=== PATIENT | female | born 1990 | race Hispanic/Latino ===

== ENCOUNTER 2016-08-03 00:59 | Emergency (ER) | payer SELFPAY ==
[~2016-08-03] VITALS: Ht 165.1 cm; Wt 68.0 kg
[~2016-08-03 00:59] MED LIST: ACET1TAB43 PO; ACHD5005 PO; ALBU1.25 IH; AMOX500C2 PO; BENZ56AE TP; CEFU250T PO; CEPH-507 PO; CODE-54 PO; DBC1O30 TOP; DCS100C PO; DOCU-143 PO; FERR-74 PO; FRS325T PO; IBUP-1773 PO; Ibuprofen PO; NITR-65 PO; ONDA-42 SL; ONDA8TAB13 PO; POLY17PO6 PO; PRED20TA PO; PREN1TAB71 PO; RT-ALBUINH IH
--- OUTSIDE RECORDS SUMMARY | 2016-08-03 01:06 | XMS REPORT | Continuity of Care Document ---
Author Author [facility] Organization [facility] Address Unknown Phone Unavailable Care Team Providers Care Flight Deck Officer Name Role Phone CLAYTON BAHENA MD PCP Insurance Providers Payer Name Policy Number Subscriber Name Relationship Self Pay Jeannie Hernandez 18 Self / Same As Patient Advance Directives Directive Response Recorded Date/Time Advance Directives No 02/12/16 12:13pm Organ Donor No 01/21/16 11:10pm Resuscitation Status Full Code 02/12/16 12:13pm Chief Complaint and Reason for Visit Chief Complaint Respiratory Problems Reason for Visit Acute asthma exacerbation Problems Active Problems Medical Problem Onset Date Status Acute asthma exacerbation Unknown Acute Asthma attack Unknown Acute Bacteriuria during Unknown Acute Constipation Unknown Acute Generalized colicky abdominal pain Unknown Acute Headache Unknown Acute Nausea and vomiting Unknown Acute Normal intrauterine on ultrasound in second trimester Unknown Acute Suprapubic pain Unknown Acute Urinary tract infection Unknown Acute Yeast infection Unknown Acute Medications Current Home Medications Medication Dose Units Route Directions Days/Qty Instructions Start Date Vit/Fe Fumarate/Fa 1 Each 1 Each Oral Daily 10/06/13 Albuterol Sulfate 1.25 Mg/3 Ml 1.25 Mg Inhalation Three Times A Day 1 02/12/16 Albuterol Sulfate 8.5 Gm 1-2 Puff Inhalation Every 4HRS as needed for Wheezing 1 02/12/16 Past Home Medications Medication Directions Ordered Status Nitrofurantoin Macrocrystals 100 Mg Capsule, 1 Each Oral Twice A Day Discontinued Ondansetron 8 Mg Tab.rapdis, 8 Mg Oral Every 6 Hours as needed for Nausea/ Vomiting 09/21/13 Discontinued Acetaminophen/Hydrocodone Bitart 1 Each Tablet, 1 Each Oral Every 4HRS as needed for Pain 09/21/13 Discontinued Nitrofurantoin Macrocrystals 100 Mg Capsule, 1 Each Oral Twice A Day Discontinued Ondansetron Hcl 4 Mg Tab, 4 Mg Sublingual Every 4HRS 10/06/13 Discontinued Acetaminophen/Codeine 1 Tab Tablet, 1-2 Tab Oral Every 4HRS as needed for Moderate To Severe Pain 04/06/14 Discontinued Benzocaine/Menthol 56 Ml Aerosol, 56 Ml Topical As Directed as needed for Pain 04/06/14 Discontinued Dibucaine 30 Gm Oint, 0 Gm Topically As Directed as needed for Pain 04/06/14 Discontinued Ferrous Sulfate 325 Mg Tab, 325 Mg Oral Daily 04/06/14 Discontinued [Ibuprofen] 600 Mg Tab, 600 Mg Oral Every 6 Hours 04/06/14 Discontinued Docusate Sodium 100 Mg Capsule, 1 Cap Oral Daily as needed for Constipation 04/06/14 Discontinued Prednisone 20 Mg Tablet, 40 Mg Oral Daily 01/04/15 Discontinued Polyethylene Glycol 3350 17 Gm Powd.pack, 17 Gm Oral Twice A Day for Constipation 02/21/15 Discontinued Polyethylene Glycol 3350 17 Gm Powd.pack, 17 Gm Oral Twice A Day for Constipation 02/21/15 Discontinued Amoxicillin 500 Mg Capsule, 500 Mg Oral Three Times A Day 11/20/15 Discontinued Cephalexin 500 Mg Capsule, 500 Mg Oral Three Times A Day 12/13/15 Discontinued Cefuroxime Axetil 250 Mg Tablet, 250 Mg Oral Twice A Day 01/22/16 Discontinued Social History Social History Problem Response Recorded Date/Time Alcohol Use Denies Use 01/21/2016 11:10pm Recreational Drug Use No 01/21/2016 11:10pm Recent Foreign Travel No 02/12/2016 12:13pm Recent Infectious Disease Exposure No 02/12/2016 12:13pm Smoking Status Never a Smoker 02/12/2016 12:13pm Do you dip or chew tobacco? No 01/21/2016 11:10pm Recent Hopitalizations No 02/12/2016 12:13pm Query Response Start Date Stop Date Smoking Status Never a Smoker Hospital Discharge Instructions No hospital discharge instructions. Plan of Care Discharge Date 02/12/16 2:28pm Disposition 01 HOME, SELF-CARE Condition at Discharge Improved Instructions/Education Provided Asthma (ED) Prescriptions See Medication Section Referrals CLAYTON BAHENA MD - Primary Care Physician Functional Status No functional status results. Allergies, Adverse Reactions, Alerts No known allergies. Immunizations No immunization records. Vital Signs Acute Vital Signs Vital Response Date/Time Temperature (Fahrenheit) 97.1 degrees F (97.6 - 99.5) 02/12/2016 12:13pm Temperature (Calculated Celsius) 36.27135 degrees C (36.4 - 37.5) 02/12/2016 12:13pm Temperature Source Temporal 02/12/2016 12:13pm Pulse Rate (adult) 96 bpm (60 - 90) 02/12/2016 12:13pm Respiratory Rate 18 bpm (12 - 24) 02/12/2016 12:13pm O2 Sat by Pulse Oximetry 100 % (88 - 100) 02/12/2016 1:03pm Blood Pressure 129/78 mm Hg 02/12/2016 12:13pm Blood Pressure Mean 95 mm Hg 02/12/2016 12:13pm Pain Numeric Pain Scale 8 02/12/2016 12:13pm Height (Feet) 5 feet 02/12/2016 12:13pm Height (Inches) 4 inches 02/12/2016 12:13pm Height (Calculated Centimeters) 162.370319 cm 02/12/2016 12:13pm Weight (Pounds) 130 pounds 02/12/2016 12:13pm Weight (Ounces) 8 oz 02/12/2016 12:13pm Weight (Calculated Grams) 28064.805 gm 02/12/2016 12:13pm Weight (Calculated Kilograms) 59.594311 kilograms 02/12/2016 12:13pm Calculated BMI 23.91 02/12/2016 12:13pm Capillary Refill Capillary Refill Less Than 3 Seconds 02/12/2016 12:13pm Results Pending Laboratory Results Test Name Collection Date/Time Procedures No known history of procedures. Encounters Encounter Location Arrival/Admit Date Discharge/Depart Date Attending Provider Registered Emergency Room [facility] 02/12/16 12:13pm HENRIK KHAN MD Registered Clinic [facility] 02/12/16 11:55am CLAYTON BAHENA MD Departed Emergency Room [facility] 01/21/16 10:57pm 2:42am KATHARINE REYES DO Registered Clinic [facility] 01/21/16 10:53pm CLAYTON BAHENA MD Recent Diagnosis
[2016-08-03 02:47] LABS: BILIRUBIN,URINE NEGATIVE (NEGATIVE); KETONES,URINE NEGATIVE (NEGATIVE); LEUKOCYTE ESTERASE ,URINE 2+ (NEGATIVE); NITRITE,URINE NEGATIVE (NEGATIVE); PH,URINE 5 (5-9); PROTEIN,URINE NEGATIVE (NEGATIVE); UROBILINOGEN,URINE NORMAL (NORMAL)
--- NOTE | 2016-08-03 02:49 | ED GU-Female ---
General Chief Complaint: Abdominal/GI Problems Stated Complaint: FEVER,VOMITING,ABD PAIN,GAVE ON 06-21-16 Nursing Triage Note: complaint of abdominal and back pain states fever also Nursing Sepsis Screen: No Definite Risk Source: patient Exam Limitations: no limitations History of Present Illness Time seen by provider: 02:25 Initial Comments Here with suprapubic abdominal pain and fever of 104 tonight. States that she has had pain pretty much since she had her baby last month mid month. Does complain of some vaginal bleeding after delivery. Denies nausea or vomiting. Denies breathing problems. Timing/Duration: week, getting worse Severity/Quality: mild, moderate, aching Location: suprapubic Radiation: none Activities at Onset: none Modifying Factors: Worsens With Movement, Worsens With Urinating Associated Symptoms: abdominal pain dysuria fever/chills lower back painNo nausea/vomiting Allergies and Home Medications Allergies Coded Allergies: No Known Drug Allergies (Unverified , 11/20/15) Home Medications Acetaminophen with Codeine 1 Each Tablet #30 1-2 TAB PO Q4H PRN PRN MODERATE TO SEVERE PAIN Prescribed by: LACEY GARIBAY on 06/19/162143 Docusate Sodium 100 Mg Capsule #60 100 MG PO BID PRN PRN CONSTIPATION Prescribed by: LACEY GARIBAY on 06/19/162143 Ferrous Sulfate 325 Mg Tablet #60 325 MG PO DAILY Prescribed by: LACEY GARIBAY on 06/19/162143 Ibuprofen 600 Mg Tablet #80 600 MG PO Q6H Prescribed by: LACEY GARIBAY on 06/19/162143 Vit/Fe Fumarate/Fa 1 Each Tablet 1 EACH PO DAILY (Reported) Constitutional: see HPI EENTM: no symptoms reported Respiratory: no symptoms reported Cardiovascular: no symptoms reported Gastrointestinal: see HPI abdominal pain constipationNo diarrhea, No nausea, No vomiting Genitourinary: see HPI discharge dysuria Musculoskeletal: no symptoms reported Skin: no symptoms reported All Other Systemes Reviewed Negative Unless Noted: Yes Past Wjbjmyx-Xswguq-[id number] Hx Patient Social History Alcohol Use: Denies Use Recreational Drug Use: No Smoking Status: Never a Smoker Recent Foreign Travel: No Contact w/Someone Who Travel: No Recent Infectious Disease Expo: No Recent Hopitalizations: No Immunizations Up To Date Tetanus Booster (TDap): Less than 5yrs PED Vaccines UTD: Yes Date of Influenza Vaccine: Apr 11, 2016 Seasonal Allergies Seasonal Allergies: No Surgeries HX Surgeries: No Respiratory Hx Respiratory Disorders: Yes Respiratory Disorders: Asthma Cardiovascular Hx Cardiac Disorders: No Neurological Hx Neurological Disorders: No Reproductive System : No Hx Reproductive Disorders: No Genitourinary Hx Genitourinary Disorders: No Gastrointestinal Hx Gastrointestinal Disorders: No Gastrointestinal Disorders: Chronic Constipation Musculoskeletal Hx Musculoskeletal Disorders: No Endocrine Hx Endocrine Disorders: No HEENT HX ENT Disorders: No Cancer Hx Cancer: No Psychosocial Hx Psychiatric Problems: No Integumentary HX Skin/Integumentary Disorder: No Blood Transfusions Hx Blood Disorders: No Adverse Reaction to a Blood Tr: No Reviewed Nursing Assessment Reviewed/Agree w Nursing PMH: Yes Family Medical History Significant Family History: No Pertinent Family Hx Family Medial History: Patient reports no known family medical history. Physical Exam Vital Signs Vital Sign - Last 12Hours 08/03/16 02:18 Temp 98.2 Pulse 103 Resp 20 B/P 106/66 Pulse Ox 100 O2 Delivery Room Air Capillary Refill : NONE General Appearance: WD/WN no apparent distress HEENT: PERRL/EOMI pharynx normal Neck: full range of motion supple Cardiovascular: regular rate, rhythm no murmur Respiratory: lungs clear normal breath sounds Gastrointestinal: soft tenderness (suprapubic) Pelvic: no cerv. motion tenderNo discharge, tender w/ cervical motion tender adnexaNo vaginal bleeding Back: normal inspection no CVA tenderness no vertebral tenderness Extremities: non-tender normal inspection Neurologic/Psychiatric: alert oriented x 3 Skin: normal color warm/dry Progress/Results/Core Measures Results/Orders Lab Results Laboratory Tests Test 08/03/16 02:35 08/03/16 04:24 08/03/16 05:00 Range/Units Urine Bacteria TRACE /HPF Urine Bilirubin NEGATIVE NEGATIVE Urine Casts NONE /LPF Urine Clarity CLEAR Urine Color YELLOW Urine Crystals NONE /LPF Urine Culture Indicated NO Urine Glucose (UA) NEGATIVE NEGATIVE Urine Ketones NEGATIVE NEGATIVE Urine Leukocyte Esterase 2+ H NEGATIVE Urine Mucus NEGATIVE /LPF Urine Nitrite NEGATIVE NEGATIVE Urine Protein NEGATIVE NEGATIVE Urine RBC NONE /HPF Urine RBC (Auto) NEGATIVE NEGATIVE Urine Specific [place] 1.010 L 1.016-1.022 Urine Squamous Epithelial Cells RARE /HPF Urine Urobilinogen NORMAL NORMAL MG/DL Urine WBC RARE /HPF Urine pH 5 5-9 Alanine Aminotransferase (ALT/SGPT) 29 0-55 U/L Albumin 4.0 3.2-4.5 G/DL Alkaline Phosphatase 128 40-136 U/L Anion Gap 9 5-14 MMOL/L Aspartate Amino Transf (AST/SGOT) 19 5-34 U/L BUN/Creatinine Ratio 18 Basophils # (Auto) 0.0 0.0-0.1 10^3/uL Basophils (%) (Auto) 0 0-10 % Blood Urea Nitrogen 14 7-18 MG/DL C-Reactive Protein High Sensitivity 2.97 H 0.00-0.50 MG/DL Calcium Level 8.8 8.5-10.1 MG/DL Carbon Dioxide Level 19 L 21-32 MMOL/L Chloride Level 108 H 98-107 MMOL/L Creatinine 0.76 0.60-1.30 MG/DL Eosinophils # (Auto) 0.0 0.0-0.3 10^3/uL Eosinophils (%) (Auto) 0 0-10 % Estimat Glomerular Filtration Rate > 60 Glucose Level 96 70-105 MG/DL Hematocrit 38 35-52 % Hemoglobin 13.0 11.5-16.0 G/DL Lymphocytes # (Auto) 0.7 L 1.0-4.0 X 10^3 Lymphocytes (%) (Auto) 15 12-44 % Mean Corpuscular Hemoglobin 30 25-34 PG Mean Corpuscular Hemoglobin Concent 34 32-36 G/DL Mean Corpuscular Volume 88 80-99 FL Mean Platelet Volume 9.6 7.4-10.4 FL Monocytes # (Auto) 0.2 0.0-1.0 X 10^3 Monocytes (%) (Auto) 4 0-12 % Neutrophils # (Auto) 4.1 1.8-7.8 X 10^3 Neutrophils (%) (Auto) 81 H 42-75 % Platelet Count 179 130-400 10^3/uL Potassium Level 4.0 3.6-5.0 MMOL/L Red Blood Count 4.31 L 4.35-5.85 10^6/uL Red Cell Distribution Width 12.6 10.0-14.5 % Sodium Level 136 135-145 MMOL/L Total Bilirubin 0.3 0.1-1.0 MG/DL Total Protein 6.7 6.4-8.2 G/DL White Blood Count 5.0 4.3-11.0 10^3/uL Micro Results Microbiology 08/03/16 Influenza Types A,B Antigen (SONJA) - Final, Complete My Orders Orders-CRISTHIAN MORLEY MD Ua Culture If Indicated (08/03/16 02:32) Influenza A And B Antigens (08/03/16 02:32) Heparin (Bolus Per Protocol) (Heparin (B (08/03/16 04:07) Heparin Drip 55472 Unit/500ml (Heparin (08/03/16 04:07) Cbc With Automated Diff (08/03/16 04:16) Comprehensive Metabolic Panel (08/03/16 04:16) Hs C Reactive Protein (08/03/16 04:16) Wet Prep (08/03/16 04:16) Neisseria Gonorrhea Dna (08/03/16 04:16) Chlamydia Dna (08/03/16 04:16) Genital Culture (08/03/16 04:16) Ceftriaxone Injection (Rocephin Injectio (08/03/16 05:30) Azithromycin Tablet (Zithromax Tablet) (08/03/16 05:17) Lidocaine 1% Injection (Xylocaine 1% Inj (08/03/16 05:30) Vital Signs/I&O Vital Sign - Last 12Hours 08/03/16 02:18 Temp 98.2 Pulse 103 Resp 20 B/P 106/66 Pulse Ox 100 O2 Delivery Room Air Blood Pressure Mean: 79 Progress Note : Progress Note Seen and evaluated. UA and influenza screen done. Monitor patient. UA results noted. Pelvic exam done. Patient now admits that she is sexually active yesterday. She has had intermittent fevers since delivery of her baby. Noted fever for the last few days. She has had some vaginal bleeding but that has decreased throughout the timeframe. 0510: Wet prep shows WBCs but otherwise negative. We will treat for cervicitis. Rocephin 1 gm IM and Zithromax 1 g by mouth. We will continue outpatient treatment with Flagyl. Discharged home with return precautions. Patient verbalize understanding instructions and agreement with plan. [address] Hinds, on- call for Dr. Zaidi. She agrees. Departure Impression Impression: Primary Impression: Suprapubic pain Additional Impressions: Fever Qualified Code: R50.9 - Fever, unspecified Cervicitis Disposition: HOME, SELF-CARE Condition: Stable (ERASED) Departure-Patient Inst. Decision time for Depature: 05:28 Referrals: CLAYTON ZAIDI MD (PCP/Family) Primary Care Physician Patient Instructions: Acute Abdomen (Belly Pain), Adult (DC), Acute Pelvic Pain (DC), Fever, Adult (DC) Add. Discharge Instructions: All discharge instructions reviewed with patient and/or family. Voiced understanding. Continue ibuprofen 800 mg every 8 hours as needed for fever or pain. You may use Tylenol 1000 mg every 8 hours as needed for fever or pain. Follow-up with Dr. Zaidi next week for recheck and further evaluation. Return for worse pain , fever, vomiting, weakness, breathing problems or other concerns as needed. Scripts Metronidazole 500 Mg [id number] Mg PO BID #14 TAB Prov:CRISTHIAN MORLEY MD 08/03/16 CRISTHIAN MORLEY MD Aug 03, 2016 02:49
[2016-08-03 02:54] LABS: SQUAMOUS EPITHELIAL CELL,UR RARE /HPF; WBC,URINE RARE /HPF
[2016-08-03] MEDS ORDERED: HEParin 1000 UNIT/ML (10ML VIAL) FOR BOLUS ONE (04:07)
[2016-08-03] MEDS ORDERED: HEParin DRIP 25000 UNIT/500ML 500 ML IV ONE (04:07)
[2016-08-03 04:33] LABS: BASOPHILS % (AUTO) 0 % (0-10); EOSINOPHILS % (AUTO) 0 % (0-10); LYMPHOCYTES # (AUTO) 0.7 X 10^3 (1.0-4.0); LYMPHOCYTES % (AUTO) 15 % (12-44); MEAN CORPUSCULAR HEMOGLOBIN 30 PG (25-34); MEAN CORPUSCULAR HGB CONC 34 G/DL (32-36); MEAN CORPUSCULAR VOLUME 88 FL (80-99); MEAN PLATELET VOLUME 9.6 FL (7.4-10.4); MONOCYTES # (AUTO) 0.2 X 10^3 (0.0-1.0); MONOCYTES % (AUTO) 4 % (0-12); NEUTROPHILS # (AUTO) 4.1 X 10^3 (1.8-7.8); NEUTROPHILS % (AUTO) 81 % (42-75); PLATELET COUNT 179 10^3/uL (130-400); RED BLOOD COUNT 4.31 10^6/uL (4.35-5.85); RED CELL DISTRIBUTION WIDTH 12.6 % (10.0-14.5)
[2016-08-03 04:53] LABS: ALANINE AMINOTRANSFERASE 29 U/L (0-55); ANION GAP 9 MMOL/L (5-14); ASPARTATE AMINO TRANSFERASE 19 U/L (5-34); BILIRUBIN,TOTAL 0.3 MG/DL (0.1-1.0); BLOOD UREA NITROGEN 14 MG/DL (7-18); BUN/CREATININE RATIO 18; CALCIUM 8.8 MG/DL (8.5-10.1); CARBON DIOXIDE 19 MMOL/L (21-32); CHLORIDE 108 MMOL/L (98-107); CREATININE SERUM 0.76 MG/DL (0.60-1.30); GFR ESTIMATED > 60; GLUCOSE 96 MG/DL (70-105); SODIUM 136 MMOL/L (135-145); TOTAL PROTEIN 6.7 G/DL (6.4-8.2); hs C REACTIVE PROTEIN 2.97 MG/DL (0.00-0.50)
[2016-08-03] MEDS ORDERED: AZITHROMYCIN 250 MG TAB (ZITHROMAX) PO STA (05:17)
[2016-08-03] MEDS ORDERED: METR500T21 PO (05:29)
[2016-08-03] MEDS ORDERED: cefTRIAXone 1 GM (ROCEPHIN) VIAL IM ONE (05:30)
[2016-08-03] MEDS ORDERED: LIDOCAINE 1% INJ 20 ML (XYLOCAINE) VIAL INJ ONE (05:30)
[2016-08-03 05:43] VITALS: BP 100/58
== END 2016-08-03 05:43 | disposition home or self-care (01) ==
LOC: EDUNIT# 00:59 → ER 01:01
DX: R10.2 Pelvic and perineal pain (principal); N72 Inflammatory disease of cervix uteri; R50.9 Fever, unspecified
CPT/HCPCS: 36415; 80053; 81000; 85025; 86141; 87070; 87077; 87210; 87491; 87591; 87804; 96372; 99284

== ENCOUNTER 2017-02-20 00:59 | Emergency (ER) | payer SELFPAY ==
[~2017-02-20] VITALS: Ht 165.1 cm; Wt 68.1 kg
[~2017-02-20 00:59] MED LIST changes: +METR500T21 PO
--- NOTE | 2017-02-20 01:22 | ED Abdominal Pain ---
General Chief Complaint: Abdominal/GI Problems Stated Complaint: AB PAIN Source of Information: Patient, Family ([id number] and brotherin law) Exam Limitations: Language Barrier History of Present Illness Time Seen By Provider: 01:20 Initial Comments Patient presents to ER as a exclusive Faroese Rodriguez at interpretation services provided by the [id number]. She has a chief complaint of to 3 months progressively worsening intermittent left-sided abdominal pain that today he has been constant sharp and accompanied with loose stools and nausea on the pain is worse. She says in the past spicy food and greasy foods has made her left-sided abdominal pain worse. She is seen by [facility] but she has never had this worked up by them before because it was always intermittent and moderate pain. She has had no sections or surgeries on her abdomen but she has had 2 children naturally. Her last menstrual period began approximately 6 days ago. She's not had any rash fevers chills sweats or shortness of breath. Allergies and Home Medications Allergies Coded Allergies: No Known Drug Allergies (Unverified , 11/20/15) Home Medications No Active Prescriptions or Reported Meds Review of Systems Constitutional: No chills, No diaphoresis, No fever, No malaise Respiratory: Denies Cough, Denies Shortness of Air Cardiovascular: Denies Chest Pain, Denies Lightheadedness, Denies Palpitations Gastrointestinal: See HPI, Diarrhea, Nausea, Vomiting Genitourinary: Denies Burning, Denies Discharge Musculoskeletal: No back pain, No joint pain Skin: No pruritus, No rash Past Lxhwecq-Yjmmzj-Crssuf Hx Patient Social History Alcohol Use: Denies Use Recreational Drug Use: No Smoking Status: Never a Smoker Recent Foreign Travel: No Contact w/Someone Who Travel: No Recent Hopitalizations: No Immunizations Up To Date Tetanus Booster (TDap): Less than 5yrs PED Vaccines UTD: Yes Date of Influenza Vaccine: Apr 11, 2016 Seasonal Allergies Seasonal Allergies: No Surgeries HX Surgeries: No Respiratory Hx Respiratory Disorders: Yes Respiratory Disorders: Asthma Cardiovascular Hx Cardiac Disorders: No Neurological Hx Neurological Disorders: No Reproductive System Hx Reproductive Disorders: No Genitourinary Hx Genitourinary Disorders: No Gastrointestinal Hx Gastrointestinal Disorders: No Gastrointestinal Disorders: Chronic Constipation Musculoskeletal Hx Musculoskeletal Disorders: No Endocrine Hx Endocrine Disorders: No HEENT HX ENT Disorders: No Cancer Hx Cancer: No Psychosocial Hx Psychiatric Problems: No Integumentary HX Skin/Integumentary Disorder: No Blood Transfusions Hx Blood Disorders: No Adverse Reaction to a Blood Tr: No Family Medical History Significant Family History: No Pertinent Family Hx Family Medial History: Patient reports no known family medical history. Physical Exam Vital Signs VS - Last 72 Hours, by Label 02/20/17 01:17 Temp 97.7 Pulse 72 Resp 18 B/P (MAP) 113/83 Pulse Ox 100 O2 Delivery Room Air Capillary Refill : General Appearance: WD/WN, mild distress HEENT: PERRL/EOMI, pharynx normal Neck: non-tender, normal inspection Respiratory: lungs clear, normal breath sounds Cardiovascular: normal peripheral pulses, regular rate, rhythm Peripheral Pulses: 2+ Dorsalis Pedis (R), 2+ Left Dors-Pedis (L) Gastrointestinal: normal bowel sounds, soft, tenderness (left lower quadrant tenderness) Extremities: normal range of motion, non-tender, normal inspection, no pedal edema, normal capillary refill Back: normal inspection, no CVA tenderness, no vertebral tenderness Neurologic/Psychiatric: alert, oriented x 3 Skin: normal color, warm/dry Progress/Results/Core Measures Results/Orders Lab Results Laboratory Tests Test 02/20/17 01:30 Range/Units White Blood Count 7.8 4.3-11.0 10^3/uL Red Blood Count 4.52 4.35-5.85 10^6/uL Hemoglobin 13.2 11.5-16.0 G/DL Hematocrit 39 35-52 % Mean Corpuscular Volume 85 80-99 FL Mean Corpuscular Hemoglobin 29 25-34 PG Mean Corpuscular Hemoglobin Concent 34 32-36 G/DL Red Cell Distribution Width 12.7 10.0-14.5 % Platelet Count 196 130-400 10^3/uL Mean Platelet Volume 10.3 7.4-10.4 FL Neutrophils (%) (Auto) 58 42-75 % Lymphocytes (%) (Auto) 34 12-44 % Monocytes (%) (Auto) 6 0-12 % Eosinophils (%) (Auto) 2 0-10 % Basophils (%) (Auto) 0 0-10 % Neutrophils # (Auto) 4.5 1.8-7.8 X 10^3 Lymphocytes # (Auto) 2.7 1.0-4.0 X 10^3 Monocytes # (Auto) 0.4 0.0-1.0 X 10^3 Eosinophils # (Auto) 0.2 0.0-0.3 10^3/uL Basophils # (Auto) 0.0 0.0-0.1 10^3/uL Urine Color YELLOW Urine Clarity CLEAR Urine pH 6 5-9 Urine Specific [place] 1.015 L 1.016-1.022 Urine Protein NEGATIVE NEGATIVE Urine Glucose (UA) NEGATIVE NEGATIVE Urine Ketones NEGATIVE NEGATIVE Urine Nitrite NEGATIVE NEGATIVE Urine Bilirubin NEGATIVE NEGATIVE Urine Urobilinogen NORMAL NORMAL MG/DL Urine Leukocyte Esterase NEGATIVE NEGATIVE Urine RBC (Auto) NEGATIVE NEGATIVE Urine RBC NONE /HPF Urine WBC NONE /HPF Urine Squamous Epithelial Cells 10-25 H /HPF Urine Crystals NONE /LPF Urine Bacteria NEGATIVE /HPF Urine Casts NONE /LPF Urine Mucus SMALL H /LPF Urine Culture Indicated NO Urine Test NEGATIVE NEGATIVE Sodium Level 139 135-145 MMOL/L Potassium Level 4.0 3.6-5.0 MMOL/L Chloride Level 106 98-107 MMOL/L Carbon Dioxide Level 21 21-32 MMOL/L Anion Gap 12 5-14 MMOL/L Blood Urea Nitrogen 17 7-18 MG/DL Creatinine 0.74 0.60-1.30 MG/DL Estimat Glomerular Filtration Rate > 60 BUN/Creatinine Ratio 23 Glucose Level 87 70-105 MG/DL Calcium Level 9.2 8.5-10.1 MG/DL Magnesium Level 2.2 1.8-2.4 MG/DL Total Bilirubin 0.3 0.1-1.0 MG/DL Aspartate Amino Transf (AST/SGOT) 18 5-34 U/L Alanine Aminotransferase (ALT/SGPT) 17 0-55 U/L Alkaline Phosphatase 115 40-136 U/L Total Protein 7.6 6.4-8.2 GM/DL Albumin 4.6 H 3.2-4.5 GM/DL Lipase 41 8-78 U/L Urine Opiates Screen NEGATIVE NEGATIVE Urine Oxycodone Screen NEGATIVE NEGATIVE Urine Methadone Screen NEGATIVE NEGATIVE Urine Propoxyphene Screen NEGATIVE NEGATIVE Urine Barbiturates Screen NEGATIVE NEGATIVE Ur Tricyclic Antidepressants Screen NEGATIVE NEGATIVE Urine Phencyclidine Screen NEGATIVE NEGATIVE Urine Amphetamines Screen NEGATIVE NEGATIVE Urine Methamphetamines Screen NEGATIVE NEGATIVE Urine Benzodiazepines Screen NEGATIVE NEGATIVE Urine Cocaine Screen NEGATIVE NEGATIVE Urine Cannabinoids Screen NEGATIVE NEGATIVE My Orders Orders - MISTY SAMANIEGO Ct Abdomen/Pelvis Wo (02/20/17 01:22) Saline Lock/Iv-Start (02/20/17 01:22) Cbc With Automated Diff (02/20/17 01:22) Comprehensive Metabolic Panel (02/20/17 01:22) Drug Screen Stat (Urine) (02/20/17 01:22) Hcg,Qualitative Urine (02/20/17 01:22) Lipase (02/20/17 01:22) Magnesium (02/20/17 01:22) Ua Culture If Indicated (02/20/17 01:22) Ondansetron Injection (Zofran Injectio (02/20/17 01:30) Hyoscyamine Er Tablet (Levbid Er Tablet) (02/20/17 02:30) Hyoscyamine Sl Tablet (Levsin Sl Tablet) (02/20/17 02:25) Medications Given in ED Current Medications Medications Dose Ordered Sig/Gomez Route Start Time Stop Time Status Last Admin Dose Admin Hyoscyamine Sulfate 0.125 mg STK-MED ONCE .ROUTE 02/20/17 02:25 02/20/17 02:32 DC 02/20/17 02:33 0.125 MG Ondansetron HCl 4 mg ONCE ONCE IVP 02/20/17 01:30 02/20/17 01:31 DC 02/20/17 01:38 4 MG Vital Signs/I&O Vital Sign - Last 12Hours 02/20/17 01:17 Temp 97.7 Pulse 72 Resp 18 B/P (MAP) 113/83 Pulse Ox 100 O2 Delivery Room Air Diagnostic Imaging Diagonstic Imaging: CT Plain Films/CT/US/NM/MRI: abdomen, pelvis Comments No evidence of acute intra-abdominal pathology. Appendix is normal without evidence running [place] or change. Small amount of pelvic free fluid likely physiologic. No free air. Bowel is normal in caliber. Liver spleen pancreas gallbladder and kidneys are unremarkable. Departure Impression Impression: Primary Impression: Abdominal wall pain Disposition: HOME, SELF-CARE Condition: Stable Departure-Patient Inst. Decision time for Depature: 02:52 Referrals: NO,LOCAL PHYSICIAN (PCP) Primary Care Physician Patient Instructions: Irritable Bowel Syndrome (DC) Add. Discharge Instructions: Drink plenty of fluids and bulk up on the fiber in your diet. Call your primary care physician tomorrow morning to get an appointment to follow up your abdominal pain. Avoid things that make your pain worse. If you develop high fever or intractable nausea vomiting you may return to the ER. If you have nausea you can take the Zofran and place one tablet under your tongue allowed to absorb every 6 hours as needed. I will send you a prescription for hyoscyamine to the pharmacy to be picked up and taken 1 tablet 4 times a day as needed for your abdominal pain. All discharge instructions reviewed with patient and/or family. Voiced understanding. Scripts Hyoscyamine Sulfate (Hyoscyamine Sulfate) 0.125 Mg Tab.rapdis 0.125 MG PO QID Y for ABDOMINAL PAIN, #60 TAB 0 Refills Prov: MISTY SAMANIEGO 02/20/17 Ondansetron (Zofran Odt) 4 Mg Tab.rapdis 4 MG PO Q4H Y for NAUSEA/VOMITING-1ST LINE, #14 TAB 0 Refills Prov: MISTY SAMANIEGO 02/20/17 Work/School Note: Work Release Form Date Seen in the Emergency Department: Feb 20, 2017 Return to Work: Feb 20, 2017 Restrictions: No Restrictions MISTY SAMANIEGO Feb 20, 2017 01:22
[2017-02-20] MEDS ORDERED: ONDANSETRON 4 MG/2 ML (SDV) Z0FRAN IVP ONE (01:30)
[2017-02-20 01:46] LABS: BILIRUBIN,URINE NEGATIVE (NEGATIVE); KETONES,URINE NEGATIVE (NEGATIVE); LEUKOCYTE ESTERASE ,URINE NEGATIVE (NEGATIVE); NITRITE,URINE NEGATIVE (NEGATIVE); PH,URINE 6 (5-9); PROTEIN,URINE NEGATIVE (NEGATIVE); UROBILINOGEN,URINE NORMAL (NORMAL)
[2017-02-20 01:54] LABS: BASOPHILS % (AUTO) 0 % (0-10); EOSINOPHILS # (AUTO) 0.2 10^3/uL (0.0-0.3); EOSINOPHILS % (AUTO) 2 % (0-10); LYMPHOCYTES # (AUTO) 2.7 X 10^3 (1.0-4.0); LYMPHOCYTES % (AUTO) 34 % (12-44); MEAN CORPUSCULAR HEMOGLOBIN 29 PG (25-34); MEAN CORPUSCULAR HGB CONC 34 G/DL (32-36); MEAN CORPUSCULAR VOLUME 85 FL (80-99); MEAN PLATELET VOLUME 10.3 FL (7.4-10.4); MONOCYTES # (AUTO) 0.4 X 10^3 (0.0-1.0); MONOCYTES % (AUTO) 6 % (0-12); NEUTROPHILS # (AUTO) 4.5 X 10^3 (1.8-7.8); NEUTROPHILS % (AUTO) 58 % (42-75); PLATELET COUNT 196 10^3/uL (130-400); RED BLOOD COUNT 4.52 10^6/uL (4.35-5.85); RED CELL DISTRIBUTION WIDTH 12.7 % (10.0-14.5); WHITE BLOOD COUNT 7.8 10^3/uL (4.3-11.0)
[2017-02-20 02:07] LABS: ALANINE AMINOTRANSFERASE 17 U/L (0-55); ALBUMIN 4.6 GM/DL (3.2-4.5); ANION GAP 12 MMOL/L (5-14); ASPARTATE AMINO TRANSFERASE 18 U/L (5-34); BILIRUBIN,TOTAL 0.3 MG/DL (0.1-1.0); BLOOD UREA NITROGEN 17 MG/DL (7-18); BUN/CREATININE RATIO 23; CALCIUM 9.2 MG/DL (8.5-10.1); CARBON DIOXIDE 21 MMOL/L (21-32); CHLORIDE 106 MMOL/L (98-107); CREATININE SERUM 0.74 MG/DL (0.60-1.30); GFR ESTIMATED > 60; GLUCOSE 87 MG/DL (70-105); LIPASE 41 U/L (8-78); MAGNESIUM 2.2 MG/DL (1.8-2.4); SODIUM 139 MMOL/L (135-145); TOTAL PROTEIN 7.6 GM/DL (6.4-8.2)
[2017-02-20] MEDS ORDERED: HYOSCYAMINE 0.125 MG (LEVSIN) TAB ONE (02:25)
[2017-02-20] MEDS ORDERED: HYOSCYAMINE 0.375 MG (LEVBID) TAB PO ONE (02:30)
[2017-02-20] MEDS ORDERED: HYOS-6 PO (02:56)
[2017-02-20] MEDS ORDERED: ONDA4TAB8 PO (02:56)
[2017-02-20 03:01] VITALS: BP 101/71
--- OUTSIDE RECORDS SUMMARY | 2017-02-20 06:13 | XMS REPORT ---
Author Author MARIBELL RICHARDSON Organization [employer] Address Unknown Phone Unavailable Care Team Providers Care Pathology Transcriptionist Name Role Phone MARIBELL RICHARDSON CP Unavailable Allergies, Adverse Reactions, Alerts Substance Reaction Event Type N.K.D.A. Info Not Available Non Drug Allergy Problems Problem Type Condition Code Onset Dates Condition Status Problem Acute tonsillitis 463 Active Problem Diarrhea 787.91 Active Problem Unspecified contraceptive management V25.9 Active Assessment Positive test Z32.01 Active Assessment Absence of menses due to use of contraceptive N91.2 Active Problem Screening examination for venereal disease V74.5 Active Problem Screening for malignant neoplasm of the cervix V76.2 Active Problem Unspecified breast screening V76.10 Active Problem Infections of genitourinary tract in , unspecified as to episode of care 646.60 Active Problem Nausea with vomiting 787.01 Active Problem examination or test, positive result V72.42 Active Problem Supervision of other normal V22.1 Active Medications No Known Medications Procedures Procedure Coding System Code Date Office Visit, Est Pt., Level 3 CPT-4 43022 October 20, 2015 URINE TEST CPT-4 09352 October 20, 2015 Vital Signs Date/Time: October 20, 2015 Temperature 98.7 F Weight 125.4 lbs Height 64 in BMI 21.52 Index Blood Pressure Diastolic 70 mmHg Blood Pressure Systolic 118 mmHg Cardiac Monitoring Heart Rate 96 bpm Results No Known Results Summary Purpose [employer] Submission
--- OUTSIDE RECORDS SUMMARY | 2017-02-20 06:14 | XMS REPORT ---
Author AMBERLY Toure [facility] [employer] Address Unknown Phone Unavailable Care Team Providers Care Baby Sitter Name Role Phone AMBERLY SNEED CP Unavailable Allergies, Adverse Reactions, Alerts Substance Reaction Event Type N.K.D.A. Info Not Available Non Drug Allergy Problems Problem Type Condition Code Onset Dates Condition Status Problem Acute tonsillitis 463 Active Problem Diarrhea 787.91 Active Problem Unspecified contraceptive management V25.9 Active Problem Screening examination for venereal disease V74.5 Active Problem Screening for malignant neoplasm of the cervix V76.2 Active Problem Unspecified breast screening V76.10 Active Problem Infections of genitourinary tract in , unspecified as to episode of care 646.60 Active Problem Nausea with vomiting 787.01 Active Problem examination or test, positive result V72.42 Active Problem Supervision of other normal V22.1 Active Medications Medication Code System Code Instructions Start Date End Date Status Dosage Vitamin [facility] [address] 27-0.8 MG Orally not defined Results No Known Results Summary Purpose [employer] Submission
--- NOTE | 2017-02-20 07:11 | Diagnostic Imaging Report ---
PROCEDURE: CT abdomen and pelvis without contrast. TECHNIQUE: Multiple contiguous axial images were obtained through the abdomen and pelvis without the use of intravenous contrast. INDICATION: Low abdominal pain. EXAMINATION: CT abdomen and pelvis without contrast, 02/20/2017. COMPARISON: None. FINDINGS: Lung bases are clear with the osseous structures unremarkable. The nonopacified abdominal viscera are limited but no gross abnormality is seen in the liver or spleen. Gallbladder is unremarkable. Pancreas normal in appearance. Adrenal glands normal as well. No nephrolithiasis or hydronephrosis seen in either kidney. Right renal pelvis slightly prominent but likely due to an extrarenal pelvis with no distal obstructive process appreciated. Urinary bladder wall minimally thickened perhaps due to underdistention correlate for any symptoms of cystitis. There is a small amount of free fluid in the pelvis likely physiologic. Fat stranding in the subcutaneous soft tissues of the buttock region bilaterally likely iatrogenic correlate clinically. There is no free fluid or air in the abdomen with no lymphadenopathy appreciated. Small anterior abdominal wall hernia noted likely umbilical and contains fat. IMPRESSION: 1. Incidental findings as discussed above. No acute process visualized. Findings agree with the preliminary report. Dictated by: Dictated on workstation # [id number]
== END 2017-02-20 02:58 | disposition home or self-care (01) ==
LOC: EDUNIT# 00:59 → ER 01:04
DX: R10.32 Left lower quadrant pain (principal); J45.909 Unspecified asthma, uncomplicated
CPT/HCPCS: 36415; 74176; 80053; 80306; 81000; 83690; 83735; 84703; 85025; 96374

== ENCOUNTER 2017-08-12 13:15 | Emergency (ER) | payer SELFPAY ==
[~2017-08-12] VITALS: Ht 167.6 cm; Wt 65.8 kg
[~2017-08-12 13:15] MED LIST changes: -FERR-74 PO; +FERR325T18 PO; +HYOS-6 PO; +ONDA4TAB8 PO
--- OUTSIDE RECORDS SUMMARY | 2017-08-12 13:21 | XMS REPORT ---
Author Author MADELINE FELTON [facility] Address [address] [place] [address] Care Team Providers Care Product Mgr Name Role Phone MADELINE FELTON Unavailable PROBLEMS Type Condition ICD9-CM Code [id number]-CP Code Onset Dates Condition Status SNOMED Code Problem Irregular bleeding N92.6 Active 53921464 Problem Lumbago with sciatica, 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 Active 988237423 ALLERGIES No Information SOCIAL HISTORY Never Assessed PLAN OF CARE VITAL SIGNS MEDICATIONS Unknown Medications RESULTS Name Result Date Reference Range TEST, SERUM (QUAL) 2016-11-25 hCG,Beta Subunit,Qual,Serum Negative Negative <6 PROCEDURES Procedure Date Ordered Result Body Site CHORIONIC GONADOTROPIN ASSAY November 25, 2016 VENIPUNCT, ROUTINE* November 25, 2016 IMMUNIZATIONS No Known Immunizations MEDICAL (GENERAL) HISTORY Type Description Date Hospitalization History Childbirth
--- OUTSIDE RECORDS SUMMARY | 2017-08-12 13:24 | XMS REPORT | Continuity of Care Document ---
Author Author [facility] Address Unknown Phone Unavailable Allergies Active Description Code Type Severity Reaction Onset Reported/Identified Relationship to Patient Clinical Status Yes No Known Drug Allergies [id number] Drug Allergy Unknown N/A 11/20/2015 Medications There is no data. Problems Date Dx Coded Attending Type Code Diagnosis Diagnosed By 08/12/2013 LUANA CROOK, WENDY A V72.42 TEST POSITIVE RESULT 08/12/2013 LUANA PROJECT FINANCE ANALYST, WENDY A V74.5 STD SCREEN 08/12/2013 LUANA PROJECT FINANCE ANALYST, WENDY A V76.10 BREAST CANCER SCREENING 08/12/2013 LUANA PROJECT FINANCE ANALYST, WENDY A V76.2 CERVICAL CANCER SCREENING (PAP SMEAR) 08/12/2013 LUANA PROJECT FINANCE ANALYST, WENDY A V72.42 TEST POSITIVE RESULT 08/12/2013 LUANA PROJECT FINANCE ANALYST, WENDY A V74.5 STD SCREEN 08/12/2013 LUANA PROJECT FINANCE ANALYST, WENDY A V76.10 BREAST CANCER SCREENING 08/12/2013 LUANA PROJECT FINANCE ANALYST, WENDY A V76.2 CERVICAL CANCER SCREENING (PAP SMEAR) 08/12/2013 LUANA PROJECT FINANCE ANALYST, WENDY A V72.42 TEST POSITIVE RESULT 08/12/2013 LUANA PROJECT FINANCE ANALYST, WENDY A V74.5 STD SCREEN 08/12/2013 LUANA PROJECT FINANCE ANALYST, WENDY A V76.10 BREAST CANCER SCREENING 08/12/2013 LUANA PROJECT FINANCE ANALYST, WENDY A V76.2 CERVICAL CANCER SCREENING (PAP SMEAR) 08/12/2013 LUANA PROJECT FINANCE ANALYST, WENDY A V72.42 TEST POSITIVE RESULT 08/12/2013 LUANA PROJECT FINANCE ANALYST, WENDY A V74.5 STD SCREEN 08/12/2013 LUANA PROJECT FINANCE ANALYST, WENDY A V76.10 BREAST CANCER SCREENING 08/12/2013 LUANA PROJECT FINANCE ANALYST, WENDY A V76.2 CERVICAL CANCER SCREENING (PAP SMEAR) 09/09/2013 WENDY CRAFT APRN A 646.60 COMPL OF - UTI 09/09/2013 WENDY CRAFT APRN A 787.01 NAUSEA WITH VOMITING 09/09/2013 WENDY CRAFT APRN A V22.1 , NORMAL OTHER 09/09/2013 WENDY CRAFT APRN A 646.60 COMPL OF - UTI 09/09/2013 WENDY CRAFT APRN A 787.01 NAUSEA WITH VOMITING 09/09/2013 WENDY CRAFT APRN A V22.1 , NORMAL OTHER 09/09/2013 WENDY CRAFT APRN A 646.60 COMPL OF - UTI 09/09/2013 WENDY CRAFT APRN A 787.01 NAUSEA WITH VOMITING 09/09/2013 WENDY CRAFT APRN A V22.1 , NORMAL OTHER 09/16/2013 WENDY CRAFT APRN A 787.91 DIARRHEA 09/16/2013 WENDY CRAFT APRN A 787.91 DIARRHEA 09/21/2013 IMAN RICE Ot 599.0 URIN TRACT INFECTION NOS 09/21/2013 IMAN RICE Ot 646.63 INFECTION-ANTEPARTUM 09/21/2013 IMAN RICE Ot 789.00 ABDOMINAL PAIN, UNSPECIFIED SITE 10/06/2013 ABEL DALY DO Ot 599.0 URIN TRACT INFECTION NOS 10/06/2013 ABEL DALY DO Ot 646.63 INFECTION-ANTEPARTUM 10/06/2013 ABEL DALY DO Ot 789.00 ABDOMINAL PAIN, UNSPECIFIED SITE 04/07/2014 EMILIA WEATHERS, ANGELITA Gamble Ot 659.71 ABN DEL FET HT RT/RHYTHM,W OR W/O MENTIO 04/07/2014 ANGELITA NIETO MD Ot 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 04/07/2014 ANGELITA NIETO MD Ot 669.81 COMP LAB/DELIV NEC-DELIV 04/07/2014 ANGELITA NIETO MD Ot V06.1 [id number], COMBINED [ 04/07/2014 ANGELITA NIETO MD Ot V06.4 [id number] 04/07/2014 EMILIA MD, ANGELITA J Ot V27.0 DELIVER-SINGLE LIVEBORN 07/24/2014 WENDY CRAFT APRN V25.9 CONTRACEPTION MANAGEMENT 11/18/2014 WENDY CRAFT APRN Ot V28.89 11/18/2014 EMILIA WEATHERS, ANGELITA J Ot 553.20 11/18/2014 EMILIA WEATHERS, ANGELITA J Ot 625.9 11/18/2014 EMILIA WEATHERS, ANGELITA J Ot 626.8 11/18/2014 EMILIA WEATHERS, ANGELITA J Ot 789.00 11/18/2014 EMILIA WEATHERS, ANGELITA J Ot V22.2 11/18/2014 EMILIA WEATHERS, ANGELITA J Ot 789.03 11/18/2014 EMILIA WEATHERS, ANGELITA J Ot V28.81 12/16/2014 EMILIA WEATHERS, ANGELITA J Ot 787.03 12/16/2014 EMILIA WEATHERS, ANGELITA J Ot 789.04 12/16/2014 WENDY CRAFT APRN Ot V28.89 12/16/2014 EMILIA WEATHERS, ANGELITA J Ot 553.20 12/16/2014 EMILIA WEATHERS, ANGELITA J Ot 625.9 12/16/2014 EMILIA WEATHERS, ANGELITA J Ot 626.8 12/16/2014 EMILIA WEATHERS, ANGELITA J Ot 789.00 12/16/2014 EMILIA WEATHERS, ANGELITA J Ot V22.2 12/16/2014 EMILIA WEATHERS, ANGELITA J Ot 789.03 12/16/2014 EMILIA WEATHERS, ANGELITA J Ot V28.81 12/16/2014 EMILIA WEATHERS, ANGELITA J Ot 787.03 12/16/2014 EMILIA WEATHERS, ANGELITA J Ot 789.04 01/04/2015 WENDY CRAFT APRN Ot V28.89 01/04/2015 EMILIA WEATHERS, ANGELITA J Ot 553.20 01/04/2015 EMILIA WEATHERS, ANGELITA J Ot 625.9 01/04/2015 EMILIA WEATHERS, ANGELITA J Ot 626.8 01/04/2015 EMILIA WEATHERS, ANGELITA J Ot 789.00 01/04/2015 EMILIA WEATHERS, ANGELITA J Ot V22.2 01/04/2015 EMILIA WEATHERS, ANGELITA J Ot 789.03 01/04/2015 EMILIA WEATHERS, ANGELITA J Ot V28.81 01/04/2015 EMILIA WEATHERS, ANGELITA J Ot 787.03 01/04/2015 EMILIA WEATHERS, ANGELITA J Ot 789.04 01/05/2015 CRISTHIAN MORLEY MD Ot 493.90 ASTHMA, UNSPECIFIED 01/05/2015 CRISTHIAN MORLEY MD Ot 786.05 SHORTNESS OF BREATH 02/18/2015 EMILIA WEATHERS, ANGELITA Gamble Ot 787.03 02/18/2015 EMILIA WEATHERS, ANGELITA Gamble Ot 789.04 02/21/2015 KORY WEATHERS, ERIKA Castellano Ot 493.92 ASTHMA, UNSPECIFIED, W (ACUTE) EXACERBAT 02/21/2015 KORY WEATHERS, ERIKA T Ot 564.00 UNSPEC CONSTIPATION 02/21/2015 KORY WEATHERS, ERIKA T Ot 787.01 NAUSEA WITH VOMITING 02/21/2015 KORY WEATHERS, ERIAK T Ot 789.09 ABDOMINAL PAIN, OTHER SPECIFIED SITE 02/21/2015 ERIKA HORN MD T Ot J45.901 UNSPECIFIED ASTHMA WITH (ACUTE) EXACERBA 02/21/2015 ERIKA HORN MD T Ot K59.00 CONSTIPATION, UNSPECIFIED 02/21/2015 KORY WEATHERS, ERIKA T Ot R11.2 NAUSEA WITH VOMITING, UNSPECIFIED 02/22/2015 WENDY CRAFT PROJECT FINANCE ANALYST Ot V28.89 02/22/2015 EMILIA WEATHERS, ANGELITA Gamble Ot 553.20 02/22/2015 EMILIA WEATHERS, ANGELITA J Ot 625.9 02/22/2015 EMILIA WEATHERS, ANGELITA Gamble Ot 626.8 02/22/2015 EMILIA WEATHERS, ANGELITA Gamble Ot 789.00 02/22/2015 EMILIA WEATHERS, ANGELITA Gamble Ot V22.2 02/22/2015 EMILIA WEATHERS, ANGELITA J Ot 789.03 02/22/2015 EMILIA WEATHERS, ANGELITA J Ot V28.81 02/22/2015 EMILIA WEATHERS, ANGELITA J Ot 787.03 02/22/2015 EMILIA WEATHERS, ANGELITA J Ot 789.04 03/02/2015 EMILIA WEATHERS, ANGELITA J Ot 787.03 03/02/2015 EMILIA WEATHERS, ANGELITA J Ot 789.04 04/02/2015 WENDY CRAFT PROJECT FINANCE ANALYST Ot V28.89 04/02/2015 EMILIA WEATHERS, ANGELITA Gamble Ot 553.20 04/02/2015 EMILIA WEATHERS, ANGELITA J Ot 625.9 04/02/2015 EMILIA WEATHERS, ANGELITA J Ot 626.8 04/02/2015 ANGELITA NIETO MD Ot 789.00 04/02/2015 ANGELITA NIETO MD Ot V22.2 04/02/2015 ANGELITA NIETO MD Ot 789.03 04/02/2015 ANGELITA NIETO MD Ot V28.81 04/02/2015 ANGELITA NIETO MD Ot 787.03 04/02/2015 ANGELITA NIETO MD Ot 789.04 11/20/2015 WENDY CRAFT PROJECT FINANCE ANALYST Ot V28.89 OTHER SPECIFIED SCREENING 11/20/2015 ANGELITA NIETO MD Ot 553.20 VENTRAL HERNIA NOS 11/20/2015 ANGELITA NIETO MD Ot 625.9 FEM GENITAL SYMPTOMS NOS 11/20/2015 ANGELITA NIETO MD Ot 626.8 MENSTRUAL DISORDER NEC 11/20/2015 ANGELITA NIETO MD Ot 789.00 ABDOMINAL PAIN, UNSPECIFIED SITE 11/20/2015 ANGELITA NIETO MD Ot V22.2 PREG STATE, INCIDENTAL 11/20/2015 ANGELITA NIETO MD Ot 789.03 ABDOMINAL PAIN, RIGHT LOWER QUADRANT 11/20/2015 ANGELITA NIETO MD Ot V28.81 ENCOUNTER FOR ANATOMIC SURVEY 11/20/2015 ANGELITA NIETO MD Ot 787.03 VOMITING ALONE 11/20/2015 ANGELITA NIETO MD Ot 789.04 ABDOMINAL PAIN, LEFT LOWER QUADRANT 11/20/2015 SHAHRIAR YANES APRN Ot O23.41 UNSP INFCT OF URINARY TRACT IN 11/20/2015 SHAHRIAR YANES APRN Ot O23.591 INFECTION OTH PRT GENITL TRCT IN PREGNAN 11/20/2015 SHAHRIAR YANES APRN Ot O99.89 OTH DISEASES AND CONDITIONS COMPL PREG/C 11/20/2015 SHAHRIAR YANES PROJECT FINANCE ANALYST Ot Z3A.09 9 WEEKS GESTATION OF 11/20/2015 WENDY CRAFT PROJECT FINANCE ANALYST Ot V28.89 OTHER SPECIFIED SCREENING 11/20/2015 ANGELITA NIETO MD Ot 553.20 VENTRAL HERNIA NOS 11/20/2015 ANGELITA NIETO MD Ot 625.9 FEM GENITAL SYMPTOMS NOS 11/20/2015 ANGELITA NIETO MD Ot 626.8 MENSTRUAL DISORDER NEC 11/20/2015 ANGELITA NIETO MD Ot 789.00 ABDOMINAL PAIN, UNSPECIFIED SITE 11/20/2015 ANGELITA NIETO MD Ot V22.2 PREG STATE, INCIDENTAL 11/20/2015 ANGELIAT NIETO MD Ot 789.03 ABDOMINAL PAIN, RIGHT LOWER QUADRANT 11/20/2015 ANGELITA NIETO MD Ot V28.81 ENCOUNTER FOR ANATOMIC SURVEY 11/20/2015 ANGELITA NIETO MD Ot 787.03 VOMITING ALONE 11/20/2015 ANGELITA NIETO MD Ot 789.04 ABDOMINAL PAIN, LEFT LOWER QUADRANT 12/13/2015 SHAHRIAR YANES APRN Ot O23.41 UNSP INFCT OF URINARY TRACT IN 12/13/2015 SHAHRIAR YANES PROJECT FINANCE ANALYST Ot R51 HEADACHE 12/13/2015 SHAHRIAR YANES APRN Ot Z3A.12 12 WEEKS GESTATION OF 12/16/2015 SHAHRIAR YANES PROJECT FINANCE ANALYST Ot O23.41 UNSP INFCT OF URINARY TRACT IN 12/16/2015 SHAHRIAR YANES PROJECT FINANCE ANALYST Ot R51 HEADACHE 12/16/2015 SHAHRIAR YANES APRN Ot Z3A.12 12 WEEKS GESTATION OF 01/05/2016 SHAHRIAR YANES APRN Ot O23.41 UNSP INFCT OF URINARY TRACT IN 01/05/2016 SHAHRIAR YANES PROJECT FINANCE ANALYST Ot R51 HEADACHE 01/05/2016 SHAHRIAR YANES PROJECT FINANCE ANALYST Ot Z3A.12 12 WEEKS GESTATION OF 01/22/2016 KATHARINE REYES DO Ot O23.42 UNSP INFCT OF URINARY TRACT IN 01/22/2016 KATHARINE REYES DO Ot R10.30 LOWER ABDOMINAL PAIN, UNSPECIFIED 01/22/2016 KATHARINE REYES DO Ot Z3A.18 18 WEEKS GESTATION OF 01/22/2016 WENDY CRAFT PROJECT FINANCE ANALYST Ot V28.89 OTHER SPECIFIED SCREENING 01/22/2016 EMILIA WEATHERS, ANGELITA Gamble Ot 553.20 VENTRAL HERNIA NOS 01/22/2016 ANGELITA NIETO MD Ot 625.9 FEM GENITAL SYMPTOMS NOS 01/22/2016 ANGELITA NIETO MD Ot 626.8 MENSTRUAL DISORDER NEC 01/22/2016 ANGELITA NIETO MD Ot 789.00 ABDOMINAL PAIN, UNSPECIFIED SITE 01/22/2016 ANGELITA NIETO MD Ot V22.2 PREG STATE, INCIDENTAL 01/22/2016 ANGELITA NIETO MD Ot 789.03 ABDOMINAL PAIN, RIGHT LOWER QUADRANT 01/22/2016 ANGELITA NIETO MD Ot V28.81 ENCOUNTER FOR ANATOMIC SURVEY 01/22/2016 ANGELITA NIETO MD Ot 787.03 VOMITING ALONE 01/22/2016 ANGELITA NIETO MD Ot 789.04 ABDOMINAL PAIN, LEFT LOWER QUADRANT 01/22/2016 KATHARINE REYES DO Ot O23.42 UNSP INFCT OF URINARY TRACT IN 01/22/2016 ERICKATHARINE ALVAREZ DO Ot R10.30 LOWER ABDOMINAL PAIN, UNSPECIFIED 01/22/2016 KATHARINE REYES DO Ot Z3A.18 18 WEEKS GESTATION OF 01/22/2016 KATHARINE REYES DO Ot O23.42 UNSP INFCT OF URINARY TRACT IN 01/22/2016 ERICKATHARINE ALVAREZ DO Ot R10.30 LOWER ABDOMINAL PAIN, UNSPECIFIED 01/22/2016 ERIC KATHARINE MARTIN Ot Z3A.18 18 WEEKS GESTATION OF 02/05/2016 WENDY CRAFT APRN Ot V28.89 OTHER SPECIFIED SCREENING 02/05/2016 ANGELITA NIETO MD Ot 553.20 VENTRAL HERNIA NOS 02/05/2016 ANGELITA NIETO MD Ot 625.9 FEM GENITAL SYMPTOMS NOS 02/05/2016 ANGELITA NIETO MD Ot 626.8 MENSTRUAL DISORDER NEC 02/05/2016 ANGELITA NIETO MD Ot 789.00 ABDOMINAL PAIN, UNSPECIFIED SITE 02/05/2016 ANGELITA NIETO MD Ot V22.2 PREG STATE, INCIDENTAL 02/05/2016 ANGELITA NIETO MD Ot 789.03 ABDOMINAL PAIN, RIGHT LOWER QUADRANT 02/05/2016 ANGELITA NIETO MD Ot V28.81 ENCOUNTER FOR ANATOMIC SURVEY 02/05/2016 ANGELITA NIETO MD Ot 787.03 VOMITING ALONE 02/05/2016 ANGELITA NIETO MD Ot 789.04 ABDOMINAL PAIN, LEFT LOWER QUADRANT 02/06/2016 KATHARINE REYES DO Ot O23.42 UNSP INFCT OF URINARY TRACT IN 02/06/2016 KATHARINE REYES DO Ot R10.30 LOWER ABDOMINAL PAIN, UNSPECIFIED 02/06/2016 KATHARINE REYES DO Ot Z3A.18 18 WEEKS GESTATION OF 02/12/2016 CLAYTON BAHENA MD Ot O99.89 OTH DISEASES AND CONDITIONS COMPL PREG/C 02/12/2016 CLAYTON BAHENA MD Ot R06.02 SHORTNESS OF BREATH 02/12/2016 JOSEF MD, CLAYTON N Ot Z3A.21 21 WEEKS GESTATION OF 02/12/2016 HENRIK KHAN MD Ot J45.901 UNSPECIFIED ASTHMA WITH (ACUTE) EXACERBA 02/12/2016 HENRIK KHAN MD Ot O99.512 DISEASES OF THE RESP SYS COMP , 02/12/2016 HENRIK KHAN MD Ot R06.02 SHORTNESS OF BREATH 02/12/2016 HENRIK KHAN MD Ot Z3A.21 21 WEEKS GESTATION OF 02/15/2016 HENRIK KHAN MD Ot J45.901 UNSPECIFIED ASTHMA WITH (ACUTE) EXACERBA 02/15/2016 HENRIK KHAN MD Ot O99.512 DISEASES OF THE RESP SYS COMP , 02/15/2016 HENRIK KHAN MD Ot R06.02 SHORTNESS OF BREATH 02/15/2016 HENRIK KHAN MD Ot Z3A.21 21 WEEKS GESTATION OF 02/17/2016 CLAYTON BAHENA MD Ot Z53.9 PROCEDURE AND TREATMENT NOT CARRIED OUT, 02/29/2016 CLAYTON BAHENA MD N Ot O99.89 OTH DISEASES AND CONDITIONS COMPL PREG/C 02/29/2016 CLAYTON BAHENA MD N Ot R06.02 SHORTNESS OF BREATH 02/29/2016 CLAYTON BAHENA MD N Ot Z3A.21 21 WEEKS GESTATION OF 03/02/2016 HENRIK KHAN MD Ot J45.901 UNSPECIFIED ASTHMA WITH (ACUTE) EXACERBA 03/02/2016 HENRIK KHAN MD Ot O99.512 DISEASES OF THE RESP SYS COMP , 03/02/2016 HENRIK KHAN MD A Ot R06.02 SHORTNESS OF BREATH 03/02/2016 HENRIK KHAN MD A Ot Z3A.21 21 WEEKS GESTATION OF 03/21/2016 WENDY CRAFT APRN Ot V28.89 OTHER SPECIFIED SCREENING 03/21/2016 ANGELITA NIETO MD Ot 553.20 VENTRAL HERNIA NOS 03/21/2016 ANGELITA NIETO MD Ot 625.9 FEM GENITAL SYMPTOMS NOS 03/21/2016 ANGELITA NIETO MD Ot 626.8 MENSTRUAL DISORDER NEC 03/21/2016 ANGELITA NIETO MD Ot 789.00 ABDOMINAL PAIN, UNSPECIFIED SITE 03/21/2016 ANGELITA NIETO MD Ot V22.2 PREG STATE, INCIDENTAL 03/21/2016 ANGELITA NIETO MD Ot 789.03 ABDOMINAL PAIN, RIGHT LOWER QUADRANT 03/21/2016 EMILIA WEATHERS, ANGELITA Gamble Ot V28.81 ENCOUNTER FOR ANATOMIC SURVEY 03/21/2016 EMILIA WEATHERS, ANGELITA Gamble Ot 787.03 VOMITING ALONE 03/21/2016 ANGELITA NIETO MD Ot 789.04 ABDOMINAL PAIN, LEFT LOWER QUADRANT 03/21/2016 JOSEF WEATHERS, CLAYTON Mccrary Ot Z53.9 PROCEDURE AND TREATMENT NOT CARRIED OUT, 03/22/2016 KARAN CASTAÑEDA MD, Ot O47.9 FALSE LABOR, UNSPECIFIED 03/22/2016 KARAN CASTAÑEDA MD, Ot Z3A.00 WEEKS OF GESTATION OF NOT SPEC 03/23/2016 KARAN CASTAÑEDA MD, Ot O47.9 FALSE LABOR, UNSPECIFIED 03/23/2016 KARAN CASTAÑEDA MD, Ot Z3A.00 WEEKS OF GESTATION OF NOT SPEC 04/12/2016 PACE DO, CARLOTA C Ot O09.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 OF W 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 04/12/2016 PACE DO, CARLOTA C Ot O36.8130 DECREASED MOVEMENTS, THIRD TRIMEST 04/12/2016 PACE DO, CARLOTA C Ot Z3A.29 29 WEEKS GESTATION OF 04/18/2016 PACE DO, CARLOTA C Ot O09.43 SUPRVSN OF W 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 04/18/2016 PACE DO, CARLOTA C Ot O36.8130 DECREASED MOVEMENTS, THIRD TRIMEST 04/18/2016 PACE DO, CARLOTA C Ot Z3A.29 29 WEEKS GESTATION OF 05/25/2016 WENDY CRAFT APRN Ot V28.89 OTHER SPECIFIED SCREENING 05/25/2016 EMILIA WEATHERS, ANGELITA Gamble Ot 553.20 VENTRAL HERNIA NOS 05/25/2016 EMILIA WEATHERS, ANGELITA Gamble Ot 625.9 FEM GENITAL SYMPTOMS NOS 05/25/2016 ANGELITA NIETO MD Ot 626.8 MENSTRUAL DISORDER NEC 05/25/2016 ANGELITA NIETO MD Ot 789.00 ABDOMINAL PAIN, UNSPECIFIED SITE 05/25/2016 ANGELITA NIETO MD Ot V22.2 PREG STATE, INCIDENTAL 05/25/2016 ANGELITA NIETO MD Ot 789.03 ABDOMINAL PAIN, RIGHT LOWER QUADRANT 05/25/2016 ANGELITA NIETO MD Ot V28.81 ENCOUNTER FOR ANATOMIC SURVEY 05/25/2016 ANGELITA NIETO MD Ot 787.03 VOMITING ALONE 05/25/2016 ANGELITA NIETO MD Ot 789.04 ABDOMINAL PAIN, LEFT LOWER QUADRANT 05/25/2016 CLAYTON BAHENA MD Ot Z53.9 PROCEDURE AND TREATMENT NOT CARRIED OUT, 05/30/2016 KARAN CASTAÑEDA MD Ot O23.93 UNSP TRACT INFECTION IN , 05/30/2016 KARAN CASTAÑEDA MD, Ot Z3A.36 36 WEEKS GESTATION OF 06/03/2016 KARAN CASTAÑEDA MD, Ot O23.93 UNSP TRACT INFECTION IN , 06/03/2016 KARAN CASTAÑEDA MD, Ot Z3A.36 36 WEEKS GESTATION OF 06/20/2016 WENDY CRAFT APRN Ot V28.89 OTHER SPECIFIED SCREENING 06/20/2016 EMILIA WEATHERS, ANGELITA Gamble Ot 553.20 VENTRAL HERNIA NOS 06/20/2016 ANGELITA NIETO MD Ot 625.9 FEM GENITAL SYMPTOMS NOS 06/20/2016 ANGELITA NIETO MD Ot 626.8 MENSTRUAL DISORDER NEC 06/20/2016 ANGELITA NIETO MD Ot 789.00 ABDOMINAL PAIN, UNSPECIFIED SITE 06/20/2016 ANGELITA NIETO MD Ot V22.2 PREG STATE, INCIDENTAL 06/20/2016 ANGELITA NIETO MD Ot 789.03 ABDOMINAL PAIN, RIGHT LOWER QUADRANT 06/20/2016 ANGELITA NIETO MD Ot V28.81 ENCOUNTER FOR ANATOMIC SURVEY 06/20/2016 ANGELITA NIETO MD Ot 787.03 VOMITING ALONE 06/20/2016 ANGELITA NIETO MD Ot 789.04 ABDOMINAL PAIN, LEFT LOWER QUADRANT 06/20/2016 CLAYTON BAHENA MD Ot Z53.9 PROCEDURE AND TREATMENT NOT CARRIED OUT, 06/20/2016 CLAYTON BAHENA MD Ot M79.605 PAIN IN LEFT LEG 06/20/2016 CLAYTON BAHENA MD Ot R22.42 LOCALIZED SWELLING, MASS AND LUMP, LEFT 06/20/2016 CLAYTON BAHENA MD Ot Z33.1 STATE, INCIDENTAL 06/20/2016 CLAYTON BAHENA MD Ot M79.605 PAIN IN LEFT LEG 06/20/2016 CLAYTON BAHENA MD Ot R22.42 LOCALIZED SWELLING, MASS AND LUMP, LEFT 06/20/2016 CLAYTON BAHENA MD Ot Z33.1 STATE, INCIDENTAL 06/20/2016 CLAYTON BAHENA MD, Ot M79.605 PAIN IN LEFT LEG 06/20/2016 CLAYTON BAHENA MD Ot R22.42 LOCALIZED SWELLING, MASS AND LUMP, LEFT 06/20/2016 CLAYTON BAHENA MD Ot Z33.1 STATE, INCIDENTAL 06/21/2016 FENECH LACEY S Ot D62 ACUTE POSTHEMORRHAGIC ANEMIA 06/21/2016 MAXIECH , LACEY S Ot O13.3 GESTATIONAL HTN W/O SIGNIFICANT PROTEINU 06/21/2016 LACEY GARIBAY DO S Ot O36.8130 DECREASED MOVEMENTS, THIRD TRIMEST 06/21/2016 PHOENIX MARTIN LACEY S Ot O70.1 SECOND DEGREE PERINEAL LACERATION DURING 06/21/2016 PHOENIX MARTIN LACEY S Ot O99.03 ANEMIA COMPLICATING THE PUERPERIUM 06/21/2016 PHOENIX MARTIN LACEY S Ot Z37.0 SINGLE LIVE 06/21/2016 LACEY GARIBAY DO Ot Z3A.39 39 WEEKS GESTATION OF 07/06/2016 CLAYTON BAHENA MD Ot M79.605 PAIN IN LEFT LEG 07/06/2016 CLAYTON BAHENA MD Ot R22.42 LOCALIZED SWELLING, MASS AND LUMP, LEFT 07/06/2016 CLAYTON BAHENA MD Ot Z33.1 STATE, INCIDENTAL 07/07/2016 CLAYTON BAHENA MD Ot M79.605 PAIN IN LEFT LEG 07/07/2016 CLAYTON BAHENA MD Ot R22.42 LOCALIZED SWELLING, MASS AND LUMP, LEFT 07/07/2016 CLAYTON BAHENA MD Ot Z33.1 STATE, INCIDENTAL 08/03/2016 WENDY CRAFT PROJECT FINANCE ANALYST Ot V28.89 OTHER SPECIFIED SCREENING 08/03/2016 ANGELITA NIETO MD Ot 553.20 VENTRAL HERNIA NOS 08/03/2016 ANGELITA NIETO MD Ot 625.9 FEM GENITAL SYMPTOMS NOS 08/03/2016 ANGELITA NIETO MD Ot 626.8 MENSTRUAL DISORDER NEC 08/03/2016 ANGELITA NIETO MD Ot 789.00 ABDOMINAL PAIN, UNSPECIFIED SITE 08/03/2016 ANGELITA NIETO MD Ot V22.2 PREG STATE, INCIDENTAL 08/03/2016 ANGELITA NIETO MD Ot 789.03 ABDOMINAL PAIN, RIGHT LOWER QUADRANT 08/03/2016 ANGELITA NIETO MD Ot V28.81 ENCOUNTER FOR ANATOMIC SURVEY 08/03/2016 ANGELITA NIETO MD Ot 787.03 VOMITING ALONE 08/03/2016 ANGELITA NIETO MD Ot 789.04 ABDOMINAL PAIN, LEFT LOWER QUADRANT 08/03/2016 JOSEF WEATHERS, CLAYTON Mccrary Ot Z53.9 PROCEDURE AND TREATMENT NOT CARRIED OUT, 08/03/2016 CLAYTON BAHENA MD Ot M79.605 PAIN IN LEFT LEG 08/03/2016 CLAYTON BAHENA MD Ot R22.42 LOCALIZED SWELLING, MASS AND LUMP, LEFT 08/03/2016 CLAYTON BAHENA MD Ot Z33.1 STATE, INCIDENTAL 08/03/2016 CRISTHIAN MORLEY MD Ot N72 INFLAMMATORY DISEASE OF CERVIX UTERI 08/03/2016 CRISTHIAN MORLEY MD Ot R10.2 PELVIC AND PERINEAL PAIN 08/03/2016 CRISTHIAN MORLEY MD Ot R50.9 FEVER, UNSPECIFIED 08/04/2016 CRISTHIAN MORLEY MD Ot N72 INFLAMMATORY DISEASE OF CERVIX UTERI 08/04/2016 CRISTHIAN MORLEY MD Ot R10.2 PELVIC AND PERINEAL PAIN 08/04/2016 CRISTHIAN MORLEY MD Ot R50.9 FEVER, UNSPECIFIED 08/05/2016 CRISTHIAN MORLEY MD Ot N72 INFLAMMATORY DISEASE OF CERVIX UTERI 08/05/2016 CRISTHIAN MORLEY MD Ot R10.2 PELVIC AND PERINEAL PAIN 08/05/2016 CRISTHIAN MORLEY MD Ot R50.9 FEVER, UNSPECIFIED 11/25/2016 WENDY CRAFT APRN Ot V28.89 OTHER SPECIFIED SCREENING 11/25/2016 ANGELITA NIETO MD Ot 553.20 VENTRAL HERNIA NOS 11/25/2016 ANGELITA NIETO MD Ot 625.9 FEM GENITAL SYMPTOMS NOS 11/25/2016 ANGELITA NIETO MD Ot 626.8 MENSTRUAL DISORDER NEC 11/25/2016 ANGELITA NIETO MD Ot 789.00 ABDOMINAL PAIN, UNSPECIFIED SITE 11/25/2016 ANGELITA NIETO MD Ot V22.2 PREG STATE, INCIDENTAL 11/25/2016 ANGELITA NIETO MD Ot 789.03 ABDOMINAL PAIN, RIGHT LOWER QUADRANT 11/25/2016 ANGELITA NIETO MD Ot V28.81 ENCOUNTER FOR ANATOMIC SURVEY 11/25/2016 ANGELITA NIETO MD Ot 787.03 VOMITING ALONE 11/25/2016 ANGELITA NIETO MD Ot 789.04 ABDOMINAL PAIN, LEFT LOWER QUADRANT 11/25/2016 CLAYTON BAHENA MD Ot Z53.9 PROCEDURE AND TREATMENT NOT CARRIED OUT, 11/25/2016 CLAYTON BAHENA MD Ot M79.605 PAIN IN LEFT LEG 11/25/2016 CLAYTON BAHENA MD Ot R22.42 LOCALIZED SWELLING, MASS AND LUMP, LEFT 11/25/2016 CLAYTON BAHENA MD N Ot Z33.1 STATE, INCIDENTAL 02/20/2017 WENDY CRAFT PROJECT FINANCE ANALYST Ot V28.89 OTHER SPECIFIED SCREENING 02/20/2017 ANGELITA NIETO MD Ot 553.20 VENTRAL HERNIA NOS 02/20/2017 ANGELITA NIETO MD Ot 625.9 FEM GENITAL SYMPTOMS NOS 02/20/2017 ANGELITA NIETO MD Ot 626.8 MENSTRUAL DISORDER NEC 02/20/2017 ANGELITA NIETO MD Ot 789.00 ABDOMINAL PAIN, UNSPECIFIED SITE 02/20/2017 ANGELITA NIETO MD Ot V22.2 PREG STATE, INCIDENTAL 02/20/2017 ANGELITA NIETO MD Ot 789.03 ABDOMINAL PAIN, RIGHT LOWER QUADRANT 02/20/2017 ANGELITA NIETO MD Ot V28.81 ENCOUNTER FOR ANATOMIC SURVEY 02/20/2017 ANGELITA NIETO MD Ot 787.03 VOMITING ALONE 02/20/2017 ANGELITA NIETO MD Ot 789.04 ABDOMINAL PAIN, LEFT LOWER QUADRANT 02/20/2017 CLAYTON BAHENA MD N Ot Z53.9 PROCEDURE AND TREATMENT NOT CARRIED OUT, 02/20/2017 CLAYTON BAHENA MD N Ot M79.605 PAIN IN LEFT LEG 02/20/2017 CLAYTON BAHENA MD N Ot R22.42 LOCALIZED SWELLING, MASS AND LUMP, LEFT 02/20/2017 JOSEF WEATHERS, CLAYTON N Ot Z33.1 STATE, INCIDENTAL 02/20/2017 DANETTE WEATHERS, MISTY J Ot J45.909 UNSPECIFIED ASTHMA, UNCOMPLICATED 02/20/2017 DANETTE WEATHERS, MISTY J Ot R10.32 LEFT LOWER QUADRANT PAIN 02/20/2017 DANETTE WEATHERS, MISTY J Ot R10.9 UNSPECIFIED ABDOMINAL PAIN 02/23/2017 DANETTE WEATHERS, MISTY J Ot J45.909 UNSPECIFIED ASTHMA, UNCOMPLICATED 02/23/2017 DANETTE WEATHERS, MISTY J Ot R10.32 LEFT LOWER QUADRANT PAIN 02/23/2017 DANETTE WEATHERS, MISTY J Ot R10.9 UNSPECIFIED ABDOMINAL PAIN 05/01/2017 WENDY CRAFT PROJECT FINANCE ANALYST Ot V28.89 OTHER SPECIFIED SCREENING 05/01/2017 ANGELITA NIETO MD Ot 553.20 VENTRAL HERNIA NOS 05/01/2017 ANGELITA NIETO MD Ot 625.9 FEM GENITAL SYMPTOMS NOS 05/01/2017 ANGELITA NIETO MD Ot 626.8 MENSTRUAL DISORDER NEC 05/01/2017 EMILIA WEATHERS, ANGELITA Gamble Ot 789.00 ABDOMINAL PAIN, UNSPECIFIED SITE 05/01/2017 ANGELITA NIETO MD Ot V22.2 PREG STATE, INCIDENTAL 05/01/2017 ANGELITA NIETO MD Ot 789.03 ABDOMINAL PAIN, RIGHT LOWER QUADRANT 05/01/2017 ANGELITA NIETO MD Ot V28.81 ENCOUNTER FOR ANATOMIC SURVEY 05/01/2017 ANGELITA NIETO MD Ot 787.03 VOMITING ALONE 05/01/2017 ANGELITA NIETO MD Ot 789.04 ABDOMINAL PAIN, LEFT LOWER QUADRANT 05/01/2017 JOSEF WEATHERS, CLAYTON N Ot Z53.9 PROCEDURE AND TREATMENT NOT CARRIED OUT, 05/01/2017 JOSEF WEATHERS, CLAYTON N Ot M79.605 PAIN IN LEFT LEG 05/01/2017 JOSEF WEATHERS, CLAYTON N Ot R22.42 LOCALIZED SWELLING, MASS AND LUMP, LEFT 05/01/2017 JOSEF WEATHERS, CLAYTON N Ot Z33.1 STATE, INCIDENTAL 08/08/2017 WENDY CRAFT PROJECT FINANCE ANALYST Ot V28.89 OTHER SPECIFIED SCREENING 08/08/2017 ANGELITA NIETO MD Ot 553.20 VENTRAL HERNIA NOS 08/08/2017 ANGELITA NIETO MD Ot 625.9 FEM GENITAL SYMPTOMS NOS 08/08/2017 ANGELITA NIETO MD Ot 626.8 MENSTRUAL DISORDER NEC 08/08/2017 ANGLEITA NIETO MD Ot 789.00 ABDOMINAL PAIN, UNSPECIFIED SITE 08/08/2017 ANGELITA NIETO MD Ot V22.2 PREG STATE, INCIDENTAL 08/08/2017 ANGELITA NIETO MD Ot 789.03 ABDOMINAL PAIN, RIGHT LOWER QUADRANT 08/08/2017 ANGELITA NIETO MD Ot V28.81 ENCOUNTER FOR ANATOMIC SURVEY 08/08/2017 ANGELITA NIETO MD Ot 787.03 VOMITING ALONE 08/08/2017 ANGELITA NIETO MD Ot 789.04 ABDOMINAL PAIN, LEFT LOWER QUADRANT 08/08/2017 CLAYTON BAHENA MD, Ot Z53.9 PROCEDURE AND TREATMENT NOT CARRIED OUT, 08/08/2017 CLAYTON BAHENA MD, Ot M79.605 PAIN IN LEFT LEG 08/08/2017 CLAYTON BAHENA MD, Ot R22.42 LOCALIZED SWELLING, MASS AND LUMP, LEFT 08/08/2017 CLAYTON BAHENA MD, Ot Z33.1 STATE, INCIDENTAL Procedures Code Description [place] [address] US OB - EARLY <14 WEEKS 08/12/2013 32081 GC/CHLAM PROBE (COUNT INCLUDES THE [facility]) 08/12/2013 45367 PAP SMEAR 08/12/2013 Q0091 PAP SMEAR OBTAIN SMEAR 08/12/2013 25502 TEST, URINE (IN- HOUSE) 08/12/2013 13850 TRICHOMONAS (IN-HOUSE) 08/12/2013 17602 CULTURE UROGENITAL 08/13/2013 77274 ROUTINE VENIPUNCTURE 09/09/2013 19323 UA LONG DIP 09/09/2013 40372 SYPHILLIS-STATE [facility] 09/09/2013 89647 HIV (STATE [facility]) 09/09/2013 76765 ANTIBODY SCREEN (order) 09/09/2013 60570 HEP B SURFACE ANTIGEN (STATE ) 09/09/2013 47782 CBC 09/09/2013 29001 TSH 09/09/2013 80379 RUBELLA ANTIBODY, IGG 09/10/2013 1433232 ANTIBODY SCREEN (RESULT ONLY) 09/10/2013 24793 BLOOD TYPE/Rh FACTOR 09/10/2013 45662 CULTURE URINE 09/10/2013 47579 CULTURE UROGENITAL 09/11/2013 42994 UA LONG DIP 09/16/2013 72.71 VACUUM EXT DEL W EPISIOT 04/05/2014 07019 THERAPUTIC INJ SQ/IM 07/24/2014 J1050 DEPO PROVERA 07/24/2014 09959 TEST, URINE (IN- HOUSE) 07/24/2014 [id number] REPAIR PERINEUM MUSCLE, OPEN APPROACH 06/19/2016 [id number] DELIVERY OF PRODUCTS OF CONCEPTION, EXTE 06/19/2016 Results Test Result Range Complete blood count (CBC) with automated white blood cell (WBC) differential - 03/21/16 22:50 Blood leukocytes automated count (number/volume) 8.4 10*3/uL 4.3-11.0 Blood erythrocytes automated count (number/volume) 3.70 10*6/uL 4.35-5.85 Venous blood hemoglobin measurement (mass/volume) 12.1 g/dL 11.5-16.0 Blood hematocrit (volume fraction) 34 % 35-52 Automated erythrocyte mean corpuscular volume 91 [foz_us] 80-99 Automated erythrocyte mean corpuscular hemoglobin (mass per erythrocyte) 33 pg 25-34 Automated erythrocyte mean corpuscular hemoglobin concentration measurement ( mass/volume) 36 g/dL 32-36 Automated erythrocyte distribution width ratio 12.1 % 10.0-14.5 Automated blood platelet count (count/volume) 186 10*3/uL 130-400 Automated blood platelet mean volume measurement 9.3 [foz_us] 7.4-10.4 Automated blood neutrophils/100 leukocytes 72 % 42-75 Automated blood lymphocytes/100 leukocytes 18 % 12-44 Blood monocytes/100 leukocytes 8 % 0-12 Automated blood eosinophils/100 leukocytes 2 % 0-10 Automated blood basophils/100 leukocytes 0 % 0-10 Blood neutrophils automated count (number/volume) 6.1 10*3 1.8-7.8 Blood lymphocytes automated count (number/volume) 1.5 10*3 1.0-4.0 Blood monocytes automated count (number/volume) 0.7 10*3 0.0-1.0 Automated eosinophil count 0.1 10*3/uL 0.0-0.3 Automated blood basophil count (count/volume) 0.0 10*3/uL 0.0-0.1 Comprehensive metabolic panel - 03/21/16 22:50 Serum or plasma sodium measurement (moles/volume) 138 mmol/L 135-145 Serum or plasma potassium measurement (moles/volume) 3.4 mmol/L 3.6-5.0 Serum or plasma chloride measurement (moles/volume) 107 mmol/L 98-107 Carbon dioxide 22 mmol/L 21-32 Serum or plasma anion gap determination (moles/volume) 9 mmol/L 5-14 Serum or plasma urea nitrogen measurement (mass/volume) 10 mg/dL 7-18 Serum or plasma creatinine measurement (mass/volume) 0.61 mg/dL 0.60-1.30 Serum or plasma urea nitrogen/creatinine mass ratio 16 NRG Serum or plasma creatinine measurement with calculation of estimated glomerular filtration rate > NRG Serum or plasma glucose measurement (mass/volume) 79 mg/dL 70-105 Serum or plasma calcium measurement (mass/volume) 8.8 mg/dL 8.5-10.1 Serum or plasma total bilirubin measurement (mass/volume) 0.2 mg/dL 0.1-1.0 Serum or plasma alkaline phosphatase measurement (enzymatic activity/volume) 81 U/L 40-136 Serum or plasma aspartate aminotransferase measurement (enzymatic activity/ volume) 18 U/L 5-34 Serum or plasma alanine aminotransferase measurement (enzymatic activity/volume ) 18 U/L 0-55 Serum or plasma protein measurement (mass/volume) 6.3 g/dL 6.4-8.2 Serum or plasma albumin measurement (mass/volume) 3.4 g/dL 3.2-4.5 Complete urinalysis with reflex to culture - 03/21/16 23:15 Urine color determination YELLOW NRG Urine clarity determination CLEAR NRG Urine pH measurement by test strip 7 5-9 Specific gravity of urine by test strip 1.010 1.016- 1.022 Urine protein assay by test strip, semi-quantitative NEGATIVE NEGATIVE Urine glucose detection by automated test strip 2+ NEGATIVE Erythrocytes detection in urine sediment by light microscopy NEGATIVE NEGATIVE Urine ketones detection by automated test strip NEGATIVE NEGATIVE Urine nitrite detection by test strip NEGATIVE NEGATIVE Urine total bilirubin detection by test strip NEGATIVE NEGATIVE Urine urobilinogen measurement by automated test strip (mass/volume) NORMAL NORMAL Urine leukocyte esterase detection by dipstick NEGATIVE NEGATIVE Automated urine sediment erythrocyte count by microscopy (number/high power field) NONE NRG Automated urine sediment leukocyte count by microscopy (number/high power field ) NONE NRG Bacteria detection in urine sediment by light microscopy NEGATIVE NRG Squamous epithelial cells detection in urine sediment by light microscopy RARE NRG Crystals detection in urine sediment by light microscopy NONE NRG Casts detection in urine sediment by light microscopy NONE NRG Mucus detection in urine sediment by light microscopy NEGATIVE NRG Complete urinalysis with reflex to culture NO NRG Complete urinalysis with reflex to culture - 04/12/16 16:55 Urine color determination YELLOW NRG Urine clarity determination CLEAR NRG Urine pH measurement by test strip 6 5-9 Specific gravity of urine by test strip 1.015 1.016- 1.022 Urine protein assay by test strip, semi-quantitative 1+ NEGATIVE Urine glucose detection by automated test strip NEGATIVE NEGATIVE Erythrocytes detection in urine sediment by light microscopy NEGATIVE NEGATIVE Urine ketones detection by automated test strip NEGATIVE NEGATIVE Urine nitrite detection by test strip NEGATIVE NEGATIVE Urine total bilirubin detection by test strip NEGATIVE NEGATIVE Urine urobilinogen measurement by automated test strip (mass/volume) NORMAL NORMAL Urine leukocyte esterase detection by dipstick 1+ NEGATIVE Automated urine sediment erythrocyte count by microscopy (number/high power field) NONE NRG Automated urine sediment leukocyte count by microscopy (number/high power field ) [HPF] NRG Bacteria detection in urine sediment by light microscopy TRACE NRG Squamous epithelial cells detection in urine sediment by light microscopy 2-5 NRG Crystals detection in urine sediment by light microscopy NONE NRG Casts detection in urine sediment by light microscopy NONE NRG Mucus detection in urine sediment by light microscopy NEGATIVE NRG Complete urinalysis with reflex to culture NO NRG Bacterial urine culture - 04/12/16 16:55 Bacterial urine culture [id number] NRG COLONY COUNT >100,000/ML NRG FREE TEXT ENTRY 2 MIXED GRAM POSITIVES <10,000/ML NRG Complete urinalysis with reflex to culture - 05/30/16 17:03 Urine color determination YELLOW NRG Urine clarity determination CLEAR NRG Urine pH measurement by test strip 6 5-9 Specific gravity of urine by test strip 1.010 1.016- 1.022 Urine protein assay by test strip, semi-quantitative NEGATIVE NEGATIVE Urine glucose detection by automated test strip NEGATIVE NEGATIVE Erythrocytes detection in urine sediment by light microscopy 2+ NEGATIVE Urine ketones detection by automated test strip NEGATIVE NEGATIVE Urine nitrite detection by test strip NEGATIVE NEGATIVE Urine total bilirubin detection by test strip NEGATIVE NEGATIVE Urine urobilinogen measurement by automated test strip (mass/volume) NORMAL NORMAL Urine leukocyte esterase detection by dipstick 1+ NEGATIVE Automated urine sediment erythrocyte count by microscopy (number/high power field) [HPF] NRG Automated urine sediment leukocyte count by microscopy (number/high power field ) RARE NRG Bacteria detection in urine sediment by light microscopy NEGATIVE NRG Squamous epithelial cells detection in urine sediment by light microscopy 5-10 NRG Crystals detection in urine sediment by light microscopy NONE NRG Casts detection in urine sediment by light microscopy NONE NRG Mucus detection in urine sediment by light microscopy NEGATIVE NRG Complete urinalysis with reflex to culture NO NRG Bacterial urine culture - 05/30/16 17:03 Bacterial urine culture [id number] NRG COLONY COUNT 10,000/ML - 100,000/ML NRG URINE CULTURE RESULTS 10,000/ML - 100,000/ML NRG Complete blood count (CBC) with automated white blood cell (WBC) differential - 06/19/16 13:50 Blood leukocytes automated count (number/volume) 10.9 10*3/uL 4.3-11.0 Blood erythrocytes automated count (number/volume) 4.27 10*6/uL 4.35-5.85 Venous blood hemoglobin measurement (mass/volume) 13.0 g/dL 11.5-16.0 Blood hematocrit (volume fraction) 38 % 35-52 Automated erythrocyte mean corpuscular volume 90 [foz_us] 80-99 Automated erythrocyte mean corpuscular hemoglobin (mass per erythrocyte) 30 pg 25-34 Automated erythrocyte mean corpuscular hemoglobin concentration measurement ( mass/volume) 34 g/dL 32-36 Automated erythrocyte distribution width ratio 12.7 % 10.0-14.5 Automated blood platelet count (count/volume) 192 10*3/uL 130-400 Automated blood platelet mean volume measurement 10.1 [foz_us] 7.4-10.4 Automated blood neutrophils/100 leukocytes 80 % 42-75 Automated blood lymphocytes/100 leukocytes 14 % 12-44 Blood monocytes/100 leukocytes 6 % 0-12 Automated blood eosinophils/100 leukocytes 0 % 0-10 Automated blood basophils/100 leukocytes 0 % 0-10 Blood neutrophils automated count (number/volume) 8.7 10*3 1.8-7.8 Blood lymphocytes automated count (number/volume) 1.5 10*3 1.0-4.0 Blood monocytes automated count (number/volume) 0.6 10*3 0.0-1.0 Automated eosinophil count 0.0 10*3/uL 0.0-0.3 Automated blood basophil count (count/volume) 0.0 10*3/uL 0.0-0.1 Blood type T Indirect antibody screen panel - 06/19/16 13:50 ABO+Rh group BP NRG Transfusion band number [id number] NRG Blood group antibody screen NEGATIVE NRG Complete blood count (CBC) with automated white blood cell (WBC) differential - 06/20/16 05:54 Blood leukocytes automated count (number/volume) 13.7 10*3/uL 4.3-11.0 Blood erythrocytes automated count (number/volume) 2.97 10*6/uL 4.35-5.85 Venous blood hemoglobin measurement (mass/volume) 9.1 g/dL 11.5-16.0 Blood hematocrit (volume fraction) 27 % 35-52 Automated erythrocyte mean corpuscular volume 91 [foz_us] 80-99 Automated erythrocyte mean corpuscular hemoglobin (mass per erythrocyte) 31 pg 25-34 Automated erythrocyte mean corpuscular hemoglobin concentration measurement ( mass/volume) 34 g/dL 32-36 Automated erythrocyte distribution width ratio 12.6 % 10.0-14.5 Automated blood platelet count (count/volume) 175 10*3/uL 130-400 Automated blood platelet mean volume measurement 10.2 [foz_us] 7.4-10.4 Automated blood neutrophils/100 leukocytes 82 % 42-75 Automated blood lymphocytes/100 leukocytes 11 % 12-44 Blood monocytes/100 leukocytes 7 % 0-12 Automated blood eosinophils/100 leukocytes 0 % 0-10 Automated blood basophils/100 leukocytes 0 % 0-10 Blood neutrophils automated count (number/volume) 11.3 10*3 1.8-7.8 Blood lymphocytes automated count (number/volume) 1.4 10*3 1.0-4.0 Blood monocytes automated count (number/volume) 1.0 10*3 0.0-1.0 Automated eosinophil count 0.0 10*3/uL 0.0-0.3 Automated blood basophil count (count/volume) 0.0 10*3/uL 0.0-0.1 Automated blood complete blood count (hemogram) panel - 06/20/16 12:25 Blood leukocytes automated count (number/volume) 12.2 10*3/uL 4.3-11.0 Blood erythrocytes automated count (number/volume) 2.91 10*6/uL 4.35-5.85 Venous blood hemoglobin measurement (mass/volume) 8.8 g/dL 11.5-16.0 Blood hematocrit (volume fraction) 26 % 35-52 Automated erythrocyte mean corpuscular volume 90 [foz_us] 80-99 Automated erythrocyte mean corpuscular hemoglobin (mass per erythrocyte) 30 pg 25-34 Automated erythrocyte mean corpuscular hemoglobin concentration measurement ( mass/volume) 34 g/dL 32-36 Automated erythrocyte distribution width ratio 12.5 % 10.0-14.5 Automated blood platelet count (count/volume) 165 10*3/uL 130-400 Automated blood platelet mean volume measurement 9.7 [foz_us] 7.4-10.4 Complete urinalysis with reflex to culture - 08/03/16 02:35 Urine color determination YELLOW NRG Urine clarity determination CLEAR NRG Urine pH measurement by test strip 5 5-9 Specific gravity of urine by test strip 1.010 1.016- 1.022 Urine protein assay by test strip, semi-quantitative NEGATIVE NEGATIVE Urine glucose detection by automated test strip NEGATIVE NEGATIVE Erythrocytes detection in urine sediment by light microscopy NEGATIVE NEGATIVE Urine ketones detection by automated test strip NEGATIVE NEGATIVE Urine nitrite detection by test strip NEGATIVE NEGATIVE Urine total bilirubin detection by test strip NEGATIVE NEGATIVE Urine urobilinogen measurement by automated test strip (mass/volume) NORMAL NORMAL Urine leukocyte esterase detection by dipstick 2+ NEGATIVE Automated urine sediment erythrocyte count by microscopy (number/high power field) NONE NRG Automated urine sediment leukocyte count by microscopy (number/high power field ) RARE NRG Bacteria detection in urine sediment by light microscopy TRACE NRG Squamous epithelial cells detection in urine sediment by light microscopy RARE NRG Crystals detection in urine sediment by light microscopy NONE NRG Casts detection in urine sediment by light microscopy NONE NRG Mucus detection in urine sediment by light microscopy NEGATIVE NRG Complete urinalysis with reflex to culture NO NRG Influenza virus A and B antigen detection - 08/03/16 02:40 FLU RESULT NEGATIVE FOR INFLUENZA A AND B ANTIGENS BY IA NRG Complete blood count (CBC) with automated white blood cell (WBC) differential - 08/03/16 04:24 Blood leukocytes automated count (number/volume) 5.0 10*3/uL 4.3-11.0 Blood erythrocytes automated count (number/volume) 4.31 10*6/uL 4.35-5.85 Venous blood hemoglobin measurement (mass/volume) 13.0 g/dL 11.5-16.0 Blood hematocrit (volume fraction) 38 % 35-52 Automated erythrocyte mean corpuscular volume 88 [foz_us] 80-99 Automated erythrocyte mean corpuscular hemoglobin (mass per erythrocyte) 30 pg 25-34 Automated erythrocyte mean corpuscular hemoglobin concentration measurement ( mass/volume) 34 g/dL 32-36 Automated erythrocyte distribution width ratio 12.6 % 10.0-14.5 Automated blood platelet count (count/volume) 179 10*3/uL 130-400 Automated blood platelet mean volume measurement 9.6 [foz_us] 7.4-10.4 Automated blood neutrophils/100 leukocytes 81 % 42-75 Automated blood lymphocytes/100 leukocytes 15 % 12-44 Blood monocytes/100 leukocytes 4 % 0-12 Automated blood eosinophils/100 leukocytes 0 % 0-10 Automated blood basophils/100 leukocytes 0 % 0-10 Blood neutrophils automated count (number/volume) 4.1 10*3 1.8-7.8 Blood lymphocytes automated count (number/volume) 0.7 10*3 1.0-4.0 Blood monocytes automated count (number/volume) 0.2 10*3 0.0-1.0 Automated eosinophil count 0.0 10*3/uL 0.0-0.3 Automated blood basophil count (count/volume) 0.0 10*3/uL 0.0-0.1 Comprehensive metabolic panel - 08/03/16 04:24 Serum or plasma sodium measurement (moles/volume) 136 mmol/L 135-145 Serum or plasma potassium measurement (moles/volume) 4.0 mmol/L 3.6-5.0 Serum or plasma chloride measurement (moles/volume) 108 mmol/L 98-107 Carbon dioxide 19 mmol/L 21-32 Serum or plasma anion gap determination (moles/volume) 9 mmol/L 5-14 Serum or plasma urea nitrogen measurement (mass/volume) 14 mg/dL 7-18 Serum or plasma creatinine measurement (mass/volume) 0.76 mg/dL 0.60-1.30 Serum or plasma urea nitrogen/creatinine mass ratio 18 NRG Serum or plasma creatinine measurement with calculation of estimated glomerular filtration rate > NRG Serum or plasma glucose measurement (mass/volume) 96 mg/dL 70-105 Serum or plasma calcium measurement (mass/volume) 8.8 mg/dL 8.5-10.1 Serum or plasma total bilirubin measurement (mass/volume) 0.3 mg/dL 0.1-1.0 Serum or plasma alkaline phosphatase measurement (enzymatic activity/volume) 128 U/L 40-136 Serum or plasma aspartate aminotransferase measurement (enzymatic activity/ volume) 19 U/L 5-34 Serum or plasma alanine aminotransferase measurement (enzymatic activity/volume ) 29 U/L 0-55 Serum or plasma protein measurement (mass/volume) 6.7 g/dL 6.4-8.2 Serum or plasma albumin measurement (mass/volume) 4.0 g/dL 3.2-4.5 Serum or plasma C reactive protein measurement (mass/volume) - 08/03/16 04:24 Serum or plasma C reactive protein measurement (mass/volume) 2.97 mg /dL 0.00-0.50 Neisseria gonorrhoeae DNA detection by probe and signal amplification method - 08/03/16 05:00 Gonorrhea amp DNA-urine Negative Negative Chlamydia trachomatis DNA detection by probe and signal amplification method - 08/03/16 05:00 Chlamydia trachomatis DNA detection by probe and target amplification method Negative Negative Bacteria identification in genital specimen by aerobe culture - 08/03/16 05:00 FREE TEXT EXTERNAL BETA LACTAMASE NEGATIVE NRG QUANTITY OF GROWTH Moderate Growth NRG Bacteria identification in genital specimen by aerobe culture [id number] NRG FREE TEXT EXTERNAL 2 PLUS NORMAL SUSHMA NRG Microscopic examination by wet preparation - 08/03/16 05:00 WET PREP RESULTS 0515, 08-03-16 BY [facility] Complete urinalysis with reflex to culture - 02/20/17 01:30 Urine color determination YELLOW NRG Urine clarity determination CLEAR NRG Urine pH measurement by test strip 6 5-9 Specific gravity of urine by test strip 1.015 1.016- 1.022 Urine protein assay by test strip, semi-quantitative NEGATIVE NEGATIVE Urine glucose detection by automated test strip NEGATIVE NEGATIVE Erythrocytes detection in urine sediment by light microscopy NEGATIVE NEGATIVE Urine ketones detection by automated test strip NEGATIVE NEGATIVE Urine nitrite detection by test strip NEGATIVE NEGATIVE Urine total bilirubin detection by test strip NEGATIVE NEGATIVE Urine urobilinogen measurement by automated test strip (mass/volume) NORMAL NORMAL Urine leukocyte esterase detection by dipstick NEGATIVE NEGATIVE Automated urine sediment erythrocyte count by microscopy (number/high power field) NONE NRG Automated urine sediment leukocyte count by microscopy (number/high power field ) NONE NRG Bacteria detection in urine sediment by light microscopy NEGATIVE NRG Squamous epithelial cells detection in urine sediment by light microscopy 10-25 NRG Crystals detection in urine sediment by light microscopy NONE NRG Casts detection in urine sediment by light microscopy NONE NRG Mucus detection in urine sediment by light microscopy SMALL NRG Complete urinalysis with reflex to culture NO NRG Complete blood count (CBC) with automated white blood cell (WBC) differential - 02/20/17 01:30 Blood leukocytes automated count (number/volume) 7.8 10*3/uL 4.3-11.0 Blood erythrocytes automated count (number/volume) 4.52 10*6/uL 4.35-5.85 Venous blood hemoglobin measurement (mass/volume) 13.2 g/dL 11.5-16.0 Blood hematocrit (volume fraction) 39 % 35-52 Automated erythrocyte mean corpuscular volume 85 [foz_us] 80-99 Automated erythrocyte mean corpuscular hemoglobin (mass per erythrocyte) 29 pg 25-34 Automated erythrocyte mean corpuscular hemoglobin concentration measurement ( mass/volume) 34 g/dL 32-36 Automated erythrocyte distribution width ratio 12.7 % 10.0-14.5 Automated blood platelet count (count/volume) 196 10*3/uL 130-400 Automated blood platelet mean volume measurement 10.3 [foz_us] 7.4-10.4 Automated blood neutrophils/100 leukocytes 58 % 42-75 Automated blood lymphocytes/100 leukocytes 34 % 12-44 Blood monocytes/100 leukocytes 6 % 0-12 Automated blood eosinophils/100 leukocytes 2 % 0-10 Automated blood basophils/100 leukocytes 0 % 0-10 Blood neutrophils automated count (number/volume) 4.5 10*3 1.8-7.8 Blood lymphocytes automated count (number/volume) 2.7 10*3 1.0-4.0 Blood monocytes automated count (number/volume) 0.4 10*3 0.0-1.0 Automated eosinophil count 0.2 10*3/uL 0.0-0.3 Automated blood basophil count (count/volume) 0.0 10*3/uL 0.0-0.1 Urine beta human chorionic gonadotropin (hCG) measurement - 02/20/17 01:30 Urine beta human chorionic gonadotropin (hCG) measurement NEGATIVE NEGATIVE Urine drug screening test - 02/20/17 01:30 Urine phencyclidine detection by screening method NEGATIVE NEGATIVE Urine benzodiazepines detection by screening method NEGATIVE NEGATIVE Urine cocaine detection NEGATIVE NEGATIVE Urine amphetamines detection by screening method NEGATIVE NEGATIVE Urine methamphetamine detection by screening method NEGATIVE NEGATIVE Urine cannabinoids detection by screening method NEGATIVE NEGATIVE Urine opiates detection by screening method NEGATIVE NEGATIVE Urine barbiturates detection NEGATIVE NEGATIVE Screening urine tricyclic antidepressants detection NEGATIVE NEGATIVE Urine methadone detection by screening method NEGATIVE NEGATIVE Urine oxycodone detection NEGATIVE NEGATIVE Urine propoxyphene detection NEGATIVE NEGATIVE Comprehensive metabolic panel - 02/20/17 01:30 Serum or plasma sodium measurement (moles/volume) 139 mmol/L 135-145 Serum or plasma potassium measurement (moles/volume) 4.0 mmol/L 3.6-5.0 Serum or plasma chloride measurement (moles/volume) 106 mmol/L 98-107 Carbon dioxide 21 mmol/L 21-32 Serum or plasma anion gap determination (moles/volume) 12 mmol/L 5-14 Serum or plasma urea nitrogen measurement (mass/volume) 17 mg/dL 7-18 Serum or plasma creatinine measurement (mass/volume) 0.74 mg/dL 0.60-1.30 Serum or plasma urea nitrogen/creatinine mass ratio 23 NRG Serum or plasma creatinine measurement with calculation of estimated glomerular filtration rate > NRG Serum or plasma glucose measurement (mass/volume) 87 mg/dL 70-105 Serum or plasma calcium measurement (mass/volume) 9.2 mg/dL 8.5-10.1 Serum or plasma total bilirubin measurement (mass/volume) 0.3 mg/dL 0.1-1.0 Serum or plasma alkaline phosphatase measurement (enzymatic activity/volume) 115 U/L 40-136 Serum or plasma aspartate aminotransferase measurement (enzymatic activity/ volume) 18 U/L 5-34 Serum or plasma alanine aminotransferase measurement (enzymatic activity/volume ) 17 U/L 0-55 Serum or plasma protein measurement (mass/volume) 7.6 g/dL 6.4-8.2 Serum or plasma albumin measurement (mass/volume) 4.6 g/dL 3.2-4.5 Magnesium - 02/20/17 01:30 Magnesium 2.2 mg/dL 1.8-2.4 Lipase - 02/20/17 01:30 Lipase 41 U/L 8-78 Encounters ACCT No. Visit Date/Time Discharge Status Pt. Type Provider Facility Loc./Unit Complaint [id number] 08/08/2014 13:28:00 08/08/2014 23:59:59 CLS Outpatient MANUEL WESTON APRN [id number] 07/24/2014 09:56:00 07/24/2014 23:59:59 CLS Outpatient HOA CRAFT APRNMONI Jimenez [id number] 09/16/2013 15:53:00 09/16/2013 23:59:59 CLS Outpatient LUANA ZIMMERMANNHOAWENDY A [id number] 09/09/2013 09:51:00 09/09/2013 23:59:59 CLS Outpatient HOA CRAFT APRNMONI Jimenez [id number] 08/12/2013 09:44:00 08/12/2013 23:59:59 CLS Outpatient HOA CARFT APRNMONI Jimenez [id number] 02/20/2017 01:04:00 02/20/2017 02:58:00 DIS Emergency DANETTE WEATHERS, MISTY Gamble [facility] ER AB PAIN [id number] 08/03/2016 01:01:00 08/03/2016 05:43:00 DIS Emergency MILLI WEATHERS, CRISTHIAN Bonilla [facility] ER FEVER,VOMITING,ABD PAIN,GAVE ON 06-21-16 [id number] 06/19/2016 13:08:00 06/21/2016 14:30:00 DIS Inpatient LACEY GARIBAY DO [facility] LDRP IOL [id number] 05/30/2016 16:36:00 05/30/2016 17:56:00 DIS Outpatient MADDY WEATHERS, KARAN Perez [facility] WSo STOMACH PAIN/PAIN WHILE URINATING [id number] 05/25/2016 08:49:00 05/25/2016 23:59:59 CLS Outpatient JOSEF WEATHERS, CLAYTON Mccrary [facility] RAD LEG SWELLING,LEG PAIN [id number] 04/12/2016 16:45:00 04/12/2016 19:50:00 DIS Outpatient CARLOTA PACE DO [facility] WSo DECREASED MOVEMENT [id number] 03/21/2016 21:58:00 03/22/2016 01:05:00 DIS Outpatient KARAN CASTAÑEDA MD [facility] WSo CONTRACTIONS/ DIZZY [id number] 02/12/2016 12:13:00 02/12/2016 14:28:00 DIS Emergency HENRIK KHAN MD [facility] ER SOA 21 WKS PREG [id number] 02/12/2016 11:55:00 02/12/2016 12:05:00 DIS Outpatient JOSEF WEATHERS, CLAYTON Mccrary [facility] WSo ABD PAIN/INCREASED BABY MOVEMENT 21 WKS PREG [id number] 01/21/2016 22:57:00 01/22/2016 02:42:00 DIS Emergency KATHARINE REYES DO [facility] ER CONTRACTIONS;BACK PAIN; STOMACH PAIN [id number] 01/21/2016 22:53:00 01/21/2016 23:59:59 CLS Outpatient JOSEF WEATHERS, CLAYTON Mccrary [facility] WSo CONTRACTIONS;PAIN IN BACK AND STOMACH [id number] 12/13/2015 11:46:00 12/13/2015 14:20:00 DIS Emergency SHAHRIAR YANES APRN [facility] ER BACK PAIN AT 12 WEEKS, HEADACHE,LEAKING FLUID [id number] 11/20/2015 20:51:00 11/20/2015 22:45:00 DIS Emergency SHAHRIAR YANES APRN [facility] ER ABD PAIN [id number] 02/21/2015 21:58:00 02/21/2015 23:56:00 DIS Emergency ERIKA HORN MD [facility] ER LOWER ABD PAIN [id number] 01/04/2015 21:49:00 01/05/2015 00:03:00 DIS Emergency CRISTHIAN MORLEY MD [facility] ER SOA [id number] 11/18/2014 07:09:00 11/18/2014 23:59:59 CLS Outpatient ANGELITA NIETO MD [facility] RAD ABDOMINAL PAIN WITH VOMITING [id number] 04/05/2014 00:06:00 04/07/2014 12:45:00 DIS Inpatient ANGELITA NIETO MD [facility] LDRP LABOR [id number] 12/05/2013 11:09:00 12/05/2013 23:59:59 CLS Outpatient ANGELITA NIETO MD [facility] RAD SURVAY [id number] 10/07/2013 12:42:00 10/07/2013 23:59:59 CLS Outpatient ANGELITA NIETO MD [facility] RAD RLQ PAIN, [id number] 10/06/2013 20:48:00 10/06/2013 22:47:00 DIS Emergency ADDY DOABEL K [facility] ER 13 WKS;ABD PAIN [id number] 09/21/2013 14:01:00 09/21/2013 18:25:00 DIS Emergency IMAN RICE [facility] ER CRAMPING BLEEDING 11 WEEKS PREG [id number] 09/12/2013 10:45:00 09/12/2013 23:59:59 CLS Outpatient ANGELITA NIETO MD [facility] RAD PELVIC PAIN, SPOTTING [id number] 08/20/2013 10:32:00 08/20/2013 23:59:59 CLS Outpatient WENDY CRAFT APRN [facility] RAD DATING
[2017-08-12 13:37] LABS: BILIRUBIN,URINE NEGATIVE (NEGATIVE); CLARITY,URINE SLIGHTLY CLOUDY; COLOR,URINE AMBER; GLUCOSE, URINE (UA) NEGATIVE (NEGATIVE); KETONES,URINE NEGATIVE (NEGATIVE); LEUKOCYTE ESTERASE ,URINE 1+ (NEGATIVE); NITRITE,URINE NEGATIVE (NEGATIVE); PH,URINE 5 (5-9); PROTEIN,URINE 2+ (NEGATIVE); UROBILINOGEN,URINE NORMAL (NORMAL)
--- NOTE | 2017-08-12 13:39 | ED Abdominal Pain ---
General Chief Complaint: Abdominal/GI Problems Stated Complaint: L SIDE PAIN Source of Information: Patient Exam Limitations: No Limitations History of Present Illness Date Seen by Provider: Aug 12, 2017 Time Seen by Provider: 13:38 Initial Comments To ER with left upper abdominal pain that began promptly 11:30 AM this morning. He was cleaning the house. She had just eaten a tamale. She does have nausea and vomiting initially. Pain has been colicky since then. She's had this pain intermittently for about 2 months. She states that she is on her menstrual period. Timing/Duration: 1-2 Days Severity/Quality: Moderate Associated Symptoms: Nausea/Vomiting Allergies and Home Medications Allergies Coded Allergies: No Known Drug Allergies (Unverified , 11/20/15) Home Medications Hyoscyamine Sulfate 0.125 Mg Tab.rapdis, 0.125 MG PO QID PRN for ABDOMINAL PAIN , #60 Ref 0 Prescribed by: MISTY SAMANIEGO on 02/20/17 0256 Ondansetron 4 Mg Tab.rapdis, 4 MG PO Q4H PRN for NAUSEA/VOMITING-1ST LINE, #14 Ref 0 Prescribed by: MISTY SAMANIEGO on 02/20/17 0256 Review of Systems Constitutional: see HPI EENTM: No Symptoms Reported Respiratory: No Symptoms Reported Cardiovascular: No Symptoms Reported Gastrointestinal: See HPI, Abdominal Pain Musculoskeletal: no symptoms reported Skin: no symptoms reported Psychiatric/Neurological: No Symptoms Reported Endocrine: No Symptoms Reported Past Ugfrjlf-Vnwxcz-Zvlghm Hx Patient Social History 2nd Hand Smoke Exposure: No Recent Foreign Travel: No Contact w/Someone Who Travel: No Recent Hopitalizations: No Immunizations Up To Date Tetanus Booster (TDap): Less than 5yrs PED Vaccines UTD: Yes Date of Influenza Vaccine: Apr 11, 2016 Seasonal Allergies Seasonal Allergies: No Surgeries History of Surgeries: No Respiratory History of Respiratory Disorde: Yes Respiratory Disorders: Asthma Cardiovascular History of Cardiac Disorders: No Neurological History of Neurological Disord: No Reproductive System Hx Reproductive Disorders: No Genitourinary History of Genitourinary Disor: No Gastrointestinal History of Gastrointestinal Di: No Gastrointestinal Disorders: Chronic Constipation Musculoskeletal History of Musculoskeletal Dis: No Endocrine History of Endocrine Disorders: No HEENT History of HEENT Disorders: No Cancer History of Cancer: No Psychosocial History of Psychiatric Problem: No Integumentary History of Skin or Integumenta: No Blood Transfusions History of Blood Disorders: No Adverse Reaction to a Blood Tr: No Family Medical History Significant Family History: No Pertinent Family Hx Family Medial History: Patient reports no known family medical history. Physical Exam Vital Signs VS - Last 72 Hours, by Label 08/12/17 08/12/17 08/12/17 13:35 13:41 13:41 Temp 98.3 98.3 98.3 Pulse 74 Resp 16 B/P (MAP) 113/78 (90) Pulse Ox 98 O2 Delivery Room Air Capillary Refill : General Appearance: WD/WN, no apparent distress HEENT: PERRL/EOMI, normal ENT inspection Neck: non-tender, full range of motion Respiratory: no respiratory distress, no accessory muscle use Gastrointestinal: normal bowel sounds, soft, tenderness (unable to stand up straight as this worsens the pain) Extremities: normal range of motion, non-tender Neurologic/Psychiatric: alert, normal mood/affect, oriented x 3 Skin: normal color, warm/dry Progress/Results/Core Measures Results/Orders Lab Results Laboratory Tests Test 08/12/17 13:30 08/12/17 13:35 Range/Units Urine Color NATHAN H Urine Clarity SLIGHTLY CLOUDY Urine pH 5 5-9 Urine Specific Currie 1.025 H 1.016-1.022 Urine Protein 2+ H NEGATIVE Urine Glucose (UA) NEGATIVE NEGATIVE Urine Ketones NEGATIVE NEGATIVE Urine Nitrite NEGATIVE NEGATIVE Urine Bilirubin NEGATIVE NEGATIVE Urine Urobilinogen NORMAL NORMAL MG/DL Urine Leukocyte Esterase 1+ H NEGATIVE Urine RBC (Auto) 5+ H NEGATIVE Urine RBC TNTC H /HPF Urine WBC 2-5 /HPF Urine Squamous Epithelial Cells 5-10 /HPF Urine Crystals NONE /LPF Urine Bacteria NEGATIVE /HPF Urine Casts NONE /LPF Urine Mucus NEGATIVE /LPF Urine Culture Indicated NO White Blood Count 7.5 4.3-11.0 10^3/uL Red Blood Count 4.56 4.35-5.85 10^6/uL Hemoglobin 13.8 11.5-16.0 G/DL Hematocrit 39 35-52 % Mean Corpuscular Volume 86 80-99 FL Mean Corpuscular Hemoglobin 30 25-34 PG Mean Corpuscular Hemoglobin Concent 35 32-36 G/DL Red Cell Distribution Width 12.6 10.0-14.5 % Platelet Count 198 130-400 10^3/uL Mean Platelet Volume 9.9 7.4-10.4 FL Neutrophils (%) (Auto) 67 42-75 % Lymphocytes (%) (Auto) 25 12-44 % Monocytes (%) (Auto) 6 0-12 % Eosinophils (%) (Auto) 1 0-10 % Basophils (%) (Auto) 0 0-10 % Neutrophils # (Auto) 5.0 1.8-7.8 X 10^3 Lymphocytes # (Auto) 1.9 1.0-4.0 X 10^3 Monocytes # (Auto) 0.4 0.0-1.0 X 10^3 Eosinophils # (Auto) 0.1 0.0-0.3 10^3/uL Basophils # (Auto) 0.0 0.0-0.1 10^3/uL Sodium Level 137 135-145 MMOL/L Potassium Level 3.6 3.6-5.0 MMOL/L Chloride Level 104 98-107 MMOL/L Carbon Dioxide Level 22 21-32 MMOL/L Anion Gap 11 5-14 MMOL/L Blood Urea Nitrogen 12 7-18 MG/DL Creatinine 0.70 0.60-1.30 MG/DL Estimat Glomerular Filtration Rate > 60 BUN/Creatinine Ratio 17 Glucose Level 81 70-105 MG/DL Calcium Level 9.3 8.5-10.1 MG/DL Total Bilirubin 0.3 0.1-1.0 MG/DL Aspartate Amino Transf (AST/SGOT) 18 5-34 U/L Alanine Aminotransferase (ALT/SGPT) 19 0-55 U/L Alkaline Phosphatase 65 40-136 U/L Total Protein 7.6 6.4-8.2 GM/DL Albumin 4.1 3.2-4.5 GM/DL My Orders Orders - SHAHRIAR YANES APRN Ua Culture If Indicated (08/12/17 13:23) Urine Bedside (08/12/17 13:23) Cbc With Automated Diff (08/12/17 13:35) Comprehensive Metabolic Panel (08/12/17 13:35) Saline Lock/Iv-Start (08/12/17 13:35) Ct Abd/Pelvis Wo(Kidney Stone) (08/12/17 13:35) Fentanyl Injection (Sublimaze Injection (08/12/17 13:45) Ketorolac Injection (Toradol Injection) (08/12/17 13:45) Medications Given in ED Current Medications Medications Dose Ordered Sig/Gomez Route Start Time Stop Time Status Last Admin Dose Admin Fentanyl Citrate 50 mcg ONCE ONCE IVP 08/12/17 13:45 08/12/17 13:46 DC 08/12/17 13:41 50 MCG Ketorolac Tromethamine 30 mg ONCE ONCE IVP 08/12/17 13:45 08/12/17 13:46 DC 08/12/17 13:41 30 MG Vital Signs/I&O Vital Sign - Last 12Hours 08/12/17 08/12/17 08/12/17 13:35 13:41 13:41 Temp 98.3 98.3 98.3 Pulse 74 Resp 16 B/P (MAP) 113/78 (90) Pulse Ox 98 O2 Delivery Room Air Point of Care Testing Urine -Bedside: Negative Diagnostic Imaging Diagonstic Imaging: CT Comments NAME: MERRY HERNANDEZ [facility] REC#: [id number] PT STATUS: REG ER : 1990 PHYSICIAN: SHAHRIAR YANES RUG CLEANER ADMIT DATE: 08/12/17/ER Draft Date of Exam:08/12/17 CT ABD/PELVIS WO(KIDNEY STONE) PROCEDURE: CT urinary tract, rule out kidney stone. TECHNIQUE: Multiple contiguous axial images were obtained through the abdomen and pelvis without the use of intravenous contrast. INDICATION: Anterior abdominal pain, 2 months history, now accompanied by vomiting. COMPARISON with study date 02/20/2017. FINDINGS: The air-containing appendix is visualized and normal. There is no hydronephrosis and there were no opaque urinary tract calculi. There is a right adnexal cyst, presumed ovarian, measuring 3.9 x 3.2 cm. The left adnexa appeared normal. There is no diverticulitis. There is no bowel, biliary or urinary tract obstruction. No ascites or free air. No pneumatosis. No focal of inflammation. There is a small thin fatty umbilical hernia without herniated viscus. The osseous structures in the lung bases, nonacute. IMPRESSION: Right adnexal cyst dimensions above, presumed ovarian. Unobstructed urinary tracts with no opaque stone. No focal inflammatory process. Negative appendix. Fatty small umbilical hernia, chronic. Dictated on workstation # [id number] Dict: 08/12/17 1350 Trans: 08/12/[address] [facility] [id number] Interpreted by: CECILIA BATRES Electronically signed by: Departure Impression Impression: Primary Impression: Constipation Disposition: 01 HOME, SELF-CARE Condition: Stable Departure-Patient Inst. Decision time for Depature: 14:06 Referrals: [facility] (PCP/Family) Primary Care Physician Patient Instructions: Constipation, Adult (DC) Add. Discharge Instructions: 1. Go home and drink a bottle of magnesium citrate which will help you to have a bowel movement shortly thereafter. Return to ER for any fevers or intolerable pain. Follow-up with your doctor on Monday for recheck. You appeared to have a cyst arising from the right ovary on CT but this should be confirmed with ultrasound ordered by your family physician. All discharge instructions reviewed with patient and/or family. Voiced understanding. Images Torso/Trunk 1 - Tenderness SHAHRIAR YANES APRN Aug 12, 2017 13:39
[2017-08-12 13:45] LABS: BASOPHILS % (AUTO) 0 % (0-10); EOSINOPHILS # (AUTO) 0.1 10^3/uL (0.0-0.3); EOSINOPHILS % (AUTO) 1 % (0-10); HEMATOCRIT 39 % (35-52); HEMOGLOBIN 13.8 G/DL (11.5-16.0); LYMPHOCYTES # (AUTO) 1.9 X 10^3 (1.0-4.0); LYMPHOCYTES % (AUTO) 25 % (12-44); MEAN CORPUSCULAR HEMOGLOBIN 30 PG (25-34); MEAN CORPUSCULAR HGB CONC 35 G/DL (32-36); MEAN CORPUSCULAR VOLUME 86 FL (80-99); MEAN PLATELET VOLUME 9.9 FL (7.4-10.4); MONOCYTES # (AUTO) 0.4 X 10^3 (0.0-1.0); MONOCYTES % (AUTO) 6 % (0-12); NEUTROPHILS % (AUTO) 67 % (42-75); PLATELET COUNT 198 10^3/uL (130-400); RED BLOOD COUNT 4.56 10^6/uL (4.35-5.85); RED CELL DISTRIBUTION WIDTH 12.6 % (10.0-14.5); WHITE BLOOD COUNT 7.5 10^3/uL (4.3-11.0)
[2017-08-12] MEDS ORDERED: fentaNYL INJECTION 100 MCG/2 ML AMP IVP ONE (13:45)
[2017-08-12] MEDS ORDERED: KETOROLAC 30 MG/ML VIAL IVP ONE (13:45)
[2017-08-12 13:46] LABS: BACTERIA,URINE NEGATIVE /HPF; RBC,URINE TNTC /HPF
--- NOTE | 2017-08-12 13:57 | Diagnostic Imaging Report ---
PROCEDURE: CT urinary tract, rule out kidney stone. TECHNIQUE: Multiple contiguous axial images were obtained through the abdomen and pelvis without the use of intravenous contrast. INDICATION: Anterior abdominal pain, 2 months history, now accompanied by vomiting. COMPARISON with study date 02/20/2017. FINDINGS: The air-containing appendix is visualized and normal. There is no hydronephrosis and there were no opaque urinary tract calculi. There is a right adnexal cyst, presumed ovarian, measuring 3.9 x 3.2 cm. The left adnexa appeared normal. There is no diverticulitis. There is no bowel, biliary or urinary tract obstruction. No ascites or free air. No pneumatosis. No focal of inflammation. There is a small thin fatty umbilical hernia without herniated viscus. The osseous structures in the lung bases, nonacute. IMPRESSION: Right adnexal cyst dimensions above, presumed ovarian. Unobstructed urinary tracts with no opaque stone. No focal inflammatory process. Negative appendix. Fatty small umbilical hernia, chronic. Dictated by: Dictated on workstation # [id number]
[2017-08-12 14:04] LABS: ALANINE AMINOTRANSFERASE 19 U/L (0-55); ALBUMIN 4.1 GM/DL (3.2-4.5); ALKALINE PHOSPHATASE 65 U/L (40-136); BILIRUBIN,TOTAL 0.3 MG/DL (0.1-1.0); BUN/CREATININE RATIO 17; CALCIUM 9.3 MG/DL (8.5-10.1); CARBON DIOXIDE 22 MMOL/L (21-32); CHLORIDE 104 MMOL/L (98-107); GFR ESTIMATED > 60; GLUCOSE 81 MG/DL (70-105); POTASSIUM 3.6 MMOL/L (3.6-5.0); SODIUM 137 MMOL/L (135-145); TOTAL PROTEIN 7.6 GM/DL (6.4-8.2)
[2017-08-12 14:30] VITALS: BP 120/72
[2017-08-12] MEDS ORDERED: MAGNESIUM CITRATE 300 ML BTL PO ONE (14:30)
== END 2017-08-12 14:30 | disposition home or self-care (01) ==
LOC: EDUNIT# 13:15 → ER 13:17
DX: K59.00 Constipation, unspecified (principal); J45.909 Unspecified asthma, uncomplicated; Z87.19 Personal history of other diseases of the digestive system
CPT/HCPCS: 36415; 74176; 80053; 81000; 84703; 85025; 96374; 96375

== ENCOUNTER → 2017-08-23 | Outpatient (CLI) | payer SELFPAY ==
--- NOTE | 2017-08-23 13:55 | Diagnostic Imaging Report ---
PROCEDURE: US PELVIC (NON OB) TECHNIQUE: Multiple real-time grayscale images were obtained over the pelvis in various projections transabdominally. IMPRESSION: Right adnexal cyst noted on CT. Comparison is made with CT scan from 08/12/2017. The uterus measures 8.3 x 5.1 x 3.5 cm. Endometrium is 8 mm in thickness. No uterine mass is identified. The right ovary measures 3.4 x 3.8 x 2.5 cm, and the left ovary measures 2.1 x 1.9 x 2.8 cm. There is a 2.8 cm simple appearing cyst involving the right ovary, likely accounting for the CT abnormality. There is blood flow to both ovaries. No free fluid is seen. IMPRESSION: 2.8 cm simple right ovarian cyst, correlating with the CT abnormality. No other significant abnormality is detected. Dictated by: Dictated on workstation # [id number]
== END ==
LOC: RAD 13:12
PROVIDERS: ATTEND Family Medicine
DX: N83.201 Unspecified ovarian cyst, right side (principal)
CPT/HCPCS: 76856

== ENCOUNTER 2018-04-01 17:15 | Emergency (ER) | payer SELFPAY ==
[~2018-04-01] VITALS: Ht 165.1 cm; Wt 70.3 kg
--- OUTSIDE RECORDS SUMMARY | 2018-04-01 17:21 | XMS REPORT ---
Author Author ISABEL LAWSON Organization [facility] Address [address] [place] [address] Care Team Providers Care Bioinformatics Software Engineer Name Role Phone ISABEL LAWSON Unavailable PROBLEMS Type Condition ICD9-CM Code VUB32-MX Code Onset Dates Condition Status SNOMED Code Problem Vaginal bleeding N93.9 Active 268781655 Problem Seasonal allergic rhinitis due to pollen J30.1 Active 44042834 Problem Irregular bleeding N92.6 Active 09389596 Problem Lumbago with sciatica, 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 Active 385162814 Problem Lumbago with sciatica, left side M54.42 Active 592284010 Problem Other chronic pain G89.29 Active 23014571 ALLERGIES No Known Allergies ENCOUNTERS Encounter Location Date Diagnosis [facility] [address] [address] Mar, [place] [address] [address] Jan, Vaginal bleeding N93.9 and Encounter for initial prescription of contraceptive pills Z30.011 [place] [address] [address] Dec, Acute cystitis without hematuria N30.00 ; Acute nonintractable headache, unspecified headache type R51 and Blurred vision, bilateral H53.8 [facility] [address] [place] [id number] [place] [address] Dec, [facility] [address] [address] Dec, Urinary frequency R35.0 and Acute cystitis without hematuria N30.00 [place] [address] [address] November, Seasonal allergic rhinitis due to pollen J30.1 [place] [address] [address] Oct, [place] [address] [address] Oct, Lumbago with sciatica, left side M54.42 and Other chronic pain G89.29 [place] [address] [address] Sep, Pain of left thigh M79.652 and Varicose vein of leg I83.90 [place] [address] [address] Aug, Pelvic pain R10.2 ; Simple ovarian cyst N83.209 and Irregular bleeding N92.6 [facility] [address] [address] Apr, Strain of neck muscle, initial encounter S16.1XXA [place] [address] [address] Apr, Irregular bleeding N92.6 [facility] [place] [address] [address] Jan, Sore throat J02.9 ; Strep pharyngitis J02.0 and Flank pain R10.9 [place] [address] [address] November, [place] [address] [address] November, Encounter for test, result unknown Z32.00 [facility] [address] [address] Oct, Lumbago with sciatica, 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 [place] [address] [address] November, [place] [id number], [place] [address] 06 Nov, 2015 Normal in multigravida Z34.80 and 9 weeks gestation of Z3A.09 [facility] [address] [place] [address] 14 Oct, 2015 [facility] [address] [place] [id number] [address] 12 Oct, 2015 Absence of menses due to use of contraceptive N91.2 and Positive test Z32.01 [facility] [address], [place] [address] 14 Oct, 2014 [facility] [address] [place] [id number] [place] [address] Oct, [facility] [id number] [place] [address] Jul, [facility] [id number] [place] [address] Jul, [facility] [id number] [place] [address] Jul, [facility] [id number] [place] [address] Jul, [facility] [id number], [place] [address] Sep, [facility] [id number] [place] [address] Sep, [facility] [id number] [place] [address] Sep, [facility] [id number] [place] [address] Sep, [facility] [id number] [place] [address] Sep, [facility] [id number] [address] Sep, [facility] [id number] [place] [address] Sep, [facility] [id number] [id number] Sep, [facility] [id number] [place] [address] Sep, [facility] [id number] [place] [address] Sep, [facility] [id number] [place] [address] Aug, [facility] [address] [place] [id number] [place] [address] Aug, [facility] [id number] [place] [address] Aug, [facility] [id number] [place] [address] Aug, [facility] [id number] [place] [address] Aug, [facility] [id number] [place] [address] Aug, [facility] [id number] [id number] Aug, IMMUNIZATIONS No Known Immunizations SOCIAL HISTORY Never Assessed REASON FOR VISIT Facial Pain/Numbness--tcuppettRn, Left sided facial pain and numbness along with blurred vision that started last night. Pt states whole face hurts, but more so around left eye. No weakness to left side. Having dizziness as well and lip tingling PLAN OF CARE Activity Details Follow Up 2 - 3 Days if not better Reason:BOLAÑOS, blurry vision VITAL SIGNS Height 64 in 2017-12-26 Weight 154.6 lbs 2017-12-26 Temperature 98.4 degrees Fahrenheit 2017-12-26 Heart Rate 76 bpm 2017-12-26 Respiratory Rate 20 2017-12-26 BMI 26.53 kg/m2 2017-12-26 Blood pressure systolic 104 mmHg 2017-12-26 Blood pressure diastolic 70 mmHg 2017-12-26 MEDICATIONS Medication Instructions Dosage Frequency Start Date End Date Duration Status Bactrim DS 800-160 MG Orally Twice a day 1 tablet 12h 5 days Active RESULTS No Results PROCEDURES No Known procedures INSTRUCTIONS MEDICATIONS ADMINISTERED No Known Medications MEDICAL (GENERAL) HISTORY Type Description Date Medical History Asthma Hospitalization History Childbirth
--- OUTSIDE RECORDS SUMMARY | 2018-04-01 17:21 | XMS REPORT ---
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 Active 918352401 Problem Lumbago with sciatica, left side M54.42 Active 230630982 Problem Other chronic pain G89.29 Active 98561908 ALLERGIES No Known Allergies ENCOUNTERS Encounter Location Date Diagnosis [facility] [address] [address] Jan, Vaginal bleeding N93.9 and Encounter for initial prescription of contraceptive pills Z30.011 [facility] [address] [address] Dec, Acute cystitis without hematuria N30.00 ; Acute nonintractable headache, unspecified headache type R51 and Blurred vision, bilateral H53.8 [facility] [address] [place] [id number] [place] [address]93 Dec, [facility]ALK [facility] [address] [address] Dec, Urinary frequency R35.0 and Acute cystitis without hematuria N30.00 [facility] [address] [address] November, Seasonal allergic rhinitis due to pollen J30.1 [facility] [address] [address] Oct, [place] [address] [place] [id number] [place] [address]- 8517 Oct, Lumbago with sciatica, left side M54.42 and Other chronic pain G89.29 [place] [address] [place] [id number] [place] [address] 37695- 8282 Sep, Pain of left thigh M79.652 and Varicose vein of leg I83.90 [place] [address] [address] Aug, Pelvic pain R10.2 ; Simple ovarian cyst N83.209 and Irregular bleeding N92.6 [facility] W[facility] IN CARE [facility] [address] [address] Apr, Strain of neck muscle, initial encounter S16.1XXA [place] [address] [address] Apr, Irregular bleeding N92.6 [facility] WALK IN [place] [address] [address] Jan, Sore throat J02.9 ; Strep pharyngitis J02.0 and Flank pain R10.9 [place] [address] [place] [id number] [place] [address]446- 9431 November, Encounter for test, result unknown Z32.00 [place] [address] [address] November, [facility] [address] [address] Oct, Lumbago with sciatica, 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 [place] [address] [address]- [address] November, [place] [address] [address] 79[address] November, Normal in multigravida Z34.80 and 9 weeks gestation of Z3A.09 [facility] [address] [address] 14 Oct, 2015 [facility] [address] [address] 12 Oct, 2015 Absence of menses due to use of contraceptive N91.2 and Positive test Z32.01 [facility] [address], [place] [address] 14 Oct, 2014 [facility] [address] [place] [id number] [address] Oct, [facility] [address] [place] [address] [id number] [place] [address] 47362- 1135 Jul, [facility] [address] [place] [address] [id number] [place] [address] 23912- 8908 Jul, [facility] [address], [place] [address] 72[address] Jul, [facility] [address] [address] 4[address] Jul, [facility] [address], [place] [address]- 2603 Sep, [facility] [address], [place] [address]- 2806 Sep, [facility] [address], [place] [address] 405[address] Sep, [facility] [address] [place] [address] [id number] [address] 5[address] Sep, [facility] [address] [address] Sep, [facility] [address] [place] [id number] [address] Sep, [facility] [address], [place] [address]- 6[address] Sep, [facility] [address] [place] [address] 35425- 9609 Sep, [facility] [address] [place] [address] 91377- 2659 Sep, [facility] [address] [place] [address] [id number] [place] [address] 33398- 6136 Sep, [facility] [address] [place] [address] [id number] [place] [address] 71014- 5858 Aug, 2013 [facility] [address] [place] [address] [id number] [place] [address] 638379- 4108 Aug, 2013 [facility] [address] [place] [address] [id number] [place] [address] 77131- 5264 Aug, 2013 [facility] [address] [place] [address] [id number] [place] [address] 60837- 2617 Aug, 2013 [facility] [address] [place] [address] [id number] [place] [address] 33742- 3410 Aug, [facility] [address] [place] [address] [id number] [place] [address] 48486- 1251 Aug, [facility] [address] [place] [address] 90184- 2325 Aug, IMMUNIZATIONS No Known Immunizations SOCIAL HISTORY Never Assessed REASON FOR VISIT Irregular vaginal bleeding, heavy lasting 10 days, stopped this morning. Smitha RN PLAN OF CARE Activity Details Follow Up 6 Months, prn Reason:w/PCP VITAL SIGNS Height 64 in 2018-01-30 Weight 216.49 lbs 2018-01-30 Temperature 98.2 degrees Fahrenheit 2018-01-30 Heart Rate 83 bpm 2018-01-30 Respiratory Rate 18 2018-01-30 BMI 37.16 kg/m2 2018-01-30 Blood pressure systolic 106 mmHg 2018-01-30 Blood pressure diastolic 70 mmHg 2018-01-30 MEDICATIONS Medication Instructions Dosage Frequency Start Date End Date Duration Status Ortho Tri-Cyclen Lo 0.18/0.215/0.25 MG-25 MCG Orally Once a day 1 tablet 24h Jan, 28 day(s) Active RESULTS Name Result Date Reference Range TEST, URINE (IN HOUSE) 2018-01-30 RESULTS negative Lot # [id number] Control + Exp date 07/2019 PROCEDURES Procedure Date Ordered Result Body Site URINE TEST January 30, 2018 INSTRUCTIONS MEDICATIONS ADMINISTERED No Known Medications MEDICAL (GENERAL) HISTORY Type Description Date Medical History Asthma Hospitalization History Childbirth
--- OUTSIDE RECORDS SUMMARY | 2018-04-01 17:22 | XMS REPORT ---
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 Active 701039885 Problem Lumbago with sciatica, left side M54.42 Active 869505975 Problem Other chronic pain G89.29 Active 23123179 ALLERGIES No Information ENCOUNTERS Encounter Location Date Diagnosis [place] [id number] [address] Mar, [place] [address] [address] Jan, Vaginal bleeding N93.9 and Encounter for initial prescription of contraceptive pills Z30.011 [place] [address] [address]- [address]93 Dec, Acute cystitis without hematuria N30.00 ; Acute nonintractable headache, unspecified headache type R51 and Blurred vision, bilateral H53.8 [facility] [address] [address] Dec, [facility] WALK IN [facility] [address] [address] Dec, Urinary frequency R35.0 and Acute cystitis without hematuria N30.00 [place] [address] [address] November, Seasonal allergic rhinitis due to pollen J30.1 [place] [address] [place] [id number] [place] [address]316- 9534 Oct, [place] [address] [address]- 2456 Oct, Lumbago with sciatica, left side M54.42 and Other chronic pain G89.29 [place] [address] [address]- 4197 Sep, Pain of left thigh M79.652 and Varicose vein of leg I83.90 [place] [address] [address]- 2208 Aug, Pelvic pain R10.2 ; Simple ovarian cyst N83.209 and Irregular bleeding N92.6 [facility] WALK IN [place] [id number] [place] [address]10 Apr, Strain of neck muscle, initial encounter S16.1XXA [place] [address] [place] [id number] [place] [address] 92067- 2938 Apr, Irregular bleeding N92.6 [facility] WALK IN [place] [address] [place] [id number] [place] [address]36 Jan, Sore throat J02.9 ; Strep pharyngitis J02.0 and Flank pain R10.9 [place] [address] [place] [id number] [place] [address] 31756- 7030 November, [place] [address] [place] [id number] [place] [address] 09658- 6584 November, Encounter for test, result unknown Z32.00 [facility] WALK IN [address] [address] Oct, Lumbago with sciatica, 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 [place] [address] [place] [id number] [place] [address] 25943- 2302 November, [place] [address] [place] [id number] [address] 06 Nov, 2015 Normal in multigravida Z34.80 and 9 weeks gestation of Z3A.09 [facility] [address], [place] [address]- 14[address] 14 Oct, 2015 [facility] [address] [place] [id number] [address]- 2446 12 Oct, 2015 Absence of menses due to use of contraceptive N91.2 and Positive test Z32.01 [facility] [address] [address]- 0863 14 Oct, 2014 [facility] [address] [place] [id number] [place] [address]25- 2963 Oct, [facility] [address], [place] [address]- 4177 Jul, [facility] [id number] [place] [address] 64592- 0379 Jul, [facility] [address], [place] [address]- 7115 Jul, [facility] [address] [address]- 8488 Jul, [facility] [address] [address]- 6840 Sep, [facility] [address], [place] [address]- 1050 Sep, [facility] [address], [place] [address]- 4722 Sep, [facility] [address] [place] [id number], [place] [address]- 7361 Sep, [facility] [address] 1611 Sep, [facility] [address], [place] [address]- 5519 Sep, [facility] [address], [place] [address]- 9141 Sep, [facility] [address], [place] [address]- 1816 Sep, [facility] [address], [place] [address]- 0986 Sep, [facility] [address], [place] [address]- 7433 Sep, [facility] [address], [place] [address]- 8161 Aug, [facility] [address], [place] [address]- 2960 Aug, [facility] [address], [place] [address]- 4164 Aug, [facility] [address], [place] [address]- 9962 Aug, [facility] [address], [place] [address]- 8370 Aug, [facility] [address], [place] [address]- 2792 Aug, [facility] [address] [place] [id number] [address]- 0898 Aug, IMMUNIZATIONS No Known Immunizations SOCIAL HISTORY Never Assessed REASON FOR VISIT Triage--tcuppettRN PLAN OF CARE VITAL SIGNS MEDICATIONS Unknown Medications RESULTS No Results PROCEDURES No Known procedures INSTRUCTIONS MEDICATIONS ADMINISTERED No Known Medications MEDICAL (GENERAL) HISTORY Type Description Date Medical History Asthma Hospitalization History Childbirth
--- OUTSIDE RECORDS SUMMARY | 2018-04-01 17:22 | XMS REPORT ---
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 Active 448333262 Problem Lumbago with sciatica, left side M54.42 Active 251213153 Problem Other chronic pain G89.29 Active 48824377 ALLERGIES No Known Allergies ENCOUNTERS Encounter Location Date Diagnosis [place] [address] [address] Mar, [place] [address] [address] 6040 Jan, Vaginal bleeding N93.9 and Encounter for initial prescription of contraceptive pills Z30.011 [place] [address] [address]- 8143 Dec, Acute cystitis without hematuria N30.00 ; Acute nonintractable headache, unspecified headache type R51 and Blurred vision, bilateral H53.8 [place] [address] [address]- [address]18 Dec, [facility] [address] [address] 17 Dec, 2017 Urinary frequency R35.0 and Acute cystitis without hematuria N30.00 [place] [address] [address]- 9268 November, Seasonal allergic rhinitis due to pollen J30.1 [place] [address] [address]- 6180 Oct, [place] [address] [address]- 1364 Oct, Lumbago with sciatica, left side M54.42 and Other chronic pain G89.29 [place] [address] [address]- 8509 Sep, Pain of left thigh M79.652 and Varicose vein of leg I83.90 [place] [address] 94[address]- 6715 Aug, Pelvic pain R10.2 ; Simple ovarian cyst N83.209 and Irregular bleeding N92.6 [facility] WALK IN [place] [address] [address] Apr, Strain of neck muscle, initial encounter S16.1XXA [place] [address] [address]- 3303 Apr, Irregular bleeding N92.6 [facility] WALK IN [place] [address] [address] Jan, Sore throat J02.9 ; Strep pharyngitis J02.0 and Flank pain R10.9 [place] [address] [address]- 8689 November, [place] [address] 8[address]27- 5975 November, Encounter for test, result unknown Z32.00 [facility] WALK IN [place] [address] [address] Oct, Lumbago with sciatica, 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 [place] [address] [address]- 6657 November, [facility] [address] [address]- [address] 06 Nov, 2015 Normal in multigravida Z34.80 and 9 weeks gestation of Z3A.09 [facility] [address] [facility] [id number] [address]- [address] 14 Oct, 2015 [facility] [address] [place] [address] [address]- 3691 12 Oct, 2015 Absence of menses due to use of contraceptive N91.2 and Positive test Z32.01 [facility] [address] [address]- 6430 14 Oct, 2014 [facility] [address] [address]- 8537 Oct, [facility] [address], [place] [address]- 8081 Jul, [facility] [address], [place] [address]- 9381 Jul, [facility] [address] [address]- 8130 Jul, [facility] [address], [place] [address]- 1450 Jul, [facility] [address], [place] [address]- 0046 Sep, [facility] [address] [address]- 9829 Sep, [facility] [address], [place] [address]- 6922 Sep, [facility] [address], [place] [address]- 0393 Sep, [facility] [address] [address] 3439 Sep, [facility] [address] [address]- 0651 Sep, [facility] [address], [place] [address]- 6232 Sep, [facility] [address] [address]- 0178 Sep, [facility] [address], [place] [address]- 9510 Sep, [facility] [address] [address]- 3582 Sep, [facility] [address] [place] [address] 67[address]- 9069 Aug, 2013 [facility] [address] [address]- 5917 Aug, 2013 [facility] [address] [place] [address] 785[address]- 8778 Aug, 2013 [facility] [address] [address]- 6133 Aug, [facility] [address] [address]- 0073 Aug, [facility] [address] [address]- 4716 Aug, [facility] [address], [place] [address]- 5659 Aug, IMMUNIZATIONS No Known Immunizations SOCIAL HISTORY Never Assessed REASON FOR VISIT fever/headache/side pain started last night JStrasserRN PLAN OF CARE Activity Details Follow Up prn Reason: VITAL SIGNS Height 64 in 2017-12-24 Weight 154.6 lbs 2017-12-24 Temperature 100.1 degrees Fahrenheit 2017-12-24 Heart Rate 88 bpm 2017-12-24 Respiratory Rate 20 2017-12-24 BMI 26.53 kg/m2 2017-12-24 Blood pressure systolic 100 mmHg 2017-12-24 Blood pressure diastolic 64 mmHg 2017-12-24 MEDICATIONS Medication Instructions Dosage Frequency Start Date End Date Duration Status Bactrim DS 800-160 MG Orally Twice a day 1 tablet 12h 5 days Active Tylenol 325 MG Orally every 4 hrs 1 tablet as needed 4h Active Ibuprofen 200 MG Orally every 6 hrs 1 tablet with food or milk as needed 6h Active RESULTS No Results PROCEDURES Procedure Date Ordered Result Body Site URINALYSIS, AUTO, W/O SCOPE December 24, 2017 URINE CULTURE/COLONY COUNT December 24, 2017 INSTRUCTIONS MEDICATIONS ADMINISTERED No Known Medications MEDICAL (GENERAL) HISTORY Type Description Date Medical History Asthma Hospitalization History Childbirth
--- OUTSIDE RECORDS SUMMARY | 2018-04-01 17:26 | XMS REPORT | Continuity of Care Document ---
Author Author [facility] Address Unknown Phone Unavailable Allergies Active Description Code Type Severity Reaction Onset Reported/Identified Relationship to Patient Clinical Status Yes No Known Drug Allergies [id number] Drug Allergy Unknown N/A 11/20/2015 Medications There is no data. Problems Date Dx Coded Attending Type Code Diagnosis Diagnosed By 08/12/2013 LUANA CROOK, WENDY A V72.42 TEST POSITIVE RESULT 08/12/2013 LUANA TAX COMPLIANCE AGENT, WENDY A V74.5 STD SCREEN 08/12/2013 LUANA ZIMMERMANN, WENDY A V76.10 BREAST CANCER SCREENING 08/12/2013 LUANA TAX COMPLIANCE AGENT, WENDY A V76.2 CERVICAL CANCER SCREENING (PAP SMEAR) 08/12/2013 LUANA TAX COMPLIANCE AGENT, WENDY A V72.42 TEST POSITIVE RESULT 08/12/2013 LUANA TAX COMPLIANCE AGENT, WENDY A V74.5 STD SCREEN 08/12/2013 LUANA TAX COMPLIANCE AGENT, WENDY A V76.10 BREAST CANCER SCREENING 08/12/2013 LUANA TAX COMPLIANCE AGENT, WENDY A V76.2 CERVICAL CANCER SCREENING (PAP SMEAR) 08/12/2013 LUANA TAX COMPLIANCE AGENT, WENDY A V72.42 TEST POSITIVE RESULT 08/12/2013 LUANA TAX COMPLIANCE AGENT, WENDY A V74.5 STD SCREEN 08/12/2013 LUANA TAX COMPLIANCE AGENT, WENDY A V76.10 BREAST CANCER SCREENING 08/12/2013 LUANA TAX COMPLIANCE AGENT, WENDY A V76.2 CERVICAL CANCER SCREENING (PAP SMEAR) 08/12/2013 LUANA TAX COMPLIANCE AGENT, WENDY A V72.42 TEST POSITIVE RESULT 08/12/2013 LUANA TAX COMPLIANCE AGENT, WENDY A V74.5 STD SCREEN 08/12/2013 LUANA TAX COMPLIANCE AGENT, WENDY A V76.10 BREAST CANCER SCREENING 08/12/2013 LUANA TAX COMPLIANCE AGENT, WENDY A V76.2 CERVICAL CANCER SCREENING (PAP [...] NEC-DELIV 04/07/2014 ANGELITA NIETO MD Ot V06.1 [id number], COMBINED [ 04/07/2014 ANGELITA NIETO MD Ot V06.4 [id number] 04/07/2014 EMILIA MD, ANGELITA J Ot V27.0 [...] 787.01 NAUSEA WITH VOMITING 02/21/2015 KORY WEATHERS, ERIKA T Ot 789.09 ABDOMINAL PAIN, OTHER SPECIFIED SITE 02/21/2015 ERIKA HORN MD T Ot J45.901 UNSPECIFIED ASTHMA WITH (ACUTE) EXACERBA 02/21/2015 ERIKA HORN MD T Ot K59.00 CONSTIPATION, UNSPECIFIED 02/21/2015 KORY WEATHERS, ERIKA T Ot R11.2 NAUSEA WITH VOMITING, UNSPECIFIED 02/22/2015 WENDY CRAFT TAX COMPLIANCE AGENT Ot V28.89 02/22/2015 EMILIA WEATHERS, ANGELITA Gamble [...] ANGELITA J Ot 789.04 04/02/2015 WENDY CRAFT TAX COMPLIANCE AGENT Ot V28.89 04/02/2015 EMILIA WEATHERS, ANGELITA Gamble Ot 553.20 04/02/2015 EMILIA WEATHERS, ANGELITA J Ot 625.9 04/02/2015 EMILIA WEATHERS, ANGELITA J Ot 626.8 04/02/2015 ANGELITA NIETO MD Ot 789.00 04/02/2015 ANGELITA NIETO MD Ot V22.2 04/02/2015 ANGELITA NIETO MD Ot 789.03 04/02/2015 ANGELITA NIETO MD Ot V28.81 04/02/2015 ANGELITA NIETO MD Ot 787.03 04/02/2015 ANGELITA NIETO MD Ot 789.04 11/20/2015 WENDY CRAFT TAX COMPLIANCE AGENT Ot V28.89 OTHER SPECIFIED SCREENING 11/20/2015 ANGELITA [...] AND CONDITIONS COMPL PREG/C 11/20/2015 SHAHRIAR YANES TAX COMPLIANCE AGENT Ot Z3A.09 9 WEEKS GESTATION OF 11/20/2015 WENDY CRAFT TAX COMPLIANCE AGENT Ot V28.89 OTHER SPECIFIED SCREENING 11/20/2015 ANGELITA [...] OF URINARY TRACT IN 12/13/2015 SHAHRIAR YANES TAX COMPLIANCE AGENT Ot R51 HEADACHE 12/13/2015 SHAHRIAR YANES APRN Ot Z3A.12 12 WEEKS GESTATION OF 12/16/2015 SHAHRIAR YANES TAX COMPLIANCE AGENT Ot O23.41 UNSP INFCT OF URINARY TRACT IN 12/16/2015 SHAHRIAR YANES TAX COMPLIANCE AGENT Ot R51 HEADACHE 12/16/2015 SHAHRIAR YANES APRN Ot Z3A.12 12 WEEKS GESTATION OF 01/05/2016 SHAHRIAR YANES APRN Ot O23.41 UNSP INFCT OF URINARY TRACT IN 01/05/2016 SHAHRIAR YANES TAX COMPLIANCE AGENT Ot R51 HEADACHE 01/05/2016 SHAHRIAR YANES TAX COMPLIANCE AGENT Ot Z3A.12 12 WEEKS GESTATION OF 01/22/2016 KATHARINE REYES DO Ot O23.42 UNSP INFCT OF URINARY TRACT IN 01/22/2016 KATHARINE REYES DO Ot R10.30 LOWER ABDOMINAL PAIN, UNSPECIFIED 01/22/2016 KATHARINE REYES DO Ot Z3A.18 18 WEEKS GESTATION OF 01/22/2016 WENDY CRAFT TAX COMPLIANCE AGENT Ot V28.89 OTHER SPECIFIED SCREENING 01/22/2016 EMILIA [...] Ot Z33.1 STATE, INCIDENTAL 08/03/2016 WENDY CRAFT TAX COMPLIANCE AGENT Ot V28.89 OTHER SPECIFIED SCREENING 08/03/2016 ANGELITA [...] Ot Z33.1 STATE, INCIDENTAL 02/20/2017 WENDY CRAFT TAX COMPLIANCE AGENT Ot V28.89 OTHER SPECIFIED SCREENING 02/20/2017 ANGELITA [...] R10.9 UNSPECIFIED ABDOMINAL PAIN 05/01/2017 WENDY CRAFT TAX COMPLIANCE AGENT Ot V28.89 OTHER SPECIFIED SCREENING 05/01/2017 ANGELITA [...] Ot Z33.1 STATE, INCIDENTAL 08/08/2017 WENDY CRAFT TAX COMPLIANCE AGENT Ot V28.89 OTHER SPECIFIED SCREENING 08/08/2017 ANGELITA NIETO MD Ot 553.20 VENTRAL HERNIA NOS 08/08/2017 EMILIA WEATHERS, ANGELITA Gamble Ot 625.9 FEM GENITAL SYMPTOMS NOS 08/08/2017 ANGELITA NIETO MD Ot 626.8 MENSTRUAL DISORDER NEC 08/08/2017 ANGELITA NIETO MD Ot 789.00 ABDOMINAL PAIN, UNSPECIFIED SITE 08/08/2017 ANGELITA NIETO MD Ot V22.2 PREG STATE, INCIDENTAL 08/08/2017 ANGELITA NIETO MD Ot 789.03 ABDOMINAL PAIN, RIGHT LOWER QUADRANT 08/08/2017 ANGELITA NIETO MD Ot V28.81 ENCOUNTER FOR ANATOMIC SURVEY 08/08/2017 EMILIA WEATHERS, ANGELITA Gamble Ot 787.03 VOMITING ALONE 08/08/2017 ANGELITA NIETO MD Ot 789.04 ABDOMINAL PAIN, LEFT LOWER QUADRANT 08/08/2017 JOSEF WEATHERS, CLAYTON Mccrary Ot Z53.9 PROCEDURE AND TREATMENT NOT CARRIED OUT, 08/08/2017 JOSEF WEATHERS, CLAYTON Mccrary Ot M79.605 PAIN IN LEFT LEG 08/08/2017 JOSEF WEATHERS, CLAYTON Mccrary Ot R22.42 LOCALIZED SWELLING, MASS AND LUMP, LEFT 08/08/2017 JOSEF WEATHERS, CLAYTON N Ot Z33.1 STATE, INCIDENTAL 08/12/2017 SHAHRIAR YANES APRN Ot J45.909 UNSPECIFIED ASTHMA, UNCOMPLICATED 08/12/2017 SHAHRIAR YANES APRN Ot K59.00 CONSTIPATION, UNSPECIFIED 08/12/2017 SHAHRIAR YANES APRN Ot R10.11 RIGHT UPPER QUADRANT PAIN 08/12/2017 SHAHRIAR YAENS APRN Ot Z87.19 PERSONAL HISTORY OF OTHER DISEASES OF TH 10/25/2017 TEODORO SIMMS MD Ot N83.201 UNSPECIFIED OVARIAN CYST, RIGHT SIDE 10/25/2017 TEODORO SIMMS MD Ot N83.201 UNSPECIFIED OVARIAN CYST, RIGHT SIDE 01/18/2018 TEODORO SIMMS MD Ot N83.201 UNSPECIFIED OVARIAN CYST, RIGHT SIDE 01/19/2018 SHAHRIAR YANES APRN Ot J45.909 UNSPECIFIED ASTHMA, UNCOMPLICATED 01/19/2018 SHAHRIAR YANES APRN Ot K59.00 CONSTIPATION, UNSPECIFIED 01/19/2018 SHAHRIAR YANES APRN Ot R10.11 RIGHT UPPER QUADRANT PAIN 01/19/2018 SHAHRIAR YANES APRN Ot Z87.19 PERSONAL HISTORY OF OTHER DISEASES OF 02/26/2018 MENDEZ WEATHERS, TEODORO Joyner Ot N83.201 UNSPECIFIED OVARIAN CYST, RIGHT SIDE 02/26/2018 MENDEZ WEATHERS, TEODORO Joyner Ot N83.201 UNSPECIFIED OVARIAN CYST, RIGHT SIDE 02/26/2018 BERNOT, NARINDER Ot J45.909 UNSPECIFIED ASTHMA, UNCOMPLICATED 02/26/2018 BERNOT, NARINDER Ot O26.892 OTH RELATED CONDITIONS, SECOND 02/26/2018 BERNOT, NARINDER Ot O99.512 DISEASES OF THE RESP SYS COMP , 02/26/2018 BERNOT, NARINDER Ot O99.89 OTH DISEASES AND CONDITIONS COMPL PREG/C 02/26/2018 BERNOT, NARINDER Ot R55 SYNCOPE AND COLLAPSE 02/26/2018 BERNOT, NRAINDER Ot Z3A.18 18 WEEKS GESTATION OF 02/26/2018 BERNOT, NARINDER Ot Z87.19 PERSONAL HISTORY OF OTHER DISEASES OF 02/28/2018 BERNOT NARINDER Ot J45.909 UNSPECIFIED ASTHMA, UNCOMPLICATED 02/28/2018 BERNOT, NARINDER Ot O26.892 OTH RELATED CONDITIONS, SECOND 02/28/2018 BERNOT, NARINDER Ot O99.512 DISEASES OF THE RESP SYS COMP , 02/28/2018 BERNOT, NARINDER Ot O99.89 OTH DISEASES AND CONDITIONS COMPL PREG/C 02/28/2018 BERNOT, NARINDER Ot R55 SYNCOPE AND COLLAPSE 02/28/2018 BERNOT, NARINDER Ot Z3A.18 18 WEEKS GESTATION OF 02/28/2018 BERNOT, NARINDER Ot Z87.19 PERSONAL HISTORY OF OTHER DISEASES OF 03/02/2018 MENDEZ WEATHERS, TEODORO Joyner Ot N83.201 UNSPECIFIED OVARIAN CYST, RIGHT SIDE 03/04/2018 BERNOT, NARINDER Ot J45.909 UNSPECIFIED ASTHMA, UNCOMPLICATED 03/04/2018 BERNOT, NARINDER Ot O26.892 OTH RELATED CONDITIONS, SECOND 03/04/2018 BERNOT, NARINDER Ot O99.512 DISEASES OF THE RESP SYS COMP , 03/04/2018 BERNOT, NARINDER Ot O99.89 OTH DISEASES AND CONDITIONS COMPL PREG/C 03/04/2018 BERNOT, NARINDER Ot R55 SYNCOPE AND COLLAPSE 03/04/2018 BERNOT, NARINDER Ot Z3A.18 18 WEEKS GESTATION OF 03/04/2018 CHIOMADIPTI YIIS Ot Z87.19 PERSONAL HISTORY OF OTHER DISEASES OF TH 03/16/2018 MENDEZ WEATHERS, TEODORO R Ot N83.201 UNSPECIFIED OVARIAN CYST, RIGHT SIDE 03/17/2018 CHIOMADIPTI YIIS Ot J45.909 UNSPECIFIED ASTHMA, UNCOMPLICATED 03/17/2018 KIMDIPTIIS Ot O26.892 OTH RELATED CONDITIONS, SECOND 03/17/2018 KIM NARINDER Ot O99.512 DISEASES OF THE RESP SYS COMP , 03/17/2018 CHIOMADIPTI YIIS Ot O99.89 OTH DISEASES AND CONDITIONS COMPL PREG/C 03/17/2018 NARINDER ALVAREZ Ot R55 SYNCOPE AND COLLAPSE 03/17/2018 NARINDER ALVAREZ Ot Z3A.18 18 WEEKS GESTATION OF 03/17/2018 KIMDIPTIIS Ot Z87.19 PERSONAL HISTORY OF OTHER DISEASES OF Procedures Code Description [place] [address] OB - EARLY <14 WEEKS 08/12/2013 74762 GC/CHLAM PROBE (STATE) 08/12/2013 21545 PAP SMEAR 08/12/2013 Q0091 PAP SMEAR OBTAIN SMEAR 08/12/2013 47470 TEST, URINE (IN- HOUSE) 08/12/2013 30717 TRICHOMONAS (IN-HOUSE) 08/12/2013 06555 CULTURE UROGENITAL 08/13/2013 67858 ROUTINE VENIPUNCTURE 09/09/2013 01720 UA LONG DIP 09/09/2013 73142 SYPHILLIS-STATE LAB 09/09/2013 15587 HIV (STATE LAB) 09/09/2013 30450 ANTIBODY SCREEN (order) 09/09/2013 93079 HEP B SURFACE ANTIGEN (STATE ) 09/09/2013 77037 CBC 09/09/2013 12116 TSH 09/09/2013 99211 RUBELLA ANTIBODY, IGG 09/10/2013 0788085 ANTIBODY SCREEN (RESULT ONLY) 09/10/2013 27188 BLOOD TYPE/Rh FACTOR 09/10/2013 91710 CULTURE URINE 09/10/2013 78687 CULTURE UROGENITAL 09/11/2013 94969 UA LONG DIP 09/16/2013 72.71 VACUUM EXT DEL W EPISIOT 04/05/2014 95574 THERAPUTIC INJ SQ/IM 07/24/2014 J1050 DEPO PROVERA 07/24/2014 15784 TEST, URINE (IN- HOUSE) 07/24/2014 [id number] REPAIR PERINEUM MUSCLE, OPEN APPROACH 06/19/2016 [id number] DELIVERY OF PRODUCTS OF CONCEPTION, EXTE 06/19/2016 [...] culture - 04/12/16 16:55 Bacterial urine culture [id number] NRG COLONY COUNT >100,000/ML NRG FREE TEXT [...] culture - 05/30/16 17:03 Bacterial urine culture [id number] NRG COLONY COUNT 10,000/ML - 100,000/ML NRG [...] ABO+Rh group BP NRG Transfusion band number [id number] NRG Blood group antibody screen NEGATIVE NR Complete blood count (CBC) with automated white [...] identification in genital specimen by aerobe culture [id number] NRG FREE TEXT EXTERNAL 2 PLUS NORMAL SUSHMA NRG Microscopic examination by wet preparation - 08/03/16 05:00 WET PREP RESULTS 0515, 08-03-16 BY BD NRG Complete urinalysis with reflex to culture [...] - 02/20/17 01:30 Lipase 41 U/L 8-78 Complete urinalysis with reflex to culture - 08/12/17 13:30 Urine color determination NATHAN NRG Urine clarity determination SLIGHTLY CLOUDY NRG Urine pH measurement by test strip 5 5-9 Specific gravity of urine by test strip 1.025 1.016- 1.022 Urine protein assay by test strip, semi-quantitative 2+ NEGATIVE Urine glucose detection by automated test strip NEGATIVE NEGATIVE Erythrocytes detection in urine sediment by light microscopy 5+ NEGATIVE Urine ketones detection by automated test strip NEGATIVE NEGATIVE Urine nitrite detection by test strip NEGATIVE NEGATIVE Urine total bilirubin detection by test strip NEGATIVE NEGATIVE Urine urobilinogen measurement by automated test strip (mass/volume) NORMAL NORMAL Urine leukocyte esterase detection by dipstick 1+ NEGATIVE Automated urine sediment erythrocyte count by microscopy (number/high power field) TNTC NRG Automated urine sediment leukocyte count by [...] automated white blood cell (WBC) differential - 08/12/17 13:35 Blood leukocytes automated count (number/volume) 7.5 10*3/uL 4.3-11.0 Blood erythrocytes automated count (number/volume) 4.56 10*6/uL 4.35-5.85 Venous blood hemoglobin measurement (mass/volume) 13.8 g/dL 11.5-16.0 Blood hematocrit (volume fraction) 39 % 35-52 Automated erythrocyte mean corpuscular volume 86 [foz_us] 80-99 Automated erythrocyte mean corpuscular hemoglobin (mass per erythrocyte) 30 pg 25-34 Automated erythrocyte mean corpuscular hemoglobin concentration measurement ( mass/volume) 35 g/dL 32-36 Automated erythrocyte distribution width ratio 12.6 % 10.0-14.5 Automated blood platelet count (count/volume) 198 10*3/uL 130-400 Automated blood platelet mean volume measurement 9.9 [foz_us] 7.4-10.4 Automated blood neutrophils/100 leukocytes 67 % 42-75 Automated blood lymphocytes/100 leukocytes 25 % 12-44 Blood monocytes/100 leukocytes 6 % 0-12 Automated blood eosinophils/100 leukocytes 1 % 0-10 Automated blood basophils/100 leukocytes 0 % 0-10 Blood neutrophils automated count (number/volume) 5.0 10*3 1.8-7.8 Blood lymphocytes automated count (number/volume) 1.9 10*3 1.0-4.0 Blood monocytes automated count (number/volume) 0.4 10*3 0.0-1.0 Automated eosinophil count 0.1 10*3/uL 0.0-0.3 Automated blood basophil count (count/volume) 0.0 10*3/uL 0.0-0.1 Comprehensive metabolic panel - 08/12/17 13:35 Serum or plasma sodium measurement (moles/volume) 137 mmol/L 135-145 Serum or plasma potassium measurement (moles/volume) 3.6 mmol/L 3.6-5.0 Serum or plasma chloride measurement (moles/volume) 104 mmol/L 98-107 Carbon dioxide 22 mmol/L 21-32 Serum or plasma anion gap determination (moles/volume) 11 mmol/L 5-14 Serum or plasma urea nitrogen measurement (mass/volume) 12 mg/dL 7-18 Serum or plasma creatinine measurement (mass/volume) 0.70 mg/dL 0.60-1.30 Serum or plasma urea nitrogen/creatinine mass ratio 17 NRG Serum or plasma creatinine measurement with calculation of estimated glomerular filtration rate > NRG Serum or plasma glucose measurement (mass/volume) 81 mg/dL 70-105 Serum or plasma calcium measurement (mass/volume) 9.3 mg/dL 8.5-10.1 Serum or plasma total bilirubin measurement (mass/volume) 0.3 mg/dL 0.1-1.0 Serum or plasma alkaline phosphatase measurement (enzymatic activity/volume) 65 U/L 40-136 Serum or plasma aspartate aminotransferase measurement (enzymatic activity/ volume) 18 U/L 5-34 Serum or plasma alanine aminotransferase measurement (enzymatic activity/volume ) 19 U/L 0-55 Serum or plasma protein measurement (mass/volume) 7.6 g/dL 6.4-8.2 Serum or plasma albumin measurement (mass/volume) 4.1 g/dL 3.2-4.5 Encounters ACCT No. Visit Date/Time Discharge Status Pt. Type Provider Facility Loc./Unit Complaint [id number] 08/08/2014 13:28:00 08/08/2014 23:59:59 CLS Outpatient MANUEL WESTON APRN [id number] 07/24/2014 09:56:00 07/24/2014 23:59:59 CLS Outpatient WENDY CRAFT APRN [id number] 09/16/2013 15:53:00 09/16/2013 23:59:59 CLS Outpatient WENDY CRAFT APRN [id number] 09/09/2013 09:51:00 09/09/2013 23:59:59 CLS Outpatient WENDY CRAFT APRN [id number] 08/12/2013 09:44:00 08/12/2013 23:59:59 CLS Outpatient WENDY CRAFT APRN [id number] 02/26/2018 17:20:00 02/26/2018 20:16:00 DIS Outpatient NARINDER ALVAREZ [facility] ER LOWER BACK AND ABD PAIN; POSITIVE TEST [id number] 08/23/2017 13:12:00 08/23/2017 23:59:59 CLS Outpatient TEODORO SIMMS MD [facility] RAD N83.209 [id number] 08/12/2017 13:17:00 08/12/2017 14:30:00 DIS Emergency SHAHRIAR YANES APRN [facility] ER L SIDE PAIN [id number] 02/20/2017 01:04:00 02/20/2017 02:58:00 DIS Emergency MISTY SAMANIEGO MD [facility] ER AB PAIN [id number] 08/03/2016 01:01:00 08/03/2016 05:43:00 DIS Emergency MILLI WEATHERS, CRISTHIAN Bonilla [facility] ER FEVER,VOMITING,ABD PAIN,GAVE ON 06-21-16 [id number] 06/19/2016 13:08:00 06/21/2016 14:30:00 DIS Inpatient PHOENIX DOLACEY S [facility] LDRP IOL [id number] 05/30/2016 16:36:00 05/30/2016 17:56:00 DIS Outpatient KARAN CASTAÑEDA MD [facility] WSo STOMACH PAIN/PAIN WHILE URINATING [id number] 05/25/2016 08:49:00 05/25/2016 23:59:59 CLS Outpatient CLAYTON BAHENA MD [facility] RAD LEG SWELLING,LEG PAIN [id number] 04/12/2016 16:45:00 04/12/2016 19:50:00 DIS Outpatient CARLOTA PACE DO Consuelo [facility] DECREASED MOVEMENT [id number] 03/21/2016 21:58:00 03/22/2016 01:05:00 DIS Outpatient [facility]/ DIZZY [id number] 02/12/2016 12:13:00 02/12/2016 14:28:00 DIS Emergency HENRIK KHAN MD [facility] ER SOA 21 WKS PREG [id number] 02/12/2016 11:55:00 02/12/2016 12:05:00 DIS Outpatient CLAYTON BAHENA MD [facility] ABD [facility]/INCREASED BABY MOVEMENT 21 WKS PREG [id number] 01/21/2016 22:57:00 01/22/2016 02:42:00 DIS Emergency KATHARINE REYES DO [facility] ER CONTRACTIONS;BACK PAIN; STOMACH PAIN [id number] 01/21/2016 22:53:00 01/21/2016 23:59:59 CLS Outpatient CLAYTON BAHENA [facility];PAIN IN BACK AND STOMACH [id number] 12/13/2015 11:46:00 12/13/2015 14:20:00 DIS Emergency SHAHRIAR YANES APRN [facility] ER BACK PAIN AT 12 WEEKS, HEADACHE,LEAKING FLUID [id number] 11/20/2015 20:51:00 11/20/2015 22:45:00 DIS Emergency SHAHRIAR YANES APRN [facility] ER ABD PAIN [id number] 02/21/2015 21:58:00 02/21/2015 23:56:00 DIS Emergency ERIKA HORN MD [facility] ER LOWER ABD PAIN [id number] 01/04/2015 21:49:00 01/05/2015 00:03:00 DIS Emergency MILLI WEATHERS, CRISTHIAN Bonilla [facility] ER SOA [id number] 11/18/2014 07:09:00 11/18/2014 23:59:59 CLS Outpatient ANGELITA NIETO MD [facility] RAD ABDOMINAL PAIN WITH VOMITING [id number] 04/05/2014 00:06:00 04/07/2014 12:45:00 DIS Inpatient ANGELITA NIETO MD [facility] LDRP LABOR [id number] 12/05/2013 11:09:00 12/05/2013 23:59:59 CLS Outpatient ANGELITA NIETO MD [facility] RAD SURVAY [id number] 10/07/2013 12:42:00 10/07/2013 23:59:59 CLS Outpatient ANGELITA NIETO MD [facility] RAD RLQ PAIN, [id number] 10/06/2013 20:48:00 10/06/2013 22:47:00 DIS Emergency ADDY DOABEL K [facility] ER 13 WKS;ABD PAIN [id number] 09/21/2013 14:01:00 09/21/2013 18:25:00 DIS Emergency IMAN RICE [facility] ER CRAMPING BLEEDING 11 WEEKS PREG [id number] 09/12/2013 10:45:00 09/12/2013 23:59:59 CLS Outpatient ANGELITA NIETO MD [facility] RAD PELVIC PAIN, SPOTTING [id number] 08/20/2013 10:32:00 08/20/2013 23:59:59 CLS Outpatient WENDY CRAFT APRN [facility] RAD DATING
--- NOTE | 2018-04-01 17:51 | ED GU-Female ---
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 Her OB, Dr. GARIBAY, I started the patient on progesterone. Patient has a sensation that her is not well situated in his causing her to have the sensation of imminent passage. Patient denies associated fever, chills, dysuria, frequency, or flank pain. The patient denies passing tissue with her breathing. The patient's last menstrual period was mid January. The patient is a female. Her 3 previous pregnancies were uncomplicated. (PAOLO YADAV MD) Allergies and Home Medications Allergies Coded Allergies: No Known Drug Allergies (Unverified , 11/20/15) Home Medications Hyoscyamine Sulfate 0.125 Mg Tab.rapdis, 0.125 MG PO QID PRN for ABDOMINAL PAIN Prescribed by: MISTY SAMANIEGO on 02/20/17255 Ondansetron 4 Mg Tab.rapdis, 4 MG PO Q4H PRN for NAUSEA/VOMITING-1ST LINE Prescribed by: MISTY SAMANIEGO on 02/20/17255 Patient Home Medication List Home Medication List Reviewed: Yes (PAOLO YADAV MD) Home Medication List Reviewed: Yes (MISTY SAMANIEGO) Review of Systems Review of Systems Constitutional: no symptoms reported Respiratory: No cough, No short of breath Cardiovascular: No chest pain Gastrointestinal: abdominal pain; No nausea, No vomiting Genitourinary: denies dysuria, denies frequency : Yes LMP: Jan 23, 2018 Musculoskeletal: no symptoms reported Skin: no symptoms reported Psychiatric/Neurological: No Symptoms Reported Endocrine: No Symptoms Reported Hematologic/Lymphatic: No Symptoms Reported (PAOLO YADAV MD) Past Kbmbbjp-Lmporg-Gyijdk Hx Past Med/Social Hx: Reviewed Nursing Past Med/Soc Hx (PAOLO YADAV MD) Patient Social History 2nd Hand Smoke Exposure: No Recent Foreign Travel: No Contact w/Someone Who Travel: No Recent Hopitalizations: No (PAOLO YADAV MD) Immunizations Up To Date Tetanus Booster (TDap): Less than 5yrs PED Vaccines UTD: Yes Date of Influenza Vaccine: Apr 11, 2016 (PAOLO YADAV MD) Seasonal Allergies Seasonal Allergies: No (PAOLO YADAV MD) Past Medical History Surgeries: No Respiratory: Yes Asthma Cardiac: No Neurological: No Reproductive Disorders: No Genitourinary: No Gastrointestinal: No Chronic Constipation Musculoskeletal: No Endocrine: No HEENT: No Cancer: No Psychosocial: No Integumentary: No Blood Disorders: No Adverse Reaction/Blood Tranf: No (PAOLO YADAV MD) Family Medical History Patient reports no known family medical history. No Pertinent Family Hx (PAOLO YADAV MD) Physical Exam Vital Signs Vital Signs - First Documented 04/01/18 17:28 Temp 98.4 Pulse 90 Resp 18 B/P (MAP) 114/69 (84) Pulse Ox 100 O2 Delivery Room Air (MISTY SAMANIEGO) Vital Signs Capillary Refill : (PAOLO YADAV MD) Height, Weight, BMI Height: 5'6.00" Weight: 145lbs. 0.6oz. [id number]; 27.3 BMI Method:Stated General Appearance: WD/WN, no apparent distress HEENT: normal ENT inspection Neck: full range of motion Cardiovascular: regular rate, rhythm Respiratory: normal breath sounds Gastrointestinal: normal bowel sounds, other (patient's abdomen appears to have the uterus at the umbilicus.) Back: normal inspection Neurologic/Psychiatric: no motor/sensory deficits, alert, normal mood/affect Skin: normal color, warm/dry; No rash (PAOLO YADAV MD) Progress/Results/Core Measures Suspected Sepsis SIRS Temperature: Pulse: Respiratory Rate: Blood Pressure / Mean: (PAOLO YADAV MD) SIRS Laboratory Tests 04/01/18 18:04: White Blood Count 8.9 Laboratory Tests 04/01/18 18:04: Creatinine 0.75, Platelet Count 201, Total Bilirubin 0.3 (MISTY SAMANIEGO) Results/Orders Lab Results Laboratory Tests Test 04/01/18 18:00 04/01/18 18:04 Range/Units Urine Color YELLOW Urine Clarity CLEAR Urine pH 6 5-9 Urine Specific [place] 1.020 1.016-1.022 Urine Protein NEGATIVE NEGATIVE Urine Glucose (UA) NEGATIVE NEGATIVE Urine Ketones NEGATIVE NEGATIVE Urine Nitrite NEGATIVE NEGATIVE Urine Bilirubin NEGATIVE NEGATIVE Urine Urobilinogen NORMAL NORMAL MG/DL Urine Leukocyte Esterase 1+ H NEGATIVE Urine RBC (Auto) NEGATIVE NEGATIVE Urine RBC NONE /HPF Urine WBC 2-5 /HPF Urine Squamous Epithelial Cells 2-5 /HPF Urine Renal Epithelial Cells NONE /HPF Urine Crystals NONE /LPF Urine Bacteria MODERATE H /HPF Urine Casts NONE /LPF Urine Mucus NEGATIVE /LPF Urine Culture Indicated NO White Blood Count 8.9 4.3-11.0 10^3/uL Red Blood Count 4.48 4.35-5.85 10^6/uL Hemoglobin 13.9 11.5-16.0 G/DL Hematocrit 39 35-52 % Mean Corpuscular Volume 86 80-99 FL Mean Corpuscular Hemoglobin 31 25-34 PG Mean Corpuscular Hemoglobin Concent 36 32-36 G/DL Red Cell Distribution Width 12.5 10.0-14.5 % Platelet Count 201 130-400 10^3/uL Mean Platelet Volume 10.2 7.4-10.4 FL Neutrophils (%) (Auto) 67 42-75 % Lymphocytes (%) (Auto) 25 12-44 % Monocytes (%) (Auto) 6 0-12 % Eosinophils (%) (Auto) 2 0-10 % Basophils (%) (Auto) 0 0-10 % Neutrophils # (Auto) 5.9 1.8-7.8 X 10^3 Lymphocytes # (Auto) 2.2 1.0-4.0 X 10^3 Monocytes # (Auto) 0.5 0.0-1.0 X 10^3 Eosinophils # (Auto) 0.1 0.0-0.3 10^3/uL Basophils # (Auto) 0.0 0.0-0.1 10^3/uL Sodium Level 136 135-145 MMOL/L Potassium Level 3.7 3.6-5.0 MMOL/L Chloride Level 105 98-107 MMOL/L Carbon Dioxide Level 21 21-32 MMOL/L Anion Gap 10 5-14 MMOL/L Blood Urea Nitrogen 11 7-18 MG/DL Creatinine 0.75 0.60-1.30 MG/DL Estimat Glomerular Filtration Rate > 60 BUN/Creatinine Ratio 15 Glucose Level 89 70-105 MG/DL Calcium Level 9.5 8.5-10.1 MG/DL Corrected Calcium 9.2 8.5-10.1 MG/DL Total Bilirubin 0.3 0.1-1.0 MG/DL Aspartate Amino Transf (AST/SGOT) 15 5-34 U/L Alanine Aminotransferase (ALT/SGPT) 22 0-55 U/L Alkaline Phosphatase 62 40-136 U/L Total Protein 7.4 6.4-8.2 GM/DL Albumin 4.4 3.2-4.5 GM/DL Human Chorionic Gonadotropin, Quant [id number] H <5 MIU/ML (MISTY SAMANIEGO) Vital Signs/I&O 04/01/18 17:28 Temp 98.4 Pulse 90 Resp 18 B/P (MAP) 114/69 (84) Pulse Ox 100 O2 Delivery Room Air (MISTY SAMANIEGO) Vital Signs/I&O Capillary Refill : (PAOLO YADAV MD) Progress Note : Time: 17:53 Progress Note CBC, UA, quantitative hCG, type and Rh and ultrasound transvaginal abdomen ordered. (PAOLO YADAV MD) Progress Note : Time: 18:40 Progress Note Met with the patient at the change of shift and assumed care of the patient. I agree with the history and examination documented by Dr. Yadav above. We will obtain ultrasound and do plan to do a speculum exam. The patient does not appear to be any acute distress today. (MISTY SAMANIEGO) Diagnostic Imaging Diagonstic Imaging: Ultrasound Plain Films/CT/US/NM/MRI: pelvis (OB less than 14 weeks) Comments 10 week 1 day normal looking fetus with small inconsequential subchorionic hemorrhage. Reviewed: Reviewed by Me (MISTY SAMANIEGO) Departure Impression Primary Impression: test positive Additional Impression: Vaginal bleeding affecting early Disposition: 01 HOME, SELF-CARE Condition: Stable Departure-Patient Inst. Decision time for Depature: 19:59 (MISTY SAMANIEGO) Referrals: LACEY GARIBAY DO (PCP) Primary Care Physician [facility] (Family) Primary Care Physician Patient Instructions: Bleeding With (DC) Add. Discharge Instructions: Make plans to follow-up with Dr. GARIBAY in the next 3-5 days. No intercourse until released by your bill peddler. If your bleeding is worse than one pad per hour then return to the ER otherwise follow up to bill peddler. Continue to take the progesterone intravaginally as prescribed. All discharge instructions reviewed with patient and/or family. Voiced understanding. Copy Copies To 1: LACEY GARIBAY MARK S MD Apr 01, 2018 17:51 MISTY SAMANIEGO Apr 01, 2018 18:41
[2018-04-01] MEDS ORDERED: NS IV 1000 ML 1,000 ML IV SCH (18:00)
[2018-04-01 18:55] LABS: BASOPHILS % (AUTO) 0 % (0-10); EOSINOPHILS # (AUTO) 0.1 10^3/uL (0.0-0.3); EOSINOPHILS % (AUTO) 2 % (0-10); HEMATOCRIT 39 % (35-52); HEMOGLOBIN 13.9 G/DL (11.5-16.0); LYMPHOCYTES # (AUTO) 2.2 X 10^3 (1.0-4.0); LYMPHOCYTES % (AUTO) 25 % (12-44); MEAN CORPUSCULAR HEMOGLOBIN 31 PG (25-34); MEAN CORPUSCULAR HGB CONC 36 G/DL (32-36); MEAN CORPUSCULAR VOLUME 86 FL (80-99); MEAN PLATELET VOLUME 10.2 FL (7.4-10.4); MONOCYTES # (AUTO) 0.5 X 10^3 (0.0-1.0); MONOCYTES % (AUTO) 6 % (0-12); NEUTROPHILS # (AUTO) 5.9 X 10^3 (1.8-7.8); NEUTROPHILS % (AUTO) 67 % (42-75); PLATELET COUNT 201 10^3/uL (130-400); RED BLOOD COUNT 4.48 10^6/uL (4.35-5.85); RED CELL DISTRIBUTION WIDTH 12.5 % (10.0-14.5); WHITE BLOOD COUNT 8.9 10^3/uL (4.3-11.0)
[2018-04-01 18:55] LABS: BILIRUBIN,URINE NEGATIVE (NEGATIVE); CLARITY,URINE CLEAR; COLOR,URINE YELLOW; GLUCOSE, URINE (UA) NEGATIVE (NEGATIVE); KETONES,URINE NEGATIVE (NEGATIVE); LEUKOCYTE ESTERASE ,URINE 1+ (NEGATIVE); NITRITE,URINE NEGATIVE (NEGATIVE); PH,URINE 6 (5-9); PROTEIN,URINE NEGATIVE (NEGATIVE); UROBILINOGEN,URINE NORMAL (NORMAL)
[2018-04-01 19:15] LABS: BACTERIA,URINE MODERATE /HPF
[2018-04-01 19:27] LABS: ALANINE AMINOTRANSFERASE 22 U/L (0-55); ALBUMIN 4.4 GM/DL (3.2-4.5); ALKALINE PHOSPHATASE 62 U/L (40-136); BILIRUBIN,TOTAL 0.3 MG/DL (0.1-1.0); BUN/CREATININE RATIO 15; CALCIUM 9.5 MG/DL (8.5-10.1); CARBON DIOXIDE 21 MMOL/L (21-32); CHLORIDE 105 MMOL/L (98-107); CREATININE SERUM 0.75 MG/DL (0.60-1.30); GFR ESTIMATED > 60; GLUCOSE 89 MG/DL (70-105); POTASSIUM 3.7 MMOL/L (3.6-5.0); SODIUM 136 MMOL/L (135-145); TOTAL PROTEIN 7.4 GM/DL (6.4-8.2)
--- NOTE | 2018-04-01 19:51 | Diagnostic Imaging Report ---
PROCEDURE: US OB single fetus <14 wks. TECHNIQUE: Multiple real-time grayscale images were obtained over the gravid uterus in various projections. INDICATION: Cramping. FINDINGS: There is an intrauterine gestational sac containing a pole. [place]-rump length measurement is 3.2 cm consistent with 10 weeks 1 day gestation. Heart rate was recorded at 169 beats per minute. There does appear to be a small subchronic bleed adjacent to the fundal portion of the gestational sac but no measurements were provided. Adnexa were evaluated and unremarkable. Gestational sac shape is unremarkable. IMPRESSION: Single live IUP at 10 weeks 1 day gestational age with estimated date of confinement, sonographically, of 10/27/2018. There is a small subchronic bleed. No other abnormality is seen. Dictated by: Dictated on workstation # [id number]
[2018-04-01 20:22] VITALS: BP 114/72
== END 2018-04-01 20:22 | disposition home or self-care (01) ==
LOC: EDUNIT# 17:15 → ER 17:18
DX: O20.9 Hemorrhage in early pregnancy, unspecified (principal); O99.511 Diseases of the respiratory system complicating pregnancy, first trimester; J45.909 Unspecified asthma, uncomplicated; Z87.19 Personal history of other diseases of the digestive system; Z3A.09 9 weeks gestation of pregnancy
CPT/HCPCS: 36415; 76801; 80053; 81000; 84702; 85025; 96360

== ENCOUNTER → 2018-06-13 | Outpatient (CLI) | payer OTHER ==
[~2018-06-13] MED LIST changes: +METR-197 PO; -METR500T21 PO
--- NOTE | 2018-06-13 15:09 | Diagnostic Imaging Report ---
INDICATION: survey. TECHNIQUE: Multiple real-time grayscale images were obtained over the gravid uterus. COMPARISON: 04/01/2018. FINDINGS: There is a single live fetus in a breech presentation. Placenta is anterior. heart rate was recorded at 147 beats per minute. Previously noted subchorionic bleed is not well seen on today's study. survey demonstrates the kidneys, bladder and stomach to be unremarkable. brain is unremarkable. There is a three-vessel cord with normal insertion. The spine is unremarkable. Four-chamber heart view is limited. Biometrical measurements are as follows: Biparietal 4.90 cm, age 20 weeks 6 days. Head circumference 18.44 cm, age 20 weeks 6 days. Abdominal circumference 15.88 cm, age 21 weeks 2 days. Femur length 3.47 cm, age 21 weeks 0 days. Sonographic estimate age: 21 weeks 0 days. Sonographic estimated date of delivery: 10/24/2018. Estimated Weight: 389 gm (+/- 57 gm). LMP percentile: 87%. heart rate: 147 beats per minute. number: 1 of 1. IMPRESSION: Single live IUP approximately 21 weeks gestational age demonstrating normal interval growth when compared with prior ultrasound. Four-chamber heart view is limited and followup could be performed. Dictated by: Dictated on workstation # [id number]
== END ==
LOC: RAD 12:25
PROVIDERS: ATTEND Obstetrics & Gynecology
DX: Z36.89 Encounter for other specified antenatal screening (principal); Z3A.21 21 weeks gestation of pregnancy
CPT/HCPCS: 76805

== ENCOUNTER → 2018-07-05 | Outpatient (CLI) | payer SELFPAY | LOC: LAB 16:36 | PROVIDERS: ATTEND Family Medicine | DX: Z33.1 Pregnant state, incidental (principal) | CPT/HCPCS: 36415; 86695; 86696 ==

== ENCOUNTER 2018-09-02 15:12 | Outpatient (CLI) | payer OTHER ==
[~2018-09-02] VITALS: Ht 165.1 cm; Wt 80.7 kg
[~2018-09-02 15:12] MED LIST changes: +METR-145 PO; -METR-197 PO
--- NOTE | 2018-09-02 15:25 | NUR ---
MERRY HERNANDEZ presented to unit via from ED, accompanied by famliy and ER staff, with c/o CONTRACTIONS. MERRY HERNANDEZ weighed, gowned, voided, and to bed. EFHM and TOCO applied, VS taken. MERRY HERNANDEZ oriented to bed controls, call light, TV, heat, and A/C controls.
[2018-09-02 15:30] VITALS: BP 119/59
--- NOTE | 2018-09-02 15:40 | NUR ---
sve by this RN. closed thick high. no leaking or bleeding noted. patient denies leaking or bleeding. family at bedside.
[2018-09-02 15:48] LABS: BILIRUBIN,URINE NEGATIVE (NEGATIVE); CLARITY,URINE CLEAR; COLOR,URINE YELLOW; GLUCOSE, URINE (UA) NEGATIVE (NEGATIVE); KETONES,URINE NEGATIVE (NEGATIVE); LEUKOCYTE ESTERASE ,URINE NEGATIVE (NEGATIVE); NITRITE,URINE NEGATIVE (NEGATIVE); PH,URINE 7 (5-9); PROTEIN,URINE NEGATIVE (NEGATIVE); UROBILINOGEN,URINE NORMAL (NORMAL)
[2018-09-02 15:58] LABS: BACTERIA,URINE NEGATIVE /HPF; SQUAMOUS EPITHELIAL CELL,UR RARE /HPF
--- NOTE | 2018-09-02 16:02 | NUR ---
dr rubin notified of patient c/o and status. new orders received.
[2018-09-02] MEDS ORDERED: PREN1TAB79 PO (16:10)
[2018-09-02] MEDS ORDERED: FLU QUADRIvalent (5+ YOA) 2018-2019 (AFLURIA) 0.5 ML IM ONE (16:15)
[2018-09-02] MEDS ORDERED: APAP 300 MG/CODEINE 30 MG (TYLENOL #3) TAB PO ONE (16:15)
--- NOTE | 2018-09-02 16:22 | NUR ---
EFM REMOVED. RARE CONTRACTION NOTED WITH UTERINE IRRITABILITY. REACTIVE STRIP FOR GESTATION. NO DECELERATIONS NOTED.
--- NOTE | 2018-09-03 17:08 | Physician Query-Final Dx ---
VALERIY FAJARDO 09/03/18 1708: Clinic Account Progress/Dx Physician Query: Please give diagnosis Date of Service Sep 02, 2018 at 15:12 PITA HIGHTOWER DO 09/14/18 1505: Clinic Account Progress/Dx DIAGNOSIS: Diagnosis: (1) contractions Diagnosis Contractions VALERIY FAJARDO Sep 03, 2018 17:08 PITA HIGHTOWER DO Sep 14, 2018 15:05
== END 2018-09-02 16:40 | disposition home or self-care (01) ==
LOC: WSo 15:12 → LDRP 15:12 → WSo 16:40
PROVIDERS: ATTEND Obstetrics & Gynecology
DX: O60.00 Preterm labor without delivery, unspecified trimester (principal)
CPT/HCPCS: 81000; 87088; 99213

== ENCOUNTER 2018-09-12 11:11 | Outpatient (CLI) | payer OTHER ==
[~2018-09-12] VITALS: Ht 165.1 cm; Wt 81.3 kg
[~2018-09-12 11:11] MED LIST changes: +PREN1TAB79 PO
--- NOTE | 2018-09-12 11:19 | NUR ---
MERRY HERNANDEZ presented to unit via AMBULATORY from ED, with c/o LEAKING FLUID. MERRY HERNANDEZ weighed, gowned, voided, and to bed. EFHM and TOCO applied, VS taken. MERRY HERNANDEZ oriented to bed controls, call light, TV, heat, and A/C controls.
[2018-09-12 11:44] VITALS: BP 116/65
[2018-09-12 11:54] LABS: BILIRUBIN,URINE NEGATIVE (NEGATIVE); CLARITY,URINE CLEAR; COLOR,URINE YELLOW; GLUCOSE, URINE (UA) NEGATIVE (NEGATIVE); KETONES,URINE NEGATIVE (NEGATIVE); LEUKOCYTE ESTERASE ,URINE 2+ (NEGATIVE); NITRITE,URINE NEGATIVE (NEGATIVE); PH,URINE 7 (5-9); PROTEIN,URINE 1+ (NEGATIVE); UROBILINOGEN,URINE NORMAL (NORMAL)
[2018-09-12 12:08] LABS: BACTERIA,URINE MODERATE /HPF
--- NOTE | 2018-09-12 12:19 | NUR ---
DR. GARIBAY NOTIFIED OF PT'S ARRIVAL, , 33-07/16, C/O LEAKING, AMNIO NEG, UA RESULTS, REVIEW OF STRIP. NEW ORDERS RECEIVED.
[2018-09-12] MEDS ORDERED: FLU QUADRIvalent (5+ YOA) 2018-2019 (AFLURIA) 0.5 ML IM ONE (13:30)
--- NOTE | 2018-09-12 13:34 | NUR ---
DR. GARIBAY NOTIFIED OF LATEST LAB RESULTS. NEW ORDERS RECEIVED FOR ABX AND DISCHARGE HOME.
[2018-09-12] MEDS ORDERED: METR500T PO (13:43)
--- NOTE | 2018-09-12 13:50 | NUR ---
DISCHARGE PAPERS PROVIDED AND REVIEWED WITH PT, PT VERBALIZES UNDERSTANDING AND DENIES ANY QUESTIONS AT THIS TIME. PAPER SIGNED.
--- NOTE | 2018-09-12 13:52 | NUR ---
PT DISCHARGED FROM [facility] TO [facility]IA AMBULATORY IN STABLE CONDITION.
--- NOTE | 2018-09-13 10:19 | Physician Query-Final Dx ---
MERLIN FRANK 09/13/18 1019: Clinic Account Progress/Dx Physician Query: Please give a diagnosis and please include weeks of gestation thank you Date of Service Sep 12, 2018 at 11:11 LACEY GARIBAY DO 09/13/18 1028: Clinic Account Progress/Dx DIAGNOSIS: Diagnosis 33week IUP Vaginal discharge BV MERLIN FRANK Sep 13, 2018 10:19 LACEY GRAIBAY DO Sep 13, 2018 10:28
== END 2018-09-12 13:52 | disposition home or self-care (01) ==
LOC: WSo 11:11 → LDRP 11:13 → WSo 13:52 → WS 16:01 → LDRP 16:01
PROVIDERS: ATTEND Obstetrics & Gynecology
DX: O99.89 Other specified diseases and conditions complicating pregnancy, childbirth and the puerperium (principal); N76.0 Acute vaginitis; Z3A.33 33 weeks gestation of pregnancy
CPT/HCPCS: 36415; 81000; 87088; 87210; 89060; 99213

== ENCOUNTER 2018-09-23 09:29 | Emergency (ER) | payer SELFPAY ==
[~2018-09-23] VITALS: Ht 165.1 cm; Wt 77.1 kg
[~2018-09-23 09:29] MED LIST changes: +METR500T PO
--- NOTE | 2018-09-23 09:30 | NUR ---
IN ROOM WITH PT AT THIS TIME. DR HORN DOING A CERVICAL CHECK, REPORTS PT CERVIX IS SOFT AND CLOSED.
--- OUTSIDE RECORDS SUMMARY | 2018-09-23 09:38 | XMS REPORT | Continuity of Care Document ---
Author Author [facility] Address Unknown Phone Unavailable Allergies Active Description Code Type Severity Reaction Onset Reported/Identified Relationship to Patient Clinical Status Yes No Known Drug Allergies [id number] Drug Allergy Unknown N/A 11/20/2015 Medications There is no data. Problems Date Dx Coded Attending Type Code Diagnosis Diagnosed By 08/12/2013 LUANACNADACE CROOK, WENDY A V72.42 TEST POSITIVE RESULT 08/12/2013 LUANA RECEPTIONIST TELEPHONE OPERATOR, WENDY A V74.5 STD SCREEN 08/12/2013 LUANA RECEPTIONIST TELEPHONE OPERATOR, WENDY A V76.10 BREAST CANCER SCREENING 08/12/2013 LUANA RECEPTIONIST TELEPHONE OPERATOR, WENDY A V76.2 CERVICAL CANCER SCREENING (PAP SMEAR) 08/12/2013 LUANA RECEPTIONIST TELEPHONE OPERATOR, WENDY A V72.42 TEST POSITIVE RESULT 08/12/2013 LUANA RECEPTIONIST TELEPHONE OPERATOR, WENDY A V74.5 STD SCREEN 08/12/2013 LUANA RECEPTIONIST TELEPHONE OPERATOR, WENDY A V76.10 BREAST CANCER SCREENING 08/12/2013 LUANA RECEPTIONIST TELEPHONE OPERATOR, WENDY A V76.2 CERVICAL CANCER SCREENING (PAP SMEAR) 08/12/2013 LUANA RECEPTIONIST TELEPHONE OPERATOR, WENDY A V72.42 TEST POSITIVE RESULT 08/12/2013 LUANA RECEPTIONIST TELEPHONE OPERATOR, WENDY A V74.5 STD SCREEN 08/12/2013 LUANA RECEPTIONIST TELEPHONE OPERATOR, WENDY A V76.10 BREAST CANCER SCREENING 08/12/2013 LUANA RECEPTIONIST TELEPHONE OPERATOR, WENDY A V76.2 CERVICAL CANCER SCREENING (PAP SMEAR) 08/12/2013 LUANA RECEPTIONIST TELEPHONE OPERATOR, WENDY A V72.42 TEST POSITIVE RESULT 08/12/2013 LUANA RECEPTIONIST TELEPHONE OPERATOR, WENDY A V74.5 STD SCREEN 08/12/2013 LUANA RECEPTIONIST TELEPHONE OPERATOR, WENDY A V76.10 BREAST CANCER SCREENING 08/12/2013 LUANA RECEPTIONIST TELEPHONE OPERATOR, WENDY A V76.2 CERVICAL CANCER SCREENING (PAP [...] NEC-DELIV 04/07/2014 ANGELITA NIETO MD Ot V06.1 [id number], COMBINED [ 04/07/2014 ANGELITA NIETO MD Ot V06.4 [id number] 04/07/2014 EMILIA MD, ANGELITA J Ot V27.0 [...] EMILIA WEATHERS, ANGELITA J Ot 626.8 12/16/2014 EMLIIA WEATHERS, ANGELITA J Ot 789.00 12/16/2014 EMILIA [...] NAUSEA WITH VOMITING, UNSPECIFIED 02/22/2015 WENDY CRAFT RECEPTIONIST TELEPHONE OPERATOR Ot V28.89 02/22/2015 EMILIA WEATHERS, ANGELITA Gamble [...] ANGELITA J Ot 789.04 04/02/2015 WENDY CRAFT RECEPTIONIST TELEPHONE OPERATOR Ot V28.89 04/02/2015 EMILIA WEATHERS, ANGELITA Gamble Ot 553.20 04/02/2015 EMILIA WEATHERS, ANGELITA J Ot 625.9 04/02/2015 EMILIA WEATHERS, ANGELITA J Ot 626.8 04/02/2015 ANGELITA NIETO MD Ot 789.00 04/02/2015 ANGELITA NIETO MD Ot V22.2 04/02/2015 ANGELITA NIETO MD Ot 789.03 04/02/2015 ANGELITA NIETO MD Ot V28.81 04/02/2015 ANGELITA NIETO MD Ot 787.03 04/02/2015 ANGELITA NIETO MD Ot 789.04 11/20/2015 WENDY CRAFT RECEPTIONIST TELEPHONE OPERATOR Ot V28.89 OTHER SPECIFIED SCREENING 11/20/2015 ANGELITA [...] AND CONDITIONS COMPL PREG/C 11/20/2015 SHAHRIAR YANES RECEPTIONIST TELEPHONE OPERATOR Ot Z3A.09 9 WEEKS GESTATION OF 11/20/2015 WENDY CRAFT RECEPTIONIST TELEPHONE OPERATOR Ot V28.89 OTHER SPECIFIED SCREENING 11/20/2015 ANGELITA [...] OF URINARY TRACT IN 12/13/2015 SHAHRIAR YANES RECEPTIONIST TELEPHONE OPERATOR Ot R51 HEADACHE 12/13/2015 SHAHRIAR YANES APRN Ot Z3A.12 12 WEEKS GESTATION OF 12/16/2015 SHAHRIAR YANES RECEPTIONIST TELEPHONE OPERATOR Ot O23.41 UNSP INFCT OF URINARY TRACT IN 12/16/2015 SHAHRIAR YANES RECEPTIONIST TELEPHONE OPERATOR Ot R51 HEADACHE 12/16/2015 SHAHRIAR YANES APRN Ot Z3A.12 12 WEEKS GESTATION OF 01/05/2016 SHAHRIAR YANES APRN Ot O23.41 UNSP INFCT OF URINARY TRACT IN 01/05/2016 SHAHRIAR YANES RECEPTIONIST TELEPHONE OPERATOR Ot R51 HEADACHE 01/05/2016 SHAHRIAR YANES RECEPTIONIST TELEPHONE OPERATOR Ot Z3A.12 12 WEEKS GESTATION OF 01/22/2016 KATHARINE REYES DO Ot O23.42 UNSP INFCT OF URINARY TRACT IN 01/22/2016 KATHARINE REYES DO Ot R10.30 LOWER ABDOMINAL PAIN, UNSPECIFIED 01/22/2016 KATHARINE REYES DO Ot Z3A.18 18 WEEKS GESTATION OF 01/22/2016 WENDY CRAFT RECEPTIONIST TELEPHONE OPERATOR Ot V28.89 OTHER SPECIFIED SCREENING 01/22/2016 EMILIA [...] Z3A.21 21 WEEKS GESTATION OF 02/15/2016 HENRIK KHNA MD Ot J45.901 UNSPECIFIED ASTHMA WITH (ACUTE) [...] Ot Z33.1 STATE, INCIDENTAL 08/03/2016 WENDY CRAFT RECEPTIONIST TELEPHONE OPERATOR Ot V28.89 OTHER SPECIFIED SCREENING 08/03/2016 ANGELITA [...] 789.03 ABDOMINAL PAIN, RIGHT LOWER QUADRANT 08/03/2016 ANGLEITA NIETO MD Ot V28.81 ENCOUNTER FOR ANATOMIC [...] Ot Z33.1 STATE, INCIDENTAL 02/20/2017 WENDY CRAFT RECEPTIONIST TELEPHONE OPERATOR Ot V28.89 OTHER SPECIFIED SCREENING 02/20/2017 ANGELITA [...] R10.9 UNSPECIFIED ABDOMINAL PAIN 05/01/2017 WENDY CRAFT RECEPTIONIST TELEPHONE OPERATOR Ot V28.89 OTHER SPECIFIED SCREENING 05/01/2017 ANGELITA [...] Ot Z33.1 STATE, INCIDENTAL 08/08/2017 WENDY CRAFT RECEPTIONIST TELEPHONE OPERATOR Ot V28.89 OTHER SPECIFIED SCREENING 08/08/2017 ANGELITA [...] R10.11 RIGHT UPPER QUADRANT PAIN 08/12/2017 SHAHRIAR YANES APRN Ot Z87.19 PERSONAL HISTORY [...] Ot R55 SYNCOPE AND COLLAPSE 02/26/2018 BERNOT, NARINDER Ot Z3A.18 18 WEEKS GESTATION OF 02/26/2018 [...] Ot Z3A.18 18 WEEKS GESTATION OF 03/04/2018 BERNKASSIDY NARINDER Ot Z87.19 PERSONAL HISTORY OF OTHER DISEASES OF TH 03/16/2018 TEODORO SIMMS MD R Ot N83.201 UNSPECIFIED OVARIAN CYST, RIGHT SIDE 03/17/2018 DIPTI ALVAREZIS Ot J45.909 UNSPECIFIED ASTHMA, UNCOMPLICATED 03/17/2018 CHIOMAKASSIDY NARINDER Ot O26.892 OTH RELATED CONDITIONS, SECOND 03/17/2018 DIPTI ALVAREZIS Ot O99.512 DISEASES OF THE RESP SYS COMP , 03/17/2018 KIM NARINDER Ot O99.89 OTH DISEASES AND CONDITIONS COMPL PREG/C 03/17/2018 NARINDER ALVAREZ Ot R55 SYNCOPE AND COLLAPSE 03/17/2018 DIPTI ALVAREZIS Ot Z3A.18 18 WEEKS GESTATION OF 03/17/2018 DIPTI ALVAREZIS Ot Z87.19 PERSONAL HISTORY OF OTHER DISEASES OF TH 04/01/2018 TEODORO SIMMS MD R Ot N83.201 UNSPECIFIED OVARIAN CYST, RIGHT SIDE 04/01/2018 MISTY SAMANIEGO MD J Ot J45.909 UNSPECIFIED ASTHMA, UNCOMPLICATED 04/01/2018 MISTY SAMANIEGO MD J Ot O20.9 HEMORRHAGE IN EARLY , UNSPECIFI 04/01/2018 MISTY SAMANIEGO MD J Ot O99.511 DISEASES OF THE RESP SYS COMP , 04/01/2018 MISTY SAMANIEGO MD J Ot Z3A.09 9 WEEKS GESTATION OF 04/01/2018 ÁLVARO SAMANIEGO MDUS J Ot Z87.19 PERSONAL HISTORY OF OTHER DISEASES OF TH 04/03/2018 ÁLVARO SAMANIEGO MDUS J Ot J45.909 UNSPECIFIED ASTHMA, UNCOMPLICATED 04/03/2018 ÁLVARO SAMANIEGO MDUS J Ot O20.9 HEMORRHAGE IN EARLY , UNSPECIFI 04/03/2018 ÁLVARO SAMANIEGO MDUS J Ot O99.511 DISEASES OF THE RESP SYS COMP , 04/03/2018 MISTY SAMANIEGO MD J Ot Z3A.09 9 WEEKS GESTATION OF 04/03/2018 MISTY SAMANIEGO MD J Ot Z87.19 PERSONAL HISTORY OF OTHER DISEASES OF TH 04/04/2018 MISTY SAMANIEGO MD J Ot J45.909 UNSPECIFIED ASTHMA, UNCOMPLICATED 04/04/2018 ÁLVARO SAMANIEGO MDUS J Ot O20.9 HEMORRHAGE IN EARLY , UNSPECIFI 04/04/2018 MISTY SAMANIEGO MD Ot O99.511 DISEASES OF THE RESP SYS COMP , 04/04/2018 MISTY SAMANIEGO MD Ot Z3A.09 9 WEEKS GESTATION OF 04/04/2018 MISTY SAMANIEGO MD Ot Z87.19 PERSONAL HISTORY OF OTHER DISEASES OF TH 04/07/2018 MISTY SAMANIEGO MD Ot J45.909 UNSPECIFIED ASTHMA, UNCOMPLICATED 04/07/2018 MISTY SAMANIEGO MD Ot O20.9 HEMORRHAGE IN EARLY , UNSPECIFI 04/07/2018 MISTY SAMANIEGO MD Ot O99.511 DISEASES OF THE RESP SYS COMP , 04/07/2018 MISTY SAMANIEGO MD Ot Z3A.09 9 WEEKS GESTATION OF 04/07/2018 MISTY SAMANIEGO MD Ot Z87.19 PERSONAL HISTORY OF OTHER DISEASES OF 04/18/2018 NARINDER ALVAREZ Ot J45.909 UNSPECIFIED ASTHMA, UNCOMPLICATED 04/18/2018 NARINDER ALVAREZ Ot O26.892 OTH RELATED CONDITIONS, SECOND 04/18/2018 NARINDER ALVAREZ Ot O99.512 DISEASES OF THE RESP SYS COMP , 04/18/2018 DIPTI ALVAREZIS Ot O99.89 OTH DISEASES AND CONDITIONS COMPL PREG/C 04/18/2018 NARINDER ALVAREZ Ot R55 SYNCOPE AND COLLAPSE 04/18/2018 NARINDER ALVAREZ Ot Z3A.18 18 WEEKS GESTATION OF 04/18/2018 NARINDER ALVAREZ Ot Z87.19 PERSONAL HISTORY OF OTHER DISEASES OF 06/13/2018 MENDEZ WEATHERS, TEODORO Joyner Ot N83.201 UNSPECIFIED OVARIAN CYST, RIGHT SIDE 06/22/2018 FENECH DO, LACEY S Ot Z36.89 ENCOUNTER FOR OTHER SPECIFIED 06/22/2018 FENECH DO, LACEY S Ot Z3A.21 21 WEEKS GESTATION OF 06/22/2018 FENECH DO, LACEY S Ot Z36.89 ENCOUNTER FOR OTHER SPECIFIED 06/22/2018 FENECH DO, LACEY S Ot Z3A.21 21 WEEKS GESTATION OF 06/23/2018 FENECH DO, LACEY S Ot Z36.89 ENCOUNTER FOR OTHER SPECIFIED 06/23/2018 FENECH DO, LACEY S Ot Z3A.21 21 WEEKS GESTATION OF 07/09/2018 MINA THOMPSON DO Ot Z33.1 STATE, INCIDENTAL 08/17/2018 LACEY GARIBAY DO Ot Z36.89 ENCOUNTER FOR OTHER SPECIFIED 08/17/2018 LACEY GARIBAY DO Ot Z3A.21 21 WEEKS GESTATION OF 08/17/2018 MINA THOMPSON DO Ot Z33.1 STATE, INCIDENTAL 09/02/2018 PITA HIGHTOWER DO Ot O60.00 LABOR WITHOUT DELIVERY, UNSPECIF 09/17/2018 PITA HIGHTOWER DO Ot O60.00 LABOR WITHOUT DELIVERY, UNSPECIF 09/19/2018 LACEY GARIBAY DO Ot N76.0 ACUTE VAGINITIS 09/19/2018 LACEY GARIBAY DO Ot O99.89 OTH DISEASES AND CONDITIONS COMPL PREG/C 09/19/2018 LACEY GARIBAY DO Ot Z3A.33 33 WEEKS GESTATION OF 09/19/2018 MINA THOMPSON DO Ot Z33.1 STATE, INCIDENTAL 09/20/2018 PITA HIGHTOWER DO Ot O60.00 LABOR WITHOUT DELIVERY, UNSPECIF Procedures Code Description [place] [address] US OB - EARLY <14 WEEKS 08/12/2013 94919 GC/CHLAM PROBE (STATE) 08/12/2013 84446 PAP SMEAR 08/12/2013 Q0091 PAP SMEAR OBTAIN SMEAR 08/12/2013 82139 TEST, URINE (IN- HOUSE) 08/12/2013 39647 TRICHOMONAS (IN-HOUSE) 08/12/2013 28087 CULTURE UROGENITAL 08/13/2013 66736 ROUTINE VENIPUNCTURE 09/09/2013 67960 UA LONG DIP 09/09/2013 76525 SYPHILLIS-STATE LAB 09/09/2013 38650 HIV (STATE LAB) 09/09/2013 93873 ANTIBODY SCREEN (order) 09/09/2013 70331 HEP B SURFACE ANTIGEN (STATE ) 09/09/2013 14075 CBC 09/09/2013 22367 TSH 09/09/2013 77383 RUBELLA ANTIBODY, IGG 09/10/2013 1177890 ANTIBODY SCREEN (RESULT ONLY) 09/10/2013 11132 BLOOD TYPE/Rh FACTOR 09/10/2013 89026 CULTURE URINE 09/10/2013 59280 CULTURE UROGENITAL 09/11/2013 07591 UA LONG DIP 09/16/2013 72.71 VACUUM EXT DEL W EPISIOT 04/05/2014 69098 THERAPUTIC INJ SQ/IM 07/24/2014 J1050 DEPO PROVERA 07/24/2014 24913 TEST, URINE (IN- HOUSE) 07/24/2014 [id number] REPAIR PERINEUM MUSCLE, OPEN APPROACH 06/19/2016 [id number] DELIVERY OF PRODUCTS OF CONCEPTION, EXTE 06/19/2016 [...] culture - 04/12/16 16:55 Bacterial urine culture [id number] NRG COLONY COUNT >100,000/ML NRG FREE TEXT [...] culture - 05/30/16 17:03 Bacterial urine culture [id number] NRG COLONY COUNT 10,000/ML - 100,000/ML NRG [...] ABO+Rh group BP NRG Transfusion band number [id number] NRG Blood group antibody screen NEGATIVE NRG [...] identification in genital specimen by aerobe culture [id number] NRG FREE TEXT EXTERNAL 2 PLUS NORMAL SUSHMA NRG Microscopic examination by wet preparation - 08/03/16 05:00 WET PREP RESULTS 08-03-16 BY [facility] Complete urinalysis with reflex to culture - [...] plasma albumin measurement (mass/volume) 4.1 g/dL 3.2-4.5 Complete urinalysis with reflex to culture - 04/01/18 18:00 Urine color determination YELLOW NRG Urine clarity determination CLEAR NRG Urine pH measurement by test strip 6 5-9 Specific gravity of urine by test strip 1.020 1.016- 1.022 Urine protein assay by test [...] detection in urine sediment by light microscopy MODERATE NRG Squamous epithelial cells detection in urine sediment by light microscopy 2-5 NRG Crystals detection in urine sediment by light microscopy NONE NRG Casts detection in urine sediment by light microscopy NONE NRG Mucus detection in urine sediment by light microscopy NEGATIVE NRG Complete urinalysis with reflex to culture NO NRG Renal epithelial cells detection in urine sediment by light microscopy NONE NRG Complete blood count (CBC) with automated white blood cell (WBC) differential - 04/01/18 18:04 Blood leukocytes automated count (number/volume) 8.9 10*3/uL 4.3-11.0 Blood erythrocytes automated count (number/volume) 4.48 10*6/uL 4.35-5.85 Venous blood hemoglobin measurement (mass/volume) 13.9 g/dL 11.5-16.0 Blood hematocrit (volume fraction) 39 % 35-52 Automated erythrocyte mean corpuscular volume 86 [foz_us] 80-99 Automated erythrocyte mean corpuscular hemoglobin (mass per erythrocyte) 31 pg 25-34 Automated erythrocyte mean corpuscular hemoglobin concentration measurement ( mass/volume) 36 g/dL 32-36 Automated erythrocyte distribution width ratio 12.5 % 10.0-14.5 Automated blood platelet count (count/volume) 201 10*3/uL 130-400 Automated blood platelet mean volume measurement 10.2 [foz_us] 7.4-10.4 Automated blood neutrophils/100 leukocytes 67 % 42-75 Automated blood lymphocytes/100 leukocytes 25 % 12-44 Blood monocytes/100 leukocytes 6 % 0-12 Automated blood eosinophils/100 leukocytes 2 % 0-10 Automated blood basophils/100 leukocytes 0 % 0-10 Blood neutrophils automated count (number/volume) 5.9 10*3 1.8-7.8 Blood lymphocytes automated count (number/volume) 2.2 10*3 1.0-4.0 Blood monocytes automated count (number/volume) 0.5 10*3 0.0-1.0 Automated eosinophil count 0.1 10*3/uL 0.0-0.3 Automated blood basophil count (count/volume) 0.0 10*3/uL 0.0-0.1 Comprehensive metabolic panel - 04/01/18 18:04 Serum or plasma sodium measurement (moles/volume) 136 mmol/L 135-145 Serum or plasma potassium measurement (moles/volume) 3.7 mmol/L 3.6-5.0 Serum or plasma chloride measurement (moles/volume) 105 mmol/L 98-107 Carbon dioxide 21 mmol/L 21-32 Serum or plasma anion gap determination (moles/volume) 10 mmol/L 5-14 Serum or plasma urea nitrogen measurement (mass/volume) 11 mg/dL 7-18 Serum or plasma creatinine measurement (mass/volume) 0.75 mg/dL 0.60-1.30 Serum or plasma urea nitrogen/creatinine mass ratio 15 NRG Serum or plasma creatinine measurement with calculation of estimated glomerular filtration rate > NRG Serum or plasma glucose measurement (mass/volume) 89 mg/dL 70-105 Serum or plasma calcium measurement (mass/volume) 9.5 mg/dL 8.5-10.1 Serum or plasma total bilirubin measurement (mass/volume) 0.3 mg/dL 0.1-1.0 Serum or plasma alkaline phosphatase measurement (enzymatic activity/volume) 62 U/L 40-136 Serum or plasma aspartate aminotransferase measurement (enzymatic activity/ volume) 15 U/L 5-34 Serum or plasma alanine aminotransferase measurement (enzymatic activity/volume ) 22 U/L 0-55 Serum or plasma protein measurement (mass/volume) 7.4 g/dL 6.4-8.2 Serum or plasma albumin measurement (mass/volume) 4.4 g/dL 3.2-4.5 CALCIUM CORRECTED 9.2 mg/dL 8.5-10.1 Serum or plasma choriogonadotropin measurement (units/volume) - 04/01/18 18:04 Serum or plasma choriogonadotropin measurement (units/volume) 410492 m[iU]/mL <5 [id number] - 07/05/18 16:48 [id number] Negative Negative Serum herpes simplex virus 1 IgG antibody assay (units/volume) 43.20 % 0.00-0.89 Serum herpes simplex virus 2 IgG antibody assay by immunoassay (units/volume) 0.08 % 0.00-0.89 Cerebrospinal fluid herpes simplex virus 1+2 IgM antibody assay (units/volume) 0.60 % 0.00-0.89 Complete urinalysis with reflex to culture - 09/02/18 15:20 Urine color determination YELLOW NRG Urine clarity [...] NRG Complete urinalysis with reflex to culture CULTURE PENDING NRG Bacterial urine culture - 09/02/18 15:20 Bacterial urine culture NG NRG Complete urinalysis with reflex to culture - 09/12/18 11:45 Urine color determination YELLOW NRG Urine clarity [...] detection in urine sediment by light microscopy MODERATE NRG Crystals detection in urine sediment by light microscopy NONE NRG Casts detection in urine sediment by light microscopy NONE NRG Mucus detection in urine sediment by light microscopy NEGATIVE NRG Complete urinalysis with reflex to culture YES NRG Bacterial urine culture - 09/12/18 11:45 Bacterial urine culture NG NRG Cervical mucus ferning detection by microscopy - 09/12/18 12:35 Cervical mucus ferning detection by microscopy NEGATIVE NEGATIVE Microscopic examination by wet preparation - 09/12/18 12:35 WET PREP RESULTS FEW YEAST OBSERVED NRG Encounters ACCT No. Visit Date/Time Discharge Status Pt. Type Provider Facility Loc./Unit Complaint [id number] 08/08/2014 13:28:00 08/08/2014 23:59:59 CLS Outpatient MANUEL WESTON APRN [id number] 07/24/2014 09:56:00 07/24/2014 23:59:59 CLS Outpatient WENDY CRAFT APRN [id number] 09/16/2013 15:53:00 09/16/2013 23:59:59 CLS Outpatient WENDY CRAFT APRN [id number] 09/09/2013 09:51:00 09/09/2013 23:59:59 CLS Outpatient WENDY CRAFT APRN [id number] 08/12/2013 09:44:00 08/12/2013 23:59:59 CLS Outpatient WENDY CRAFT APRN [id number] 09/12/2018 11:11:00 09/12/2018 13:52:00 DIS Outpatient FENECH LACEY MARTIN [facility] LEAKING FLUID [id number] 09/02/2018 15:12:00 09/02/2018 16:40:00 DIS Outpatient LEE ANNS DO PITA Padma [facility] CONTRACTIONS [id number] 07/05/2018 16:36:00 07/05/2018 23:59:59 CLS Outpatient GELLENMINA WOO DO [facility] LAB [id number] 06/13/2018 12:25:00 06/13/2018 23:59:59 CLS Outpatient LACEY GARIBAY DO [facility] RAD [id number] 04/01/2018 17:18:00 04/01/2018 20:22:00 DIS Emergency DANETTE WETAHERS, MISTY Gamble [facility] ER 9 WKS PREG/CRAMPING/ PRESSURE [id number] 02/26/2018 17:20:00 02/26/2018 20:16:00 DIS Emergency NARINDER ALVAREZ [facility] ER LOWER BACK AND ABD PAIN; POSITIVE TEST [id number] 08/23/2017 13:12:00 08/23/2017 23:59:59 CLS Outpatient MENDEZ WEATHERS, TEODORO Joyner [facility] RAD N83.209 [id number] 08/12/2017 13:17:00 08/12/2017 14:30:00 DIS Emergency SHAHRIAR YANES RECEPTIONIST TELEPHONE OPERATOR [facility] ER L SIDE PAIN [id number] 02/20/2017 01:04:00 02/20/2017 02:58:00 DIS Emergency DANETTE WAETHERS, MISTY Gamble [facility] ER AB PAIN [id number] 08/03/2016 01:01:00 08/03/2016 05:43:00 DIS Emergency MILLI WEATHERS, CRISTHIAN Bonilla [facility] ER FEVER,VOMITING,ABD PAIN,GAVE ON 06-21-16 [id number] 06/19/2016 13:08:00 06/21/2016 14:30:00 DIS Inpatient PHOENIX MARTIN LACEY Singleton [facility] LDRP IOL [id number] 05/30/2016 16:36:00 05/30/2016 17:56:00 DIS Outpatient MADDY WEATHERS, KARAN Perez [facility] STOMACH PAIN/PAIN WHILE URINATING [id number] 05/25/2016 08:49:00 05/25/2016 23:59:59 CLS Outpatient JOSEF WEATHERS, CLAYTON Mccrary [facility] RAD LEG SWELLING,LEG PAIN [id number] 04/12/2016 16:45:00 04/12/2016 19:50:00 DIS Outpatient PACERuperto MARTIN CARLOTA Consuelo [facility] DECREASED MOVEMENT [id number] 03/21/2016 21:58:00 03/22/2016 01:05:00 DIS [facility] DIZZY [id number] 02/12/2016 12:13:00 02/12/2016 14:28:00 DIS Emergency HENRIK KHAN MD [facility] ER SOA 21 WKS PREG [id number] 02/12/2016 11:55:00 02/12/2016 12:05:00 DIS Outpatient CLAYTON BAHENA MD [facility] ABD PAIN/INCREASED BABY MOVEMENT 21 WKS PREG [id number] 01/21/2016 22:57:00 01/22/2016 02:42:00 DIS Emergency KATHARINE REYES DO [facility] ER CONTRACTIONS;BACK PAIN; STOMACH PAIN [id number] 01/21/2016 22:53:00 01/21/2016 23:59:59 CLS Outpatient CLAYTON BHAENA MD [facility] CONTRACTIONS;PAIN IN BACK AND STOMACH [id number] 12/13/2015 11:46:00 12/13/2015 14:20:00 DIS Emergency SHAHRIAR YANES RECEPTIONIST TELEPHONE OPERATOR [facility] ER BACK PAIN AT 12 WEEKS, HEADACHE,LEAKING FLUID [id number] 11/20/2015 20:51:00 11/20/2015 22:45:00 DIS Emergency SHAHRIAR YANES RECEPTIONIST TELEPHONE OPERATOR [facility] ER ABD PAIN [id number] 02/21/2015 21:58:00 02/21/2015 23:56:00 DIS Emergency ERIKA HORN MD [facility] ER LOWER ABD PAIN [id number] 01/04/2015 21:49:00 01/05/2015 00:03:00 DIS Emergency CRISTHIAN MORLEY MD [facility] ER SOA [id number] 11/18/2014 07:09:00 11/18/2014 23:59:59 CLS Outpatient ANGELITA NIETO MD [facility] RAD ABDOMINAL PAIN WITH VOMITING [id number] 04/05/2014 00:06:00 04/07/2014 12:45:00 DIS Inpatient ANGELITA NIETO MD [facility] LDRP LABOR [id number] 12/05/2013 11:09:00 12/05/2013 23:59:59 CLS Outpatient ANGELITA NIETO MD [facility] RAD SURVAY [id number] 10/07/2013 12:42:00 10/07/2013 23:59:59 CLS Outpatient ANGELITA NIETO MD [facility] RAD RLQ PAIN, [id number] 10/06/2013 20:48:00 10/06/2013 22:47:00 DIS Emergency ADDY DOABEL [facility] ER 13 WKS;ABD PAIN [id number] 09/21/2013 14:01:00 09/21/2013 18:25:00 DIS Emergency IMAN RICE [facility] ER CRAMPING BLEEDING 11 WEEKS PREG [id number] 09/12/2013 10:45:00 09/12/2013 23:59:59 CLS Outpatient ANGELITA NIETO MD [facility] RAD PELVIC PAIN, SPOTTING [id number] 08/20/2013 10:32:00 08/20/2013 23:59:59 CLS Outpatient WENDY CRAFT APRN [facility] RAD DATING
[2018-09-23 09:39] LABS: BILIRUBIN,URINE NEGATIVE (NEGATIVE); CLARITY,URINE CLEAR; COLOR,URINE YELLOW; GLUCOSE, URINE (UA) NEGATIVE (NEGATIVE); KETONES,URINE NEGATIVE (NEGATIVE); LEUKOCYTE ESTERASE ,URINE 1+ (NEGATIVE); NITRITE,URINE NEGATIVE (NEGATIVE); PH,URINE 8 (5-9); PROTEIN,URINE NEGATIVE (NEGATIVE); UROBILINOGEN,URINE NORMAL (NORMAL)
[2018-09-23] MEDS ORDERED: NS IV 1000 ML 1,000 ML ONE (09:46)
[2018-09-23 09:54] LABS: BACTERIA,URINE MODERATE /HPF; WBC,URINE RARE /HPF
[2018-09-23 10:01] LABS: BASOPHILS % (AUTO) 0 % (0-10); EOSINOPHILS % (AUTO) 0 % (0-10); HEMATOCRIT 35 % (35-52); HEMOGLOBIN 11.8 G/DL (11.5-16.0); LYMPHOCYTES # (AUTO) 0.9 X 10^3 (1.0-4.0); LYMPHOCYTES % (AUTO) 9 % (12-44); MEAN CORPUSCULAR HEMOGLOBIN 30 PG (25-34); MEAN CORPUSCULAR HGB CONC 33 G/DL (32-36); MEAN CORPUSCULAR VOLUME 89 FL (80-99); MEAN PLATELET VOLUME 9.9 FL (7.4-10.4); MONOCYTES # (AUTO) 0.6 X 10^3 (0.0-1.0); MONOCYTES % (AUTO) 6 % (0-12); NEUTROPHILS # (AUTO) 8.5 X 10^3 (1.8-7.8); NEUTROPHILS % (AUTO) 85 % (42-75); PLATELET COUNT 179 10^3/uL (130-400); RED CELL DISTRIBUTION WIDTH 13.3 % (10.0-14.5)
--- NOTE | 2018-09-23 10:15 | NUR ---
OB RN AT PT BEDSIDE MONITORING PT AND BABY AT THIS TIME.
[2018-09-23 10:20] LABS: ALANINE AMINOTRANSFERASE 17 U/L (0-55); ALBUMIN 3.2 GM/DL (3.2-4.5); ALKALINE PHOSPHATASE 199 U/L (40-136); BILIRUBIN,TOTAL 0.4 MG/DL (0.1-1.0); BUN/CREATININE RATIO 7; CALCIUM 8.6 MG/DL (8.5-10.1); CARBON DIOXIDE 20 MMOL/L (21-32); CHLORIDE 105 MMOL/L (98-107); CREATININE SERUM 0.55 MG/DL (0.60-1.30); GFR ESTIMATED > 60; GLUCOSE 85 MG/DL (70-105); POTASSIUM 3.6 MMOL/L (3.6-5.0); SODIUM 133 MMOL/L (135-145); TOTAL PROTEIN 6.4 GM/DL (6.4-8.2)
--- NOTE | 2018-09-23 10:52 | NUR ---
OB RN REPORTS PT CERIVX IS STILL CLOSED AFTER DOING A CERVIAL CHECK AT THIS TIME.
[2018-09-23] MEDS ORDERED: cefTRIAXone FOR IV USE 1,000 MG in WATER (STERILE) FOR INJECTION 10 ML IV ONE (11:00)
--- NOTE | 2018-09-23 11:09 | ED General ---
General Chief Complaint: Cough/Cold/Flu Symptoms Stated Complaint: 8 MO PREG/FEVER/SORE THROAT/LOWER STOMACH PAIN Nursing Triage Note: PT REPORTS COUGH/COLD/SORE THROAT AND FEVER SINCE LAST NIGHT. PT REPORTS BACK AND LOW BELLY CRAMPING AND PELVIC PRESSURE STARTING LAST NIGHT. 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 She states the cramping feels similar to labor from prior pregnancies. Patient denies any nausea or vomiting. She has no urinary symptoms. Dr. GARIBAY is her rake operator and Dr. Hinds is on- call for him today. She requested that this patient be assessed in the ER rather than on labor and delivery due to febrile illness. Allergies and Home Medications Allergies Coded Allergies: No Known Drug Allergies (Unverified , 11/20/15) Home Medications Amoxicillin 500 Mg Tablet, 1,000 MG PO BID Prescribed by: ERIKA SIMON on 09/23/18 1114 Metronidazole 500 Mg Tablet, 500 MG PO BID Prescribed by: SHU REDDY on 09/12/18 1343 Vit W-Ca,Fe,FA(<1 mg) 1 Each Tablet, 1 EACH PO DAILY, (Reported) Patient Home Medication List Home Medication List Reviewed: Yes Review of Systems Review of Systems Constitutional: see HPI EENTM: see HPI Respiratory: see HPI Cardiovascular: no symptoms reported Gastrointestinal: see HPI Genitourinary: see HPI : Yes Expected Date of Delivery: Oct 27, 2018 Musculoskeletal: see HPI Skin: no symptoms reported Psychiatric/Neurological: No Symptoms Reported Hematologic/Lymphatic: No Symptoms Reported Immunological/Allergic: no symptoms reported Past Xpltrhf-Mceiet-Rfunfy Hx Past Med/Social Hx: Reviewed and Corrections made Patient Social History Alcohol Use: Denies Use Recreational Drug Use: No Smoking Status: Never a Smoker 2nd Hand Smoke Exposure: No Recent Foreign Travel: No Contact w/Someone Who Travel: No Recent Infectious Disease Expo: No Recent Hopitalizations: No Physical Abuse: No Sexual Abuse: No Mistreated: No Fear: No Immunizations Up To Date Tetanus Booster (TDap): Less than 5yrs PED Vaccines UTD: Yes Date of Influenza Vaccine: Apr 11, 2016 Seasonal Allergies Seasonal Allergies: No Past Medical History Surgeries: No Respiratory: Yes Asthma Cardiac: No Neurological: No Reproductive Disorders: No Genitourinary: No Gastrointestinal: Yes Chronic Constipation Musculoskeletal: No Endocrine: No HEENT: No Cancer: No Psychosocial: No Integumentary: No Blood Disorders: No Adverse Reaction/Blood Tranf: No Family Medical History Patient reports no known family medical history. No Pertinent Family Hx Physical Exam Vital Signs Vital Signs - First Documented 09/23/18 09/23/18 09:30 09:36 Temp 99.9 Pulse 101 Resp 20 B/P (MAP) 111/60 (77) Pulse Ox 98 O2 Delivery Room Air Capillary Refill : Less Than 3 Seconds Height, Weight, BMI Height: 5'5.00" Weight: 170lbs. 4.0oz. 77.038955ha; 29.8 BMI Method:Stated General Appearance: WD/WN, Mild Distress HEENT: PERRL/EOMI, TMs Normal, Normal ENT Inspection, Pharynx Normal Neck: Normal Inspection Respiratory: Lungs Clear, Normal Breath Sounds, No Accessory Muscle Use, No Respiratory Distress Cardiovascular: Regular Rate, Rhythm, No Edema, No Murmur, Tachycardia Gastrointestinal: Normal Bowel Sounds, Soft, Tenderness (suprapubic) Genital/Rectal: Normal Genital Exam, Other (cervix soft, closed, and high) Extremity: Normal Inspection, No Pedal Edema Neurologic/Psychiatric: Alert, Oriented x3, No Motor/Sensory Deficits, Normal Mood/Affect, systems applications programming lead II-XII Norm as Tested Skin: Normal Color, Warm/Dry Progress/Results/Core Measures Suspected Sepsis Recent Fever Within 48 Hours: No Infection Criteria Present: None New/Unexplained Altered Menta: No Sepsis Screen: No Definite Risk SIRS Temperature:99.9 Pulse: 101 Respiratory Rate: 20 Laboratory Tests 09/23/18 09:57: White Blood Count 10.0 Blood Pressure 111 /60 Mean: 77 Laboratory Tests 09/23/18 09:57: Creatinine 0.55L, Platelet Count 179, Total Bilirubin 0.4 Results/Orders Lab Results Laboratory Tests Test 09/23/18 09:33 09/23/18 09:36 09/23/18 09:57 Range/Units Urine Color YELLOW Urine Clarity CLEAR Urine pH 8 5-9 Urine Specific [place] 1.010 L 1.016-1.022 Urine Protein NEGATIVE NEGATIVE Urine Glucose (UA) NEGATIVE NEGATIVE Urine Ketones NEGATIVE NEGATIVE Urine Nitrite NEGATIVE NEGATIVE Urine Bilirubin NEGATIVE NEGATIVE Urine Urobilinogen NORMAL NORMAL MG/DL Urine Leukocyte Esterase 1+ H NEGATIVE Urine RBC (Auto) NEGATIVE NEGATIVE Urine RBC NONE /HPF Urine WBC RARE /HPF Urine Squamous Epithelial Cells 2-5 /HPF Urine Crystals NONE /LPF Urine Bacteria MODERATE H /HPF Urine Casts NONE /LPF Urine Mucus NEGATIVE /LPF Urine Culture Indicated NO Group A Streptococcus Screen POSITIVE H NEGATIVE White Blood Count 10.0 4.3-11.0 10^3/uL Red Blood Count 3.99 L 4.35-5.85 10^6/uL Hemoglobin 11.8 11.5-16.0 G/DL Hematocrit 35 35-52 % Mean Corpuscular Volume 89 80-99 FL Mean Corpuscular Hemoglobin 30 25-34 PG Mean Corpuscular Hemoglobin Concent 33 32-36 G/DL Red Cell Distribution Width 13.3 10.0-14.5 % Platelet Count 179 130-400 10^3/uL Mean Platelet Volume 9.9 7.4-10.4 FL Neutrophils (%) (Auto) 85 H 42-75 % Lymphocytes (%) (Auto) 9 L 12-44 % Monocytes (%) (Auto) 6 0-12 % Eosinophils (%) (Auto) 0 0-10 % Basophils (%) (Auto) 0 0-10 % Neutrophils # (Auto) 8.5 H 1.8-7.8 X 10^3 Lymphocytes # (Auto) 0.9 L 1.0-4.0 X 10^3 Monocytes # (Auto) 0.6 0.0-1.0 X 10^3 Eosinophils # (Auto) 0.0 0.0-0.3 10^3/uL Basophils # (Auto) 0.0 0.0-0.1 10^3/uL Sodium Level 133 L 135-145 MMOL/L Potassium Level 3.6 3.6-5.0 MMOL/L Chloride Level 105 98-107 MMOL/L Carbon Dioxide Level 20 L 21-32 MMOL/L Anion Gap 8 5-14 MMOL/L Blood Urea Nitrogen 4 L 7-18 MG/DL Creatinine 0.55 L 0.60-1.30 MG/DL Estimat Glomerular Filtration Rate > 60 BUN/Creatinine Ratio 7 Glucose Level 85 70-105 MG/DL Calcium Level 8.6 8.5-10.1 MG/DL Corrected Calcium 9.2 8.5-10.1 MG/DL Total Bilirubin 0.4 0.1-1.0 MG/DL Aspartate Amino Transf (AST/SGOT) 19 5-34 U/L Alanine Aminotransferase (ALT/SGPT) 17 0-55 U/L Alkaline Phosphatase 199 H 40-136 U/L C-Reactive Protein High Sensitivity 2.82 H 0.00-0.50 MG/DL Total Protein 6.4 6.4-8.2 GM/DL Albumin 3.2 3.2-4.5 GM/DL Micro Results Microbiology 09/23/18 Influenza Types A,B Antigen (SONJA) - Final, Complete My Orders Orders - ERIKA HORN MD Ua Culture If Indicated (09/23/18 09:33) Influenza A And B Antigens (09/23/18 09:33) Cbc With Automated Diff (09/23/18 09:47) Comprehensive Metabolic Panel (09/23/18 09:47) Hs C Reactive Protein (09/23/18 09:47) Saline Lock/Iv-Start (09/23/18 09:47) Ns Iv 1000 Ml (Sodium Chloride 0.9%) (09/23/18 09:46) Rapid Strep A Screen (09/23/18 09:50) Ceftriaxone For Iv Use (Rocephin For I (09/23/18 11:00) Medications Given in ED Current Medications Medications Dose Ordered Sig/Gomez Route Start Time Stop Time Status Last Admin Dose Admin Ceftriaxone Sodium 1000 mg/ Sterile Water 10 ml @ 200 mls/hr ONCE ONCE IV 09/23/18 11:00 09/23/18 11:02 DC 09/23/18 11:00 200 MLS/HR Sodium Chloride 1,000 ml @ ud STK-MED ONCE .ROUTE 09/23/18 09:46 09/23/18 09:49 DC 09/23/18 09:54 1,000 MLS/HR Vital Signs/I&O 09/23/18 09/23/18 09/23/18 09:30 09:36 11:19 Temp 99.9 100.0 Pulse 101 101 Resp 20 20 B/P (MAP) 111/60 (77) 123/71 (88) Pulse Ox 98 98 O2 Delivery Room Air Capillary Refill : Less Than 3 Seconds Blood Pressure Mean: 77 Progress Note : Progress Note Labs were obtained. Influenza screen was negative but strep screen was positive. Patient was given a liter of IV normal saline. Rocephin was given for treatment of strep throat. A labor and delivery nurse presented to the ER to monitor heart tones and tocometer. Patient was found to have an irritable uterus with few contractions and reassuring heart tones. Cervical check by OB nurse after monitoring demonstrated no change. Patient was ultimately dismissed home. Update was provided to Dr. Hinds. Departure Impression Primary Impression: contractions Additional Impression: Strep throat Disposition: HOME, SELF-CARE Condition: Improved Departure-Patient Inst. Decision time for Depature: 11:08 Referrals: LACEY GARIBAY DO (PCP) Primary Care Physician [facility] (Family) Primary Care Physician Patient Instructions: Strep Throat Test Add. Discharge Instructions: Drink plenty of clear liquids. For discomfort or fever you may take Tylenol (acetaminophen) up to 1000 mg every 6 hours as needed. Complete your antibiotic as prescribed. About 5 days into your antibiotic treatment please sanitize or replace your toothbrush or any other oral instruments to prevent reinfection. Follow-up with Dr. GARIBAY this week. Call Monday to provide him an update. Return to emergency room if you have worsening symptoms. Present to labor and delivery if you have concerns you are going into labor. All discharge instructions reviewed with patient and/or family. Voiced understanding. Scripts Amoxicillin (Amoxicillin) 500 Mg Tablet 1000 MG PO BID, #28 TAB Prov: ERIKA HORN MD 09/23/18 Copy Copies To 1: LACEY GARIBAY JOSHUA T MD Sep 23, 2018 11:09
[2018-09-23] MEDS ORDERED: AMOX500T2 PO (11:14)
[2018-09-23 11:19] VITALS: BP 123/71
== END 2018-09-23 11:19 | disposition home or self-care (01) ==
LOC: EDUNIT# 09:29 → ER 09:30
DX: O60.03 Preterm labor without delivery, third trimester (principal); O99.513 Diseases of the respiratory system complicating pregnancy, third trimester; J02.0 Streptococcal pharyngitis; J45.909 Unspecified asthma, uncomplicated; Z87.19 Personal history of other diseases of the digestive system; Z3A.34 34 weeks gestation of pregnancy
CPT/HCPCS: 36415; 80053; 81000; 85025; 86141; 87430; 87804

== ENCOUNTER 2018-10-02 18:49 | Outpatient (CLI) | payer SELFPAY ==
[~2018-10-02] VITALS: Ht 167.6 cm; Wt 85.7 kg
[~2018-10-02 18:49] MED LIST changes: +AMOX500T2 PO
--- NOTE | 2018-10-02 19:04 | NUR ---
MERRY HERNANDEZ presented to unit via ambulatory from ED, accompanied by son, with c/o DIARHEA FOR 10/12 DAYS. MERRY HERNANDEZ weighed, gowned, voided, and to bed. EFHM and TOCO applied, VS taken. MERRY HERNANDEZ oriented to bed controls, call light, TV, heat, and A/C controls.
[2018-10-02 19:15] VITALS: BP 117/68
--- NOTE | 2018-10-02 19:15 | NUR ---
Pt states that has had diarrhea for 10-12 days. Pt was treated 10 days ago with amoxicillin. Since she started treatment she has had diarrhea with no other symptoms. Pt denies any pain. States antibiotic was finished 5 days ago. States diarrhea is multiple times per day and watery. pt is able to eat regularly. Pt saw dr stapleton in the office last Thrusday and was given Imodium. Pt has taken it 3 days for the maximum dose with no effect. Today pt called the office and was told to present to for fluid bolus and exam.
[2018-10-02 19:39] LABS: BILIRUBIN,URINE NEGATIVE (NEGATIVE); CLARITY,URINE SLIGHTLY CLOUDY; COLOR,URINE YELLOW; GLUCOSE, URINE (UA) NEGATIVE (NEGATIVE); KETONES,URINE NEGATIVE (NEGATIVE); LEUKOCYTE ESTERASE ,URINE 1+ (NEGATIVE); NITRITE,URINE NEGATIVE (NEGATIVE); PH,URINE 6 (5-9); PROTEIN,URINE 1+ (NEGATIVE); UROBILINOGEN,URINE 1 MG/DL (NORMAL)
[2018-10-02] MEDS ORDERED: LOPE-134 PO (19:47)
[2018-10-02] MEDS ORDERED: ACYC400T PO (19:47)
[2018-10-02 19:48] LABS: BACTERIA,URINE LARGE /HPF; CALCIUM OXALATE CRYSTALS,UR FEW /LPF; SQUAMOUS EPITHELIAL CELL,UR 25-50 /HPF
--- NOTE | 2018-10-02 20:00 | NUR ---
fhr 135 bpm. Moderate variability. Accels present, no decels noted. Ctx occasionally with uterine irritability between ctx. pt denies feeling ctx.
--- NOTE | 2018-10-02 20:00 | NUR ---
Called Dr Hinds with report on pt. Discussed strip, diarrhea, medications, symptoms. New orders received for labs, Iv, stool sample.
[2018-10-02] MEDS ORDERED: NS 1000 ML IV BAG IV ONE (20:15)
[2018-10-02 20:29] LABS: BASOPHILS % (AUTO) 0 % (0-10); EOSINOPHILS # (AUTO) 0.1 10^3/uL (0.0-0.3); EOSINOPHILS % (AUTO) 1 % (0-10); HEMATOCRIT 34 % (35-52); HEMOGLOBIN 11.3 G/DL (11.5-16.0); LYMPHOCYTES # (AUTO) 1.8 X 10^3 (1.0-4.0); LYMPHOCYTES % (AUTO) 25 % (12-44); MEAN CORPUSCULAR HEMOGLOBIN 29 PG (25-34); MEAN CORPUSCULAR HGB CONC 33 G/DL (32-36); MEAN CORPUSCULAR VOLUME 87 FL (80-99); MEAN PLATELET VOLUME 9.7 FL (7.4-10.4); MONOCYTES # (AUTO) 0.5 X 10^3 (0.0-1.0); MONOCYTES % (AUTO) 7 % (0-12); NEUTROPHILS # (AUTO) 4.9 X 10^3 (1.8-7.8); NEUTROPHILS % (AUTO) 68 % (42-75); PLATELET COUNT 195 10^3/uL (130-400); RED CELL DISTRIBUTION WIDTH 13.1 % (10.0-14.5); WHITE BLOOD COUNT 7.2 10^3/uL (4.3-11.0)
[2018-10-02 20:55] LABS: ALANINE AMINOTRANSFERASE 18 U/L (0-55); ALBUMIN 3.2 GM/DL (3.2-4.5); ALKALINE PHOSPHATASE 195 U/L (40-136); BILIRUBIN,TOTAL 0.3 MG/DL (0.1-1.0); BUN/CREATININE RATIO 10; CALCIUM 8.8 MG/DL (8.5-10.1); CARBON DIOXIDE 20 MMOL/L (21-32); CHLORIDE 108 MMOL/L (98-107); CREATININE SERUM 0.58 MG/DL (0.60-1.30); GFR ESTIMATED > 60; GLUCOSE 88 MG/DL (70-105); POTASSIUM 3.4 MMOL/L (3.6-5.0); SODIUM 139 MMOL/L (135-145)
--- NOTE | 2018-10-02 21:00 | NUR ---
fhr 145 bpm. Moderate variability. Accels present, no decels noted. Ctx occasionally with uterine irritability between ctx. pt denies feeling ctx. Addendum: 10/02/18 at 2357 by ILENE MARIE RN Pt up to br.
--- NOTE | 2018-10-02 21:25 | NUR ---
Lab results called to dr roca. new orders received for discharge and discharge instructions.
--- NOTE | 2018-10-02 21:45 | NUR ---
Pt off monitor. IV removed. Left to dress.
--- NOTE | 2018-10-02 22:00 | NUR ---
Pt able to collect stool sample. Stool loose, but not watery. Sample obtained and sent to lab.
--- NOTE | 2018-10-02 22:00 | NUR ---
fhr 1340 bpm. Moderate variability. No decels noted. Ctx occasionally with uterine irritability between ctx. pt denies feeling ctx.
--- NOTE | 2018-10-02 22:12 | NUR ---
Discharge papers explained and copy given to pt. Questions answered. Papers signed. pt ambulated off unit accompanied by son. No s/s distress noted.
== END 2018-10-02 22:12 | disposition home or self-care (01) ==
LOC: WSo 18:49 → LDRP 18:49 → WSo 22:12
PROVIDERS: ATTEND Obstetrics & Gynecology
DX: O99.89 Other specified diseases and conditions complicating pregnancy, childbirth and the puerperium (principal); R19.7 Diarrhea, unspecified; Z3A.36 36 weeks gestation of pregnancy
CPT/HCPCS: 36415; 80053; 81000; 85025; 87015; 87045; 87046; 87088; 87899

== ENCOUNTER 2018-10-22 19:17 | Inpatient (IN) | payer OTHER ==
[~2018-10-22] VITALS: Ht 165.1 cm; Wt 88.6 kg
[~2018-10-22 19:17] MED LIST changes: +ACYC400T PO; +LOPE-134 PO
--- OUTSIDE RECORDS SUMMARY | 2018-10-22 19:21 | XMS REPORT ---
Author Author Migration, Doctor Organization [facility] Address Unknown Phone Unavailable Care Team Providers Care Copy Writer Name Role Phone Migration, Doctor Unavailable Unavailable PROBLEMS Type Condition ICD9-CM Code IDR25-XA Code Onset Dates Condition Status SNOMED Code Problem Seasonal allergic rhinitis due to pollen J30.1 Active 34148355 Problem Vaginal bleeding N93.9 Active 641236465 Problem Lumbago with sciatica, 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 Active 542883811 Problem Irregular bleeding N92.6 Active 11199106 Problem Other chronic pain G89.29 Active 38865052 Problem Lumbago with sciatica, left side M54.42 Active 780528601 ALLERGIES No Information ENCOUNTERS Encounter Location Date Diagnosis [facility] [address] [address] Jul, Bleeding hemorrhoids K64.9 [place] [address] [address] Jan, Vaginal bleeding N93.9 and Encounter for initial prescription of contraceptive pills Z30.011 [place] [address] [address] Dec, Acute cystitis without hematuria N30.00 ; Acute nonintractable headache, unspecified headache type R51 and Blurred vision, bilateral H53.8 [place] [address] [place] [id number] [place] [address] Dec, [facility] [address] [address] Dec, Urinary frequency R35.0 and Acute cystitis without hematuria N30.00 [place] [address] [address] November, Seasonal allergic rhinitis due to pollen J30.1 [place] [address] [address] Oct, [place] [address] [address] Oct, Lumbago with sciatica, left side M54.42 and Other chronic pain G89.29 [place] [address] [address] Sep, Pain of left thigh M79.652 and Varicose vein of leg I83.90 [place] [address] [address] Aug, Pelvic pain R10.2 ; Simple ovarian cyst N83.209 and Irregular bleeding N92.6 [facility] [address] [address] Apr, Strain of neck muscle, initial encounter S16.1XXA [place] [address] [address] Apr, Irregular bleeding N92.6 [facility] [address] [address] Jan, Sore throat J02.9 ; Strep pharyngitis J02.0 and Flank pain R10.9 [place] [address] [address] November, [place] [address] [address] November, Encounter for test, result unknown Z32.00 [facility] [address] [address] Oct, Lumbago with sciatica, 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 [place] [address] [place] [id number] [place] [address] November, [place] [address] [address] November, Normal in multigravida Z34.80 and 9 weeks gestation of Z3A.09 [facility] [address] [address] 14 Oct, 2015 [facility] [address] [place] [id number] [address] 12 Oct, 2015 Absence of menses due to use of contraceptive N91.2 and Positive test Z32.01 [facility] [address] [address] 14 Oct, 2014 [facility] [address] [place] [id number] [place] [address] Oct, [facility] [address] [place] [id number] [place] [address] Jul, [facility] [address] [place] [id number] [place] [address] Jul, [facility] [address] [address] Jul, [facility] [id number] [address] Jul, [facility] [address] [address] Sep, [facility] [id number] [address] Sep, [facility] [address] [address] Sep, [facility] [address] [address] Sep, [facility] [address] [address] Sep, [facility] [id number] [address] Sep, [facility] [address] [facility] [id number] [address] Sep, [facility] [address] [facility] [id number] [address] Sep, [facility] [address] [facility] [id number] [address] Sep, [facility] [address] [address] Sep, [facility] [address] [facility] [id number], [place] [address] Aug, [facility] [address], [place] [address] Aug, [facility] [address] [address] Aug, [facility] [address] [address] Aug, [facility] [address] [address] Aug, [facility] [address] [place] [id number] [address] Aug, [facility] [address] [place] [id number] [address] Aug, IMMUNIZATIONS No Known Immunizations SOCIAL HISTORY Never Assessed REASON FOR VISIT [facility] PLAN OF CARE VITAL SIGNS MEDICATIONS No Known Medications RESULTS No Results PROCEDURES No Known procedures INSTRUCTIONS MEDICATIONS ADMINISTERED No Known Medications MEDICAL (GENERAL) HISTORY Type Description Date Medical History Asthma Surgical History No know Surgical history Hospitalization History Childbirth
--- OUTSIDE RECORDS SUMMARY | 2018-10-22 19:21 | XMS REPORT ---
Author Author Migration, Doctor Organization [facility] Address Unknown Phone Unavailable Care Team Providers Care Insurance Licensing Supervisor Name Role Phone Migration, Doctor Unavailable Unavailable PROBLEMS Type Condition ICD9-CM Code [id number] Code Onset Dates Condition Status SNOMED Code Problem Seasonal allergic rhinitis due to pollen J30.1 Active 99734468 Problem Vaginal bleeding N93.9 Active 776464249 Problem Lumbago with sciatica, 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 Active 864541662 Problem Irregular bleeding N92.6 Active 93452919 Problem Other chronic pain G89.29 Active 75223765 Problem Lumbago with sciatica, left side M54.42 Active 126791074 ALLERGIES No Information ENCOUNTERS Encounter Location Date Diagnosis [place] [address] [address] Sep, [facility] [address] [address] Jul, Bleeding hemorrhoids K64.9 [place] [address] [address] Jan, Vaginal bleeding N93.9 and Encounter for initial prescription of contraceptive pills Z30.011 [place] [address] [address] Dec, Acute cystitis without hematuria N30.00 ; Acute nonintractable headache, unspecified headache type R51 and Blurred vision, bilateral H53.8 [place] [address] [address] Dec, [facility] [address] [address] 17 Dec, 2017 Urinary frequency R35.0 and Acute cystitis without hematuria N30.00 [place] [address] [address] November, Seasonal allergic rhinitis due to pollen J30.1 [place] [address] [address] Oct, [place] [address] [address] Oct, Lumbago with sciatica, left side M54.42 and Other chronic pain G89.29 [place] [address] [address] Sep, Pain of left thigh M79.652 and Varicose vein of leg I83.90 [place] [address] [address] Aug, Pelvic pain R10.2 ; Simple ovarian cyst N83.209 and Irregular bleeding N92.6 [facility] [place] [address] [address] Apr, Strain of neck muscle, initial encounter S16.1XXA [place] [address] [address] Apr, Irregular bleeding N92.6 [facility] [place] [address] [address] Jan, Sore throat J02.9 ; Strep pharyngitis J02.0 and Flank pain R10.9 [place] [address] [address] November, [place] [address] [address] November, Encounter for test, result unknown Z32.00 [facility] [place] [address] [address] Oct, Lumbago with sciatica, 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 [place] [address] [address] November, [facility] [place] [address] [address] 06 Nov, 2015 Normal in multigravida Z34.80 and 9 weeks gestation of Z3A.09 [facility] [place] [address] [address] 14 Oct, 2015 [facility] [place] [address] [place] [id number] [address] 12 Oct, 2015 Absence of menses due to use of contraceptive N91.2 and Positive test Z32.01 [facility] [place] [address] [place] [id number] [place] [address] 14 Oct, 2014 [facility] [place] [address] [address] Oct, [facility] [place] [id number] [address] Jul, [facility] [place] [id number] [address] Jul, [facility] [place] [address] [address] Jul, [facility] [place] [id number] [address] Jul, [facility] [place] [id number] [address] Sep, [facility] [place] [id number] [address] Sep, [facility] [place] [id number] [address] Sep, [facility] [place] [address] [address] Sep, [facility] [place] [address] [address] Sep, [facility] [place] [address] [address] Sep, [facility] [place] [id number] [address] Sep, [facility] [place] [address] [address] Sep, [facility] [place] [address] [address] Sep, [facility] [place] [id number] [address] Sep, [facility] [place] [id number] [place] [address] Aug, [facility] [place] [address] [address] Aug, [facility] [place] [address] [address] Aug, [facility] [place] [id number] [address] Aug, [facility] [place] [id number] [address] Aug, [facility] [place] [id number] [address] Aug, [facility], [place] [address] [place] [id number] [address] Aug, IMMUNIZATIONS No Known Immunizations SOCIAL HISTORY Never Assessed REASON FOR VISIT EMR-[facility] PLAN OF CARE VITAL SIGNS MEDICATIONS Medication Instructions Dosage Frequency Start Date End Date Duration Status Keflex 500 mg take 1 capsule (500 mg) by oral route every 12 hours for 7 days Sep, Active Augmentin 875-125 mg 1 tablet by Oral route 2 times per day for 10 day(s) take with food Jul, Active Clotrimazole 1 % 1 appful 1 time per day for 7 day(s) Aug, Active Ibuprofen 600 mg take 1 tablet by Oral route 3 times per day with food PRN for pain. Jul, Active Flagyl 500 mg 1 tablet by Oral route 2 times per day for 7 days Aug Active RESULTS No Results PROCEDURES No Known procedures INSTRUCTIONS MEDICATIONS ADMINISTERED No Known Medications MEDICAL (GENERAL) HISTORY Type Description Date Medical History Asthma Surgical History No know Surgical history Hospitalization History Childbirth
--- OUTSIDE RECORDS SUMMARY | 2018-10-22 19:21 | XMS REPORT ---
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 Active 525145921 Problem Irregular bleeding N92.6 Active 92904283 Problem Other chronic pain G89.29 Active 97398936 Problem Lumbago with sciatica, left side M54.42 Active 308887812 ALLERGIES No Information ENCOUNTERS Encounter Location Date Diagnosis [facility] [address] [address] Jul, Bleeding hemorrhoids K64.9 [place] [address] [address] Jan, Vaginal bleeding N93.9 and Encounter for initial prescription of contraceptive pills Z30.011 [place] [address] [address] Dec, Acute cystitis without hematuria N30.00 ; Acute nonintractable headache, unspecified headache type R51 and Blurred vision, bilateral H53.8 [place] [address] [place] [id number] [place] [address] Dec, [facility] [address] [address] Dec, Urinary frequency R35.0 and Acute cystitis without hematuria N30.00 [place] [address] [address] November, Seasonal allergic rhinitis due to pollen J30.1 [place] [address] [address] Oct, [place] [address] [address] Oct, Lumbago with sciatica, left side M54.42 and Other chronic pain G89.29 [place] [address] [address] Sep, Pain of left thigh M79.652 and Varicose vein of leg I83.90 [place] [address] [address] Aug, Pelvic pain R10.2 ; Simple ovarian cyst N83.209 and Irregular bleeding N92.6 [facility] [address] [address] Apr, Strain of neck muscle, initial encounter S16.1XXA [place] [address] [address] Apr, Irregular bleeding N92.6 [facility] [address] [address] Jan, Sore throat J02.9 ; Strep pharyngitis J02.0 and Flank pain R10.9 [place] [address] [address] November, [place] [address] [address] November, Encounter for test, result unknown Z32.00 [facility] [address] [address] Oct, Lumbago with sciatica, 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 [place] [address] [place] [id number] [place] [address] November, [place] [address] [address] November, Normal in multigravida Z34.80 and 9 weeks gestation of Z3A.09 [facility], [place] [address] [address] 14 Oct, 2015 [facility] [place] [address] [place] [id number] [address] 12 Oct, 2015 Absence of menses due to use of contraceptive N91.2 and Positive test Z32.01 [facility] [place] [address] [address] 14 Oct, 2014 [facility] [place] [address] [place] [id number] [place] [address] Oct, [facility] [place] [address] [place] [id number] [place] [address] Jul, [facility] [place] [address] [place] [id number] [place] [address] Jul, [facility] [place] [address] [address] Jul, [facility] [place] [address] [address] Jul, [facility] [place] [address] [address] Sep, [facility] [place] [address] [address] Sep, [facility] [place] [address] [address] Sep, [facility] [place] [address] [address] Sep, [facility] [place] [address] Sep, [facility] [place] [address] [address] Sep, [facility] [place] [address] [facility] [id number] [address] Sep, [facility] [place] [address] [facility] [id number] [address] Sep, [facility] [place] [address] [facility] [id number] [address] Sep, [facility] [place] [address] [address] Sep, [facility] [place] [address] [facility] [id number] [address] Aug, [facility] [place] [address] [address] Aug, [facility] [place] [address] [address] Aug, [facility] [place] [address] [address] Aug, [facility] [place] [address] [address]- [address] Aug, [facility] [place] [address] [place] [id number] [address] Aug, [facility] [place] [address] [place] [id number] [address] Aug, IMMUNIZATIONS No Known Immunizations SOCIAL HISTORY Never Assessed REASON FOR VISIT [facility] PLAN OF CARE VITAL SIGNS MEDICATIONS No Known Medications RESULTS No Results PROCEDURES No Known procedures INSTRUCTIONS MEDICATIONS ADMINISTERED No Known Medications MEDICAL (GENERAL) HISTORY Type Description Date Medical History Asthma Surgical History No know Surgical history Hospitalization History Childbirth
--- NOTE | 2018-10-22 19:25 | NUR ---
MERRY HERNANDEZ presented to unit via ambulatory from ED, accompanied by family , with c/o INDUCTION. MERRY HERNANDEZ weighed, gowned, voided, and to bed. EFHM and TOCO applied, VS taken. MERRY HERNANDEZ oriented to bed controls, call light, TV, heat, and A/C controls.
--- OUTSIDE RECORDS SUMMARY | 2018-10-22 19:26 | XMS REPORT | Continuity of Care Document ---
Author Organization Unknown Address Unknown Allergies Active Description Code Type Severity Reaction Onset Reported/Identified Relationship to Patient Clinical Status Yes No Known Drug Allergies [id number] Drug Allergy Unknown N/A 11/20/2015 Medications There is no data. Problems Date Dx Coded Attending Type Code Diagnosis Diagnosed By 08/12/2013 LUANA COREMAKER SUPERVISOR, WENDY A V72.42 TEST POSITIVE RESULT 08/12/2013 LUANA COREMAKER SUPERVISOR, WENDY A V74.5 STD SCREEN 08/12/2013 LUANA COREMAKER SUPERVISOR, WENDY A V76.10 BREAST CANCER SCREENING 08/12/2013 LUANA COREMAKER SUPERVISOR, WENDY A V76.2 CERVICAL CANCER SCREENING (PAP SMEAR) 08/12/2013 LUANA COREMAKER SUPERVISOR, WENDY A V72.42 TEST POSITIVE RESULT 08/12/2013 LUANA COREMAKER SUPERVISOR, WENDY A V74.5 STD SCREEN 08/12/2013 LUANA COREMAKER SUPERVISOR, WENDY A V76.10 BREAST CANCER SCREENING 08/12/2013 LUANA COREMAKER SUPERVISOR, WENDY A V76.2 CERVICAL CANCER SCREENING (PAP SMEAR) 08/12/2013 LUANA COREMAKER SUPERVISOR, WENDY A V72.42 TEST POSITIVE RESULT 08/12/2013 LUANA COREMAKER SUPERVISOR, WENDY A V74.5 STD SCREEN 08/12/2013 LUANA COREMAKER SUPERVISOR, WENDY A V76.10 BREAST CANCER SCREENING 08/12/2013 LUANA COREMAKER SUPERVISOR, WENDY A V76.2 CERVICAL CANCER SCREENING (PAP SMEAR) 08/12/2013 LUANA COREMAKER SUPERVISOR, WENDY A V72.42 TEST POSITIVE RESULT 08/12/2013 LUANA COREMAKER SUPERVISOR, WENDY A V74.5 STD SCREEN 08/12/2013 LUANA COREMAKER SUPERVISOR, WENDY A V76.10 BREAST CANCER SCREENING 08/12/2013 LUANA COREMAKER SUPERVISOR, WENDY A V76.2 CERVICAL CANCER SCREENING (PAP SMEAR) 09/09/2013 LUANA COREMAKER SUPERVISOR, WENDY A 646.60 COMPL OF - UTI 09/09/2013 HOA CRAFT APRNIDI A 787.01 NAUSEA WITH VOMITING 09/09/2013 HOA CRAFT APRNIDI A V22.1 , NORMAL OTHER 09/09/2013 LUANA CROOK, WENDY A 646.60 COMPL OF - UTI 09/09/2013 HOA CRAFT APRNIDI A 787.01 NAUSEA WITH VOMITING 09/09/2013 LUANA CROOK, WENDY A V22.1 , NORMAL OTHER 09/09/2013 LUANA CROOK, WEDNY A 646.60 COMPL OF - UTI 09/09/2013 LUANA CROOK, WENDY A 787.01 NAUSEA WITH VOMITING 09/09/2013 HOA CRAFT APRNIDI A V22.1 , NORMAL OTHER 09/16/2013 HOA CRAFT APRNIDI A 787.91 DIARRHEA 09/16/2013 HOA CRAFT APRNIDI A 787.91 DIARRHEA 09/21/2013 IMAN RICE Ot [...] Ot 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 04/07/2014 ANGELITA NEITO MD Ot 669.81 COMP LAB/DELIV NEC-DELIV 04/07/2014 ANGELITA NIETO MD Ot V06.1 [id number], COMBINED [ 04/07/2014 ANGELITA NIETO MD Ot V06.4 [id number] 04/07/2014 ANGELITA NIETO MD Ot V27.0 DELIVER-SINGLE LIVEBORN 07/24/2014 WENDY CRAFT [...] EMILIA WEATHERS, ANGELITA J Ot 789.04 01/05/2015 MILLI WEATHERS, CRISTHIAN Bonilla Ot 493.90 ASTHMA, UNSPECIFIED 01/05/2015 MILLI WEATHERS, CRISTHIAN Bonilla Ot 786.05 SHORTNESS OF BREATH 02/18/2015 EMILIA WEATHERS, ANGELITA Gamble Ot 787.03 02/18/2015 EMILIA WEATHERS, ANGELITA J Ot 789.04 02/21/2015 KORY WEATHERS, ERIKA T Ot 493.92 ASTHMA, UNSPECIFIED, W (ACUTE) EXACERBAT 02/21/2015 KORY WEATHERS, ERIKA T Ot 564.00 UNSPEC CONSTIPATION 02/21/2015 KORY WEATHERS, ERIKA T Ot 787.01 NAUSEA WITH VOMITING 02/21/2015 KORY WEATHERS, ERIKA T Ot 789.09 ABDOMINAL PAIN, OTHER SPECIFIED SITE 02/21/2015 KORY WEATHERS, ERIKA T Ot J45.901 UNSPECIFIED ASTHMA WITH (ACUTE) EXACERBA 02/21/2015 KORY WEATHERS, ERIKA T Ot K59.00 CONSTIPATION, UNSPECIFIED 02/21/2015 KORY WEATHERS, ERIKA T Ot R11.2 NAUSEA WITH VOMITING, UNSPECIFIED 02/22/2015 WENDY CRAFT APRN Ot V28.89 02/22/2015 EMILIA WEATHERS, ANGELITA Gamble Ot 553.20 02/22/2015 EMILIA WEATHERS, ANGELITA J Ot 625.9 02/22/2015 EMILIA WEATHERS, ANGELITA J Ot 626.8 02/22/2015 EMILIA WEATHERS, ANGELITA J Ot 789.00 02/22/2015 EMILIA WEATHERS, ANGELITA J Ot V22.2 02/22/2015 EMILIA WEATHERS, ANGELITA J Ot 789.03 02/22/2015 EMILIA WEATHERS, ANGELITA J Ot V28.81 02/22/2015 EMILIA WEATHERS, ANGELITA J Ot 787.03 02/22/2015 EMILIA WEATHERS, ANGELITA J Ot 789.04 03/02/2015 EMILIA WEATHERS, ANGELITA J Ot 787.03 03/02/2015 EMILIA WEATHERS, ANGELITA J Ot 789.04 04/02/2015 WENDY CRAFT COREMAKER SUPERVISOR Ot V28.89 04/02/2015 EMILIA WEATHERS, ANGELITA J Ot 553.20 04/02/2015 EMILIA WEATHERS, ANGELITA J Ot 625.9 04/02/2015 EMILIA WEATHERS, ANGELITA J Ot 626.8 04/02/2015 EMILIA WEATHERS, ANGELITA J Ot 789.00 04/02/2015 ANGELITA NIETO MD Ot V22.2 04/02/2015 ANGELITA NIETO MD Ot 789.03 04/02/2015 ANGELITA NIETO MD Ot V28.81 04/02/2015 ANGELITA NIETO MD Ot 787.03 04/02/2015 ANGELITA NIETO MD Ot 789.04 11/20/2015 WENDY CRAFT COREMAKER SUPERVISOR Ot V28.89 OTHER SPECIFIED SCREENING 11/20/2015 ANGELITA [...] AND CONDITIONS COMPL PREG/C 11/20/2015 SHAHRIAR YANES APRN Ot Z3A.09 9 WEEKS GESTATION OF 11/20/2015 WENDY CRAFT COREMAKER SUPERVISOR Ot V28.89 OTHER SPECIFIED SCREENING 11/20/2015 ANGELITA [...] OF URINARY TRACT IN 12/13/2015 SHAHRIAR YANES COREMAKER SUPERVISOR Ot R51 HEADACHE 12/13/2015 SHAHRIAR YANES COREMAKER SUPERVISOR Ot Z3A.12 12 WEEKS GESTATION OF 12/16/2015 SHAHRIAR YANES COREMAKER SUPERVISOR Ot O23.41 UNSP INFCT OF URINARY TRACT IN 12/16/2015 SHAHRIAR YANES COREMAKER SUPERVISOR Ot R51 HEADACHE 12/16/2015 SHAHRIAR YANES COREMAKER SUPERVISOR Ot Z3A.12 12 WEEKS GESTATION OF 01/05/2016 SHAHRIAR YANES COREMAKER SUPERVISOR Ot O23.41 UNSP INFCT OF URINARY TRACT IN 01/05/2016 SHAHRIAR YANES APRN Ot R51 HEADACHE 01/05/2016 SHAHRIAR YANES APRN Ot Z3A.12 12 WEEKS GESTATION OF 01/22/2016 KATHARINE REYES DO Ot O23.42 UNSP INFCT OF URINARY TRACT IN 01/22/2016 KATHARINE REYES DO Ot R10.30 LOWER ABDOMINAL PAIN, UNSPECIFIED 01/22/2016 KATHARINE REYES DO Ot Z3A.18 18 WEEKS GESTATION OF 01/22/2016 WENDY CRAFT APRN Ot V28.89 OTHER SPECIFIED SCREENING 01/22/2016 ANGELITA NIETO MD Ot 553.20 VENTRAL HERNIA NOS 01/22/2016 ANGELITA NIETO MD Ot 625.9 FEM GENITAL SYMPTOMS NOS 01/22/2016 ANGELITA NIETO MD Ot 626.8 MENSTRUAL DISORDER NEC 01/22/2016 ANGELITA NIETO MD Ot 789.00 ABDOMINAL PAIN, UNSPECIFIED SITE 01/22/2016 ANGELITA INETO MD Ot V22.2 PREG STATE, INCIDENTAL 01/22/2016 ANGELITA NIETO MD Ot 789.03 ABDOMINAL PAIN, RIGHT LOWER QUADRANT 01/22/2016 ANGELITA NIETO MD Ot V28.81 ENCOUNTER FOR ANATOMIC SURVEY 01/22/2016 ANGELITA NIETO MD Ot 787.03 VOMITING ALONE 01/22/2016 EMILIA WEATHERS, ANGELITA Gamble Ot 789.04 ABDOMINAL PAIN, LEFT LOWER QUADRANT 01/22/2016 ERIC KATHARINE MARTIN Ot O23.42 UNSP INFCT OF URINARY TRACT IN 01/22/2016 ERIC KATHARINE MARTIN Ot R10.30 LOWER ABDOMINAL PAIN, UNSPECIFIED 01/22/2016 ERIC KATHARINE MARTIN Ot Z3A.18 18 WEEKS GESTATION OF 01/22/2016 ERIC KATHARINE MARTIN Ot O23.42 UNSP INFCT OF URINARY TRACT IN 01/22/2016 ERIC KATHARINE MARTIN Ot R10.30 LOWER ABDOMINAL PAIN, UNSPECIFIED 01/22/2016 ERIC KATHARINE MARTIN Ot Z3A.18 18 WEEKS GESTATION OF 02/05/2016 WENDY CRAFT APRN Ot V28.89 OTHER SPECIFIED SCREENING 02/05/2016 EMILIA WEATHERS, ANGELITA Gamble Ot 553.20 VENTRAL HERNIA NOS 02/05/2016 ANGELITA NIETO MD Ot 625.9 FEM GENITAL SYMPTOMS NOS 02/05/2016 EMILIA WEATHERS, ANGELITA Gamble Ot 626.8 MENSTRUAL DISORDER NEC 02/05/2016 EMILIA WEATHERS, ANGELITA Gamble Ot 789.00 ABDOMINAL PAIN, UNSPECIFIED SITE 02/05/2016 EMILIA WEATHERS, ANGELITA Gamble Ot V22.2 PREG STATE, INCIDENTAL 02/05/2016 EMILIA WEATHERS, ANGELITA Gamble Ot 789.03 ABDOMINAL PAIN, RIGHT LOWER QUADRANT 02/05/2016 EMILIA WEATHERS, ANGELITA Gamble Ot V28.81 ENCOUNTER FOR ANATOMIC SURVEY 02/05/2016 EMILIA WEATHERS, ANGELITA Gamble Ot 787.03 VOMITING ALONE 02/05/2016 EMILIA WEATHERS, ANGELITA Gamble Ot 789.04 ABDOMINAL PAIN, LEFT LOWER QUADRANT 02/06/2016 KATHARINE REYES DO Ot O23.42 UNSP INFCT OF URINARY TRACT IN 02/06/2016 KATHARINE REYES DO Ot R10.30 LOWER ABDOMINAL PAIN, UNSPECIFIED 02/06/2016 KATHARINE REYES DO Ot Z3A.18 18 WEEKS GESTATION OF 02/12/2016 JOSEF WEATHERS, CLAYTON Mccrary Ot O99.89 OTH DISEASES AND CONDITIONS COMPL PREG/C 02/12/2016 CLAYTON BAHENA MD Ot R06.02 SHORTNESS OF BREATH 02/12/2016 CLAYTON BAHENA MD Ot Z3A.21 21 WEEKS GESTATION OF 02/12/2016 HENRIK KHAN MD A Ot J45.901 UNSPECIFIED ASTHMA WITH (ACUTE) EXACERBA 02/12/2016 HENRIK KHAN MD A Ot O99.512 DISEASES OF THE RESP SYS COMP , 02/12/2016 HENRIK KHAN MD A Ot R06.02 SHORTNESS OF BREATH 02/12/2016 HENRIK KHAN MD A Ot Z3A.21 21 WEEKS GESTATION OF 02/15/2016 HENRIK KHAN MD Ot J45.901 UNSPECIFIED ASTHMA WITH (ACUTE) EXACERBA 02/15/2016 HENRIK KHAN MD A Ot O99.512 DISEASES OF THE RESP SYS COMP , 02/15/2016 HENRIK KHAN MD A Ot R06.02 SHORTNESS OF BREATH 02/15/2016 HENRIK KHAN MD A Ot Z3A.21 21 WEEKS GESTATION OF 02/17/2016 [...] WITH (ACUTE) EXACERBA 03/02/2016 HENRIK KHAN MD A Ot O99.512 DISEASES OF THE RESP SYS COMP , 03/02/2016 HENRIK KHAN MD A Ot R06.02 SHORTNESS OF BREATH 03/02/2016 HENRIK KAHN MD A Ot Z3A.21 21 WEEKS GESTATION OF 03/21/2016 WENDY CRAFT COREMAKER SUPERVISOR Ot V28.89 OTHER SPECIFIED SCREENING 03/21/2016 ANGELITA NIETO MD Ot 553.20 VENTRAL HERNIA NOS 03/21/2016 ANGELITA NEITO MD Ot 625.9 FEM GENITAL SYMPTOMS NOS 03/21/2016 ANGELITA NIETO MD Ot 626.8 MENSTRUAL DISORDER NEC 03/21/2016 ANGELITA NIETO MD Ot 789.00 ABDOMINAL PAIN, UNSPECIFIED SITE 03/21/2016 ANGELITA NIETO MD Ot V22.2 PREG STATE, INCIDENTAL 03/21/2016 ANGELITA NIETO MD Ot 789.03 ABDOMINAL PAIN, RIGHT LOWER QUADRANT 03/21/2016 ANGELITA NIETO MD Ot V28.81 ENCOUNTER FOR ANATOMIC SURVEY 03/21/2016 EMILIA WEATHERS, ANGELITA Gamble Ot 787.03 VOMITING ALONE 03/21/2016 ANGELITA NIETO MD Ot 789.04 ABDOMINAL PAIN, LEFT LOWER QUADRANT 03/21/2016 JOSEF WEATHERS, CLAYTON Mccrary Ot Z53.9 PROCEDURE AND TREATMENT NOT CARRIED OUT, 03/22/2016 KARAN CASTAÑEDA MD Ot O47.9 FALSE LABOR, UNSPECIFIED 03/22/2016 KARAN [...] Ot 625.9 FEM GENITAL SYMPTOMS NOS 05/25/2016 EMILIA WEATHERS, ANGELITA Gamble Ot 626.8 MENSTRUAL DISORDER NEC 05/25/2016 ANGELITA [...] TREATMENT NOT CARRIED OUT, 05/30/2016 KARAN CASTAÑEDA MD, Ot O23.93 UNSP TRACT INFECTION IN , 05/30/2016 KARAN CASTAÑEDA MD, Ot Z3A.36 36 WEEKS GESTATION OF 06/03/2016 KARAN CASTAÑEDA MD, Ot O23.93 UNSP TRACT INFECTION IN , 06/03/2016 KARAN CASTAÑEDA MD, Ot Z3A.36 36 WEEKS GESTATION OF 06/20/2016 WENDY CRAFT APRN Ot V28.89 OTHER SPECIFIED SCREENING 06/20/2016 ANGELITA NIETO MD Ot 553.20 VENTRAL HERNIA NOS 06/20/2016 ANGELITA [...] MD Ot Z33.1 STATE, INCIDENTAL 06/21/2016 FENECH DO, LACEY S Ot D62 ACUTE POSTHEMORRHAGIC ANEMIA 06/21/2016 FENECH DO, LACEY S Ot O13.3 GESTATIONAL HTN W/O SIGNIFICANT PROTEINU 06/21/2016 MAXIECH LACEY MARTIN S Ot O36.8130 DECREASED MOVEMENTS, THIRD TRIMEST 06/21/2016 MAXIECH LACEY MARTIN S Ot O70.1 SECOND DEGREE PERINEAL LACERATION DURING 06/21/2016 [place] MARTIN LACEY S Ot O99.03 ANEMIA COMPLICATING THE PUERPERIUM 06/21/2016 MAXIECH LACEY S Ot Z37.0 SINGLE LIVE 06/21/2016 MAXIECH , LACEY S Ot Z3A.39 39 WEEKS GESTATION OF 07/06/2016 [...] Ot Z33.1 STATE, INCIDENTAL 08/03/2016 WENDY CRAFT COREMAKER SUPERVISOR Ot V28.89 OTHER SPECIFIED SCREENING 08/03/2016 EMILIA WEATHERS, ANGELITA Gamble Ot 553.20 VENTRAL HERNIA NOS 08/03/2016 ANGELITA NIETO MD Ot 625.9 FEM GENITAL SYMPTOMS NOS 08/03/2016 ANGELITA NIETO MD Ot 626.8 MENSTRUAL DISORDER NEC 08/03/2016 EMILIA WEATHERS, ANGELITA Gamble Ot 789.00 ABDOMINAL PAIN, UNSPECIFIED SITE 08/03/2016 [...] PROCEDURE AND TREATMENT NOT CARRIED OUT, 08/03/2016 JOSEF WETAHERS, CLAYTON Mccrary Ot M79.605 PAIN IN LEFT LEG 08/03/2016 [...] IN LEFT LEG 11/25/2016 CLAYTON BAHENA MD N Ot R22.42 LOCALIZED SWELLING, MASS AND LUMP, LEFT 11/25/2016 CLAYTON BAHENA MD N Ot Z33.1 STATE, INCIDENTAL 02/20/2017 WENDY CRAFT COREMAKER SUPERVISOR Ot V28.89 OTHER SPECIFIED SCREENING 02/20/2017 ANGELITA [...] AND LUMP, LEFT 02/20/2017 JOSEF WEATHERS, CLAYTON Mccrary Ot Z33.1 STATE, INCIDENTAL 02/20/2017 DANETTE WEATHERS, [...] R10.9 UNSPECIFIED ABDOMINAL PAIN 05/01/2017 WENDY CRAFT COREMAKER SUPERVISOR Ot V28.89 OTHER SPECIFIED SCREENING 05/01/2017 EMILIA WEATHERS, ANGELITA Gamble Ot 553.20 VENTRAL HERNIA NOS 05/01/2017 ANGELITA NIETO MD Ot 625.9 FEM GENITAL SYMPTOMS NOS 05/01/2017 ANGELITA NIETO MD Ot 626.8 MENSTRUAL DISORDER NEC 05/01/2017 ANGELITA NIETO MD Ot 789.00 ABDOMINAL PAIN, UNSPECIFIED SITE 05/01/2017 ANGELITA NIETO MD Ot V22.2 PREG STATE, INCIDENTAL 05/01/2017 EMILIA WEATHERS, ANGELITA Gamble Ot 789.03 ABDOMINAL PAIN, RIGHT LOWER QUADRANT 05/01/2017 ANGELITA NIETO MD Ot V28.81 ENCOUNTER FOR ANATOMIC SURVEY 05/01/2017 EMILIA WEATHERS, ANGELITA Gamble Ot 787.03 VOMITING ALONE 05/01/2017 EMILIA WEATHERS, ANGELITA Gamble Ot 789.04 ABDOMINAL PAIN, LEFT LOWER QUADRANT 05/01/2017 JOSEF WEATHERS, CLAYTON Mccrary Ot Z53.9 PROCEDURE AND TREATMENT NOT CARRIED OUT, 05/01/2017 JOSEF WEATHERS, CLAYTON Mccrary Ot M79.605 PAIN IN LEFT LEG 05/01/2017 JOSEF WEATHERS, CLAYTON Mccrary Ot R22.42 LOCALIZED SWELLING, MASS AND LUMP, LEFT 05/01/2017 JOSEF WEATHERS, CLAYTON Mccrary Ot Z33.1 STATE, INCIDENTAL 08/08/2017 WENDY CRAFT COREMAKER SUPERVISOR Ot V28.89 OTHER SPECIFIED SCREENING 08/08/2017 ANGELITA NIETO MD Ot 553.20 VENTRAL HERNIA NOS 08/08/2017 ANGELITA NIETO MD Ot 625.9 FEM GENITAL SYMPTOMS NOS 08/08/2017 EMILIA WEATHERS, ANGELITA Gamble Ot 626.8 MENSTRUAL DISORDER NEC 08/08/2017 ANGELITA NIETO MD Ot 789.00 ABDOMINAL PAIN, UNSPECIFIED SITE 08/08/2017 ANGELITA INETO MD Ot V22.2 PREG STATE, INCIDENTAL 08/08/2017 [...] PAIN IN LEFT LEG 08/08/2017 CLAYTON BAHENA MD Ot R22.42 LOCALIZED SWELLING, MASS AND LUMP, LEFT 08/08/2017 JOSEF WEATHERS, CLAYTON Mccrary Ot Z33.1 STATE, INCIDENTAL 08/12/2017 SHAHRIAR YANES APRN Ot J45.909 UNSPECIFIED ASTHMA, UNCOMPLICATED 08/12/2017 SHAHRIAR YANES APRN Ot K59.00 CONSTIPATION, UNSPECIFIED 08/12/2017 SHAHRIAR YANES APRN Ot R10.11 RIGHT UPPER QUADRANT PAIN 08/12/2017 SHAHRIAR YANES APRN Ot Z87.19 PERSONAL HISTORY OF OTHER DISEASES OF 10/25/2017 TEODORO SIMMS MD Ot N83.201 UNSPECIFIED [...] PERSONAL HISTORY OF OTHER DISEASES OF 02/26/2018 TEODORO SIMMS MD Ot N83.201 UNSPECIFIED OVARIAN CYST, RIGHT SIDE 02/26/2018 TEODORO SIMMS MD Ot N83.201 UNSPECIFIED OVARIAN CYST, RIGHT SIDE 02/26/2018 BERNDIPTI YIIS Ot J45.909 UNSPECIFIED ASTHMA, UNCOMPLICATED 02/26/2018 BERNOT, [...] PERSONAL HISTORY OF OTHER DISEASES OF TH 02/28/2018 BERNOT, NARINDER Ot J45.909 UNSPECIFIED ASTHMA, UNCOMPLICATED 02/28/2018 [...] PERSONAL HISTORY OF OTHER DISEASES OF 03/02/2018 TEODORO SIMMS MD Ot N83.201 UNSPECIFIED OVARIAN [...] Ot Z3A.18 18 WEEKS GESTATION OF 03/04/2018 BERNOT, NARINDER Ot Z87.19 PERSONAL HISTORY OF OTHER DISEASES OF TH 03/16/2018 MENDEZ WEATHERS, TEODORO R Ot N83.201 UNSPECIFIED OVARIAN CYST, RIGHT SIDE 03/17/2018 DIPTI ALVAREZIS Ot J45.909 UNSPECIFIED ASTHMA, UNCOMPLICATED 03/17/2018 KIM NARINDER Ot O26.892 OTH RELATED CONDITIONS, SECOND 03/17/2018 CHIOMADIPTI YIIS Ot O99.512 DISEASES OF THE RESP SYS COMP , 03/17/2018 CHIOMAOTDIPTIIS Ot O99.89 OTH DISEASES AND CONDITIONS COMPL PREG/C 03/17/2018 DIPTI ALVAREZIS Ot R55 SYNCOPE AND COLLAPSE 03/17/2018 DIPTI ALVAREZIS Ot Z3A.18 18 WEEKS GESTATION OF 03/17/2018 DIPTI ALVAREZIS Ot Z87.19 PERSONAL HISTORY OF OTHER DISEASES OF 04/01/2018 TEODORO SIMMS MD R Ot N83.201 UNSPECIFIED OVARIAN CYST, RIGHT SIDE 04/01/2018 ÁLVARO SAMANIEGO MDUS J Ot J45.909 UNSPECIFIED ASTHMA, UNCOMPLICATED 04/01/2018 ÁLVARO SAMANIEGO MDUS J Ot O20.9 HEMORRHAGE IN EARLY , UNSPECIFI 04/01/2018 ÁLVARO SAMANIEGO MDUS J Ot O99.511 DISEASES OF THE RESP SYS COMP , 04/01/2018 MISTY SAMANIEGO MD J Ot Z3A.09 9 WEEKS GESTATION OF 04/01/2018 ÁLVARO SAMANIEGO MDUS J Ot Z87.19 PERSONAL HISTORY OF OTHER DISEASES OF TH 04/03/2018 ÁLVARO SAMANIEGO MDUS J Ot J45.909 UNSPECIFIED ASTHMA, UNCOMPLICATED 04/03/2018 ÁLVARO SAMANIEGO MDUS J Ot O20.9 HEMORRHAGE IN EARLY , UNSPECIFI 04/03/2018 DANETTE WEATHERS MISTY J Ot O99.511 DISEASES OF THE RESP SYS COMP , 04/03/2018 ÁLVARO SAMANIEGO MDUS J Ot Z3A.09 9 WEEKS GESTATION OF 04/03/2018 ÁLVARO SAMANIEGO MDUS J Ot Z87.19 PERSONAL HISTORY OF OTHER DISEASES OF TH 04/04/2018 ÁLVARO SAMANIEGO MDUS J Ot J45.909 UNSPECIFIED ASTHMA, UNCOMPLICATED 04/04/2018 DANETTE WEATHERS MISTY J Ot O20.9 HEMORRHAGE IN EARLY , [...] PERSONAL HISTORY OF OTHER DISEASES OF 04/18/2018 DIPTI ALVAREZIS Ot J45.909 UNSPECIFIED ASTHMA, UNCOMPLICATED 04/18/2018 DIPTI ALVAREZIS Ot O26.892 OTH RELATED CONDITIONS, SECOND 04/18/2018 DIPTI ALVAREZIS Ot O99.512 DISEASES OF THE RESP SYS COMP , 04/18/2018 BERNDIPTI YIIS Ot O99.89 OTH DISEASES AND CONDITIONS COMPL PREG/C 04/18/2018 NARINDER ALVAREZ Ot R55 SYNCOPE AND COLLAPSE 04/18/2018 DIPTI ALVAREZIS Ot Z3A.18 18 WEEKS GESTATION OF 04/18/2018 DIPTI ALVAREZIS Ot Z87.19 PERSONAL HISTORY OF OTHER DISEASES OF 06/13/2018 TEODORO SIMMS MD Ot N83.201 UNSPECIFIED OVARIAN CYST, RIGHT SIDE 06/22/2018 FENECH DO, LACEY S Ot Z36.89 ENCOUNTER FOR OTHER SPECIFIED 06/22/2018 FENECH DO, LACEY S Ot Z3A.21 21 WEEKS GESTATION OF 06/22/2018 FENECH DO, LACEY S Ot Z36.89 ENCOUNTER FOR OTHER SPECIFIED 06/22/2018 FENECH DO, LACEY S Ot Z3A.21 21 WEEKS GESTATION OF 06/23/2018 FENECH DO LACEY S Ot Z36.89 ENCOUNTER FOR OTHER SPECIFIED 06/23/2018 FENECH DO, LACEY S Ot Z3A.21 21 WEEKS GESTATION OF 07/09/2018 JAY MARTIN MINA Jimenez Ot Z33.1 STATE, INCIDENTAL 08/17/2018 FENECH DO, LACEY Singleton Ot Z36.89 ENCOUNTER FOR OTHER SPECIFIED 08/17/2018 MAXIECH DO, LACEY S Ot Z3A.21 21 WEEKS GESTATION OF 08/17/2018 MINA THOMPSON DO Ot Z33.1 STATE, INCIDENTAL 09/02/2018 SEALS DO, PITA E Ot O60.00 LABOR WITHOUT DELIVERY, UNSPECIF 09/17/2018 SEALS DO, PITA E Ot O60.00 LABOR WITHOUT DELIVERY, UNSPECIF 09/19/2018 FENECH DO, LACEY Singleton Ot N76.0 ACUTE VAGINITIS 09/19/2018 FENECH DO, LACEY Singleton Ot O99.89 OTH DISEASES AND CONDITIONS COMPL PREG/C 09/19/2018 FENECH DO, LACEY S Ot Z3A.33 33 WEEKS GESTATION OF 09/19/2018 MINA THOMPSON DO Ot Z33.1 STATE, INCIDENTAL 09/20/2018 SEALS DO, PITA E Ot O60.00 LABOR WITHOUT DELIVERY, UNSPECIF 09/23/2018 KORY WEATHERS, ERIKA Castellano Ot J02.0 STREPTOCOCCAL PHARYNGITIS 09/23/2018 KORY WEATHERS, ERIKA T Ot J45.909 UNSPECIFIED ASTHMA, UNCOMPLICATED 09/23/2018 KORY WEATHERS, ERIKA Castellano Ot O26.893 OTH RELATED CONDITIONS, THIRD 09/23/2018 KORY WEATHERS, ERIKA Castellano Ot O60.03 LABOR WITHOUT DELIVERY, THIRD TR 09/23/2018 KORY WEATHERS, ERIKA Castellano Ot O99.513 DISEASES OF THE RESP SYS COMP , 09/23/2018 KORY WEATHERS, ERIKA Castellano Ot Z3A.34 34 WEEKS GESTATION OF 09/23/2018 KORY WEATHERS, ERIKA Castellano Ot Z87.19 PERSONAL HISTORY OF OTHER DISEASES OF TH 10/02/2018 CARLOTA PACE DO Ot O99.89 OTH DISEASES AND CONDITIONS COMPL PREG/C 10/02/2018 PACE CARLOTA MARTIN Ot R19.7 DIARRHEA, UNSPECIFIED 10/02/2018 CARLOTA PACE DO Ot Z3A.36 36 WEEKS GESTATION OF 10/03/2018 CARLOTA PACE DO Ot O99.89 OT DISEASES AND CONDITIONS COMPL PREG/C 10/03/2018 CARLOTA PACE DO Ot R19.7 DIARRHEA, UNSPECIFIED 10/03/2018 CARLOTA PACE DO Ot Z3A.36 36 WEEKS GESTATION OF Procedures Code Description [place] [address] OB - EARLY <14 WEEKS 08/12/2013 80503 GC/CHLAM PROBE (STATE) 08/12/2013 95192 PAP SMEAR 08/12/2013 Q0091 PAP SMEAR OBTAIN SMEAR 08/12/2013 45037 TEST, URINE (IN- HOUSE) 08/12/2013 62257 TRICHOMONAS (IN-HOUSE) 08/12/2013 31739 CULTURE UROGENITAL 08/13/2013 66459 ROUTINE VENIPUNCTURE 09/09/2013 50161 UA LONG DIP 09/09/2013 73113 SYPHILLIS-STATE LAB 09/09/2013 23484 HIV (STATE LAB) 09/09/2013 27784 ANTIBODY SCREEN (order) 09/09/2013 13210 HEP B SURFACE ANTIGEN (FORM[facility] ) 09/09/2013 76190 CBC 09/09/2013 43659 TSH 09/09/2013 21972 RUBELLA ANTIBODY, IGG 09/10/2013 [id number] ANTIBODY SCREEN (RESULT ONLY) 09/10/2013 53329 BLOOD TYPE/Rh FACTOR 09/10/2013 59925 CULTURE URINE 09/10/2013 94532 CULTURE UROGENITAL 09/11/2013 07698 UA LONG DIP 09/16/2013 72.71 VACUUM EXT DEL W EPISIOT 04/05/2014 17565 THERAPUTIC INJ SQ/IM 07/24/2014 [id number] DEPO PROVERA 07/24/2014 41886 TEST, URINE (IN- HOUSE) 07/24/2014 [id number] REPAIR PERINEUM MUSCLE, OPEN APPROACH 06/19/2016 [id number] DELIVERY OF PRODUCTS OF CONCEPTION, EXTE 06/19/2016 [...] culture - 04/12/16 16:55 Bacterial urine culture [id number] NRG COLONY COUNT >100,000/ML NRG FREE TEXT [...] culture - 05/30/16 17:03 Bacterial urine culture [id number] NRG COLONY COUNT 10,000/ML - 100,000/ML NRG [...] ABO+Rh group BP NRG Transfusion band number [id number] [facility] Blood group antibody screen NEGATIVE [facility] Complete blood count (CBC) with automated white [...] blood complete blood count (hemogram) panel - 16 12:25 Blood leukocytes automated count (number/volume) 12.2 [...] identification in genital specimen by aerobe culture [id number] NRG FREE TEXT EXTERNAL 2 PLUS NORMAL SUSHMA NRG Microscopic examination by wet preparation - 08/03/16 05:00 WET PREP RESULTS 514, 08-03-16 BY BD NRG Complete urinalysis with [...] detection in urine sediment by light microscopy 25 NRG Crystals detection in urine sediment by [...] count by microscopy (number/high power field) TNTC [facility] Automated urine sediment leukocyte count by microscopy [...] 18:04 Serum or plasma choriogonadotropin measurement (units/volume) 114679 m[iU]/mL <5 [id number] - 07/05/18 16:48 [id number] Negative Negative Serum herpes simplex virus 1 [...] WET PREP RESULTS FEW YEAST OBSERVED NRG Complete urinalysis with reflex to culture - 09/23/18 09:33 Urine color determination YELLOW NRG Urine clarity determination CLEAR NRG Urine pH measurement by test strip 8 5-9 Specific gravity of urine by test [...] virus A and B antigen detection - 09/23/18 09:34 FLU RESULT NEGATIVE FOR INFLUENZA A AND B ANTIGENS BY IA NRG Streptococcus pyogenes antigen detection - 09/23/18 09:36 Streptococcus pyogenes antigen detection POSITIVE NEGATIVE Complete blood count (CBC) with automated white blood cell (WBC) differential - 09/23/18 09:57 Blood leukocytes automated count (number/volume) 10.0 10*3/uL 4.3-11.0 Blood erythrocytes automated count (number/volume) 3.99 10*6/uL 4.35-5.85 Venous blood hemoglobin measurement (mass/volume) 11.8 g/dL 11.5-16.0 Blood hematocrit (volume fraction) 35 % 35-52 Automated erythrocyte mean corpuscular volume 89 [foz_us] 80-99 Automated erythrocyte mean corpuscular hemoglobin (mass per erythrocyte) 30 pg 25-34 Automated erythrocyte mean corpuscular hemoglobin concentration measurement ( mass/volume) 33 g/dL 32-36 Automated erythrocyte distribution width ratio 13.3 % 10.0-14.5 Automated blood platelet count (count/volume) 179 10*3/uL 130-400 Automated blood platelet mean volume measurement 9.9 [foz_us] 7.4-10.4 Automated blood neutrophils/100 leukocytes 85 % 42-75 Automated blood lymphocytes/100 leukocytes 9 % 12-44 Blood monocytes/100 leukocytes 6 % 0-12 Automated blood eosinophils/100 leukocytes 0 % 0-10 Automated blood basophils/100 leukocytes 0 % 0-10 Blood neutrophils automated count (number/volume) 8.5 10*3 1.8-7.8 Blood lymphocytes automated count (number/volume) 0.9 10*3 1.0-4.0 Blood monocytes automated count (number/volume) 0.6 10*3 0.0-1.0 Automated eosinophil count 0.0 10*3/uL 0.0-0.3 Automated blood basophil count (count/volume) 0.0 10*3/uL 0.0-0.1 Comprehensive metabolic panel - 09/23/18 09:57 Serum or plasma sodium measurement (moles/volume) 133 mmol/L 135-145 Serum or plasma potassium measurement (moles/volume) 3.6 mmol/L 3.6-5.0 Serum or plasma chloride measurement (moles/volume) 105 mmol/L 98-107 Carbon dioxide 20 mmol/L 21-32 Serum or plasma anion gap determination (moles/volume) 8 mmol/L 5-14 Serum or plasma urea nitrogen measurement (mass/volume) 4 mg/dL 7-18 Serum or plasma creatinine measurement (mass/volume) 0.55 mg/dL 0.60-1.30 Serum or plasma urea nitrogen/creatinine mass ratio 7 NRG Serum or plasma creatinine measurement with calculation of estimated glomerular filtration rate > NRG Serum or plasma glucose measurement (mass/volume) 85 mg/dL 70-105 Serum or plasma calcium measurement (mass/volume) 8.6 mg/dL 8.5-10.1 Serum or plasma total bilirubin measurement (mass/volume) 0.4 mg/dL 0.1-1.0 Serum or plasma alkaline phosphatase measurement (enzymatic activity/volume) 199 U/L 40-136 Serum or plasma aspartate aminotransferase measurement (enzymatic activity/ volume) 19 U/L 5-34 Serum or plasma alanine aminotransferase measurement (enzymatic activity/volume ) 17 U/L 0-55 Serum or plasma protein measurement (mass/volume) 6.4 g/dL 6.4-8.2 Serum or plasma albumin measurement (mass/volume) 3.2 g/dL 3.2-4.5 CALCIUM CORRECTED 9.2 mg/dL 8.5-10.1 Serum or plasma C reactive protein measurement (mass/volume) - 09/23/18 09:57 Serum or plasma C reactive protein measurement (mass/volume) 2.82 mg /dL 0.00-0.50 Complete urinalysis with reflex to culture - 10/02/18 19:15 Urine color determination YELLOW NRG Urine clarity determination SLIGHTLY CLOUDY NRG [...] urobilinogen measurement by automated test strip (mass/volume) 1 mg/dL NORMAL Urine leukocyte esterase detection by dipstick 1+ NEGATIVE Automated urine sediment erythrocyte count by microscopy (number/high power field) NONE NRG Automated urine sediment leukocyte count by microscopy (number/high power field ) [HPF] NRG Bacteria detection in urine sediment by light microscopy LARGE NRG Squamous epithelial cells detection in urine sediment by light microscopy 25-50 NRG Crystals detection in urine sediment by light microscopy PRESENT NRG Casts detection in urine sediment by light microscopy NONE NRG Mucus detection in urine sediment by light microscopy SMALL NRG Complete urinalysis with reflex to culture YES NRG Calcium oxalate crystals detection in urine sediment by light microscopy FEW NRG Bacterial urine culture - 10/02/18 19:15 Bacterial urine culture NG NRG Complete blood count (CBC) with automated white blood cell (WBC) differential - 10/02/18 20:18 Blood leukocytes automated count (number/volume) 7.2 10*3/uL 4.3-11.0 Blood erythrocytes automated count (number/volume) 3.87 10*6/uL 4.35-5.85 Venous blood hemoglobin measurement (mass/volume) 11.3 g/dL 11.5-16.0 Blood hematocrit (volume fraction) 34 % 35-52 Automated erythrocyte mean corpuscular volume 87 [foz_us] 80-99 Automated erythrocyte mean corpuscular hemoglobin (mass per erythrocyte) 29 pg 25-34 Automated erythrocyte mean corpuscular hemoglobin concentration measurement ( mass/volume) 33 g/dL 32-36 Automated erythrocyte distribution width ratio 13.1 % 10.0-14.5 Automated blood platelet count (count/volume) 195 10*3/uL 130-400 Automated blood platelet mean volume measurement 9.7 [foz_us] 7.4-10.4 Automated blood neutrophils/100 leukocytes 68 % 42-75 Automated blood lymphocytes/100 leukocytes 25 % 12-44 Blood monocytes/100 leukocytes 7 % 0-12 Automated blood eosinophils/100 leukocytes 1 % 0-10 Automated blood basophils/100 leukocytes 0 % 0-10 Blood neutrophils automated count (number/volume) 4.9 10*3 1.8-7.8 Blood lymphocytes automated count (number/volume) 1.8 10*3 1.0-4.0 Blood monocytes automated count (number/volume) 0.5 10*3 0.0-1.0 Automated eosinophil count 0.1 10*3/uL 0.0-0.3 Automated blood basophil count (count/volume) 0.0 10*3/uL 0.0-0.1 Comprehensive metabolic panel - 10/02/18 20:18 Serum or plasma sodium measurement (moles/volume) 139 mmol/L 135-145 Serum or plasma potassium measurement (moles/volume) 3.4 mmol/L 3.6-5.0 Serum or plasma chloride measurement (moles/volume) 108 mmol/L 98-107 Carbon dioxide 20 mmol/L 21-32 Serum or plasma anion gap determination (moles/volume) 11 mmol/L 5-14 Serum or plasma urea nitrogen measurement (mass/volume) 6 mg/dL 7-18 Serum or plasma creatinine measurement (mass/volume) 0.58 mg/dL 0.60-1.30 Serum or plasma urea nitrogen/creatinine mass ratio 10 NRG Serum or plasma creatinine measurement with calculation of estimated glomerular filtration rate > NRG Serum or plasma glucose measurement (mass/volume) 88 mg/dL 70-105 Serum or plasma calcium measurement (mass/volume) 8.8 mg/dL 8.5-10.1 Serum or plasma total bilirubin measurement (mass/volume) 0.3 mg/dL 0.1-1.0 Serum or plasma alkaline phosphatase measurement (enzymatic activity/volume) 195 U/L 40-136 Serum or plasma aspartate aminotransferase measurement (enzymatic activity/ volume) 19 U/L 5-34 Serum or plasma alanine aminotransferase measurement (enzymatic activity/volume ) 18 U/L 0-55 Serum or plasma protein measurement (mass/volume) 6.0 g/dL 6.4-8.2 Serum or plasma albumin measurement (mass/volume) 3.2 g/dL 3.2-4.5 CALCIUM CORRECTED 9.4 mg/dL 8.5-10.1 Stool bacteria identification by culture - 10/02/18 22:15 QUANTITY OF GROWTH . NRG Stool bacteria identification by culture SEE COMMEN NRG Encounters ACCT No. Visit Date/Time Discharge Status Pt. Type Provider Facility Loc./Unit Complaint [id number] 08/08/2014 13:28:00 08/08/2014 23:59:59 [facility] Outpatient MANUEL WESTON APRN [id number] 07/24/2014 09:56:00 07/24/2014 23:59:59 [facility] Outpatient WENDY CRAFT APRN [id number] 09/16/2013 15:53:00 09/16/2013 23:59:59 [facility] Outpatient LUANAWENDY Mccrary APRN [id number] 09/09/2013 09:51:00 09/09/2013 23:59:59 [facility] Outpatient LUANAWNEDY Mccrary APRN [id number] 08/12/2013 09:44:00 08/12/2013 23:59:59 [facility] Outpatient LUANAHermann CROOK WENDY A [id number] 10/02/2018 18:49:00 10/02/2018 22:12:00 DIS Outpatient CARLOTA PACE DO [facility] DIARHEA FOR 10/12 DAYS [id number] 09/23/2018 09:30:00 09/23/2018 11:19:00 DIS Emergency ERIKA HORN MD Via [facility] ER 8 MO PREG/FEVER/SORE THROAT/LOWER STOMACH PAIN [id number] 09/23/2018 09:10:00 09/23/2018 09:10:00 CAN Outpatient CARLOTA PACE DO [facility] FEVER,LOWER BELLY PAIN [id number] 09/23/2018 08:56:00 09/23/2018 08:56:00 CAN Emergency ERIKA HORN MD [facility] ER FEVER,SORE THROAT, 8 MONTHS [id number] 09/12/2018 11:11:00 09/12/2018 13:52:00 DIS Outpatient LACEY GARIBAY DO S [facility] WSo LEAKING FLUID [id number] 09/02/2018 15:12:00 09/02/2018 16:40:00 DIS Outpatient SEALS PITA MARTIN [facility] WSo CONTRACTIONS [id number] 07/05/2018 16:36:00 07/05/2018 23:59:59 CLS Outpatient GELLENDER MINA MARTIN [facility] LAB [id number] 06/13/2018 12:25:00 06/13/2018 23:59:59 CLS Outpatient LACEY GARIBAY DO [facility] RAD [id number] 04/01/2018 17:18:00 04/01/2018 20:22:00 DIS Emergency MISTY SAMANIEGO MD [facility] ER 9 WKS PREG/CRAMPING/ PRESSURE [id number] 02/26/2018 17:20:00 02/26/2018 20:16:00 DIS Emergency NARINDER ALVAREZ [facility] ER LOWER BACK AND ABD PAIN; POSITIVE TEST [id number] 08/23/2017 13:12:00 08/23/2017 23:59:59 CLS Outpatient MENDEZ WEATHERS, TEODORO Joyner [facility] RAD [id number] 08/12/2017 13:17:00 08/12/2017 14:30:00 DIS Emergency SHAHRIAR YANES APRN [facility] ER L SIDE PAIN [id number] 02/20/2017 01:04:00 02/20/2017 02:58:00 DIS Emergency MISTY SAMANIEGO MD [facility] ER AB PAIN [id number] 08/03/2016 01:01:00 08/03/2016 05:43:00 DIS Emergency CRISTHIAN MORLEY MD [facility] ER FEVER,VOMITING,ABD PAIN,GAVE ON 06-21-16 [id number] 06/19/2016 13:08:00 06/21/2016 14:30:00 DIS Inpatient LACEY GARIBAY DO [facility] LDRP IOL [id number] 05/30/2016 16:36:00 05/30/2016 17:56:00 DIS Outpatient KARAN [facility]STA[facility]EDA [facility]/PAIN WHILE URINATING [id number] 05/25/2016 08:49:00 05/25/2016 23:59:59 CLS Outpatient CLAYTON BAHENA MD [facility] RAD LEG SWELLING,LEG PAIN [id number] 04/12/2016 16:45:00 04/12/2016 19:50:00 DIS Outpatient [facility]ACE [facility] DE[facility]ED [facility] [id number] 03/21/2016 21:58:00 03/22/2016 01:05:00 DIS Outpatient KARAN CASTAÑEDA MD [facility] WSo CONTRACTIONS/ DIZZY [id number] 02/12/2016 12:13:00 02/12/2016 14:28:00 DIS Emergency HENRIK KHAN MD [facility] ER SOA 21 WKS PREG [id number] 02/12/2016 11:55:00 02/12/2016 12:05:00 DIS Outpatient CLAYTON BAHENA MD [facility] ABD PAIN/INCREASED BABY MOVEMENT 21 WKS PREG [id number] 01/21/2016 22:57:00 01/22/2016 02:42:00 DIS Emergency KATHARINE REYES DO [facility] ER CONTRACTIONS;BACK PAIN; STOMACH PAIN [id number] 01/21/2016 22:53:00 01/21/2016 23:59:59 CLS Outpatient CLAYTON BAHENA MD [facility] CONTR[facility]S;PAIN IN BACK AND STOMACH [id number] 12/13/2015 11:46:00 12/13/2015 14:20:00 DIS Emergency SHAHRIAR YANES APRN [facility] ER BACK PAIN AT 12 WEEKS, HEADACHE,LEAKING FLUID [id number] 11/20/2015 20:51:00 11/20/2015 22:45:00 DIS Emergency SHAHRIAR YANES COREMAKER SUPERVISOR [facility] ER ABD PAIN [id number] 02/21/2015 21:58:00 02/21/2015 23:56:00 DIS Emergency KORY WEATHERS, ERIKA Nona [facility] ER LOWER ABD PAIN [id number] 01/04/2015 21:49:00 01/05/2015 00:03:00 DIS Emergency MILLI WEATHERS, CRISTHIAN Bonilla [facility] ER SOA [id number] 11/18/2014 07:09:00 11/18/2014 23:59:59 CLS Outpatient ANGELITA NIETO MD [facility] RAD ABDOMINAL PAIN WITH VOMITING [id number] 04/05/2014 00:06:00 04/07/2014 12:45:00 DIS Inpatient ANGELITA NIETO MD [facility] LDRP LABOR [id number] 12/05/2013 11:09:00 12/05/2013 23:59:59 CLS Outpatient ANGELITA NIETO MD [facility] RAD SURVAY [id number] 10/07/2013 12:42:00 10/07/2013 23:59:59 CLS Outpatient ANGELITA NIETO MD [facility] RAD RLQ PAIN, [id number] 10/06/2013 20:48:00 10/06/2013 22:47:00 DIS Emergency ADDY DOABEL K [facility] ER 13 WKS;ABD PAIN [id number] 09/21/2013 14:01:00 09/21/2013 18:25:00 DIS Emergency IMAN RICE [facility] ER CRAMPING BLEEDING 11 WEEKS PREG [id number] 09/12/2013 10:45:00 09/12/2013 23:59:59 CLS Outpatient ANGELITA NIETO MD [facility] RAD PELVIC PAIN, SPOTTING [id number] 08/20/2013 10:32:00 08/20/2013 23:59:59 CLS Outpatient WENDY CRAFT APRN [facility] RAD DATING [id number] 10/22/2018 19:17:00 ACT Inpatient LACEY GARIBAY DO [facility] LDRP INDUCTION
[2018-10-22 19:30] VITALS: BP 124/81
[2018-10-22] MEDS ORDERED: D5 LR IV SOLUTION 1,000 ML IV ONE (19:43)
[2018-10-22] MEDS: D5 LR IV SOLUTION 1,000 ML IV SCH (19:55)
--- NOTE | 2018-10-22 20:06 | NUR ---
notified of pt's arrival. induction orders received.
[2018-10-22] MEDS ORDERED: NS IV 500 ML 500 ML ONE (20:12)
[2018-10-22] MEDS ORDERED: MISOPROSTOL 100 MCG (CYTOTEC) TAB ONE (20:13)
[2018-10-22] MEDS ORDERED: TERBUTALINE INJ 1 MG/ML (BRETHINE) AMP SC PRN (20:15)
[2018-10-22] MEDS ORDERED: NS 1000 ML IV BAG IV ONE (20:15)
[2018-10-22] MEDS ORDERED: MISOPROSTOL 100 MCG (CYTOTEC) TAB PO NR (20:15)
[2018-10-22 20:18] LABS: BASOPHILS % (AUTO) 0 % (0-10); EOSINOPHILS # (AUTO) 0.1 10^3/uL (0.0-0.3); EOSINOPHILS % (AUTO) 1 % (0-10); HEMATOCRIT 34 % (35-52); HEMOGLOBIN 11.2 G/DL (11.5-16.0); LYMPHOCYTES % (AUTO) 23 % (12-44); MEAN CORPUSCULAR HEMOGLOBIN 28 PG (25-34); MEAN CORPUSCULAR HGB CONC 33 G/DL (32-36); MEAN CORPUSCULAR VOLUME 87 FL (80-99); MEAN PLATELET VOLUME 10.4 FL (7.4-10.4); MONOCYTES # (AUTO) 0.6 X 10^3 (0.0-1.0); MONOCYTES % (AUTO) 7 % (0-12); NEUTROPHILS # (AUTO) 5.8 X 10^3 (1.8-7.8); NEUTROPHILS % (AUTO) 69 % (42-75); PLATELET COUNT 179 10^3/uL (130-400); RED CELL DISTRIBUTION WIDTH 13.8 % (10.0-14.5); WHITE BLOOD COUNT 8.4 10^3/uL (4.3-11.0)
[2018-10-22 20:30] VITALS: BP 119/68
[2018-10-22] MEDS ORDERED: NS IV 500 ML 500 ML IV SCH (20:30)
[2018-10-22 21:30] VITALS: BP 118/69
[2018-10-22 22:30] VITALS: BP 115/56
[2018-10-22 23:00] VITALS: BP 109/66
[2018-10-22 23:45] VITALS: BP 112/70
[2018-10-23] VITALS (77 sets, daily range): BP systolic 95–146; BP diastolic 53–96
[2018-10-23] MEDS ORDERED: MISOPROSTOL 100 MCG (CYTOTEC) TAB PO SCH (00:15)
[2018-10-23] MEDS: D5 LR IV SOLUTION 1,000 ML IV SCH ×3 (03:15→18:30)
[2018-10-23] MEDS ORDERED: OXYTOCIN/NORMAL SALINE 500 ML IV ONE (06:27)
[2018-10-23] MEDS ORDERED: OXYTOCIN/NORMAL SALINE 500 ML IV SCH (06:29)
--- NOTE | 2018-10-23 07:20 | NUR ---
THIS RN INTRODUCES SELF TO PT AT THIS TIME. PHYSICAL ASSESSMENT COMPLETE. VSS. PLAN OF CARE REVIEWED WITH PT & FAMILY. QUESTIONS ANSWERED. DIETARY NEEDS MET. SO AND FRIEND AT BEDSIDE. PT SPEAKS [employer]INE[employer]-ABLE TO SOMEWHAT CARRY ON CONVERSATION WITH PT. CALL LIGHT WITHIN REACH.
--- NOTE | 2018-10-23 08:01 | History & Physical-OB ---
OB - Chief Complaint & HPI Date/Time Date of Admission: Date of Admission: Oct 22, 2018 at 19:17 Date seen by a Provider: Oct 23, 2018 Time Seen by a Provider: 08:00 Chief Complaint/History OB-Reason for Admission/Chief: Induction of Labor Hx : 4 Hx Para: 3 Expected Date of Delivery: Oct 30, 2018 Gestational Age in Weeks: 39 Gestational Age in Days: 0 Indication for induction: maternal discomfort Admission Nurse Assessment Rev: Yes History of Labs B pos Antibody neg RI RPR NR HBsAg NR HIV NR GC neg GBS neg Allergies and Home Medications Allergies Coded Allergies: No Known Drug Allergies (Unverified , 11/20/15) Home Medications Vit W-Ca,Fe,FA(<1 mg) 1 Each Tablet, 1 EACH PO DAILY, (Reported) Patient Home Medication List Home Medication List Reviewed: Yes OB - History Hx of Present Care: Yes Ultrasounds: Normal mid trimester US Obstetrical Complications: None Medical Complications: None Obstetrical History Hx Termination: No Hx Multiple Gestation: No Hx Stillbirth: No Hx Complication: No Hx Induced Hypertens: Yes Hx Maternal Gestational Diabet: No Delivery History Hx Dystocia: No Hx Large For Gestational Age I: No Hx Small for Gestational Age I: No Hx Section: No Hx Vaginal Delivery Post C-Sec: No Hx Blood Disorders: No Adverse Rxn to Tranfusion: No Patient Past Medical History n/a Social History/Family History Alcohol Use: Denies Use Recreational Drug Use: No 2nd Hand Smoke Exposure: No Immunizations Hepatitis A: No Hepatitis B: No Tetanus Booster (TDap): Less than 5yrs Date of Influenza Vaccine: Apr 11, 2016 OB - Admission Exam Physical Exam Vitals: Vital Signs 10/23/18 10/23/18 07:15 07:30 Temp 97.3 Pulse 98 Resp 18 B/P (MAP) 119/68 (85) O2 Delivery Room Air HEENT: NCAT Heart: Rhythm Normal Lungs: Clear Abdomen: Gravid Extremities: Normal Reflexes: Normal Cervical Dilatation: 1cm Effacement: 75% Station: -1 Membranes: Intact Heart Rate: 130's Accelerations: Accelerations Present Decelerations: No Decelerations Short Term Variability: Present Retirement Variability: Absent (0-2) Contractions on Admission: 6-10 Minutes Apart Hay Scoring Tool (Modified) Dilation (cm): 1-2cm (1) Effacement (%): 51-79% (2) Descent/Station: -1,0 (2) Cervix Consistency: Soft (2) Cervix Position: Anterior (2) Add 1 point for: Each previous vaginal delivery (1) Labs Laboratory Tests Test 10/22/18 19:55 Range/Units White Blood Count 8.4 4.3-11.0 10^3/uL Red Blood Count 3.95 L 4.35-5.85 10^6/uL Hemoglobin 11.2 L 11.5-16.0 G/DL Hematocrit 34 L 35-52 % Mean Corpuscular Volume 87 80-99 FL Mean Corpuscular Hemoglobin 28 25-34 PG Mean Corpuscular Hemoglobin Concent 33 32-36 G/DL Red Cell Distribution Width 13.8 10.0-14.5 % Platelet Count 179 130-400 10^3/uL Mean Platelet Volume 10.4 7.4-10.4 FL Neutrophils (%) (Auto) 69 42-75 % Lymphocytes (%) (Auto) 23 12-44 % Monocytes (%) (Auto) 7 0-12 % Eosinophils (%) (Auto) 1 0-10 % Basophils (%) (Auto) 0 0-10 % Neutrophils # (Auto) 5.8 1.8-7.8 X 10^3 Lymphocytes # (Auto) 2.0 1.0-4.0 X 10^3 Monocytes # (Auto) 0.6 0.0-1.0 X 10^3 Eosinophils # (Auto) 0.1 0.0-0.3 10^3/uL Basophils # (Auto) 0.0 0.0-0.1 10^3/uL OB - Assessment/Plan/Diagnosis Assessment Assessment: induction of labor Admission Dx 28 yo @ 39 weeks Elective induction of labor GBS neg Admission Status: Inpatient Order (span 2 midnights) Reason for Inpatient Admission: 39 week induction of labor Plan Induction Method: per Misoprostol Protocol Other Plan AROM and Pit this AM LACEY GARIBAY DO Oct 23, 2018 08:00
--- NOTE | 2018-10-23 09:55 | NUR ---
THIS RN GIVES DR GARIBAY UPDATED PT REPORT. PT CO PRESSURE LIKE SHE NEEDS TO POOP SO RN PREFORMS SVE. /-1. PT RATING PAIN 01/16. PITOCIN ON . UC 2-3 MIN APART. BEGINNING TO HAVE EARLY DECELS WITH UC. NO NEW ORDERS AT THIS TIME.
--- NOTE | 2018-10-23 12:45 | NUR ---
DR GARIBAY AT BEDSIDE. RN GIVES UPDATED PT REPORT. SVE BY DR GARIBAY. NO NEW ORDERS AT THIS TIME.
--- NOTE | 2018-10-23 14:15 | NUR ---
DR GARIBAY CALLED RN AT THIS TIME. RN GIVES UPDATED PT REPORT. SVE, UC, FHT WITH VARIABLES AND EARLIES. NO NEW ORDERS AT THIS TIME.
--- NOTE | 2018-10-23 14:45 | NUR ---
THIS RN CHECKS ON PT AT BEDSIDE AGAIN. PT WORKING HARDER TO BREATHE THROUGH EACH UC. PT APPEARS TO BE PUSHING WITH UC. THIS RN ASKS IF SHE FEELS LIKE SHE HAS TO PUSH. THIS RN SVE 8CM/ NO CERVICAL CHANGE. RN TALKS TO PT ABOUT WHEN TO PUSH AT 10CM, NOT TIME TO PUSH, STILL HAVE CERVIX. RN ENCOURAGES PT TO TRY NOT TO PUSH WITH UC IF ABLE. PT WILL BE ABLE TO PUSH AT 10CM. PT STATES UNDERSTANDING. RN REMAINS AT BEDSIDE FOR SUPPORT/COACHING.
--- NOTE | 2018-10-23 15:30 | NUR ---
THIS RN CALLS DR GARIBAY WITH UPDATED PT REPORT. PT CO NEEDING TO PUSH, FEELS LIKE BABY IS COMING, DOESNT KNOW WHAT IS WRONG. THIS RN PREFORMS SVE. STILL 8 CM AND -1 STATION. CERVIX FEELS SLIGHTLY SWOLLEN WITH THIS SVE COMPARED TO LAST. UC PATTERN, FHT WITH EARLIES & VARIABLES. DR GARIBAY ORDERS 12.5MG PHENERGAN IV AT THIS TIME FOR SWELLING. DR GARIBAY WILL BE UP AFTER CLINIC TO EVALUATE PT.
[2018-10-23] MEDS ORDERED: PROMETHAZINE INJ 25 MG/ML (PHENERGAN) AMP IVP ONE (15:45)
[2018-10-23] MEDS ORDERED: SUFENTA 0.6MCG/ML BUPIVA 0.125 100 ML ONE (15:59)
[2018-10-23] MEDS ORDERED: LIDOCAINE PF 2% 5 ML (XYLOCAINE) VIAL ONE ×2 (16:15→21:30)
[2018-10-23] MEDS ORDERED: fentaNYL INJECTION 100 MCG/2 ML AMP ONE ×2 (16:15→21:31)
[2018-10-23] MEDS ORDERED: BUPIVACAINE 0.25% 30 ML (SENSORCAINE) VIAL ONE (16:15)
[2018-10-23] MEDS ORDERED: LACTATED RINGERS 1,000 ML IV ONE ×2 (17:29)
[2018-10-23] MEDS ORDERED: EPIDURAL (SUFENTA 0.6MCG/ML BUPIVA 0.125%) 100 ML BAG EPI PRN (17:30)
[2018-10-23] MEDS ORDERED: ONDANSETRON 4 MG/2 ML (SDV) Z0FRAN IV PRN (17:30)
[2018-10-23] MEDS ORDERED: NALOXONE 0.4 MG/ML 1 ML (NARCAN) VIAL IV PRN (17:30)
--- NOTE | 2018-10-23 19:10 | NUR ---
REPORT GIVEN TO DEVIN MACKEY AT THIS TIME.
[2018-10-23] MEDS ORDERED: LIDOCAINE/EPI 2% 1:200,00 (XYLOCAINE) 10 ML VIAL ONE (19:20)
[2018-10-23] MEDS ORDERED: METOCLOPRAMIDE INJ 10 MG/2 ML (REGLAN) ONE (21:24)
[2018-10-23] MEDS ORDERED: FAMOTIDINE 20MG/2ML IV (PEPCID) ONE (21:24)
[2018-10-23] MEDS ORDERED: CITRIC ACID/SOB CIT (BICITRA) 30 ML UDC ONE (21:24)
[2018-10-23] MEDS ORDERED: ceFAZolin 2 GM IV Premixed 50 ML ONE (21:26)
[2018-10-23] MEDS ORDERED: BUPIVACAINE 0.5% 30 ML (SENSORCAINE) VIAL ONE (21:30)
[2018-10-23] MEDS ORDERED: MEASLES,MUMPS,RUBELLA 1 EA INJ SC SCH (21:45)
[2018-10-23] MEDS ORDERED: TETANUS,DIPTH,PERTUSS P/F (BOOSTRIX) 0.5 ML VIAL IM SCH (21:45)
[2018-10-23] MEDS ORDERED: ONDANSETRON 4 MG/2 ML (SDV) Z0FRAN IVP PRN (21:45)
[2018-10-23] MEDS ORDERED: HYDROmorphone 2 MG/ML VIAL (DILAUDID) IV PRN (21:45)
--- NOTE | 2018-10-23 21:51 | Progress Note-Standard ---
Standard Progress Note Progress Notes/Assess & Plan Date Seen by a Provider: Oct 23, 2018 Time Seen by a Provider: 21:47 Progress/Assessment & Plan Patient was brought in for induction electively last night at her request. She was given cytotec overnight PO for cervical ripening. This AM AROM was done, and Pitocin augmentation used to achieve an adequate contraction pattern. She received an epidural during this process and progressed to 8 cm about 1500 and made no further progress through 0. tachycardia started to develop in the past hour, and discussion about delivery had with the patient, and my concerns for failure to progress despite adequate contraction pattern as well as persistent tachycardia. Recommendation for delivery via was made, risk vs ongoing risk to fetus and patient was agreeable to proceed. Consent was obtained and patient taken to the OR. LACEY GARIBAY DO Oct 23, 2018 21:51
--- NOTE | 2018-10-23 21:52 | Discharge Inst-Women's Service ---
Discharge Inst-Women's Serv Depart Medication/Instructions New, Converted or Re-Newed RX: RX on Chart Final Diagnosis POD 2 PLTCS Consults/Follow Up Additional Follow Up: Yes Orders/Referrals Dr. Jamison in 7-10 days and in 6 weeks Activity Activity: Activity as Tolerated Driving Instructions: No Driving for 1 Week NO SMOKING: NO SMOKING Nothing Inside Vagina: No Douching, No [place], No Tampons Diet Discharge Diet: No Restrictions Symptoms to Report to : Bleeding Excessive, Pain Increased, Fever Over 101 Degrees F, Vaginal Bleeding Increase, Questions/Concerns For Any Problems or Questions: Contact Your Physician Skin/Wound Care Infection Signs and Symptoms: Increased Redness, Foul Odor of Wound, Increased Drainage, Skin Itchy or Has a Rash, Increased Swelling, Temperature Above 101 F Operative Area Clean and Dry: Keep Incision Clean/Dry Stitches/[place]/Dermabond: Dermabond, Care of Stitches Bathing Instructions: LACEY Cannon DO Oct 23, 2018 21:51
[2018-10-23] MEDS ORDERED: IBUP-844 PO (21:53)
[2018-10-23] MEDS ORDERED: DOCU100C37 PO (21:53)
[2018-10-23] MEDS ORDERED: ACHD5005 PO (21:53)
[2018-10-23] MEDS ORDERED: CATHETER FLUSH 10 ML SYR IV SCH (22:00)
[2018-10-23] MEDS ORDERED: OXYTOCIN/NORMAL SALINE 1,000 ML IV ONE (22:32)
[2018-10-23] MEDS: KETOROLAC 30 MG/ML VIAL IV SCH (23:30)
[2018-10-24 00:13] VITALS: BP 112/67
[2018-10-24] MEDS: OXYTOCIN/NORMAL SALINE 500 ML IV SCH ×2 (00:13→02:24)
[2018-10-24] MEDS: HYDROcodone/APAP 5 MG/325 MG (LORTAB) TAB PO PRN ×4 (03:18→21:58)
[2018-10-24] MEDS ORDERED: FAMOTIDINE 20MG/2ML IV (PEPCID) IV ONE (03:30)
[2018-10-24] MEDS ORDERED: CITRIC ACID/SOB CIT (BICITRA) 30 ML UDC PO ONE (03:30)
[2018-10-24] MEDS ORDERED: METOCLOPRAMIDE INJ 10 MG/2 ML (REGLAN) IV ONE (03:30)
[2018-10-24 04:18] VITALS: BP 110/61
--- NOTE | 2018-10-24 04:20 | NUR ---
JANELLE RT to unit, updated on need for IS initiation, rt reports planning to wait until the morning. RN stated she was a surgery and she needs it, rt asks if pt is awake, rn states yes, rt asks if she is nursing the baby, rn reports that infant is currently in nsy and IS needs initiated. RT to room with IS.
[2018-10-24] MEDS: KETOROLAC 30 MG/ML VIAL IV SCH (05:40)
--- NOTE | 2018-10-24 06:15 | OPERATIVE REPORT ---
DATE OF SERVICE: PREOPERATIVE DIAGNOSES: 1. A 28-year-old female G4, P3 at 39 weeks gestation. 2. Failure to progress. 3. Persistent tachycardia. POSTOPERATIVE DIAGNOSES: 1. A 28-year-old female G4, P3 at 39 weeks gestation. 2. Failure to progress. 3. Persistent tachycardia. 4. Persistent occiput posterior. PROCEDURE: Primary low transverse section. SURGEON: Duke Garibay DO ANESTHESIA: Epidural, which was bolused. ESTIMATED BLOOD LOSS: 600 mL. URINE OUTPUT: 60 mL clear at the end of the procedure. FLUIDS: 1200 mL lactated Ringer's solution. FINDINGS: A live male infant weighing 8 pounds 15 ounces, Apgars of 8 and 9. Grossly normal appearing uterus, bilateral fallopian tubes and ovaries. INDICATIONS: Please see my preoperative and progress note for complete details pertaining to the patient's labor course and indication for procedure. OPERATIVE REPORT IN DETAIL: Once in the operating room, epidural analgesia was bolused and found to be adequate, placed in a supine position with leftward tilt, prepped and draped in normal sterile fashion. A timeout was performed and anesthesia was tested. I then performed a Pfannenstiel skin incision with a knife and carried down to the underlying fascia using Bovie cautery. Fascial incision extended laterally using Bovie cautery. Superior aspect of the fascial incision was then grasped with Junito clamps, tented up and dissected off the underlying rectus muscle. The inferior aspect of the fascial incision was then grasped with Junito clamps, tented up and sharply dissected off the underlying rectus muscle. Rectus muscle was then dissected down the midline using Metzenbaum scissors, which exposed the peritoneum, which entered bluntly and extended using blunt traction. An Surinder retractor was placed in the peritoneal incision, which offered excellent lateral sidewall retraction. I then identified the lower uterine segment, which was thinned out. I made a low transverse incision to the vesicouterine peritoneum and bluntly dissected off the lower uterine segment, creating a bladder flap. I then proceeded with my myotomy until membranes were visualized, at which point I extended the uterine incision laterally and superiorly and using bandage scissors. The infant was found in the occiput posterior presentation. With gentle fundal pressure, the 's head is elevated up to the incision and delivered through the incision where the nares and oropharynx bulb suctioned. Anterior and posterior shoulder was delivered. was then brought to the operative field where the cord was looked at the cut and infant was handed off to awaiting nurses in attendance. Cord blood was collected. Three-vessel cord with intact placenta was delivered spontaneously thereafter. IV Pitocin was initiated to facilitate uterine contraction. Uterine fundus became firmer with bimanual massage. The uterus was then exteriorized and cleared of endometrial clots and debris. I then proceeded with closing the uterine incision using 0 Vicryl suture in a running locked fashion. Second layer of imbricating 0 Monocryl was placed. Excellent hemostasis was noted after doing this. I then placed the uterus back in the pelvis and copiously irrigated the pelvis using normal saline. Once again, there was no active bleeding noted from any of my dissection planes. I then placed Interceed antiadhesive over my low transverse incision. I then proceeded with closing the peritoneum using 3-0 Vicryl suture in a running fashion. The rectus muscle was reapproximated using 3-0 Vicryl suture in interrupted fashion. The fascia was reapproximated using 0 Vicryl suture in a running fashion. Subcutaneous tissue was reapproximated using 3-0 plain interrupted subcutaneous stitches. Skin was reapproximated 4-0 Monocryl running subcuticular. Dermabond was applied to incision and sterile dressings with adhesive white tape. The patient tolerated the procedure well and sent to recovery in stable condition. Lap and sponge counts were correct at the end of the procedure. The instrument counts were correct as well. Two grams of Ancef given preoperatively for infection prophylaxis. Job ID: [id number] DocumentID: [id number] Dictated Date: 10/23/2018 23:00:52 [facility] Author Date: 10/24/2018 06:14:29 Dictated By: DUKE GARIBAY DO
[2018-10-24 07:03] LABS: BASOPHILS % (AUTO) 0 % (0-10); EOSINOPHILS % (AUTO) 0 % (0-10); HEMATOCRIT 29 % (35-52); HEMOGLOBIN 9.5 G/DL (11.5-16.0); LYMPHOCYTES # (AUTO) 1.3 X 10^3 (1.0-4.0); LYMPHOCYTES % (AUTO) 13 % (12-44); MEAN CORPUSCULAR HEMOGLOBIN 29 PG (25-34); MEAN CORPUSCULAR HGB CONC 33 G/DL (32-36); MEAN CORPUSCULAR VOLUME 87 FL (80-99); MEAN PLATELET VOLUME 10.1 FL (7.4-10.4); MONOCYTES # (AUTO) 0.8 X 10^3 (0.0-1.0); MONOCYTES % (AUTO) 7 % (0-12); NEUTROPHILS # (AUTO) 8.4 X 10^3 (1.8-7.8); NEUTROPHILS % (AUTO) 80 % (42-75); PLATELET COUNT 168 10^3/uL (130-400); RED CELL DISTRIBUTION WIDTH 14.4 % (10.0-14.5); WHITE BLOOD COUNT 10.5 10^3/uL (4.3-11.0)
--- NOTE | 2018-10-24 07:35 | NUR ---
PT NEEDING TO GET UP TO THE BATHROOM, ASSISTANCE PROVIDED. PT SLOW MOVING BUT STABLE ON HER FEET. + VOID, + PERICARE. PT BACK TO BED. NEW SOCKS AND SCDS ON. WILL RETURN SHORTLY FOR VS AND ASSESSMENT.
[2018-10-24 08:06] VITALS: BP 108/73
--- NOTE | 2018-10-24 08:10 | NUR ---
VS OBTAINED. INITIAL SHIFT ASSESSMENT COMPLETED; SEE INTERVENTION FOR FURTHER.
--- NOTE | 2018-10-24 08:22 | Anesthesia-Regional Post-Op ---
Regional Patient Condition Mental Status: Alert, Oriented x3 Circulation: Same as Pre-Op Headache: Absent Sensation: Full Recovery Motor Block: Absent Post Op Complications Complications None Follow Up Care/Instructions Patient Instructions None needed. Anesthesia/Patient Condition Patient is doing well, no complaints, stable vital signs, no apparent adverse anesthesia problems. No complications reported per nursing. D/C home per [facility] [place]: BASSEM Lee CRNA Oct 24, 2018 08:22
--- NOTE | 2018-10-24 08:53 | NUR ---
DR. GARIBAY TO PT'S BEDSIDE.
--- NOTE | 2018-10-24 09:03 | Postpartum Progress Note ---
Note Note Day # 1 Subjective: Patient is without complaints. Ambulating, voiding. Tolerating a regular diet without nausea or vomiting. Normal lochia. Pain is well controlled with oral pain medications. Objective: Physical Exam: General - Alert and oriented, no apparent distress Abdomen - Soft, appropriately tender to palpation, non-distended, fundus firm at umbilicus Extremities - no edema, negative Guadalupe's bilaterally Incision- c/d/i Assessment: POD1 PLTCS Acute blood loss anemia Plan: Routine care. Encourage breast feeding. Encourage ambulation. Ferrous sulfate supplementation. Plan for discharge tomorrow Vitals - Labs Vital Signs - I&O Vital Signs Date Time Temp Pulse Resp B/P (MAP) Pulse Ox O2 Delivery O2 Flow Rate FiO2 10/24/18 04:20 Room Air 10/24/18 04:18 97.7 94 18 110/61 (77) 97 Room Air 10/24/18 00:13 98.7 94 18 112/67 (82) 96 Room Air 10/23/18 21:59 115 18 110/59 (76) Room Air 10/23/18 21:45 99.1 122 18 110/56 (74) Room Air 10/23/18 21:30 122 18 145/63 (90) Room Air 10/23/18 21:15 130 18 119/56 (77) Room Air 10/23/18 21:00 125 18 125/78 (94) Room Air 10/23/18 20:45 111 18 120/67 (84) Room Air 10/23/18 20:30 18 Room Air 10/23/18 20:15 99.4 111 18 121/77 (92) Room Air 10/23/18 20:00 109 18 126/60 (82) Room Air 10/23/18 19:45 111 18 117/68 (84) Room Air 10/23/18 19:30 113 18 116/72 (87) Room Air 10/23/18 19:15 99.0 107 18 122/69 (86) Room Air 10/23/18 19:00 96 108/61 (77) Room Air 10/23/18 18:45 98.8 107 18 112/64 (80) Room Air 10/23/18 18:30 96 107/60 (76) 98 Room Air 10/23/18 18:15 95 119/67 (84) 100 Room Air 10/23/18 18:00 104 111/56 (74) Room Air 10/23/18 17:45 115 108/57 (74) Room Air 10/23/18 17:30 104 105/62 (76) Room Air 10/23/18 17:25 111 109/65 (80) 100 Room Air 10/23/18 17:20 103 112/56 (74) Room Air 10/23/18 17:15 123 18 112/56 (74) Room Air 10/23/18 17:10 112 109/58 (75) 100 Room Air 10/23/18 17:05 97 113/57 (75) 99 Room Air 10/23/18 17:00 114 105/55 (72) Room Air 10/23/18 16:55 110 99/62 (74) 98 Room Air 10/23/18 16:53 95 106/56 (73) 100 Room Air 10/23/18 16:50 100 107/59 (75) 99 Room Air 10/23/18 16:47 96 111/60 (77) 98 Room Air 10/23/18 16:45 98.9 102 105/60 (75) Room Air 10/23/18 16:40 105 104/60 (75) 100 Room Air 10/23/18 16:30 107 118/69 (85) Room Air 10/23/18 16:15 Room Air 10/23/18 16:00 86 22 112/60 (77) Room Air 10/23/18 15:45 103 114/67 (83) Room Air 10/23/18 15:30 106 124/62 (82) Room Air 10/23/18 15:15 Room Air 10/23/18 15:00 115 120/79 (93) Room Air 10/23/18 14:45 98.3 Room Air 10/23/18 14:30 114 22 126/78 (94) Room Air 10/23/18 14:15 107 111/59 (76) Room Air 10/23/18 14:00 122 146/60 (88) Room Air 10/23/18 13:45 99 117/64 (81) Room Air 10/23/18 13:30 109 112/55 (74) Room Air 10/23/18 13:15 98.2 115 22 144/77 (99) Room Air 10/23/18 13:00 104 126/72 (90) Room Air 10/23/18 12:45 86 127/74 (91) Room Air 10/23/18 12:30 120 108/66 (80) Room Air 10/23/18 12:15 87 118/68 (85) Room Air 10/23/18 12:00 92 22 123/69 (87) Room Air 10/23/18 11:45 84 118/72 (87) Room Air 10/23/18 11:30 81 112/80 (91) Room Air 10/23/18 11:15 110 118/76 (90) Room Air 10/23/18 11:00 98 20 121/76 (91) Room Air 10/23/18 10:45 98.6 Room Air 10/23/18 10:30 83 127/67 (87) Room Air 10/23/18 10:15 95 111/71 (84) Room Air 10/23/18 10:00 Room Air 10/23/18 09:45 98.3 93 18 143/96 (112) Room Air 10/23/18 09:30 113 122/82 (95) Room Air 10/23/18 09:15 90 105/71 (82) Room Air I & O 10/24/18 07:00 Intake Total 4550 ml Output Total 1050 ml Balance 3500 ml Labs Laboratory Tests 10/24/18 06:52: White Blood Count 10.5, Red Blood Count 3.30L, Hemoglobin 9.5L, Hematocrit 29L, Mean Corpuscular Volume 87, Mean Corpuscular Hemoglobin 29, Mean Corpuscular Hemoglobin Concent 33, Red Cell Distribution Width 14.4, Platelet Count 168, Mean Platelet Volume 10.1, Neutrophils (%) (Auto) 80H, Lymphocytes (%) (Auto) 13 , Monocytes (%) (Auto) 7, Eosinophils (%) (Auto) 0, Basophils (%) (Auto) 0, Neutrophils # (Auto) 8.4H, Lymphocytes # (Auto) 1.3, Monocytes # (Auto) 0.8, Eosinophils # (Auto) 0.0, Basophils # (Auto) 0.0 LACEY GARIBAY DO Oct 24, 2018 09:02
[2018-10-24] MEDS: DOCUSATE SODIUM 100 MG (COLACE) CAP PO SCH ×2 (10:14→21:57)
--- NOTE | 2018-10-24 10:15 | NUR ---
PT UP TO THE BATHROOM. 200 ML OF URINE OUTPUT NOTED. MEDS GIVEN PO; SEE EMAR FOR FURTHER. S/O AT THE BEDSIDE.
[2018-10-24 12:54] VITALS: BP 106/73
[2018-10-24] MEDS: IBUPROFEN 600 MG (MOTRIN) TAB PO SCH ×3 (12:55→22:39)
--- NOTE | 2018-10-24 13:08 | NUR ---
SHOWER SET UP. NEW LINENS. LUNCH ORDERED FOR PT.
--- NOTE | 2018-10-24 15:00 | NUR ---
PT IN BED, EATING. VISITOR AT THE BEDSIDE. NO NEEDS VOICED.
[2018-10-24 16:37] VITALS: BP 86/47
[2018-10-24 21:00] VITALS: BP 97/68
[2018-10-25] MEDS: IBUPROFEN 600 MG (MOTRIN) TAB PO SCH ×3 (00:47→12:22)
--- NOTE | 2018-10-25 06:30 | NUR ---
Pt assisted to bathroom, c/o dizziness and sob on exertion. Stable on feet, voided in hat and emptied, pt assisted back to bed. GTandriy sahu updated on pt status, and to update on arrival to unit. Pt resp even unlabored, and takes deep breaths while ambulating. No further ss distress, vss, see int.
[2018-10-25 06:39] VITALS: BP 109/73
--- NOTE | 2018-10-25 07:30 | NUR ---
INFORMED OF PT'S C/O LAST NIGHT/THIS AM OF BEING SHORT OF BREATH. VS REVIEWED, LABS ORDERED. Addendum: 10/25/18 at 1552 by SHU REDDY RN MED ORDER ALSO RECEIVED.
--- NOTE | 2018-10-25 07:35 | NUR ---
DR. GARIBAY TO PT'S BEDSIDE.
[2018-10-25] MEDS ORDERED: FUROSEMIDE 20 MG (LASIX) TAB PO NR ×2 (07:45→12:00)
[2018-10-25 07:49] VITALS: BP 104/66
--- NOTE | 2018-10-25 08:00 | NUR ---
PT SITTING UP ON THE SIDE OF THE BED. BREAKFAST ORDERED FOR PT PER REQUEST. NO FURTHER NEEDS VOICED.
[2018-10-25] MEDS: DOCUSATE SODIUM 100 MG (COLACE) CAP PO SCH (09:05)
--- NOTE | 2018-10-25 09:15 | NUR ---
PT UP IN ROOM, PT'S MOTHER AT THE BEDSIDE. PT TO BED. INITIAL SHIFT ASSESSMENT COMPLETED; SEE INTERVENTION FOR FURTHER.
--- NOTE | 2018-10-25 09:43 | Postpartum Progress Note ---
Note Note Day # 2 Subjective: Patient is without complaints. Ambulating, voiding. Tolerating a regular diet without nausea or vomiting. Normal lochia. Pain is well controlled with oral pain medications. Noted some SOB this AM, and dizzyness upon ambulation. Objective: Physical Exam: General - Alert and oriented, no apparent distress Abdomen - Soft, appropriately tender to palpation, non-distended, fundus firm at umbilicus Extremities - no edema, negative Guadalupe's bilaterally Incision- c/d/i Assessment: POD 2 PLTCS Acute blood loss anenia Acute SOB Plan: Routine care. Lasix x 2 doses 20 mg PO given today Stat repeat CBC ordered today Encourage breast feeding. Encourage ambulation. Ferrous sulfate supplementation. Plan for discharge later, pending resolution SOB and stable hgb. Vitals - Labs Vital Signs - I&O Vital Signs Date Time Temp Pulse Resp B/P (MAP) Pulse Ox O2 Delivery O2 Flow Rate FiO2 10/25/18 06:39 98.2 82 18 109/73 (85) 98 Room Air 10/24/18 21:00 97.6 99 18 97/68 (78) 100 Room Air 10/24/18 16:37 97.7 94 18 86/47 (60) 100 Room Air 10/24/18 12:54 97.5 106 18 106/73 (84) 99 Room Air I & O 10/25/18 07:00 Intake Total 710 ml Output Total 1550 ml Balance -840 ml LACEY GARIBAY DO Oct 25, 2018 09:43
[2018-10-25 10:11] LABS: HEMOGLOBIN 9.7 G/DL (11.5-16.0); MEAN PLATELET VOLUME 9.9 FL (7.4-10.4); RED CELL DISTRIBUTION WIDTH 14.6 % (10.0-14.5); WHITE BLOOD COUNT 10.3 10^3/uL (4.3-11.0)
[2018-10-25] MEDS: HYDROcodone/APAP 5 MG/325 MG (LORTAB) TAB PO PRN (12:22)
--- NOTE | 2018-10-25 13:00 | NUR ---
NOTIFIED OF LATEST LABS AND PT'S REQUEST TO GO HOME, DISCHARGE ORDER RECEIVED.
--- NOTE | 2018-10-25 13:25 | NUR ---
DISCHARGE PAPERS PROVIDED AND REVIEWED WITH PT PER THIS RN AND ANA MARIA RN STUDENT, WHO WAS BILINGUAL IN [place] [employer] [place]. PT VERBALIZES UNDERSTANDING, QUESTIONS ANSWERED. PAPER SIGNED. FOLLOW UP APPOINTMENT CARDS AND RX'S PLACED INTO DISCHARGE FOLDER. PT'S MOTHER ALSO AT THE BEDSIDE.
--- NOTE | 2018-10-25 14:18 | NUR ---
PT DISCHARGED FROM -[facility] TO PERSONAL AUTO VIA W/C IN STABLE CONDITION ACC BY ANA MARIA RN STUDENTS X2, S/O AND .
== END 2018-10-25 14:18 | disposition home or self-care (01) | DRG 787 ==
LOC: LDRP 19:17
PROVIDERS: ADMIT Obstetrics & Gynecology; ATTEND Obstetrics & Gynecology
PROC: 10D00Z1 Extraction of Products of Conception, Low, Open Approach (ICD-10-PCS; principal; 2018-10-23 22:15)
DX: O76 Abnormality in fetal heart rate and rhythm complicating labor and delivery (principal); O99.03 Anemia complicating the puerperium; D62 Acute posthemorrhagic anemia; O64.0XX0 Obstructed labor due to incomplete rotation of fetal head, not applicable or unspecified; O99.513 Diseases of the respiratory system complicating pregnancy, third trimester; J45.909 Unspecified asthma, uncomplicated; O99.89 Other specified diseases and conditions complicating pregnancy, childbirth and the puerperium; R06.02 Shortness of breath; Z3A.39 39 weeks gestation of pregnancy; Z37.0 Single live birth
CPT/HCPCS: 36415; 85025; 85027; 86850; 86900; 86901; 94664

== ENCOUNTER 2019-07-21 22:11 | Emergency (ER) | payer SELFPAY ==
[~2019-07-21] VITALS: Ht 167 cm; Wt 75.5 kg
[~2019-07-21 22:11] MED LIST changes: +DOCU100C37 PO; +IBUP-844 PO
--- NOTE | 2019-07-21 22:33 | ED EENT ---
History of Present Illness General Chief Complaint: Oral/Throat Problems Stated Complaint: SORE THROAT Nursing Triage Note: Pt to FT with c/o sore throat with pain that radiates to left ear since this am. PT states she is staying in hospital with baby who has RSV. Pt is afebrile on arrival and denies any cough. Source: patient Exam Limitations: no limitations History of Present Illness Date Seen by Provider: Jul 21, 2019 Time Seen by Provider: 22:20 Initial Comments Patient presents to ER by private conveyance with one day of sore throat and some pressure in her left ear. She wanted something for pain from the nurses on the fourth floor but they did not give her anything. She is up there with her son who is admitted for RSV. She's had no fevers chills nausea vomiting sweats. She has a history of asthma but she's not having shortness of breath or wheezing. Allergies and Home Medications Allergies Coded Allergies: No Known Drug Allergies (Unverified , 11/20/15) Home Medications Docusate Sodium 100 Mg Capsule, 100 MG PO BID PRN for CONSTIPATION-1ST LINE Prescribed by: LACEY GARIBAY on 10/23/182152 Hydrocodone Bit/Acetaminophen 1 Tab Tab, 2 TAB PO Q6HR PRN for PAIN-MODERATE Prescribed by: LACEY GARIBAY on 10/23/182152 Ibuprofen 600 Mg Tablet, 600 MG PO Q6HR Prescribed by: LACEY GARIBAY on 10/23/182152 Vit W-Ca,Fe,FA(<1 mg) 1 Each Tablet, 1 EACH PO DAILY, (Reported) Patient Home Medication List Home Medication List Reviewed: Yes Review of Systems Review of Systems Constitutional: No chills, No diaphoresis, No fever, No malaise Eyes: Denies Blindness, Denies Drainage Ears: See HPI, Pain Nose: denies clots; congestion Mouth: denies clots, denies pain, denies swelling Throat: pain, swelling Respiratory: cough; No phlegm, No short of breath, No wheezing Cardiovascular: No chest pain, No edema Gastrointestinal: No nausea, No vomiting Past Mkuaydz-Qzuwxp-Kdmmvx Hx Patient Social History Alcohol Use: Denies Use Recreational Drug Use: No Smoking Status: Never a Smoker 2nd Hand Smoke Exposure: No Recent Foreign Travel: No Contact w/Someone Who Travel: No Recent Infectious Disease Expo: No Recent Hopitalizations: No Physical Abuse: No Sexual Abuse: No Mistreated: No Fear: No Immunizations Up To Date Tetanus Booster (TDap): Less than 5yrs PED Vaccines UTD: Yes Date of Influenza Vaccine: Apr 11, 2016 Seasonal Allergies Seasonal Allergies: No Past Medical History Surgeries: Yes Section Respiratory: Yes Asthma Cardiac: No Neurological: No Reproductive Disorders: No Genitourinary: No Gastrointestinal: No Chronic Constipation Musculoskeletal: No Endocrine: No HEENT: No Cancer: No Psychosocial: No Integumentary: No Blood Disorders: No Adverse Reaction/Blood Tranf: No Family Medical History Patient reports no known family medical history. No Pertinent Family Hx Physical Exam Vital Signs Vital Signs - First Documented 07/21/19 22:17 Temp 36.8 Pulse 83 Resp 20 B/P (MAP) 118/78 (91) Pulse Ox 98 O2 Delivery Room Air Height, Weight, BMI Height: 5'5.00" Weight: 195lbs. 4.0oz. 88.682501oz; 27.00 BMI Method:Stated General Appearance: WD/WN, no apparent distress Eyes: bilateral eye normal inspection, bilateral eye PERRL, bilateral eye EOMI Ears: bilateral ear auricle normal, bilateral ear canal normal, bilateral ear TM normal Nose: normal inspection; No active bleeding Mouth/Throat: normal mouth inspection, tongue swollen; No tonsillar exudate Neck: non-tender, full range of motion, supple, normal inspection, lymphadenopathy (R), lymphadenopathy (L) (bilateral, shotty, anterior, cervical lymphadenopathy ) Cardiovascular: normal peripheral pulses, regular rate, rhythm, no edema Respiratory: lungs clear, normal breath sounds, no respiratory distress, no accessory muscle use Neurologic/Psychiatric: alert, normal mood/affect Progress/Results/Core Measures Results/Orders Lab Results Laboratory Tests Test 07/21/19 22:20 Range/Units Group A Streptococcus Screen NEGATIVE NEGATIVE My Orders Orders - MISTY SAMANIEGO Rapid Strep A Screen (07/21/19 22:24) Ibuprofen Tablet (Motrin Tablet) (07/21/19 22:45) Medications Given in ED Current Medications Medications Dose Ordered Sig/Gomez Route Start Time Stop Time Status Last Admin Dose Admin Ibuprofen 800 mg ONCE ONCE PO 07/21/19 22:45 07/21/19 22:46 07/21/19 22:34 800 MG Vital Signs/I&O 07/21/19 22:17 Temp 36.8 Pulse 83 Resp 20 B/P (MAP) 118/78 (91) Pulse Ox 98 O2 Delivery Room Air Blood Pressure Mean: 91 Departure Impression Primary Impression: Acute viral pharyngitis Additional Impression: Acute serous otitis media of left ear without rupture Disposition: 01 HOME, SELF-CARE Condition: Stable Departure-Patient Inst. Decision time for Depature: 22:41 Referrals: LACEY GARIBAY DO (PCP) Primary Care Physician [facility] (Family) Primary Care Physician Patient Instructions: Sore Throat, Adult (DC) Add. Discharge Instructions: Salt water gargles as often as necessary for sore throat. A teaspoon of honey can also be helpful or a cup of hot tea with lemon. Vapor rubs such as Vicks or Mentholatum may help with congestion. A humidifier can be useful. Tylenol and ibuprofen for body aches or fever. Flonase or Rhinocort 1 puff each nostril daily for the next 1-2 weeks to help empty your middle ear and decrease the pressure and pain in your ear. If you're wrote culture comes back positive for strep then we will call you and put you on an antibiotic. If you don't hear from us that means it was negative. All discharge instructions reviewed with patient and/or family. Voiced understanding. MISTY SAMANIEGO Jul 21, 2019 22:33
[2019-07-21] MEDS ORDERED: IBUPROFEN 800 MG (MOTRIN) TAB PO ONE (22:45)
[2019-07-21 22:49] VITALS: BP 118/78
== END 2019-07-21 22:49 | disposition home or self-care (01) ==
LOC: EDUNIT# 22:11 → ER 22:13
DX: J02.9 Acute pharyngitis, unspecified (principal); H65.02 Acute serous otitis media, left ear; J45.909 Unspecified asthma, uncomplicated
CPT/HCPCS: 87430; 99284

== ENCOUNTER → 2020-01-17 | Outpatient (CLI) | payer OTHER ==
--- NOTE | 2020-01-17 18:46 | Diagnostic Imaging Report ---
EXAMINATION: Ultrasound pelvis. DATE: January 17, 2020. INDICATION: 29-year-old female, acute pelvic pain. Evaluation of intrauterine contraceptive device. COMPARISON: OB ultrasound June 13, 2018. TECHNIQUE: A sonogram of the pelvis was performed utilizing transabdominal and endovaginal approaches assessing monteiro-scale appearance and color Doppler flow. FINDINGS: The uterus measures 7.6 x 5.2 x 5.7 cm. There is an intrauterine contraceptive device within the endometrial cavity. No focal uterine masses are seen. The endometrium measures 0.5 cm in diameter. The right ovary measures 3.7 cm x 1.8 cm x 2.6 cm. The left ovary is not well seen. There is blood flow to the right ovary based on color Doppler and spectral Doppler analysis. No free pelvic fluid is demonstrated. IMPRESSION: 1. Intrauterine contraceptive device within the endometrial cavity. 2. The left ovary is not well seen. 3. Additional evaluation of the uterus is unremarkable. 4. The right ovary is unremarkable in appearance. 5. No free pelvic fluid. Dictated by: Dictated on workstation # [id number]
== END ==
LOC: RAD 14:52
PROVIDERS: ATTEND Obstetrics & Gynecology
DX: R10.2 Pelvic and perineal pain (principal); T83.84XA Pain due to genitourinary prosthetic devices, implants and grafts, initial encounter
CPT/HCPCS: 76830; 76856

== ENCOUNTER 2020-07-14 20:56 | Emergency (ER) | payer SELFPAY | END 2020-07-14 21:39 | disposition left against medical advice (07) | LOC: EDUNIT# 20:56 → ER 20:58 | DX: O21.0 Mild hyperemesis gravidarum (principal); Z3A.11 11 weeks gestation of pregnancy ==

== ENCOUNTER 2020-08-08 10:16 | Emergency (ER) | payer OTHER ==
[~2020-08-08] VITALS: Ht 162 cm; Wt 72.0 kg
--- NOTE | 2020-08-08 10:28 | ED General ---
General Stated Complaint: N/V, 15 WEEKS Source of Information: Patient Exam Limitations: No Limitations History of Present Illness Date Seen by Provider: Aug 08, 2020 Time Seen by Provider: 10:26 Initial Comments Patient is a 30-year-old female who presents to the emergency department today with a chief complaint of epigastric abdominal pain, nausea and vomiting. Patient is approximately 15 weeks [address] care [address] Dr[address] Garibay. Patient states that she was given some medication for nausea by Dr. Garibay that dissolves under her tongue but that it has not been working. Patient states ons et of symptoms was approximately 2 days ago. Patient states they started after she ate some macaroni and cheese for dinner. Patient is a G5, P4. Estimated due date is Patient denies any fevers, chills. No diarrhea, black or bloody stools. Patient states that she has seen specks of blood in her vomit. Patient states that she has vomited 4 times this morning since 7 AM. Patient states that she has not had vomiting like this in previous pregnancies. She denies any other sick contacts at home, no one else is sick at the house. Patient denies any burning with urination, urgency or frequency. No abnormal vaginal discharge or bleeding. All other review of systems reviewed and negative except as stated above. Timing/Duration: 1-2 Days Severity: Moderate Associated Systoms: Nausea/Vomiting Allergies and Home Medications Allergies Coded Allergies: No Known Drug Allergies (Unverified , 11/20/15) Home Medications Vit W-Ca,Fe,FA(<1 mg) 1 Each Tablet, 1 EACH PO DAILY, (Reported) Patient Home Medication List Home Medication List Reviewed: Yes Review of Systems Review of Systems Constitutional: see HPI EENTM: no symptoms reported Respiratory: no symptoms reported Cardiovascular: no symptoms reported Gastrointestinal: abdominal pain, nausea, vomiting Genitourinary: no symptoms reported Musculoskeletal: no symptoms reported Skin: no symptoms reported All Other Systems Reviewed Negative Unless Noted: Yes Past Grahhhb-Pgewet-Okootf Hx Patient Social History 2nd Hand Smoke Exposure: No Recent Hopitalizations: No Immunizations Up To Date Tetanus Booster (TDap): Less than 5yrs PED Vaccines UTD: Yes Date of Influenza Vaccine: Apr 11, 2016 Seasonal Allergies Seasonal Allergies: No Past Medical History Surgeries: Yes Section Respiratory: Yes Asthma Cardiac: No Neurological: No Reproductive Disorders: No Genitourinary: No Gastrointestinal: No Chronic Constipation Musculoskeletal: No Endocrine: No HEENT: No Cancer: No Psychosocial: No Integumentary: No Blood Disorders: No Adverse Reaction/Blood Tranf: No Family Medical History Patient reports no known family medical history. No Pertinent Family Hx Physical Exam Vital Signs Vital Signs - First Documented 08/08/20 10:20 Temp 35.9 Pulse 87 Resp 16 B/P (MAP) 109/68 (82) Pulse Ox 98 O2 Delivery Room Air Capillary Refill : Height, Weight, BMI Height: 5'5.00" Weight: 195lbs. 4.0oz. 88.765482qa; 27.00 BMI Method:Stated General Appearance: No Apparent Distress, WD/WN Eyes: Bilateral Eye Normal Inspection, Bilateral Eye PERRL, Bilateral Eye EOMI HEENT: Pharynx Normal Neck: Normal Inspection, Non Tender, Supple Respiratory: Lungs Clear, Normal Breath Sounds, No Accessory Muscle Use Cardiovascular: Regular Rate, Rhythm, No Murmur Gastrointestinal: Normal Bowel Sounds, Soft, Tenderness (Epigastric and right upper quadrant tenderness to palpation, equivocal Pitts's) Extremity: Normal Capillary Refill, Non Tender, No Calf Tenderness, No Pedal Edema Neurologic/Psychiatric: Alert, Oriented x3, No Motor/Sensory Deficits, Normal Mood/Affect Skin: Normal Color, Warm/Dry Progress/Results/Core Measures Suspected Sepsis SIRS Temperature: Pulse: Respiratory Rate: Laboratory Tests 08/08/20 10:35: White Blood Count 8.5 Blood Pressure / Mean: Laboratory Tests 08/08/20 10:35: Creatinine 0.63, Platelet Count 174, Total Bilirubin 0.3 Results/Orders Lab Results Laboratory Tests Test 08/08/20 10:35 08/08/20 11:33 Range/Units White Blood Count 8.5 4.3-11.0 10^3/uL Red Blood Count 4.33 3.80-5.11 10^6/uL Hemoglobin 13.6 11.5-16.0 g/dL Hematocrit 39 35-52 % Mean Corpuscular Volume 89 80-99 fL Mean Corpuscular Hemoglobin 31 25-34 pg Mean Corpuscular Hemoglobin Concent 35 32-36 g/dL Red Cell Distribution Width 12.8 10.0-14.5 % Platelet Count 174 130-400 10^3/uL Mean Platelet Volume 9.3 9.0-12.2 fL Immature Granulocyte % (Auto) 0 % Neutrophils (%) (Auto) 80 H 42-75 % Lymphocytes (%) (Auto) 13 12-44 % Monocytes (%) (Auto) 6 0-12 % Eosinophils (%) (Auto) 1 0-10 % Basophils (%) (Auto) 0 0-10 % Neutrophils # (Auto) 6.8 1.8-7.8 10^3/uL Lymphocytes # (Auto) 1.1 1.0-4.0 10^3/uL Monocytes # (Auto) 0.5 0.0-1.0 10^3/uL Eosinophils # (Auto) 0.1 0.0-0.3 10^3/uL Basophils # (Auto) 0.0 0.0-0.1 10^3/uL Immature Granulocyte # (Auto) 0.0 0.0-0.1 10^3/uL Sodium Level 135 135-145 MMOL/L Potassium Level 3.4 L 3.6-5.0 MMOL/L Chloride Level 102 98-107 MMOL/L Carbon Dioxide Level 25 21-32 MMOL/L Anion Gap 8 5-14 MMOL/L Blood Urea Nitrogen 5 L 7-18 MG/DL Creatinine 0.63 0.60-1.30 MG/DL Estimat Glomerular Filtration Rate > 60 BUN/Creatinine Ratio 8 Glucose Level 74 70-105 MG/DL Calcium Level 9.2 8.5-10.1 MG/DL Corrected Calcium 9.4 8.5-10.1 MG/DL Total Bilirubin 0.3 0.1-1.0 MG/DL Aspartate Amino Transf (AST/SGOT) 13 5-34 U/L Alanine Aminotransferase (ALT/SGPT) 11 0-55 U/L Alkaline Phosphatase 76 40-136 U/L Total Protein 7.0 6.4-8.2 GM/DL Albumin 3.7 3.2-4.5 GM/DL Lipase 48 8-78 U/L Urine Color YELLOW Urine Clarity CLEAR Urine pH 5.5 5-9 Urine Specific [place] <=1.005 1.016-1.022 Urine Protein NEGATIVE NEGATIVE Urine Glucose (UA) NEGATIVE NEGATIVE Urine Ketones NEGATIVE NEGATIVE Urine Nitrite NEGATIVE NEGATIVE Urine Bilirubin NEGATIVE NEGATIVE Urine Urobilinogen 0.2 < = 1.0 MG/DL Urine Leukocyte Esterase 1+ H NEGATIVE Urine RBC (Auto) NEGATIVE NEGATIVE Urine RBC NONE /HPF Urine WBC 10-25 H /HPF Urine Squamous Epithelial Cells 5-10 /HPF Urine Crystals NONE /LPF Urine Bacteria TRACE /HPF Urine Casts NONE /LPF Urine Mucus NEGATIVE /LPF Urine Culture Indicated YES My Orders Orders - HOLA HUDR MD Ed Iv/Invasive Line Start (08/08/20 10:35) Cbc With Automated Diff (08/08/20 10:35) Comprehensive Metabolic Panel (08/08/20 10:35) Lipase (08/08/20 10:35) Ua Culture If Indicated (08/08/20 10:35) Ns Iv 1000 Ml (Sodium Chloride 0.9%) (08/08/20 10:45) Ondansetron Injection (Zofran Injectio (08/08/20 10:45) Urine Culture (08/08/20 11:33) Medications Given in ED Current Medications Medications Dose Ordered Sig/Gomez Route Start Time Stop Time Status Last Admin Dose Admin Ondansetron HCl 8 mg ONCE ONCE IVP 08/08/20 10:45 08/08/20 10:47 DC 08/08/20 10:41 8 MG Vital Signs/I&O 08/08/20 10:20 Temp 35.9 Pulse 87 Resp 16 B/P (MAP) 109/68 (82) Pulse Ox 98 O2 Delivery Room Air Capillary Refill : Progress Note : Time: 11:22 Progress Note Reevaluated patient after fluids have been started and IV Zofran. Patient states that she is feeling a little bit better. She is still not produced a urine specimen. Bedside ultrasound was used to demonstrate normal appearing cardiac activity and movement. 1158 Patient noted to have trace bacteria with leukocyte esterase and white blood cells in the urine. Will treat for asymptomatic bacteriuria of . We will give the patient Keflex 500 mg every 6 hours for 5 days. We will also send the patient home with a prescription for Phenergan. Patient is encouraged to drink plenty of fluids to stay well-hydrated. She verbalized understanding. All questions are sought and answered. Patient is stable for discharge. Departure Impression Primary Impression: Nausea and vomiting Qualified Codes: R11.2 - Nausea with vomiting, unspecified Additional Impressions: Second trimester Asymptomatic bacteriuria antepartum Disposition: HOME, SELF-CARE Condition: Stable Departure-Patient Inst. Decision time for Depature: 11:59 Referrals: LACEY GARIBAY DO (PCP) Primary Care Physician [facility] (Family) Primary Care Physician Patient Instructions: Nausea and Vomiting of , Urinary Tract Infections in Add. Discharge Instructions: Drink plenty of fluids to stay well-hydrated. Take the antibiotics I have prescribed 4 times daily for the next 5 days. Please follow-up with Dr. Garibay as scheduled. Return to the emergency room for any worsening symptoms of nausea, vomiting, fever, abdominal pain or any other emergent concerns. Scripts Cephalexin (Cephalexin) 500 Mg Tablet 500 MG PO QID for 5 Days, #20 TAB Prov: HOLA HURD MD 08/08/20 Promethazine HCl (Promethazine Tablet) 25 Mg Tablet 25 MG PO Q6H PRN for NAUSEA/VOMITING, #10 TAB Prov: HOLA HURD MD 08/08/20 HOLA HURD MD Aug 08, 2020 10:28
[2020-08-08] MEDS ORDERED: OMEP40CA27 (10:32)
[2020-08-08 10:45] LABS: BASOPHILS % (AUTO) 0 % (0-10); EOSINOPHILS # (AUTO) 0.1 10^3/uL (0.0-0.3); EOSINOPHILS % (AUTO) 1 % (0-10); HEMATOCRIT 39 % (35-52); HEMOGLOBIN 13.6 g/dL (11.5-16.0); LYMPHOCYTES # (AUTO) 1.1 10^3/uL (1.0-4.0); LYMPHOCYTES % (AUTO) 13 % (12-44); MEAN CORPUSCULAR HEMOGLOBIN 31 pg (25-34); MEAN CORPUSCULAR HGB CONC 35 g/dL (32-36); MEAN CORPUSCULAR VOLUME 89 fL (80-99); MEAN PLATELET VOLUME 9.3 fL (9.0-12.2); MONOCYTES # (AUTO) 0.5 10^3/uL (0.0-1.0); MONOCYTES % (AUTO) 6 % (0-12); NEUTROPHILS # (AUTO) 6.8 10^3/uL (1.8-7.8); NEUTROPHILS % (AUTO) 80 % (42-75); PLATELET COUNT 174 10^3/uL (130-400); WHITE BLOOD COUNT 8.5 10^3/uL (4.3-11.0)
[2020-08-08] MEDS ORDERED: ONDANSETRON 4 MG/2 ML (SDV) Z0FRAN IVP ONE (10:45)
[2020-08-08] MEDS ORDERED: NS IV 1000 ML 1,000 ML IV SCH (10:45)
[2020-08-08 10:53] LABS: ALBUMIN 3.7 GM/DL (3.2-4.5); CHLORIDE 102 MMOL/L (98-107); POTASSIUM 3.4 MMOL/L (3.6-5.0); SODIUM 135 MMOL/L (135-145)
[2020-08-08 10:54] LABS: CALCIUM 9.2 MG/DL (8.5-10.1)
[2020-08-08 10:55] LABS: GLUCOSE 74 MG/DL (70-105)
[2020-08-08 10:56] LABS: CARBON DIOXIDE 25 MMOL/L (21-32)
[2020-08-08 10:57] LABS: BILIRUBIN,TOTAL 0.3 MG/DL (0.1-1.0)
[2020-08-08 10:58] LABS: ALKALINE PHOSPHATASE 76 U/L (40-136)
[2020-08-08 10:59] LABS: CREATININE SERUM 0.63 MG/DL (0.60-1.30); GFR ESTIMATED > 60
[2020-08-08 11:00] LABS: BUN/CREATININE RATIO 8
[2020-08-08 11:02] LABS: ALANINE AMINOTRANSFERASE 11 U/L (0-55); LIPASE 48 U/L (8-78)
[2020-08-08 11:39] LABS: BILIRUBIN,URINE NEGATIVE (NEGATIVE); CLARITY,URINE CLEAR; COLOR,URINE YELLOW; GLUCOSE, URINE (UA) NEGATIVE (NEGATIVE); KETONES,URINE NEGATIVE (NEGATIVE); LEUKOCYTE ESTERASE ,URINE 1+ (NEGATIVE); NITRITE,URINE NEGATIVE (NEGATIVE); PH,URINE 5.5 (5-9); PROTEIN,URINE NEGATIVE (NEGATIVE)
[2020-08-08 11:51] LABS: BACTERIA,URINE TRACE /HPF
[2020-08-08] MEDS ORDERED: CEPH500T PO (12:01)
[2020-08-08] MEDS ORDERED: PROM25TA14 PO (12:01)
[2020-08-08 12:12] VITALS: BP 110/75
== END 2020-08-08 12:12 | disposition home or self-care (01) ==
LOC: EDUNIT# 10:16 → ER 10:19
DX: O21.0 Mild hyperemesis gravidarum (principal); R82.71 Bacteriuria; Z3A.15 15 weeks gestation of pregnancy
CPT/HCPCS: 36415; 80053; 81000; 83690; 85025; 87077; 87088

== ENCOUNTER → 2020-09-21 | Outpatient (CLI) | payer OTHER ==
[~2020-09-21] MED LIST changes: +CEPH500T PO; +OMEP40CA27; +PROM25TA14 PO
--- NOTE | 2020-09-21 15:52 | Diagnostic Imaging Report ---
INDICATION: survey. TECHNIQUE: Multiple real-time grayscale images were obtained over the gravid uterus. COMPARISON: None FINDINGS: There is a single live fetus in variable presentation. heart rate was recorded at 156 bpm. Placenta is anterior. Amniotic fluid volume is normal. survey demonstrates kidneys, bladder and stomach to be unremarkable. brain is unremarkable. There is a four-chamber heart. There is a three-vessel cord with normal insertion. spine is unremarkable. Biometrical measurements are as follows: Biparietal 5.10 cm, age 21 weeks 4 days. Head circumference 20.23 cm, age 22 weeks 3 days. Abdominal circumference 17.13 cm, age 22 weeks 1 days. Femur length 3.91 cm, age 22 weeks 4 days. Sonographic estimate age: 22 weeks 2 days. Sonographic estimated date of delivery: 01/23/21. Estimated Weight: 490 gm (+/- 72 gm). LMP percentile: 91%. heart rate: 156 beats per minute. number: 1 of 1. IMPRESSION: Single live IUP 22 weeks 2 days gestational age. Estimated date of confinement sonographically 01/23/2021. Dictated by: Dictated on workstation # [id number]
== END ==
LOC: RAD 12:44
PROVIDERS: ATTEND Nurse Practitioner Women's Health
DX: Z34.02 Encounter for supervision of normal first pregnancy, second trimester (principal); Z3A.22 22 weeks gestation of pregnancy
CPT/HCPCS: 76805

== ENCOUNTER 2020-10-28 02:44 | Emergency (ER) | payer OTHER ==
[~2020-10-28 02:44] MED LIST changes: -ACYC400T PO; +ACYC400T21 PO
[2020-10-28 02:53] VITALS: BP 114/75
--- NOTE | 2020-10-28 03:14 | ED Lower Extremity ---
General Chief Complaint: Lower Extremity Stated Complaint: PAINFUL VARICOSE VEINS IN LEFT LEG,6 MONTH PREG Nursing Triage Note: TO ED VIA POV AND REQUESTS W/C TO ROOM 6 WITH C/O LLE PAIN SINCE YESTERDAY AFTERNOON STATING "I CAN'T WALK FOR MYSELF". Nursing Sepsis Screen: No Definite Risk Source: patient History of Present Illness Date Seen by Provider: Oct 28, 2020 Time Seen by Provider: 02:54 Initial Comments PT ARRIVES VIA POV, WANTS WHEELCHAIR ON ARRIVAL C/O PAINFUL VARICOSE VEINS TO LEFT LEG--STATES FROM MID THIGH "ALL THE WAY DOWN" STATES SHE "CAN'T WALK" BECAUSE OF THE PAIN PAIN HAS BEEN WORSE SINCE YESTERDAY NO SWELLING TO LEG/ANKLE/FOOT NO PARESTHESIAS OR MOTOR DEFICITS NO INJURY NO FEVER NO REDNESS OR WARMTH NO CHEST PAIN NO SHORTNESS OF BREATH NO PALPITATIONS NO SYNCOPE TOOK 1 TYLENOL YESTERDAY AT 1030 AM. OTHERWISE SHE HAS NOT TAKEN ANYTHING ELSE FOR PAIN PT IS 8 MONTHS , AND STATES SHE HAS HAD THIS PROBLEM SINCE SHE WAS 4 MONTHS EDC 01/30/21 PT IS AB0 STATES SHE HAS HAD THIS EXACT SAME PROBLEM WITH HER OTHER PREGNANCIES WELL. DOES NOT REPORT HISTORY OF DVT OR BEING ON BLOOD THINNERS. NO ABDOMINAL PAIN, NO NAUSEA/VOMITING NO VAGINAL BLEEDING OR DISCHARGE. ACTIVE MOVEMENT PT STATES SHE WAS ADVISED BY DR. GARIBAY AT HER LAST OB VISIT ON 10/15/20, THAT SHE NEEDED TO GO TO [facility] FOR FURTHER EVALUATION AND TREATMENT, BUT SHE HAS NOT ATTEMPTED TO SEE ANYONE FOR THIS PROBLEM, UNTIL TONIGHT. NEXT APPOINTMENT WITH DR. GARIBAY IS 11/05 PCP: [facility] TELLER VAULT: DR. GARIBAY Allergies and Home Medications Allergies Coded Allergies: No Known Drug Allergies (Unverified , 11/20/15) Home Medications Cephalexin 500 Mg Tablet, 500 MG PO QID Prescribed by: HOLA HURD on 08/08/20 1201 Vit W-Ca,Fe,FA(<1 mg) 1 Each Tablet, 1 EACH PO DAILY, (Reported) Promethazine HCl 25 Mg Tablet, 25 MG PO Q6H PRN for NAUSEA/VOMITING Prescribed by: HOLA HURD on 08/08/20 1201 Patient Home Medication List Home Medication List Reviewed: Yes Review of Systems Constitutional: no symptoms reported Respiratory: no symptoms reported Cardiovascular: no symptoms reported Gastrointestinal: no symptoms reported Genitourinary: no symptoms reported : Yes Musculoskeletal: see HPI Skin: no symptoms reported Psychiatric/Neurological: No Symptoms Reported Past Dksgvsb-Gkxvaw-Sbmyve Hx Past Med/Social Hx: Reviewed and Corrections made Patient Social History Alcohol Use: Denies Use Drug of Choice: DENIES Smoking Status: Never a Smoker 2nd Hand Smoke Exposure: No Recent Infectious Disease Expo: No Recent Hopitalizations: No Immunizations Up To Date Tetanus Booster (TDap): Less than 5yrs PED Vaccines UTD: Yes Date of Influenza Vaccine: Apr 11, 2016 Seasonal Allergies Seasonal Allergies: No Past Medical History Surgeries: Yes ( X 1) Section Respiratory: Yes Asthma Cardiac: Yes (VARICOSE VEINS LEFT LEG) Neurological: No Hx : 5 Hx Para: 4 Hx Total # of Abortions (Sp): 0 Reproductive Disorders: No Genitourinary: No Gastrointestinal: Yes Chronic Constipation Musculoskeletal: No Endocrine: No HEENT: No Cancer: No Psychosocial: No Integumentary: No Blood Disorders: No Adverse Reaction/Blood Tranf: No Family Medical History Patient reports no known family medical history. No Pertinent Family Hx Physical Exam Vital Signs Vital Signs - First Documented 10/28/20 02:53 Temp 36.2 Pulse 88 Resp 16 B/P (MAP) 114/75 (88) O2 Delivery Room Air Capillary Refill : Less Than 3 Seconds Height, Weight, BMI Height: 5'5.00" Weight: 195lbs. 4.0oz. 88.349702wz; 27.00 BMI Method:Stated General Appearance: WD/WN, no apparent distress Cardiovascular: normal peripheral pulses, regular rate, rhythm, no edema, no JVD, no murmur Respiratory: normal breath sounds, no respiratory distress, no accessory muscle use Gastrointestinal: No tenderness; other (GRAVID UTERUS) Legs: right leg non-tender, right leg normal inspection, right leg normal range of motion; left leg other (HAS MULTIPLE SUPERFICIAL VARICOSITES TO LEFT LEG--MOSTLY LOWER LEG--HAS MANY SPIDER VEINS AND A FEW LARGER VARICOSE VEINS. NONE ARE HARD, OR ERYTHEMATOUS OR WARM. NO CORDING. NO SWELLING TO LEG OR FOOT. MOTOR/SENSORY/VASCULAR INTACT. C/O TENDERNESS TO ENTIRE LEFT LEG ON PALPATION, BUT TALKS NON-STOP THROUGHOUT EXAM AND DOES NOT APPEAR TO BE IN ANY DISCOMFORT DURING EXAM. NEGATIVE KEYLA'S. NO SKIN DISCOLORATION OTHERWISE. NO EXTERNAL EVIDENCE OF TRAUMA OR SKIN BREAKDOWN. 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, no motor/sensory deficits, alert, normal mood/affect, oriented x 3 Skin: normal color (PT IS ), warm/dry Progress/Results/Core Measures Results/Orders Lab Results Laboratory Tests Test 10/28/20 03:13 Range/Units White Blood Count 8.9 4.3-11.0 10^3/uL Red Blood Count 3.87 3.80-5.11 10^6/uL Hemoglobin 12.0 11.5-16.0 g/dL Hematocrit 36 35-52 % Mean Corpuscular Volume 93 80-99 fL Mean Corpuscular Hemoglobin 31 25-34 pg Mean Corpuscular Hemoglobin Concent 33 32-36 g/dL Red Cell Distribution Width 12.3 10.0-14.5 % Platelet Count 191 130-400 10^3/uL Mean Platelet Volume 9.4 9.0-12.2 fL Immature Granulocyte % (Auto) 1 % Neutrophils (%) (Auto) 74 42-75 % Lymphocytes (%) (Auto) 19 12-44 % Monocytes (%) (Auto) 6 0-12 % Eosinophils (%) (Auto) 1 0-10 % Basophils (%) (Auto) 0 0-10 % Neutrophils # (Auto) 6.5 1.8-7.8 10^3/uL Lymphocytes # (Auto) 1.7 1.0-4.0 10^3/uL Monocytes # (Auto) 0.5 0.0-1.0 10^3/uL Eosinophils # (Auto) 0.1 0.0-0.3 10^3/uL Basophils # (Auto) 0.0 0.0-0.1 10^3/uL Immature Granulocyte # (Auto) 0.0 0.0-0.1 10^3/uL Erythrocyte Sedimentation Rate 35 H 0-20 MM/HR Prothrombin Time 12.3 12.2-14.7 SEC INR Comment 0.9 0.8-1.4 Activated Partial Thromboplast Time 27 24-35 SEC D-Dimer 1.01 H 0.00-0.49 UG/ML Sodium Level 135 135-145 MMOL/L Potassium Level 3.4 L 3.6-5.0 MMOL/L Chloride Level 106 98-107 MMOL/L Carbon Dioxide Level 16 L 21-32 MMOL/L Anion Gap 13 5-14 MMOL/L Blood Urea Nitrogen 4 L 7-18 MG/DL Creatinine 0.54 L 0.60-1.30 MG/DL Estimat Glomerular Filtration Rate > 60 BUN/Creatinine Ratio 7 Glucose Level 94 70-105 MG/DL Calcium Level 8.2 L 8.5-10.1 MG/DL My Orders Orders - ABEL DALY DO Basic Metabolic Panel (10/28/20 03:05) Cbc With Automated Diff (10/28/20 03:05) Fibrin Degradation Products (10/28/20 03:05) Protime With Inr (10/28/20 03:05) Partial Thromboplastin Time (10/28/20 03:05) Erythrocyte Sedimentation Rate (10/28/20 03:05) Heart Tones (10/28/20 03:05) Vital Signs/I&O 10/28/20 02:53 Temp 36.2 Pulse 88 Resp 16 B/P (MAP) 114/75 (88) O2 Delivery Room Air Blood Pressure Mean: 88 Progress Progress Note : Progress Note FHT'S 147 NO ULTRASOUND AVAILABLE AT THIS TIME , AND PT DOES NOT MEET CRITERIA FOR EMERGENT ULTRASOUND--WILL ORDER OUTPATIENT ULTRASOUND PT [facility] AND / OR DR. GARIBAY TOMORROW AFTER ULTRASOUND. Departure Impression Primary Impression: Varicose veins of left lower extremity Additional Impression: Second trimester Disposition: 01 HOME, SELF-CARE Condition: Stable Departure-Patient Inst. Referrals: LACEY GARIBAY DO (PCP) Primary Care Physician [facility] (Family) Primary Care Physician Patient Instructions: Varicose Veins (DC) Add. Discharge Instructions: TYLENOL 1 GRAM 4 TIMES A DAY NEEDED FOR PAIN ELEVATE LEG MUCH POSSIBLE MOIST HEAT TO SORE AREAS AT 20 MINUTE INTERVALS GET OUTPATIENT ULTRASOUND OF LEG--CALL THIS MORNING TO SCHEDULE APPOINTMENT FOLLOW UP WITH DR [facility]ARIBAY AND/OR [facility] AFTER YOUR ULTRASOUND FOR FURTHER CARE. All discharge instructions reviewed with patient and/or family. Voiced understanding. ABEL DALY DO Oct 28, 2020 03:13
[2020-10-28 03:20] LABS: BASOPHILS % (AUTO) 0 % (0-10); EOSINOPHILS # (AUTO) 0.1 10^3/uL (0.0-0.3); EOSINOPHILS % (AUTO) 1 % (0-10); HEMATOCRIT 36 % (35-52); LYMPHOCYTES # (AUTO) 1.7 10^3/uL (1.0-4.0); LYMPHOCYTES % (AUTO) 19 % (12-44); MEAN CORPUSCULAR HEMOGLOBIN 31 pg (25-34); MEAN CORPUSCULAR HGB CONC 33 g/dL (32-36); MEAN CORPUSCULAR VOLUME 93 fL (80-99); MEAN PLATELET VOLUME 9.4 fL (9.0-12.2); MONOCYTES # (AUTO) 0.5 10^3/uL (0.0-1.0); MONOCYTES % (AUTO) 6 % (0-12); NEUTROPHILS # (AUTO) 6.5 10^3/uL (1.8-7.8); NEUTROPHILS % (AUTO) 74 % (42-75); PLATELET COUNT 191 10^3/uL (130-400); WHITE BLOOD COUNT 8.9 10^3/uL (4.3-11.0)
[2020-10-28 03:37] LABS: CHLORIDE 106 MMOL/L (98-107); POTASSIUM 3.4 MMOL/L (3.6-5.0); SODIUM 135 MMOL/L (135-145)
[2020-10-28 03:39] LABS: CALCIUM 8.2 MG/DL (8.5-10.1); GLUCOSE 94 MG/DL (70-105)
[2020-10-28 03:40] LABS: CARBON DIOXIDE 16 MMOL/L (21-32); FIBRIN DEGRADATION PRODUCTS 1.01 UG/ML (0.00-0.49); INR 0.9 (0.8-1.4); PROTHROMBIN TIME PATIENT 12.3 SEC (12.2-14.7)
[2020-10-28 03:43] LABS: CREATININE SERUM 0.54 MG/DL (0.60-1.30); GFR ESTIMATED > 60
[2020-10-28 03:44] LABS: BUN/CREATININE RATIO 7; ERYTHROCYTE SEDIMENTATION RATE 35 MM/HR (0-20)
== END 2020-10-28 03:55 | disposition home or self-care (01) ==
LOC: EDUNIT# 02:44 → ER 02:47
DX: O22.02 Varicose veins of lower extremity in pregnancy, second trimester (principal); J45.909 Unspecified asthma, uncomplicated; Z3A.00 Weeks of gestation of pregnancy not specified
CPT/HCPCS: 36415; 80048; 85025; 85379; 85610; 85652; 85730

== ENCOUNTER → 2020-10-29 | Outpatient (CLI) | payer OTHER ==
--- NOTE | 2020-10-29 14:46 | Diagnostic Imaging Report ---
PROCEDURE: US left lower extremity venous. TECHNIQUE: Multiple real-time grayscale images were obtained over the left lower extremity in various projections. Additional duplex Doppler and color Doppler images were also obtained. INDICATION: Left leg pain. There is no evidence of left lower extremity DVT. Left lower extremity venous system shows normal compressibility with normal response augmentation and Valsalva. No thrombosed varices are seen. There is no fluid collection or mass. IMPRESSION: No evidence of left lower extremity DVT. Dictated by: Dictated on workstation # [id number]
== END ==
LOC: RAD 13:15
PROVIDERS: ATTEND Emergency Medicine
DX: I83.92 Asymptomatic varicose veins of left lower extremity (principal)

== ENCOUNTER 2021-01-17 08:15 | Outpatient (CLI) | payer OTHER ==
[~2021-01-17] VITALS: Ht 167 cm; Wt 89.3 kg
[~2021-01-17 08:15] MED LIST changes: -OMEP40CA27; +OMEP40CA6
[2021-01-17 08:33] VITALS: BP 131/80
[2021-01-17 08:40] VITALS: BP 131/80
[2021-01-17 08:46] VITALS: BP 131/80
[2021-01-17 08:47] LABS: BILIRUBIN,URINE NEGATIVE (NEGATIVE); CLARITY,URINE CLEAR; COLOR,URINE YELLOW; GLUCOSE, URINE (UA) NEGATIVE (NEGATIVE); KETONES,URINE NEGATIVE (NEGATIVE); LEUKOCYTE ESTERASE ,URINE 1+ (NEGATIVE); NITRITE,URINE NEGATIVE (NEGATIVE); PH,URINE 6.5 (5-9); PROTEIN,URINE NEGATIVE (NEGATIVE)
[2021-01-17 09:02] VITALS: BP 111/59
[2021-01-17 09:04] LABS: BACTERIA,URINE MODERATE /HPF; SQUAMOUS EPITHELIAL CELL,UR 25-50 /HPF
[2021-01-17 09:28] VITALS: BP 111/59
[2021-01-17] MEDS ORDERED: CEPH500T PO ×2 (09:36)
[2021-01-17 09:50] VITALS: BP 111/59
--- NOTE | 2021-01-18 08:25 | Physician Query-Final Dx ---
Clinic Account Progress/Dx Physician Query: Please give diagnosis Please include # weeks gestation Date of Service Jan 17, 2021 at 08:15 PHYLICIA NESS Jan 18, 2021 08:25
== END 2021-01-17 09:50 | disposition home or self-care (01) ==
LOC: WSo 08:15 → LDRP 08:15 → WSo 09:50
PROVIDERS: ATTEND Obstetrics & Gynecology
DX: O36.8190 Decreased fetal movements, unspecified trimester, not applicable or unspecified (principal); Z3A.00 Weeks of gestation of pregnancy not specified
CPT/HCPCS: 81000; 87088; G0463; 87077; 99213

== ENCOUNTER 2021-01-18 05:36 | Outpatient (CLI) | payer SELFPAY ==
[2021-01-19] MEDS ORDERED: CETI10TA49 PO (12:38)
== END 2021-01-19 12:48 | disposition home or self-care (01) ==
LOC: PREOP 05:36
PROVIDERS: ATTEND Obstetrics & Gynecology
DX: Z01.818 Encounter for other preprocedural examination (principal)

== ENCOUNTER 2021-01-22 13:30 | Outpatient (CLI) | payer OTHER ==
[~2021-01-22] VITALS: Ht 165 cm; Wt 90.5 kg
[~2021-01-22 13:30] MED LIST changes: +CETI10TA49 PO
[2021-01-22 13:52] VITALS: BP 115/78
[2021-01-22 14:00] VITALS: BP 115/78
[2021-01-22 14:24] VITALS: BP 115/78
[2021-01-22 15:10] VITALS: BP 115/78
--- NOTE | 2021-01-25 08:10 | Physician Query-Final Dx ---
PHYLICIA NESS 01/25/21 0810: Clinic Account Progress/Dx Physician Query: Please give diagnosis Please include # weeks gestation Date of Service Jan 22, 2021 at 13:30 LACEY GARIBAY DO 01/25/21 0913: Clinic Account Progress/Dx DIAGNOSIS: Diagnosis 38 week IUP Acute gastroenteritis Diarrhea Previous PHYLICIA NESS Jan 25, 2021 08:10 LACEY GARIBAY DO Jan 25, 2021 09:13
[2021-01-25] MEDS ORDERED: DCS100C PO (09:04)
[2021-01-25] MEDS ORDERED: ACHD5005 PO (09:04)
[2021-01-25] MEDS ORDERED: IBUP-844 PO (09:04)
== END 2021-01-22 15:10 | disposition home or self-care (01) ==
LOC: WSo 13:30 → LDRP 13:31 → WSo 15:10
PROVIDERS: ATTEND Obstetrics & Gynecology
DX: O99.613 Diseases of the digestive system complicating pregnancy, third trimester (principal); Z3A.38 38 weeks gestation of pregnancy

== ENCOUNTER 2021-01-25 07:30 | Inpatient (IN) | payer OTHER ==
[2021-01-25] VITALS (8 sets, daily range): BP systolic 108–145; BP diastolic 69–91
[~2021-01-25] VITALS: Ht 167 cm; Wt 90.5 kg
--- NOTE | 2021-01-25 07:45 | History & Physical-OB ---
OB - Chief Complaint & HPI Date/Time Date of Admission: Date of Admission: Jan 25, 2021 at 07:30 Date seen by a Provider: Jan 25, 2021 Time Seen by a Provider: 07:44 Chief Complaint/History OB-Reason for Admission/Chief: Section Hx : 5 Hx Para: 4 Expected Date of Delivery: Jan 30, 2021 Gestational Age in Weeks: 39 Gestational Age in Days: 2 Indication for : desires repeat Admission Nurse Assessment Rev: Yes History of Labs B pos RI GBS pos Allergies and Home Medications Allergies Coded Allergies: No Known Drug Allergies (Unverified , 11/20/15) Home Medications Cephalexin 500 Mg Tablet, 500 MG PO QID Prescribed by: TRINITY RICHARD on 01/17/21 0936 Vit W-Ca,Fe,FA(<1 mg) 1 Each Tablet, 1 EACH PO DAILY, (Reported) Patient Home Medication List Home Medication List Reviewed: Yes OB - History Hx of Present Care: Yes Ultrasounds: Normal mid trimester US Obstetrical Complications: None Medical Complications: None Obstetrical History Hx Termination: No Hx Multiple Gestation: No Hx Stillbirth: No Hx Complication: No Hx Induced Hypertens: Yes Hx Maternal Gestational Diabet: No Delivery History Hx Dystocia: No Hx Large For Gestational Age I: No Hx Small for Gestational Age I: No Hx Section: No Hx Vaginal Delivery Post C-Sec: No Hx Blood Disorders: No Adverse Rxn to Tranfusion: No Patient Past Medical History n/a Social History/Family History 2nd Hand Smoke Exposure: No Immunizations Hepatitis A: No Hepatitis B: No Tetanus Booster (TDap): Less than 5yrs Date of Influenza Vaccine: Apr 11, 2016 OB - Admission Exam Physical Exam HEENT: NCAT Heart: Rhythm Normal Lungs: Clear Abdomen: Gravid Extremities: Normal Reflexes: Normal Cervical Dilatation: 1cm Effacement: 75% Station: -2 Membranes: Intact Heart Rate: 130's Accelerations: Accelerations Present Decelerations: No Decelerations Short Term Variability: Present Carbon Brush Maker Variability: Average (6-25) Contractions on Admission: >10 Minutes Apart Intensity: Mild OB - Assessment/Plan/Diagnosis Assessment Assessment: section Admission Dx 30 yo @ 39 weeks Previous Admission Status: Inpatient Order (span 2 midnights) Reason for Inpatient Admission: Repeat Plan Plan: Section FENECH,LACEY S DO Jan 25, 2021 07:45
[2021-01-25] MEDS ORDERED: ONDANSETRON 4 MG/2 ML (SDV) Z0FRAN ONE (07:46)
[2021-01-25] MEDS ORDERED: OXYTOCIN PRE-MIX DRIP 1,000 ML IV ONE (07:46)
[2021-01-25] MEDS ORDERED: BUPIVACAINE 0.5% 30 ML (SENSORCAINE) VIAL ONE (07:46)
[2021-01-25] MEDS ORDERED: fentaNYL INJ 100 MCG/2 ML AMP ONE (07:46)
[2021-01-25] MEDS ORDERED: ceFAZolin 2 GM IV Premixed 50 ML IV ONE (08:00)
[2021-01-25] MEDS ORDERED: CITRIC ACID/SOB CIT (BICITRA) 30 ML UDC PO ONE (08:00)
[2021-01-25] MEDS ORDERED: LACTATED RINGERS 1,000 ML IV PRN ×2 (08:00)
[2021-01-25] MEDS ORDERED: FAMOTIDINE 20MG/2ML IV (PEPCID) IV ONE (08:00)
[2021-01-25] MEDS ORDERED: METOCLOPRAMIDE INJ 10 MG/2 ML (REGLAN) IV ONE (08:00)
[2021-01-25 08:07] LABS: BASOPHILS % (AUTO) 0 % (0-10); EOSINOPHILS # (AUTO) 0.1 10^3/uL (0.0-0.3); EOSINOPHILS % (AUTO) 1 % (0-10); HEMATOCRIT 35 % (35-52); HEMOGLOBIN 11.6 g/dL (11.5-16.0); LYMPHOCYTES # (AUTO) 1.7 10^3/uL (1.0-4.0); LYMPHOCYTES % (AUTO) 22 % (12-44); MEAN CORPUSCULAR HEMOGLOBIN 29 pg (25-34); MEAN CORPUSCULAR HGB CONC 33 g/dL (32-36); MEAN CORPUSCULAR VOLUME 87 fL (80-99); MEAN PLATELET VOLUME 10.4 fL (9.0-12.2); MONOCYTES # (AUTO) 0.5 10^3/uL (0.0-1.0); MONOCYTES % (AUTO) 6 % (0-12); NEUTROPHILS # (AUTO) 5.3 10^3/uL (1.8-7.8); NEUTROPHILS % (AUTO) 70 % (42-75); PLATELET COUNT 161 10^3/uL (130-400); WHITE BLOOD COUNT 7.6 10^3/uL (4.3-11.0)
[2021-01-25] MEDS ORDERED: ceFAZolin 2 GM IV Premixed 50 ML ONE (08:24)
[2021-01-25] MEDS ORDERED: TETANUS,DIPTH,PERTUSS P/F (BOOSTRIX) 0.5 ML VIAL IM SCH (09:00)
[2021-01-25] MEDS ORDERED: ONDANSETRON 4 MG/2 ML (SDV) Z0FRAN IVP PRN (09:00)
[2021-01-25] MEDS ORDERED: MEASLES,MUMPS,RUBELLA 1 EA INJ SC SCH (09:00)
--- NOTE | 2021-01-25 09:02 | Discharge Inst-Women's Service ---
Discharge Inst-Women's Serv Depart Medication/Instructions New, Converted or Re-Newed RX: RX on Chart Final Diagnosis POD 2 RLTCS Problems Reviewed?: Yes Consults/Follow Up Additional Follow Up: Yes Orders/Referrals Dr. Jamison in 7-10 days and in 6 weeks Activity Activity: Activity as Tolerated Driving Instructions: No Driving for 1 Week NO SMOKING: NO SMOKING Nothing Inside Vagina: No Douching, No [place], No Tampons Diet Discharge Diet: No Restrictions Symptoms to Report to : Bleeding Excessive, Pain Increased, Fever Over 101 Degrees F, Vaginal Bleeding Increase, Questions/Concerns For Any Problems or Questions: Contact Your Physician Skin/Wound Care Infection Signs and Symptoms: Increased Redness, Foul Odor of Wound, Increased Drainage, Skin Itchy or Has a Rash, Increased Swelling, Temperature Above 101 F Operative Area Clean and Dry: Keep Incision Clean/Dry Stitches/Zane/Dermabond: Dermabond, Care of Stitches Bathing Instructions: LACEY Cannon DO Jan 25, 2021 09:02
[2021-01-25] MEDS ORDERED: DCS100C PO (09:04)
[2021-01-25] MEDS ORDERED: ACHD5005 PO (09:04)
[2021-01-25] MEDS ORDERED: IBUP-844 PO (09:04)
[2021-01-25] MEDS ORDERED: KETOROLAC 30 MG/ML VIAL ONE (09:52)
[2021-01-25] MEDS ORDERED: NALOXONE 0.4 MG/ML 1 ML (NARCAN) VIAL IV PRN ×2 (10:45)
[2021-01-25] MEDS ORDERED: diphenhydrAMINE 50 MG/ML INJ (BENADRYL) IV PRN (10:45)
[2021-01-25] MEDS ORDERED: METOCLOPRAMIDE INJ 10 MG/2 ML (REGLAN) IV PRN (10:45)
[2021-01-25] MEDS ORDERED: ONDANSETRON 4 MG/2 ML (SDV) Z0FRAN IV PRN (10:45)
[2021-01-25] MEDS ORDERED: METHYLERGONOVINE 0.2 MG/ML (METHERGINE) AMP IM ONE (10:45)
[2021-01-25] MEDS: OXYTOCIN PRE-MIX DRIP 500 ML IV SCH ×2 (12:52→16:55)
[2021-01-25] MEDS: HYDROcodone/APAP 5 MG/325 MG (LORTAB) TAB PO PRN ×2 (12:57→21:43)
--- NOTE | 2021-01-25 15:40 | OPERATIVE REPORT ---
DATE OF SERVICE: 01/25/2021 PREOPERATIVE DIAGNOSES: 1. A 30-year-old G5, P4 at 39 weeks and 2 days gestation. 2. Previous section. POSTOPERATIVE DIAGNOSES: 1. A 30-year-old G5, P4 at 39 weeks and 2 days gestation. 2. Previous section. PROCEDURE: Repeat low transverse section. SURGEON: Duke Garibay DO ANESTHESIA: Spinal. ESTIMATED BLOOD LOSS: 500 mL. URINE OUTPUT: 100 mL clear at the end of the procedure. FLUIDS: 1000 mL lactated Ringer's solution. FINDINGS: A live female infant weighing 8 pounds 10 ounces, Apgars of 8 and 8. Grossly normal appearing uterus, bilateral fallopian tubes and ovaries. SPECIMEN SENT: None. INDICATIONS FOR PROCEDURE: This 30-year-old female is a patient who had sought care in my office. Her care was uncomplicated with the exception of need for repeat . She did have some significant lower extremity swelling and varicosities, but other than that, things were unremarkable with her . We discussed the risk of repeat in her preoperative visits and her care including risk of bleeding, infection, damage to surrounding structures including, but not limited to bowel, bladder, ureter, kidneys, possible need for reoperation, postoperative complications that may occur, risk from anesthesia, recovery timeframe, possible need for blood transfusion and even . Everything was discussed with the patient in detail, consent was obtained in the preoperative area, the patient was taken to the operating room. OPERATIVE REPORT IN DETAIL: Once in the operating room, spinal anesthesia was found to be adequate. She was placed in supine position with leftward tilt, prepped and draped in normal sterile fashion. Timeout was performed and anesthesia was tested. I then make a Pfannenstiel skin incision through the previously existing scar using knife and carried down to underlying fascia using Bovie cautery. The fascial incision was extended laterally using Bovie cautery. Superior aspect of fascial incision was then grasped with Junito clamps, tented up and dissected off the underlying rectus muscles. The inferior aspect of fascial incision was then grasped with Junito clamps, tented up and dissected off the underlying rectus muscles. Rectus muscles were then dissected down the midline using sharp dissection, which exposed the peritoneum, which I entered bluntly and extended using blunt traction. Surinder ring retractor was placed in the peritoneal incision, which offers excellent lateral sidewall retraction. I identified the lower uterine segment, which was found to be thinned out and make a low transverse incision to the vesicouterine peritoneum and bluntly dissected off the lower uterine segment creating a bladder flap. I then proceeded my myotomy until membranes were visualized, at which point, I extended uterine incision laterally and superiorly using bandage scissors. Amniotomy was performed. In the process of doing this, clear fluid was noted. Infant was then found in the vertex presentation. With gentle fundal pressure, the 's head was elevated up to the incision were delivered through the incision. Nares and oropharynx were bulb suctioned. Nuchal cord was reduced x2. Anterior and posterior shoulders were delivered. The was then brought to the operative field with cord doubly clamped and cut and was handed off to waiting nurses in attendance. Cord blood was collected, 3-vessel cord with intact placenta was delivered spontaneously thereafter. IV Pitocin is initiated to facilitate uterine contraction. Uterine fundus confirmed by manual massage. The uterus was then exteriorized and cleared of all endometrial clots and debris. I then proceeded with closing the uterine incision using 0 Vicryl suture in running locked fashion. Second layer of imbricating 0 Monocryl was placed. Excellent hemostasis was noted after doing this. I then placed the uterus back in the pelvis and copiously irrigated the pelvis using normal saline. Once again, there was no active bleeding noted from any of my dissection planes. I placed Interceed antiadhesive over my low transverse incision. I then removed the Surinder ring retractor. I then reapproximated the peritoneum using 3-0 Vicryl suture in a running fashion. The rectus muscle reapproximated using 3-0 Vicryl suture in interrupted fashion. The fascia was reapproximated using 0 Vicryl suture in running fashion. Subcutaneous tissue was reapproximated using 3-0 plain interrupted subcutaneous stitch and skin reapproximated using 4-0 Monocryl running subcuticular. Dermabond was applied to incision and sterile dressing with adhesive white tape. The patient tolerated the procedure well and sent to recovery area in stable condition. Lap and sponge counts were correct at the end of the procedure. Instrument counts correct as well. Two grams of Ancef given preoperatively for infection prophylaxis. Job ID: [id number] DocumentID: [id number] Dictated Date: 01/25/2021 10:07:16 Insole Reinforcer Date: 01/25/2021 15:39:25 Dictated By: DUKE GARIBAY DO
[2021-01-25] MEDS: KETOROLAC 30 MG/ML VIAL IV SCH ×2 (15:42→20:48)
[2021-01-25] MEDS ORDERED: HYDROmorphone 2 MG/ML VIAL (DILAUDID) IVP ONE (18:15)
[2021-01-25] MEDS ORDERED: SIMETHICONE 80 MG (MYLICON) CHEW ONE (18:17)
[2021-01-25] MEDS: SIMETHICONE 80 MG (MYLICON) CHEW PO PRN (18:22)
[2021-01-25] MEDS: CATHETER FLUSH 10 ML SYR IV SCH ×2 (19:33→20:49)
[2021-01-25] MEDS: DOCUSATE SODIUM 100 MG (COLACE) CAP PO SCH ×3 (19:33→20:23)
[2021-01-26] VITALS: BP 120/64
[2021-01-26] MEDS: KETOROLAC 30 MG/ML VIAL IV SCH ×2 (02:30→08:25)
[2021-01-26] MEDS: CATHETER FLUSH 10 ML SYR IV SCH (02:30)
[2021-01-26 05:00] VITALS: BP 118/66
[2021-01-26] MEDS: HYDROcodone/APAP 5 MG/325 MG (LORTAB) TAB PO PRN ×4 (05:01→23:19)
[2021-01-26] MEDS: SIMETHICONE 80 MG (MYLICON) CHEW PO PRN ×4 (05:12→23:19)
[2021-01-26 06:27] LABS: BASOPHILS % (AUTO) 0 % (0-10); EOSINOPHILS % (AUTO) 0 % (0-10); HEMATOCRIT 29 % (35-52); HEMOGLOBIN 9.4 g/dL (11.5-16.0); LYMPHOCYTES # (AUTO) 2.3 10^3/uL (1.0-4.0); LYMPHOCYTES % (AUTO) 20 % (12-44); MEAN CORPUSCULAR HEMOGLOBIN 29 pg (25-34); MEAN CORPUSCULAR HGB CONC 33 g/dL (32-36); MEAN CORPUSCULAR VOLUME 87 fL (80-99); MEAN PLATELET VOLUME 11.3 fL (9.0-12.2); MONOCYTES # (AUTO) 0.7 10^3/uL (0.0-1.0); MONOCYTES % (AUTO) 6 % (0-12); NEUTROPHILS # (AUTO) 8.7 10^3/uL (1.8-7.8); NEUTROPHILS % (AUTO) 74 % (42-75); PLATELET COUNT 170 10^3/uL (130-400); WHITE BLOOD COUNT 11.8 10^3/uL (4.3-11.0)
--- NOTE | 2021-01-26 07:51 | Postpartum Progress Note ---
Note Note Day # 1 Subjective: Patient is without complaints. Ambulating, voiding. Tolerating a regular diet without nausea or vomiting. Normal lochia. Pain is well controlled with oral pain medications. Objective: Physical Exam: General - Alert and oriented, no apparent distress Abdomen - Soft, appropriately tender to palpation, non-distended, fundus firm at umbilicus Extremities - no edema, negative Guadalupe's bilaterally Incision- c/d/i Assessment: POD 1 RLTCS Acute blood loss anemia Plan: Routine care. Encourage breast feeding. Encourage ambulation. Ferrous sulfate supplementation. Plan for discharge tomorrow Vitals - Labs Vital Signs - I&O Vital Signs Date Time Temp Pulse Resp B/P (MAP) Pulse Ox O2 Delivery O2 Flow Rate FiO2 01/26/21 05:00 36.6 77 18 118/66 (83) 99 Room Air 01/26/21 00:00 36.4 70 18 120/64 (82) 100 Room Air 01/25/21 23:55 Room Air 01/25/21 20:15 36.6 72 18 123/69 (87) 99 Room Air 01/25/21 15:48 36.7 69 18 131/79 (96) 98 Room Air 01/25/21 11:45 36.3 99 18 145/72 (96) 100 Room Air 01/25/21 11:10 Room Air 01/25/21 11:00 36.6 16 122/74 (90) 100 Room Air 01/25/21 10:45 36.4 16 108/76 (87) 99 Room Air 01/25/21 10:40 Room Air 01/25/21 10:30 36.7 16 108/91 (97) 99 Room Air 01/25/21 10:25 Room Air 01/25/21 10:15 122/74 (90) 100 Room Air 01/25/21 10:10 Room Air I & O 01/26/21 06:59 Intake Total 1850 ml Output Total 1100 ml Balance 750 ml Labs Laboratory Tests 01/26/21 05:44: White Blood Count 11.8H, Red Blood Count 3.28L, Hemoglobin 9.4L, Hematocrit 29L, Mean Corpuscular Volume 87, Mean Corpuscular Hemoglobin 29, Mean Corpuscular Hemoglobin Concent 33, Red Cell Distribution Width 13.9, Platelet Count 170, Mean Platelet Volume 11.3, Immature Granulocyte % (Auto) 0, Neutrophils (%) (Auto) 74, Lymphocytes (%) (Auto) 20, Monocytes (%) (Auto) 6, Eosinophils (%) (Auto) 0, Basophils (%) (Auto) 0, Neutrophils # (Auto) 8.7H, Lymphocytes # (Auto) 2.3, Monocytes # (Auto) 0.7, Eosinophils # (Auto) 0.0, Basophils # (Auto) 0.0, Immature Granulocyte # (Auto) 0.1 LACEY GARIBAY DO Jan 26, 2021 07:51
[2021-01-26] MEDS: DOCUSATE SODIUM 100 MG (COLACE) CAP PO SCH ×2 (08:25→20:59)
[2021-01-26 08:30] VITALS: BP 112/60
--- NOTE | 2021-01-26 13:28 | Anesthesia-Regional Post-Op ---
Regional Patient Condition Mental Status: Alert, Oriented x3 Circulation: Same as Pre-Op Headache: Absent Sensation: Full Recovery Motor Block: Absent Post Op Complications Complications None Follow Up Care/Instructions Patient Instructions None needed. Anesthesia/Patient Condition Patient is doing well, no complaints, stable vital signs, no apparent adverse anesthesia problems. No complications reported per nursing. RISHI WEINER CRNA Jan 26, 2021 13:28
[2021-01-26] MEDS: IBUPROFEN 600 MG (MOTRIN) TAB PO SCH ×2 (14:15→21:00)
[2021-01-26 14:17] VITALS: BP 114/72
[2021-01-26 21:00] VITALS: BP 112/60
[2021-01-27] MEDS: IBUPROFEN 600 MG (MOTRIN) TAB PO SCH ×2 (02:31→07:41)
[2021-01-27 02:42] VITALS: BP 115/89
--- NOTE | 2021-01-27 07:25 | Postpartum Progress Note ---
Note Note Day # 2 Subjective: Patient is without complaints. Ambulating, voiding. Tolerating a regular diet without nausea or vomiting. Normal lochia. Pain is well controlled with oral pain medications. Objective: Physical Exam: General - Alert and oriented, no apparent distress Abdomen - Soft, appropriately tender to palpation, non-distended, fundus firm at umbilicus Extremities - no edema, negative Guadalupe's bilaterally Incision- c/d/i Assessment: POD 2 RLTCS Acute blood loss anemia Plan: Routine care. Encourage breast feeding. Encourage ambulation. Ferrous sulfate supplementation. Plan for discharge today Vitals - Labs Vital Signs - I&O Vital Signs Date Time Temp Pulse Resp B/P (MAP) Pulse Ox O2 Delivery O2 Flow Rate FiO2 01/27/21 02:42 36.4 88 20 115/89 (98) 99 Room Air 01/26/21 21:00 36.3 90 18 112/60 (77) 99 Room Air 01/26/21 14:17 36.5 100 18 114/72 (86) Room Air 01/26/21 08:30 36.3 77 18 112/60 (77) 100 Room Air LACEY GARIBAY DO Jan 27, 2021 07:25
[2021-01-27 07:40] VITALS: BP 124/80
[2021-01-27] MEDS: SIMETHICONE 80 MG (MYLICON) CHEW PO PRN (07:41)
[2021-01-27] MEDS: DOCUSATE SODIUM 100 MG (COLACE) CAP PO SCH (07:41)
[2021-01-27 13:30] VITALS: BP 124/80
== END 2021-01-27 13:30 | disposition home or self-care (01) | DRG 787 ==
LOC: LDRP 07:30
PROVIDERS: ADMIT Obstetrics & Gynecology; ATTEND Obstetrics & Gynecology
PROC: 10D00Z1 Extraction of Products of Conception, Low, Open Approach (ICD-10-PCS; principal; 2021-01-25 09:00)
DX: O34.211 Maternal care for low transverse scar from previous cesarean delivery (principal); D62 Acute posthemorrhagic anemia; O90.81 Anemia of the puerperium; O69.81X0 Labor and delivery complicated by cord around neck, without compression, not applicable or unspecified; Z3A.39 39 weeks gestation of pregnancy; Z37.0 Single live birth
CPT/HCPCS: 36415; 85025; 85027; 86850; 86900; 86901; 94664

== ENCOUNTER 2021-03-18 06:40 | Emergency (ER) | payer MEDICAID ==
[~2021-03-18] VITALS: Ht 165 cm; Wt 80.0 kg
[2021-03-18] MEDS ORDERED: PRD50T PO (07:24)
--- NOTE | 2021-03-18 07:25 | ED Integumentary General ---
General Chief Complaint: Bite-Animal/Human/Insect Stated Complaint: SPIDER BITE,FEELS ITCHY Source: patient Exam Limitations: no limitations History of Present Illness Date Seen by Provider: Mar 18, 2021 Time Seen by Provider: 07:10 Initial Comments Patient is a 30-year-old female who is approximately 1-1/2 months C- section delivery healthy baby presents to the emergency department with a chief complaint of a "spider bite" to the left side of her neck. She woke up at about 530 with a spider on her and removed it. She saw the spider. Patient states shortly afterward she developed a little bit of a left-sided headache. Did not take any medications. States she has subsequently developed a little bit of a rash over the left side of her face, neck and left upper chest. She has a history of asthma denies any problems with breathing. Uses her inhaler a couple of times a week to a couple of times a month. Denies any mouth swelling difficulty swallowing or speaking. No fevers, recent illnesses. Is breast-feeding. All other review of systems reviewed and negative except as stated Timing/Duration: this morning Severity: mild Location: scalp, face Possible Cause: insect sting Associated Symptoms: denies symptoms Allergies and Home Medications Allergies Coded Allergies: No Known Drug Allergies (Unverified , 11/20/15) Patient Home Medication List Home Medication List Reviewed: Yes Cephalexin (Cephalexin) 500 Mg Tablet, 500 MG PO QID Prescribed by: TRINITY RICHARD on 01/17/21 0936 Docusate Sodium (Dok) 100 Mg Capsule, 100 MG PO BID PRN for CONSTIPATION-1ST LINE Prescribed by: LACEY GARIBAY on 01/25/21 09 Hydrocodone Bit/Acetaminophen (HYDROcodone/APAP 5 MG/325 MG TAB) 1 Tab Tab, 1-2 EA PO Q6HR PRN for PAIN-MODERATE (5-7) Prescribed by: LACEY GARIBAY on 01/25/21 09 Hydrocodone/Acetaminophen (Hydrocodone-Acetamin 5-325 mg) 1 Each Tablet, 1-2 TAB PO Q6H PRN for PAIN-MODERATE (5-7) Prescribed by: LACEY GARIBAY on 03/11/21 2146 Ibuprofen (Ibu) 600 Mg Tablet, 600 MG PO Q6HR Prescribed by: LACEY GARIBAY on 01/25/21 09 Ibuprofen (Ibuprofen) 600 Mg Tablet, 600 MG PO Q6H Prescribed by: LACEY GARIBAY on 03/11/21 2145 Vit W-Ca,Fe,FA(<1 mg) ( Vitamins) 1 Each Tablet, 1 EACH PO DAILY, (Reported) Entered as Reported by: AVIS DUMONT on 09/02/18 1610 Review of Systems Review of Systems Constitutional: see HPI EENTM: no symptoms reported Respiratory: no symptoms reported Cardiovascular: no symptoms reported Gastrointestinal: no symptoms reported Genitourinary: no symptoms reported : No Musculoskeletal: no symptoms reported Skin: rash Psychiatric/Neurological: Tingling All Other Systems Reviewed Negative Unless Noted: Yes Past Hnsnrwq-Opouhc-Igybhu Hx Immunizations Up To Date Tetanus Booster (TDap): Less than 5yrs PED Vaccines UTD: Yes Seasonal Allergies Seasonal Allergies: Yes (TAKES ZYRTEC) Past Medical History Surgeries: Yes (PREVIOUS ) Section Respiratory: Yes Asthma Currently Using CPAP: No Currently Using BIPAP: No Cardiac: No Neurological: No Reproductive Disorders: No Genitourinary: No Gastrointestinal: No Chronic Constipation Musculoskeletal: No Endocrine: No HEENT: No Cancer: No Psychosocial: No Integumentary: No Blood Disorders: No Adverse Reaction/Blood Tranf: No Family Medical History Patient reports no known family medical history. No Pertinent Family Hx Physical Exam Vital Signs Capillary Refill : General Appearance: WD/WN, no apparent distress HEENT: PERRL/EOMI, normal ENT inspection, TMs normal Neck: full range of motion, supple, normal inspection Cardiovascular: regular rate, rhythm Respiratory: lungs clear, normal breath sounds, no respiratory distress, no accessory muscle use Extremities: normal range of motion, normal inspection Neurologic/Psychiatric: alert, normal mood/affect, oriented x 3 Skin: normal color, rash (Mild nonraised/macular rash, blanchable, faint to the left side of the face neck and very upper part of the left chest wall. Nontender. No draining lesions; pruritic) Lymphatic: no adenopathy Departure Impression Primary Impression: Dermatitis Disposition: 01 HOME, SELF-CARE Condition: Stable Departure-Patient Inst. Decision time for Depature: 07:22 Referrals: [facility] (PCP/Family) Primary Care Physician Patient Instructions: Dermatitis Add. Discharge Instructions: Apply an over the counter anti-itch cream, available at [facility] that is not benadryl based for itching. Take prednisone 50mg once a day for the next two days starting tomorrow. You have been given your first dose here. Return to the Emergency Department for any worsening rash, especially associated with shortness of breath, fever, difficulty with swallowing or talking or any other emergent, concerning symptoms. Scripts Prednisone (Prednisone) 50 Mg Tab 50 MG PO DAILY for 2 Days, #2 TAB Prov: HOLA HURD MD 03/18/21 HOLA HURD MD Mar 18, 2021 07:25
[2021-03-18] MEDS ORDERED: predniSONE 20 MG TAB PO ONE (07:30)
[2021-03-18 07:31] VITALS: BP 111/86
== END 2021-03-18 07:34 | disposition home or self-care (01) ==
LOC: EDUNIT# 06:40 → ER 06:44
DX: L30.9 Dermatitis, unspecified (principal); J45.909 Unspecified asthma, uncomplicated
CPT/HCPCS: 99283

== ENCOUNTER 2021-04-30 05:35 | Outpatient (CLI) | payer MEDICAID ==
[~2021-04-30] VITALS: Ht 154.9 cm; Wt 79.4 kg
[~2021-04-30 05:35] MED LIST changes: +DOCU-239 PO; +PRD50T PO
[2021-04-30] MEDS ORDERED: DOCU100C37 PO (15:23)
[2021-04-30] MEDS ORDERED: ALBU1.25 INH (15:23)
[2021-04-30] MEDS ORDERED: ACET325T38 PO (15:23)
== END 2021-05-03 11:08 | disposition home or self-care (01) ==
LOC: PREOP 05:35
PROVIDERS: ATTEND Surgery
DX: Z01.818 Encounter for other preprocedural examination (principal)

== ENCOUNTER 2021-05-07 12:20 | Day surgery (SDC) | payer MEDICAID ==
[~2021-05-07] VITALS: Ht 154.9 cm; Wt 79.4 kg
[~2021-05-07 12:20] MED LIST changes: +ACET325T38 PO; +ALBU1.25 INH
[2021-05-07] MEDS ORDERED: LACTATED RINGERS 1,000 ML IV STA (12:28)
[2021-05-07 12:45] VITALS: BP 113/77
--- NOTE | 2021-05-07 12:54 | Progress Note-Pre Operative ---
Pre-Operative Progress Note H&P Reviewed The H&P was reviewed, patient examined and no changes noted. Time Seen by Provider: 12:49 Date H&P Reviewed: May 07, 2021 Time H&P Reviewed: 12:49 Pre-Operative Diagnosis: rectal bleed JEANNINE MOSHER DO May 07, 2021 12:54
[2021-05-07] MEDS ORDERED: MIDAZOLAM 2 MG/2 ML (VERSED) VIAL ONE (13:46)
[2021-05-07] MEDS ORDERED: PROPOFOL INJECTION 50 ML IV ONE (13:46)
--- NOTE | 2021-05-07 14:47 | Anesthesia-General Post-Op ---
MAC Patient Condition Mental Status/LOC: Same as Preop Cardiovascular: Satisfactory Nausea/Vomiting: Absent Respiratory: Satisfactory Pain: Controlled Complications: Absent Post Op Complications Complications None Follow Up Care/Instructions Patient Instructions None needed. Anesthesiology Discharge Order Discharge Order Patient is doing well, no complaints, stable vital signs, no apparent adverse anesthesia problems. No complications reported per nursing. SARBJIT BLANCO CRNA May 07, 2021 14:47
[2021-05-07 14:52] VITALS: BP 101/66
[2021-05-07 14:57] VITALS: BP 107/65
[2021-05-07 15:00] VITALS: BP 114/72
--- NOTE | 2021-05-07 15:00 | Progress Note-Post Operative ---
Post-Operative Progess Note Surgeon (s)/Painter Maintenance (s) Surgeon JEANNINE MOSHER DO Painter Maintenance: YRN Valle Pre-Operative Diagnosis rectal bleed Post-Operative Diagnosis same plus internal hemorrhoids Procedure & Operative Findings Date of Procedure 05/07/21 Procedure Performed/Findings Colonoscopy PROCEDURE NOTE: After informed consent was obtained, the patient was brought to the endoscopy suite, placed in bed in left lateral decubitus position. She was administered IV sedation by the MACHINE FASTENER who then monitored her vitals the entire time, heart rate, blood pressure and pulse ox and the scope was inserted, pushed all the way to about 130 cm and pushed into the cecum, took a picture of appendiceal orifice and then slowly withdrew the scope insufflating to look circumferentially at the thao. Starting in the cecum, up the ascending colon to the hepatic flexure, then down the transverse colon, splenic flexure, into the descending colon down in the sigmoid and then into the rectal vault and retroflexed the scope. Took picture of some internal hemorrhoids; grade I probably not grade II. She also had some mild proctitis that looked to mostly be caused by the prep. No ulcerations or erythema seen anywhere else in colon and pictu res taken throughout to show this. The patient tolerated the procedure. She was recovered in endoscopy suite. Anesthesia Type IV sedation by MACHINE FASTENER Estimated Blood Loss Estimated blood loss (mL): none Specimens/Packing Specimens Removed none JEANNINE MOSHER DO May 07, 2021 15:00
--- NOTE | 2021-05-07 15:01 | Endoscopy Discharge Instruct ---
Endo Procedure/Findings Findings 1.: Internal Hemorrhoids Discharge Instructions - Activity: You might feel a little sleepy until tomorrow. This is due to the me dicine you received to relax you. Until tomorrow, you should: NOT drive a car, operate machinery or power tools. NOT drink any alcoholic beverages. NOT make any important decisions or sign importortant papers. Do not return to work until tomorrow, unless otherwise instructed. Resume previous activities tomorrow. Diet: Start by taking liquids. If you tolerate liquids, advance to solid food. 1.: Other Recommendation (colonoscopy at 50 unless significant changes) Notify Physician - If you experience excessive bleeding, unusual abdominal pain, fever, or chest pain, contact your doctor immediately. JEANNINE MOSHER DO May 07, 2021 15:01
[2021-05-07 15:25] VITALS: BP 118/74
[2021-05-07 15:35] VITALS: BP 118/74
== END 2021-05-07 15:35 | disposition home or self-care (01) ==
LOC: ENDO 12:20
PROVIDERS: ATTEND Surgery
DX: K64.8 Other hemorrhoids (principal); K62.5 Hemorrhage of anus and rectum; J45.909 Unspecified asthma, uncomplicated; Z79.899 Other long term (current) drug therapy
CPT/HCPCS: 84703

== ENCOUNTER → 2023-02-27 | Outpatient (CLI) | payer MEDICAID, OTHER ==
[~2023-02-27] MED LIST changes: +ACET-11 PO; -ACET1TAB43 PO; +ALBU8.5H6 IH; +BARIUM for suspension 96% w/w (Vanilla Silq Medium Density) PO ONE; +BARIUM for suspension 98% w/w (Vanilla Silq High Density) PO ONE; -RT-ALBUINH IH
--- NOTE | 2023-02-27 12:04 | Diagnostic Imaging Report ---
INDICATION: Food getting stuck in the throat. Patient ingested effervescent crystals as well as thin and thick barium and imaging of the esophagus was performed in multiple obliquities. 36 seconds of fluoroscopic time was utilized. Reference air Kerma is 13.5 mGy. 28 images were obtained. Social Group Worker radiograph is unremarkable. The esophagus has a smooth contour. No mass or stricture is identified. No hiatal hernia or gastroesophageal reflux was demonstrated. IMPRESSION: Unremarkable esophagram. Dictated by: Dictated on workstation # [id number]
== END ==
LOC: RAD 10:34
PROVIDERS: ATTEND Plastic Surgery Plastic Surgery Within the Head and Neck
DX: R13.10 Dysphagia, unspecified (principal)
CPT/HCPCS: 74220